=== PATIENT | female | born 1955 | race Caucasian/White ===

== ENCOUNTER 2016-11-04 15:54 | Outpatient (CLI) | payer BC | END 2016-11-04 15:55 | disposition home or self-care (01) | DX: M47.816 Spondylosis without myelopathy or radiculopathy, lumbar region (principal); M51.37 Other intervertebral disc degeneration, lumbosacral region ==

== ENCOUNTER 2016-12-28 11:04 | Outpatient (CLI) | payer BC | END 2016-12-28 11:05 | disposition home or self-care (01) | DX: K70.31 Alcoholic cirrhosis of liver with ascites (principal); Z87.898 Personal history of other specified conditions ==

== ENCOUNTER 2017-03-23 00:48 | Emergency (ER) | payer BC ==
--- NOTE | 2017-03-23 01:22 | ED Physician Documentation ---
PD HPI ABD PAIN - Stated complaint Stated Complaint: VOMITING - Chief complaint Chief Complaint: Abd Pain - History obtained from History obtained from: Patient - History of Present Illness Timing - onset: How many days ago (2-3) Timing - duration: Days Timing - details: Intermittant, Waxing and waning Pain level now: 8 (8: back (chronic); 3: abdomen, across upper abdomen) Quality: Pain Location: RUQ, Epigastric, LUQ, Periumbilical Radiation: Lower back Improved by: Other (no ameliorating factors) Worsened by: Eating, Position, Palpation Associated symptoms: Nausea, Vomiting - Additional information Additional information: patient complains of 2-3 days of nausea, vomiting. she has had difficulty keeping her chronic pain medications down, including oxycodone and oxycontin. she thus also c/o exacerbation of her chronic LBP. she says she contacted her prescribing physician regarding having vomited doses of her chronic pain medication and, per patient, was told to go to the emergency department Review of Systems Constitutional: reports: Reviewed and negative Cardiac: reports: Reviewed and negative Respiratory: reports: Reviewed and negative GI: reports: Abdominal Pain, Nausea, Vomiting : denies: Dysuria, Frequency Musculoskeletal: reports: Back pain Neurologic: reports: Headache. 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 HEENT: Other - Present Medications Home Medications: Ambulatory Orders Medication Instructions Recorded Confirmed Calcium Carbonate/Vitamin D3 400 mg PO DAILY 08/18/15 03/24/17 [Calcium 600 + Vit D 400 Softgl] Furosemide [Lasix] 20 mg PO DAILY 08/18/15 03/24/17 Lactobac Cmb #3/Fos/Pantethine 1 each PO BID PRN 08/18/15 03/24/17 [Probiotic & Acidophilus Cap] Levothyroxine [Synthroid] 100 mcg PO DAILY 08/18/15 03/24/17 Nadolol [Corgard] 20 mg PO DAILY 08/18/15 03/24/17 Omeprazole [PriLOSEC] 20 mg PO DAILY 08/18/15 03/24/17 Spironolactone 50 mg PO DAILY 08/18/15 03/24/17 oxyCODONE ER [OxyCONTIN] 10 mg PO Q12H 08/18/15 03/24/17 oxyCODONE [Roxicodone] 5 mg PO Q4-6H 08/18/15 03/24/17 Ondansetron Odt [Zofran] 4 mg TL Q6H PRN #14 tablet 03/23/17 03/24/17 oxyCODONE [Roxicodone] 5 mg PO Q4-6H PRN #8 tablet 03/23/17 03/24/17 - Allergies Allergies/Adverse Reactions: Allergies Allergy/AdvReac Type Severity Reaction Status Date / Time No Known Drug Allergies Allergy Verified 03/23/17 00:57 - Social History Does the pt smoke?: No Smoking Status: Never smoker Does the pt drink ETOH?: No Does the pt have substance abuse?: No - Immunizations Immunizations are current?: Yes PD ED PE NORMAL - Vitals Vital signs reviewed: Yes - General General: Alert and oriented X 3, No acute distress, Well developed/nourished - HEENT HEENT: Moist mucous membranes - Neck Neck: Supple, no meningeal sign - Cardiac Cardiac: RRR, No murmur - Respiratory Respiratory: No respiratory distress, Clear bilaterally - Abdomen Abdomen: Soft, Non distended, Other (mild tenderness across upper abdomen without rebound or guarding) - Back Back: No spinal TTP - Derm Derm: Normal color, Warm and dry - Extremities Extremities: Normal ROM s pain, No edema - Neuro Neuro: Alert and oriented X 3, No motor deficit, No sensory deficit, Normal speech Results - Vitals Vitals: Oxygen O2 Source [With Activity] Room air O2 Source [Without Activity] Room air O2 Source Room air - Labs Labs: Laboratory Tests 03/23/17 03/23/17 01:53 01:53 WBC 8.5 RBC 5.13 Hgb 14.9 Hct 43.8 MCV 85.3 MCH 29.0 MCHC 34.0 RDW 15.5 H Plt Count 247 MPV 7.9 Neut # 6.7 H Lymph # 1.1 L [place] # 0.4 Eos # 0.0 Baso # 0.3 H Absolute Nucleated RBC 0.01 Nucleated RBCs 0.1 Sodium 143 Potassium 3.3 L Chloride 107 Carbon Dioxide 24 Anion Gap 12.0 BUN 9 Creatinine 0.7 Estimated GFR (MDRD) 85 L Glucose 220 H Calcium 9.9 Total Bilirubin 1.3 H AST 30 ALT 21 Alkaline Phosphatase 92 Total Protein 9.1 H Albumin 4.6 Globulin 4.5 H Albumin/Globulin Ratio 1.0 Lipase 38 PD MEDICAL DECISION MAKING - ED course Complexity details: reviewed old records, reviewed results, re-evaluated patient , considered differential, d/w patient ED course: reported improvement after IV fluids, IV dilaudid, and zofran. she expressed concern that she would be running out of her prescription pain medication due to the doses she vomited. she says she has an appointment in 3 days, "so I wouldnt need much". I explained to her that i would not feel comfortable prescribing oxycontin, but that I would write for a small amount of oxycodone that should cover the missing doses. Departure - Departure Disposition: 01 Home, Self Care Clinical Impression: Vomiting Qualifiers: Vomiting type: unspecified Vomiting Intractability: non-intractable Nausea presence: with nausea Qualified Code(s): R11.2 - Nausea with vomiting, unspecified Abdominal pain Qualifiers: Abdominal location: generalized Qualified Code(s): R10.84 - Generalized abdominal pain Condition: Good Instructions: ED Nausea Vomiting Follow-Up: Eloisa Rashid MD [Primary Care Provider] - Prescriptions: oxyCODONE [Roxicodone] 5 mg PO Q4-6H PRN #8 tablet PRN Reason: Pain Ondansetron Odt [Zofran] 4 mg TL Q6H PRN #14 tablet PRN Reason: Nausea / Vomiting Discharge Date/Time: 03/23/17 06:33
[2017-03-23] MEDS ORDERED: ONDANSETRON 4 MG/2 ML VIAL IVP STA ×2 (01:41→05:18)
[2017-03-23] MEDS ORDERED: SODIUM CHLORIDE 0.9% 1,000 ML IV STA (01:41)
[2017-03-23] MEDS ORDERED: HYDROmorphone 1 MG/ML SYRINGE IVP STA ×3 (01:41→05:18)
[2017-03-23] MEDS ORDERED: HYDROmorphone 1 MG/ML SYRINGE ONE ×3 (01:46→05:44)
[2017-03-23] MEDS ORDERED: ONDANSETRON 4 MG/2 ML VIAL ONE ×2 (01:46→05:44)
[2017-03-23 02:01] LABS: BASOPHILS # (AUTO) 0.3 10^3/uL (0.0-0.1); BASOPHILS % (AUTO) 3.4 %; EOSINOPHILS % (AUTO) 0.2 %; HCT - HEMATOCRIT 43.8 % (37.0-47.0); HGB - HEMOGLOBIN 14.9 g/dL (12.0-16.0); LYMPHOCYTES # (AUTO) 1.1 10^3/uL (1.5-3.5); LYMPHOCYTES % (AUTO) 13.1 %; MEAN CORPUSCULAR VOLUME 85.3 fL (81.0-99.0); MEAN PLATELET VOLUME 7.9 fL (7.9-10.8); MONOCYTES # (AUTO) 0.4 10^3/uL (0.0-1.0); MONOCYTES % (AUTO) 4.3 %; NEUTROPHILS # (AUTO) 6.7 10^3/uL (1.5-6.6); NUCLEATED RED BLOOD CELLS AUTO 0.1 /100WBC; RED BLOOD COUNT 5.13 10^6/uL (4.20-5.40); RED CELL DISTRIBUTION WIDTH 15.5 % (12.0-15.0); UNCORRECTED WHITE BLOOD COUNT 8.5 x10^3/uL; WHITE BLOOD COUNT 8.5 x10^3/uL (4.8-10.8)
[2017-03-23 02:29] LABS: BILIRUBIN,TOTAL 1.3 mg/dL (0.2-1.0); CALCIUM 9.9 mg/dL (8.5-10.3); CREATININE 0.7 mg/dL (0.4-1.0); POTASSIUM 3.3 mmol/L (3.5-5.0); TOTAL PROTEIN 9.1 g/dL (6.7-8.2)
[2017-03-23 06:33] VITALS: BP 165/90
== END 2017-03-23 06:33 | disposition home or self-care (01) ==
LOC: ED 00:48
DX: R11.2 Nausea with vomiting, unspecified (principal); R10.84 Generalized abdominal pain; G89.29 Other chronic pain; Z96.649 Presence of unspecified artificial hip joint; Z96.659 Presence of unspecified artificial knee joint
CPT/HCPCS: 36415; 80053; 83690; 85025; 96374; 96375; 96376; 99282; 99284; J1170

== ENCOUNTER 2017-03-24 16:56 | Emergency (ER) | payer BC ==
[2017-03-24] MEDS ORDERED: SODIUM CHLORIDE 0.9% 1,000 ML IV ONE ×2 (18:17)
[2017-03-24] MEDS ORDERED: SODIUM CHLORIDE FLUSH 0.9% 10 ML SYRINGE IVP ONE (18:27)
[2017-03-24] MEDS ORDERED: ONDANSETRON 4 MG/2 ML VIAL IVP STA (18:28)
[2017-03-24] MEDS ORDERED: HYDROmorphone 1 MG/ML SYRINGE IVP STA ×2 (18:28→19:57)
[2017-03-24] MEDS ORDERED: ONDANSETRON 4 MG/2 ML VIAL ONE (18:50)
[2017-03-24] MEDS ORDERED: HYDROmorphone 1 MG/ML SYRINGE ONE ×2 (18:50→20:02)
[2017-03-24 19:07] LABS: BASOPHILS # (AUTO) 0.1 10^3/uL (0.0-0.1); BASOPHILS % (AUTO) 1.3 %; EOSINOPHILS # (AUTO) 0.1 10^3/uL (0.0-0.7); EOSINOPHILS % (AUTO) 0.8 %; HCT - HEMATOCRIT 42.9 % (37.0-47.0); HGB - HEMOGLOBIN 14.6 g/dL (12.0-16.0); LYMPHOCYTES # (AUTO) 2.4 10^3/uL (1.5-3.5); LYMPHOCYTES % (AUTO) 26.2 %; MEAN CORPUSCULAR HEMOGLOBIN 29.2 pg (27.0-31.0); MEAN CORPUSCULAR VOLUME 85.8 fL (81.0-99.0); MEAN PLATELET VOLUME 7.7 fL (7.9-10.8); MONOCYTES # (AUTO) 0.8 10^3/uL (0.0-1.0); MONOCYTES % (AUTO) 8.8 %; NEUTROPHILS # (AUTO) 5.8 10^3/uL (1.5-6.6); NEUTROPHILS % (AUTO) 62.9 %; NUCLEATED RED BLOOD CELLS AUTO 0.1 /100WBC; RED CELL DISTRIBUTION WIDTH 15.2 % (12.0-15.0); UNCORRECTED WHITE BLOOD COUNT 9.1 x10^3/uL; WHITE BLOOD COUNT 9.1 x10^3/uL (4.8-10.8)
[2017-03-24 19:21] LABS: ALBUMIN/GLOBULIN RATIO 1.2 (1.0-2.2); BILIRUBIN,TOTAL 1.6 mg/dL (0.2-1.0); CALCIUM 9.4 mg/dL (8.5-10.3); CREATININE 0.6 mg/dL (0.4-1.0); MAGNESIUM 1.3 mg/dL (1.7-2.8); PHOSPHORUS 3.5 mg/dL (2.5-4.6); POTASSIUM 2.8 mmol/L (3.5-5.0); TOTAL PROTEIN 7.4 g/dL (6.7-8.2)
[2017-03-24] MEDS ORDERED: IOPAMIDOL-300 100 ML VIAL IVP ONE (19:22)
--- NOTE | 2017-03-24 20:02 | CT Preliminary Report ---
Exam: CT Abdomen/Pelvis W/ IMPRESSION: 1. Liver cirrhosis. 2. No ascites. 3. Mild sigmoid diverticulosis without evidence for acute diverticulitis. 4. No evidence for bowel obstruction. 5. Status post cholecystectomy. Mild common duct dilatation measuring 8 mm. 6. Otherwise, as above. [facility] SITE ID: [id number]
--- NOTE | 2017-03-24 20:04 | CT Report ---
EXAM: CT ABDOMEN AND PELVIS EXAM DATE: 03/24/2017 07:27 PM. CLINICAL HISTORY: Abdominal pain and vomiting. COMPARISONS: Abdomen US 12/28/16. TECHNIQUE: Routine helical CT imaging was performed through the abdomen and pelvis. IV contrast: 100 mL Isovue-300. Enteric contrast: No. Reconstructions: Coronal and sagittal. In accordance with CT protocol optimization, one or more of the following dose reduction techniques w ere utilized for this exam: automated exposure control, adjustment of mA and/or KV based on patient s ize, or use of iterative reconstructive technique. FINDINGS: Lung Bases: No acute findings. Liver: Shrunken cirrhotic liver with irregular contour. Gallbladder/Bile Ducts: Status post cholecystectomy. Mild common duct dilatation measuring 8 mm. Spleen: Small nonspecific low density at the lower aspect of the spleen measuring 5 mm. More superior ly there is a low density mass, most suggestive for splenic cyst, measures 1 cm. Pancreas: Normal. Adrenal Glands: Normal. Kidneys: No masses or hydronephrosis. Peritoneal Cavity/Bowel: Mild sigmoid diverticulosis without evidence for acute diverticulitis. No ev idence for bowel obstruction. No free fluid or free air. The appendix is not seen. Pelvic Organs: Normal. The bladder and visualized pelvic organs are within normal limits. Vasculature: No abdominal aortic aneurysm. No acute findings. Bones: Right total hip arthroplasty. The metal artifact limits evaluation of the pelvis. No acute bon e findings seen. IMPRESSION: 1. Liver cirrhosis. 2. No ascites. 3. Mild sigmoid diverticulosis without evidence for acute diverticulitis. 4. No evidence for bowel obstruction. 5. Status post cholecystectomy. Mild common duct dilatation measuring 8 mm. 6. Otherwise, as above. [facility] Referring Provider Line: [phone] SITE ID: [id number]
[2017-03-24] MEDS ORDERED: diphenhydrAMINE 25 MG CAPSULE PO STA (20:22)
[2017-03-24] MEDS ORDERED: diphenhydrAMINE 25 MG CAPSULE PO ONE (20:27)
[2017-03-24] MEDS ORDERED: POTASSIUM BICARB 25 MEQ TABLET PO STA (20:28)
[2017-03-24] MEDS ORDERED: MAGNESIUM OXIDE 400 MG TABLET PO STA (20:31)
[2017-03-24] MEDS ORDERED: POTASSIUM BICARB 25 MEQ TABLET PO ONE (20:38)
[2017-03-24] MEDS ORDERED: MAGNESIUM OXIDE 400 MG TABLET PO ONE (20:38)
--- NOTE | 2017-03-24 21:43 | ED Physician Documentation ---
History of Present Illness - Stated complaint Stated Complaint: RAJPUT DEHYDRATION - Chief complaint Chief Complaint: Abd Pain - History obtained from History obtained from: Patient, Family - History of Present Illness Timing: How many days ago (several) Pain level max: 8 Pain level now: 8 Quality: aching, cramping Improved by: nothing Worsened by: nothing - Additonal information Additional information: 61-year-old female presents to the emergency department with nausea and vomiting. States she is out of her narcotic pain medications including oxycodone and OxyContin. States that she does not feel that her vomiting is due to running out of her pain medication. No fevers. No recent travel. Has had some loose stools. No recent antibiotics. Was seen here 2 days ago for same. Review of Systems Constitutional: denies: Fever, Chills Throat: denies: Sore throat Cardiac: denies: Chest pain / pressure Respiratory: denies: Cough GI: reports: Nausea, Vomiting Skin: denies: Rash Musculoskeletal: denies: Neck pain, Back pain Neurologic: denies: Headache PD PAST MEDICAL HISTORY - Past Medical History Past Medical History: Yes Cardiovascular: Hypertension Respiratory: None Endocrine/Autoimmune: HyPOthyroidism GI: GERD, Ulcers, Other : None HEENT: Other Psych: None Musculoskeletal: Fibromyalgia, Osteoporosis, Chronic back pain, Other Derm: None - Past Surgical History Past Surgical History: Yes General: Cholecystectomy 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 HEENT: Other - Present Medications Home Medications: Ambulatory Orders Medication Instructions Recorded Confirmed Calcium Carbonate/Vitamin D3 400 mg PO DAILY 08/18/15 03/24/17 [Calcium 600 + Vit D 400 Softgl] Furosemide [Lasix] 20 mg PO DAILY 08/18/15 03/24/17 Lactobac Cmb #3/Fos/Pantethine 1 each PO BID PRN 08/18/15 03/24/17 [Probiotic & Acidophilus Cap] Levothyroxine [Synthroid] 100 mcg PO DAILY 08/18/15 03/24/17 Nadolol [Corgard] 20 mg PO DAILY 08/18/15 03/24/17 Omeprazole [PriLOSEC] 20 mg PO DAILY 08/18/15 03/24/17 Spironolactone 50 mg PO DAILY 08/18/15 03/24/17 oxyCODONE ER [OxyCONTIN] 10 mg PO Q12H 08/18/15 03/24/17 oxyCODONE [Roxicodone] 5 mg PO Q4-6H 08/18/15 03/24/17 Ondansetron Odt [Zofran] 4 mg TL Q6H PRN #14 tablet 03/23/17 03/24/17 oxyCODONE [Roxicodone] 5 mg PO Q4-6H PRN #8 tablet 03/23/17 03/24/17 Ondansetron Odt [Zofran] 4 mg TL Q6H PRN #10 tablet 03/24/17 oxyCODONE [Roxicodone] 5 mg PO Q4-6H PRN #20 tablet 03/24/17 - Allergies Allergies/Adverse Reactions: Allergies Allergy/AdvReac Type Severity Reaction Status Date / Time No Known Drug Allergies Allergy Verified 03/23/17 00:57 - Social History Does the pt smoke?: No Smoking Status: Never smoker Does the pt drink ETOH?: No Does the pt have substance abuse?: No - Immunizations Immunizations are current?: Yes PD ED PE NORMAL - Vitals Vital signs reviewed: Yes - General General: Alert and oriented X 3, No acute distress - HEENT HEENT: PERRL - Neck Neck: Supple, no meningeal sign - Cardiac Cardiac: RRR, Strong equal pulses - Respiratory Respiratory: No respiratory distress, Clear bilaterally - Abdomen Abdomen: Soft, Non tender, Non distended - Derm Derm: Warm and dry, No rash - Extremities Extremities: No edema - Neuro Neuro: Alert and oriented X 3 - Psych Psych: Normal mood, Normal affect Results - Vitals Vitals: Vital Signs - 24 hr 03/24/17 03/24/17 03/24/17 17:07 19:47 20:11 Temperature 36.9 C Heart Rate 70 58 L 67 Respiratory 16 18 18 Rate Blood Pressure 155/107 H 182/77 H 130/93 H O2 Saturation 96 97 98 03/24/17 22:01 Temperature 36.6 C Heart Rate 68 Respiratory 18 Rate Blood Pressure 142/99 H O2 Saturation 96 Oxygen O2 Source [With Activity] Room air O2 Source [Without Activity] Room air O2 Source Room air - Labs Labs: Laboratory Tests 03/24/17 03/24/17 19:00 19:00 WBC 9.1 RBC 5.00 Hgb 14.6 Hct 42.9 MCV 85.8 MCH 29.2 MCHC 34.0 RDW 15.2 H Plt Count 209 MPV 7.7 L Neut # 5.8 Lymph # 2.4 [place] # 0.8 Eos # 0.1 Baso # 0.1 Absolute Nucleated RBC 0.01 Nucleated RBCs 0.1 Sodium 139 Potassium 2.8 L Chloride 104 Carbon Dioxide 25 Anion Gap 10.0 BUN 7 Creatinine 0.6 Estimated GFR (MDRD) 102 Glucose 155 H Calcium 9.4 Phosphorus 3.5 Magnesium 1.3 L Total Bilirubin 1.6 H AST 48 H ALT 31 Alkaline Phosphatase 85 Total Protein 7.4 Albumin 4.0 Globulin 3.4 Albumin/Globulin Ratio 1.2 Lipase 41 - Rads (name of study) CT abd/pelvis Radiology: Prelim report reviewed, EMP read contemporaneously, See rad report ( Liver cirrhosis. No ascites. Mild sigmoid diverticulosis without evidence for acute diverticulitis. No evidence for bowel obstruction. Status post cholecystectomy. Mild common duct dilatation measuring 8 mm. Otherwise, as above. ) PD MEDICAL DECISION MAKING - ED course Complexity details: reviewed old records, reviewed results, re-evaluated patient , considered differential, d/w patient, d/w family ED course: Patient is a 61-year-old female with recurrent vomiting. Likely secondary to narcotic withdrawal. Symptoms resolved in the emergency department with IV fluids, Zofran and Dilaudid. She is out of her pain medications until she can see her doctor on Tuesday. Will prescribe a small amount of oxycodone that she will need to make last during that time. Tolerating p.o. without difficulty here. Potassium was replaced. Patient counseled regarding signs and symptoms for which I believe and urgent re-evaluation would be necessary. Patient with good understanding of and agreement to plan and is comfortable going home at this time This document was made in part using voice recognition software. While efforts are made to proofread this document, sound alike and grammatical errors may occur. Departure - Departure Disposition: 01 Home, Self Care Clinical Impression: Abdominal pain Qualifiers: Abdominal location: unspecified location Qualified Code(s): R10.9 - Unspecified abdominal pain Vomiting Qualifiers: Vomiting type: unspecified Vomiting Intractability: non-intractable Nausea presence: with nausea Qualified Code(s): R11.2 - Nausea with vomiting, unspecified Condition: Good Instructions: ED Nausea Vomiting Follow-Up: RICHARD MCNAMARA [Primary Care Provider] - Within 3 Days Prescriptions: oxyCODONE [Roxicodone] 5 mg PO Q4-6H PRN #20 tablet PRN Reason: Abdominal Pain Ondansetron Odt [Zofran] 4 mg TL Q6H PRN #10 tablet PRN Reason: Nausea / Vomiting Comments: Return if you worsen. Drink plenty of fluids and rest. Follow-up with your doctor for further pain medication. Return if you worsen. Drink plenty of fluids and rest. Follow-up with your doctor for further pain medication. Do not drink alcohol or drive while on narcotic pain medicine. Note that many narcotic pain relievers also contain tylenol/acetaminophen. Please ensure that your total dose of acetaminophen from all sources does not exceed 3 grams (3000mg) per day. You may constipated on this medication, take a stool softener such as "Colace" twice a day while you are on it. Also recommend a pczj-hgh-qhuidro laxative such as senna or MiraLAX any day that you do not have a bowel movement. If you received narcotic pain medication in the emergency department, do not drive or operate machinery for the next 24 hours. Discharge Date/Time: 03/24/17 22:03
[2017-03-24 22:01] VITALS: BP 142/99
== END 2017-03-24 22:03 | disposition home or self-care (01) ==
LOC: ED 16:56
DX: R10.9 Unspecified abdominal pain (principal); R11.2 Nausea with vomiting, unspecified; I10 Essential (primary) hypertension; Z96.659 Presence of unspecified artificial knee joint; Z96.649 Presence of unspecified artificial hip joint
CPT/HCPCS: 36415; 74177; 80053; 83690; 83735; 84100; 85025; 96374; 96375; 96376; 99283; 99284; A9270; J1170; Q9967

== ENCOUNTER 2017-09-25 11:11 | Emergency (ER) | payer OTHER ==
[2017-09-25 11:29] VITALS: BP 125/73
[2017-09-25 12:37] LABS: BASOPHILS # (AUTO) 0.1 10^3/uL (0.0-0.1); BASOPHILS % (AUTO) 0.6 %; EOSINOPHILS # (AUTO) 0.1 10^3/uL (0.0-0.7); HGB - HEMOGLOBIN 13.9 g/dL (12.0-16.0); LYMPHOCYTES # (AUTO) 1.1 10^3/uL (1.5-3.5); LYMPHOCYTES % (AUTO) 9.9 %; MEAN CORPUSCULAR HGB CONC 34.4 g/dL (32.0-36.0); MEAN CORPUSCULAR VOLUME 87.2 fL (81.0-99.0); MEAN PLATELET VOLUME 8.6 fL (7.9-10.8); MONOCYTES % (AUTO) 9.4 %; NEUTROPHILS # (AUTO) 8.5 10^3/uL (1.5-6.6); NEUTROPHILS % (AUTO) 79.1 %; PLT - PLATELET COUNT 192 10^3/uL (130-450); RED BLOOD COUNT 4.64 10^6/uL (4.20-5.40); RED CELL DISTRIBUTION WIDTH 14.3 % (12.0-15.0); WHITE BLOOD COUNT 10.8 x10^3/uL (4.8-10.8)
--- NOTE | 2017-09-25 13:00 | ED Physician Documentation ---
PD HPI PED ILLNESS - Stated complaint Stated Complaint: FLU LIKE SYMPTOM - Chief complaint Chief Complaint: Resp - History obtained from History obtained from: Patient, Family - History of Present Illness Timing - onset: Other (She has been sick since August 10 cough and cold symptoms. He was getting better but then recurred about a week and a half ago with increased fevers and continued green sinus drainage and productive cough. She was diagnosed with influenza and placed on Tamiflu, she finished that about 5 days ago but is no better. Mostly complains of productive cough and chest tightness.) Review of Systems Constitutional: reports: Fever, Chills Ears: denies: Ear pain Nose: reports: Rhinorrhea / runny nose, Congestion, Sinus pressure / pain Throat: denies: Sore throat Respiratory: reports: Dyspnea, Cough GI: denies: Abdominal Pain, Nausea, Vomiting PD PAST MEDICAL HISTORY - Past Medical History Past Medical History: Yes Cardiovascular: Hypertension Respiratory: None Endocrine/Autoimmune: HyPOthyroidism GI: GERD, Ulcers, Other : None HEENT: Other Psych: None Musculoskeletal: Fibromyalgia, Osteoporosis, Chronic back pain, Other Derm: None - Past Surgical History Past Surgical History: Yes General: Cholecystectomy 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, 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 HEENT: Other - Present Medications Home Medications: Ambulatory Orders Medication Instructions Recorded Confirmed Calcium Carbonate/Vitamin D3 400 mg PO DAILY 08/18/15 09/25/17 [Calcium 600 + Vit D 400 Softgl] Furosemide [Lasix] 20 mg PO DAILY 08/18/15 09/25/17 Lactobac Cmb #3/Fos/Pantethine 1 each PO BID PRN 08/18/15 09/25/17 [Probiotic & Acidophilus Cap] Levothyroxine [Synthroid] 100 mcg PO DAILY 08/18/15 09/25/17 Nadolol [Corgard] 20 mg PO DAILY 08/18/15 09/25/17 Omeprazole [PriLOSEC] 20 mg PO DAILY 08/18/15 09/25/17 Spironolactone 50 mg PO DAILY 08/18/15 09/25/17 oxyCODONE ER [OxyCONTIN] 10 mg PO Q12H 08/18/15 09/25/17 oxyCODONE [Roxicodone] 5 mg PO Q4-6H 08/18/15 09/25/17 Ondansetron Odt [Zofran] 4 mg TL Q6H PRN #14 tablet 03/23/17 09/25/17 Azithromycin [Zithromax] 250 mg PO DAILY #4 tablet 09/25/17 SUMAtriptan [Imitrex] 25 mg PO BID PRN #10 tablet 09/25/17 - Allergies Allergies/Adverse Reactions: Allergies Allergy/AdvReac Type Severity Reaction Status Date / Time No Known Drug Allergies Allergy Verified 09/25/17 11:35 - Social History Does the pt smoke?: No Smoking Status: Never smoker Does the pt drink ETOH?: No Does the pt have substance abuse?: No - Immunizations Immunizations are current?: Yes - POLST Patient has POLST: No PD ED PE NORMAL - Vitals Vital signs reviewed: Yes - General General: Alert and oriented X 3, No acute distress - HEENT HEENT: PERRL, EOMI, Ears normal, Pharynx benign - Neck Neck: Supple, no meningeal sign, No bony TTP - Cardiac Cardiac: RRR, No murmur - Respiratory Respiratory: No respiratory distress, Other (Very diminished at the left base) - Abdomen Abdomen: Non tender - Derm Derm: Normal color, Warm and dry - Extremities Extremities: No edema, No calf tenderness / cord - Neuro Neuro: Alert and oriented X 3, Normal speech - Psych Psych: Normal mood, Normal affect Results - Vitals Vitals: Vital Signs - 24 hr 09/25/17 11:27 Temperature 36.3 C L Heart Rate 62 Respiratory 18 Rate Blood Pressure 125/73 O2 Saturation 96 Oxygen O2 Source [] Room air O2 Source [] Room air O2 Source Room air - EKG (time done) 1131 Rate: Rate (enter#) (57) Rhythm: NSR [place]: Normal Intervals: Normal [place] QRS: Normal Ischemia: Normal ST segments Computer interpretation: Agree with computer - Labs Labs: Laboratory Tests 09/25/17 09/25/17 12:32 12:32 WBC 10.8 RBC 4.64 Hgb 13.9 Hct 40.4 MCV 87.2 MCH 30.0 MCHC 34.4 RDW 14.3 Plt Count 192 MPV 8.6 Neut # 8.5 H Lymph # 1.1 L [place] # 1.0 Eos # 0.1 Baso # 0.1 Absolute Nucleated RBC 0.00 Nucleated RBC % 0.0 Sodium 128 L Potassium 3.8 Chloride 93 L Carbon Dioxide 21 Anion Gap 14.0 H BUN 10 Creatinine 0.7 Estimated GFR (MDRD) 85 L Glucose 366 H Calcium 9.0 Total Bilirubin 1.4 H AST 24 ALT 12 Alkaline Phosphatase 81 Total Protein 8.0 Albumin 3.5 Globulin 4.5 H Albumin/Globulin Ratio 0.8 L Lipase 21 L - Rads (name of study) 2v chest Radiology: EMP read contemporaneously (LLL JW) PD MEDICAL DECISION MAKING - ED course ED course: 62-year-old woman with clinical left lower lobe pneumonia corroborated on chest x-ray. She has a history of C. difficile, Zithromax less likely to give that than others and this is chosen. She also has elevated blood sugar. She is given a small dose of insulin but close follow-up was advised. No evidence of DKA. Departure - Departure Disposition: 01 Home, Self Care Clinical Impression: History of cirrhosis, Hyperglycemia Pneumonia Qualifiers: Pneumonia type: due to unspecified organism Laterality: left Lung location: lower lobe of lung Qualified Code(s): J18.1 - Lobar pneumonia, unspecified organism Condition: Good Record reviewed to determine appropriate education?: Yes Instructions: Pneumonia Dc Prescriptions: Azithromycin [Zithromax] 250 mg PO DAILY #4 tablet SUMAtriptan [Imitrex] 25 mg PO BID PRN #10 tablet PRN Reason: Headache Comments: Your blood sugar was fairly elevated today, follow-up with your doctor tomorrow or Tuesday regarding this and for follow-up of your left lower lobe pneumonia. Return anytime if worse. Discharge Date/Time: 09/25/17 14:54
[2017-09-25 13:06] LABS: ALBUMIN 3.5 g/dL (3.2-5.5); ALBUMIN/GLOBULIN RATIO 0.8 (1.0-2.2); BILIRUBIN,TOTAL 1.4 mg/dL (0.2-1.0); CREATININE 0.7 mg/dL (0.4-1.0)
--- NOTE | 2017-09-25 14:15 | XRAY Report ---
EXAM: CHEST RADIOGRAPHY EXAM DATE: 09/25/2017 02:03 PM. CLINICAL HISTORY: Cough. Chest pain. Shortness of air. COMPARISON: 07/12/2016. TECHNIQUE: 2 views. FINDINGS: Lungs/Pleura: Left medial posterior lower lobe airspace consolidation. No pleural effusions. No pneum othorax. Mediastinum: Heart size is normal. Aorta is mildly tortuous. Other: Degenerative changes of the thoracic spine. IMPRESSION: 1. Left lower lobe pneumonia. [facility] Referring Provider Line: [phone] SITE ID: [id number]
[2017-09-25] MEDS ORDERED: AZITHROMYCIN 250 MG TABLET PO STA (14:22)
[2017-09-25] MEDS ORDERED: METOCLOPRAMIDE 10 MG TABLET PO STA (14:22)
[2017-09-25] MEDS ORDERED: INSULIN NPH HUMAN 100 UNIT/1 ML 10 ML MDV SUBQ STA (14:22)
== END 2017-09-25 14:54 | disposition home or self-care (01) ==
LOC: ED 11:11
DX: R73.9 Hyperglycemia, unspecified (principal); K74.60 Unspecified cirrhosis of liver; J18.9 Pneumonia, unspecified organism; I10 Essential (primary) hypertension; E03.9 Hypothyroidism, unspecified; Z96.649 Presence of unspecified artificial hip joint; Z96.659 Presence of unspecified artificial knee joint
CPT/HCPCS: 36415; 71046; 80053; 83690; 85025; 93005; 99283; 99284; A9270; J1815

== ENCOUNTER 2017-10-04 20:51 | Emergency (ER) | payer OTHER ==
[2017-10-04] MEDS ORDERED: ONDANSETRON 4 MG/2 ML VIAL IVP STA (23:02)
[2017-10-04] MEDS ORDERED: MORPHINE 2 MG/ML CARPUJECT IVP STA (23:02)
[2017-10-04] MEDS ORDERED: SODIUM CHLORIDE 0.9% 1,000 ML IV ONE (23:02)
--- NOTE | 2017-10-04 23:05 | ED Physician Documentation ---
PD HPI NVD - Stated complaint Stated Complaint: CHEST PX/VOMITING - Chief complaint Chief Complaint: Abd Pain - History obtained from History obtained from: Patient, Family - History of Present Illness Timing - onset: How many days ago (3) Timing - duration: Days (3) Timing - details: Gradual onset, Still present Associated symptoms: Loss of appetite, Weight loss, Other (vomiting non-stop) Contributing factors: Recent antibiotics, Other (on pain managment unable to take pain medications) Improved by: Laying still Similar symptoms before: Treatment (IV fluids and pain medications) Recently seen: Emergency Dept - Additonal information Additional information: 62-year-old female is been ill since 10 August. She started out with bronchitis then developed pneumonia she has been treated for pneumonia through the emergency department here on September 25 with a azithromycin. She feels the pneumonia is much improved she is not coughing as much is not bringing up as much phlegm and she did not have as much shortness of breath. She has developed nausea and vomiting and she is on pain control and her vomiting is now out of control. She has lost about 15 pounds. Review of Systems Constitutional: denies: Fever Eyes: denies: Decreased vision Ears: denies: Ear pain Nose: denies: Congestion Throat: denies: Sore throat Cardiac: denies: Chest pain / pressure, Palpitations Respiratory: reports: Cough. denies: Dyspnea GI: reports: Nausea, Vomiting. denies: Abdominal Pain : denies: Dysuria, Frequency Skin: denies: Rash Musculoskeletal: reports: Back pain, Extremity pain, Joint pain. denies: Neck pain Neurologic: reports: Generalized weakness. 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 HEENT: Other - Present Medications Home Medications: Ambulatory Orders Medication Instructions Recorded Confirmed Calcium Carbonate/Vitamin D3 400 mg PO DAILY 08/18/15 09/25/17 [Calcium 600 + Vit D 400 Softgl] Furosemide [Lasix] 20 mg PO DAILY 08/18/15 09/25/17 Lactobac Cmb #3/Fos/Pantethine 1 each PO BID PRN 08/18/15 09/25/17 [Probiotic & Acidophilus Cap] Levothyroxine [Synthroid] 100 mcg PO DAILY 08/18/15 09/25/17 Nadolol [Corgard] 20 mg PO DAILY 08/18/15 09/25/17 Omeprazole [PriLOSEC] 20 mg PO DAILY 08/18/15 09/25/17 Spironolactone 50 mg PO DAILY 08/18/15 09/25/17 oxyCODONE ER [OxyCONTIN] 10 mg PO Q12H 08/18/15 09/25/17 oxyCODONE [Roxicodone] 5 mg PO Q4-6H 08/18/15 09/25/17 Ondansetron Odt [Zofran] 4 mg TL Q6H PRN #14 tablet 03/23/17 09/25/17 Azithromycin [Zithromax] 250 mg PO DAILY #4 tablet 09/25/17 SUMAtriptan [Imitrex] 25 mg PO BID PRN #10 tablet 09/25/17 Levofloxacin [Levaquin] 500 mg PO DAILY #10 tablet 10/05/17 Oxycodone HCl/Acetaminophen 1 each PO Q4HR PRN #8 tablet 10/05/17 [Oxycodone-Acetaminophen 10-325] - Allergies Allergies/Adverse Reactions: Allergies Allergy/AdvReac Type Severity Reaction Status Date / Time No Known Drug Allergies Allergy Verified 10/04/17 21:19 - Social History Does the pt smoke?: No Smoking Status: Never smoker Does the pt drink ETOH?: No Does the pt have substance abuse?: No - Immunizations Immunizations are current?: Yes - POLST Patient has POLST: No PD ED PE NORMAL - Vitals Vital signs reviewed: Yes (Hypertensive) - General General: Alert and oriented X 3, No acute distress, Well developed/nourished - HEENT HEENT: Atraumatic, PERRL, EOMI - Neck Neck: Supple, no meningeal sign, No bony TTP - Cardiac Cardiac: RRR, No murmur - Respiratory Respiratory: No respiratory distress, Other (Marked rhonchi in the left base) - Abdomen Abdomen: Soft, Non tender - Back Back: No CVA TTP, No spinal TTP - Derm Derm: Normal color, Warm and dry, No rash - Extremities Extremities: No deformity, No edema - Neuro Neuro: Alert and oriented X 3, 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, No motor deficit, No sensory deficit, Normal speech Eye Opening: Spontaneous Motor: Obeys Commands Verbal: Oriented GCS Score: 15 - Psych Psych: Normal mood, Normal affect Results - Vitals Vitals: Vital Signs - 24 hr 10/04/17 10/04/17 10/04/17 20:56 22:15 22:53 Temperature 36.7 C Heart Rate 61 94 60 Respiratory 18 13 16 Rate Blood Pressure 199/101 H 194/110 H 176/114 H O2 Saturation 96 97 97 10/04/17 10/04/17 10/04/17 23:23 23:46 23:55 Temperature Heart Rate 59 L 57 L 57 L Respiratory 15 16 12 Rate Blood Pressure 196/107 H 196/107 H 180/92 H O2 Saturation 96 97 96 10/05/17 10/05/17 10/05/17 00:26 01:20 02:28 Temperature Heart Rate 57 L 65 60 Respiratory 12 17 14 Rate Blood Pressure 177/85 H 174/95 H 176/106 H O2 Saturation 96 98 95 10/05/17 10/05/17 03:26 03:34 Temperature Heart Rate 80 75 Respiratory 17 17 Rate Blood Pressure 156/96 H 128/90 H O2 Saturation 95 94 Oxygen O2 Source [] Room air O2 Source [] Room air O2 Source Room air - EKG (time done) 2054 Rate: Rate (enter#) (57) Rhythm: NSR Other comments: Other comments (early transition ) Compare to prior EKG: Unchanged from prior EKG (09-25-17) Computer interpretation: Agree with computer - Labs Labs: Laboratory Tests 10/04/17 10/04/17 10/04/17 21:40 21:40 21:40 WBC 10.7 RBC 5.73 H Hgb 16.2 H Hct 49.2 H MCV 85.8 MCH 28.3 MCHC 33.0 RDW 14.5 Plt Count 590 H MPV 8.0 Neut # 8.1 H Lymph # 2.0 [place] # 0.5 Eos # 0.0 Baso # 0.0 Absolute Nucleated RBC 0.02 Nucleated RBC % 0.2 Sodium 137 Potassium 3.9 Chloride 93 L Carbon Dioxide 28 Anion Gap 16.0 H BUN 13 Creatinine 1.0 Estimated GFR (MDRD) 56 L Glucose 196 H Calcium 10.3 Total Bilirubin 1.2 H AST 32 ALT 24 Alkaline Phosphatase 100 Troponin I < 0.04 Total Protein 8.5 H Albumin 3.7 Globulin 4.8 H Albumin/Globulin Ratio 0.8 L Lipase 27 Urine Color Urine Clarity Urine pH Ur Specific [place] Urine Protein Urine Glucose (UA) Urine Ketones Urine Occult Blood Urine Nitrite Urine Bilirubin Urine Urobilinogen Ur Leukocyte Esterase Urine RBC Urine WBC Ur Squamous Epith Cells Urine Bacteria Urine Casts Urine Mucus Ur Microscopic Review Urine Culture Comments 10/05/17 00:20 WBC RBC Hgb Hct MCV MCH MCHC RDW Plt Count MPV Neut # Lymph # [place] # Eos # Baso # Absolute Nucleated RBC Nucleated RBC % Sodium Potassium Chloride Carbon Dioxide Anion Gap BUN Creatinine Estimated GFR (MDRD) Glucose Calcium Total Bilirubin AST ALT Alkaline Phosphatase Troponin I Total Protein Albumin Globulin Albumin/Globulin Ratio Lipase Urine Color DARK YELLOW Urine Clarity CLEAR Urine pH 6.0 Ur Specific [place] >=1.030 H Urine Protein NEGATIVE Urine Glucose (UA) NEGATIVE Urine Ketones TRACE Urine Occult Blood NEGATIVE Urine Nitrite NEGATIVE Urine Bilirubin NEGATIVE Urine Urobilinogen 0.2 (NORMAL) Ur Leukocyte Esterase TRACE H Urine RBC 0-5 Urine WBC 4-5 Ur Squamous Epith Cells MOD Squamous H Urine Bacteria None Seen Urine Casts 3-5 Hyaline Casts Urine Mucus Moderate Strands Ur Microscopic Review INDICATED Urine Culture Comments NOT INDICATED - Rads (name of study) 2 view chest Radiology: Prelim report reviewed (Persistent left lower lobe infiltrate. Recommend radiologic follow-up to show complete resolution.), EMP read indepedently, See rad report Procedures - IVC sono (time) 2129 Bedside IVC sono: IVC measures (cm) (0.84), IVC collapsed c insp (cm) (complete) , Dehydration (est 2 liter deficit) PD MEDICAL DECISION MAKING - ED course Complexity details: reviewed old records, reviewed results, re-evaluated patient , considered differential, d/w patient, d/w family ED course: 62-year-old female on pain management has developed pneumonia in the left base. She was treated with azithromycin and feels that her symptoms improved dramatically. She has been vomiting however and continues to vomit and feels extremely dehydrated. She is on pain management and has not been able to hold down her pain medications. On examination she has marked rhonchi in the left base and on chest x-ray the infiltrate in the left base appears worse than it did 10 days ago. The patient has not had fever she has normal white blood cell count and her symptoms are improved. The radiographic appearance of the pneumonia is worse and further treatment is indicated. 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 She is interested in more aggressive treatment as she has been sick for 2 months. She is administered IV Rocephin and we will start her on Levaquin as an outpatient. She is significantly dehydrated on interrogation of the inferior vena cava and she is administered 2 L of normal saline. In addition she is administered morphine 10 mg with some improvement in her nausea and she has further improvement with a second 10 mg dose. She is taking OxyContin 20 mg 3 times daily and oxycodone 10 mg 6 per day. She indicates that she will not get a fill on her narcotics until the . This leaves her 1 day short and I believe that she will not do well with nausea and vomiting in withdrawal and have offered to provide 1 day of oxycodone 10. Departure - Departure Disposition: 01 Home, Self Care Clinical Impression: Dehydration, Narcotic withdrawal Pneumonia Qualifiers: Pneumonia type: due to unspecified organism Laterality: left Lung location: lower lobe of lung Qualified Code(s): J18.1 - Lobar pneumonia, unspecified organism Condition: Stable Instructions: ED Dehydration, ED Pneumonia Adult, ED Withdrawal Narcotic Follow-Up: Darren Kaye DO [Primary Care Provider] - Prescriptions: Oxycodone HCl/Acetaminophen [Oxycodone-Acetaminophen 10-325] 1 each PO Q4HR PRN #8 tablet PRN Reason: Pain Levofloxacin [Levaquin] 500 mg PO DAILY #10 tablet
[2017-10-04 23:12] LABS: BASOPHILS % (AUTO) 0.4 %; EOSINOPHILS % (AUTO) 0.1 %; HGB - HEMOGLOBIN 16.2 g/dL (12.0-16.0); LYMPHOCYTES % (AUTO) 18.9 %; MEAN CORPUSCULAR HEMOGLOBIN 28.3 pg (27.0-31.0); MEAN CORPUSCULAR VOLUME 85.8 fL (81.0-99.0); MONOCYTES # (AUTO) 0.5 10^3/uL (0.0-1.0); NEUTROPHILS # (AUTO) 8.1 10^3/uL (1.5-6.6); NEUTROPHILS % (AUTO) 75.6 %; PLT - PLATELET COUNT 590 10^3/uL (130-450); RED BLOOD COUNT 5.73 10^6/uL (4.20-5.40); RED CELL DISTRIBUTION WIDTH 14.5 % (12.0-15.0); WHITE BLOOD COUNT 10.7 x10^3/uL (4.8-10.8)
[2017-10-04 23:34] LABS: ALBUMIN 3.7 g/dL (3.2-5.5); ALBUMIN/GLOBULIN RATIO 0.8 (1.0-2.2); BILIRUBIN,TOTAL 1.2 mg/dL (0.2-1.0); CALCIUM 10.3 mg/dL (8.5-10.3); TOTAL PROTEIN 8.5 g/dL (6.7-8.2)
--- NOTE | 2017-10-05 00:08 | XRAY Report ---
EXAM: CHEST RADIOGRAPHY EXAM DATE: 10/04/2017 11:57 PM. CLINICAL HISTORY: L lower lobe rhonchi. COMPARISON: 09/25/2017. TECHNIQUE: 2 views. FINDINGS: Lungs/Pleura: Persistent left lower lobe infiltrate. No definite pleural effusion seen. No pneumothor ax. Mediastinum: Heart and mediastinal contours are unremarkable. Other: None. IMPRESSION: 1. Persistent left lower lobe infiltrate. Recommend radiographic follow-up to show complete resolutio n. [facility] Referring Provider Line: [phone] SITE ID: [id number]
--- NOTE | 2017-10-05 00:08 | XRAY Preliminary Report ---
Exam: XR CHEST 2 VIEW X-RAY IMPRESSION: 1. Persistent left lower lobe infiltrate. Recommend radiographic follow-up to show complete resolutio nTamra GREY SITE ID: [id number]
[2017-10-05] MEDS ORDERED: SODIUM CHLORIDE 0.9% 1,000 ML IV ONE (00:32)
[2017-10-05 00:43] LABS: GLUCOSE, URINE (UA) NEGATIVE (NEGATIVE); KETONES,URINE (UA) TRACE mg/dL (NEGATIVE); LEUKOCYTE ESTERASE, URINE TRACE (NEGATIVE); NITRITE,URINE NEGATIVE (NEGATIVE); OCCULT BLOOD,URINE NEGATIVE (NEGATIVE); PROTEIN,URINE NEGATIVE (NEGATIVE); UROBILINOGEN,URINE 0.2 (NORMAL) E.U./dL (NORMAL)
[2017-10-05 00:52] LABS: BILIRUBIN,URINE NEGATIVE (NEGATIVE); CLARITY,URINE CLEAR (CLEAR); ICTOTEST,URINE NEGATIVE
[2017-10-05 00:53] LABS: BACTERIA,URINE None Seen /HPF (None Seen); CASTS, URINE 3-5 Hyaline Casts /LPF; MUCUS,URINE Moderate Strands; RBC,URINE 0-5 /HPF (0-5); SQUAMOUS EPITHELIAL CELL,UR MOD Squamous (<= Few)
[2017-10-05] MEDS ORDERED: ONDANSETRON 4 MG/2 ML VIAL IVP STA ×2 (01:34→02:40)
[2017-10-05] MEDS ORDERED: ONDANSETRON 4 MG/2 ML VIAL ONE (01:41)
[2017-10-05] MEDS ORDERED: cefTRIAXone 1 GM in SODIUM CHLORIDE 0.9% MINIBAG 100 ML IV STA (02:35)
[2017-10-05] MEDS ORDERED: MORPHINE 2 MG/ML CARPUJECT IVP STA (02:40)
[2017-10-05] MEDS ORDERED: MORPHINE 10 MG/ML VIAL IVP STA (02:56)
[2017-10-05 03:53] VITALS: BP 128/88
== END 2017-10-05 03:58 | disposition home or self-care (01) ==
LOC: ED 20:51
DX: E86.0 Dehydration (principal); J18.9 Pneumonia, unspecified organism; F11.23 Opioid dependence with withdrawal; G89.29 Other chronic pain; I10 Essential (primary) hypertension; E03.9 Hypothyroidism, unspecified; K21.9 Gastro-esophageal reflux disease without esophagitis; Z87.11 Personal history of peptic ulcer disease; M79.7 Fibromyalgia; M81.0 Age-related osteoporosis without current pathological fracture
CPT/HCPCS: 36415; 71046; 80053; 81001; 81003; 83690; 84484; 85025; 87086; 93005; 96365; 96375; 96376; 99284; 99285

== ENCOUNTER 2017-10-10 12:28 | Outpatient (CLI) | payer OTHER ==
--- NOTE | 2017-10-11 19:11 | Mammography Report ---
DIGITAL SCREENING MAMMOGRAM: 10/10/2017 CLINICAL INDICATION: A 62-year-old with family history of breast cancer, history of benign right breast biopsy for screening. COMPARISON: 09/2013 TECHNIQUE: Routine CC and MLO projections were obtained of the breasts. FINDINGS: The breasts again demonstrate heterogeneously dense fibroglandular parenchyma bilaterally. Punctate, typically benign calcifications are present. No suspicious masses, clustered microcalcifications, or regions of architectural distortion are identified. IMPRESSION: BENIGN FINDINGS. RECOMMENDATION: Routine annual screening unless otherwise clinically indicated. BIRADS CATEGORY: 2, BENIGN FINDINGS. STANDARD QUALIFYING STATEMENTS 1. This examination was reviewed with the aid of Computed-Aided Detection (CAD). 2. A negative or benign imaging report should not delay biopsy if clinically suspicious findings are present. Consider surgical consultation if warranted. More than 5% of cancers are not identified by imaging. 3. Dense breasts may obscure an underlying neoplasm. TD: 10/11/2017 19:10
== END 2017-10-10 12:29 | disposition home or self-care (01) ==
LOC: DI 12:28
PROVIDERS: ATTEND Family Medicine
DX: Z12.31 Encounter for screening mammogram for malignant neoplasm of breast (principal); Z80.3 Family history of malignant neoplasm of breast
CPT/HCPCS: 77067

== ENCOUNTER 2017-10-10 12:47 | Outpatient (CLI) | payer OTHER ==
--- NOTE | 2017-10-11 08:56 | DEXA Report ---
DEXA SCAN: 10/10/2017 CLINICAL INDICATION: Postmenopausal, fracture history. TECHNIQUE: Dual energy x-ray absorptiometry (DXA) was performed on a [employer] system. Regions measured are the AP spine, femoral neck, and, if needed, forearm. COMPARISON: None. In accordance with the International Society for Clinical Densitometry (ISCD) guidelines, data from previous exams may be reanalyzed using current recommendations and techniques. This is done to allow a more accurate basis for comparison with the current study. FINDINGS: The data for the lumbar spine is as follows: REGION BMD (g/cm/cm) T-SCORE Z-SCORE L1 0.937 -1.6 0.2 L2 0.916 -2.4 -0.5 L3 1.107 -0.8 1.1 L4 1.069 -1.1 0.8 TOTAL 1.012 -1.4 0.5 NOTE: All evaluable vertebrae are used for classification. The data for the hip is as follows: REGION BMD (g/cm/cm) T-SCORE Z-SCORE Neck 0.678 -2.6 -0.9 TOTAL 0.709 -2.4 -1.0 IMPRESSION: THE WHO CLASSIFICATION BASED ON THE INTERNATIONAL REFERENCE STANDARD IS OSTEOPOROSIS (REFERENCE LEFT FEMORAL NECK). THE FRACTURE RISK IS HIGH. RECOMMENDATION: Patients with diagnosis of osteoporosis or osteopenia should have regular bone mineral density assessment. For those eligible for Medicare, routine testing is allowed once every 2 years. Testing frequency can be increased for patients who have rapidly progressing disease or for those who are receiving medical therapy to restore bone mass. COMMENT: World Health Organization (WHO) definitions for osteoporosis and osteopenia: NORMAL BMD: T-score at 1.0 or higher, fracture risk is low. OSTEOPENIA BMD: T-score between 1.0 and -2.5, fracture risk is increased. OSTEOPOROSIS BMD: T-score at 2.5 or lower, fracture risk high. National Osteoporosis Foundation recommends: 1. Obtain adequate dietary calcium (at least 1200 mg per day) and vitamin D (400 -800 international units per day). 2. Participate, as appropriate, in regular weightbearing and muscle- strengthening exercise. 3. Avoid tobacco use and reduce alcohol and caffeine intake. 4. For more detailed information see the website at www.NOF.org. MTDD
== END 2017-10-10 12:48 | disposition home or self-care (01) ==
LOC: DI 12:47
PROVIDERS: ATTEND Family Medicine
DX: M81.0 Age-related osteoporosis without current pathological fracture (principal); K70.31 Alcoholic cirrhosis of liver with ascites
CPT/HCPCS: 36415; 77080; 82105

== ENCOUNTER 2017-10-10 13:28 | Outpatient (CLI) | payer OTHER | END 2017-10-10 13:29 | disposition home or self-care (01) | LOC: LAB 13:28 | DX: K70.31 Alcoholic cirrhosis of liver with ascites (principal) | CPT/HCPCS: 36415; 82105 ==

== ENCOUNTER 2017-10-18 11:29 | Outpatient (CLI) | payer OTHER ==
--- NOTE | 2017-10-18 15:41 | Ultrasound Report ---
LIMITED ABDOMINAL ULTRASOUND: 10/18/2017 CLINICAL INDICATION: Follow up cirrhosis. COMPARISON: 12/28/2016. TECHNIQUE: Real-time scanning was performed with labor relations representative static images obtained. FINDINGS: The liver measures 15.3 cm. Hepatic echotexture is again heterogeneous, with a nodular contour, compatible with cirrhosis. No focal lesion is seen. The common bile duct measures 5 mm. The patient is status post cholecystectomy. The right kidney measures 8.4 cm, and demonstrates no hydronephrosis. IMPRESSION: CIRRHOTIC APPEARANCE OF THE LIVER, WITHOUT EVIDENCE OF A FOCAL LESION. NO SIGNIFICANT INTERVAL CHANGE. TD: 10/18/2017 15:40
== END 2017-10-18 11:30 | disposition home or self-care (01) ==
LOC: DI 11:29
PROVIDERS: ATTEND Internal Medicine Gastroenterology
DX: K70.31 Alcoholic cirrhosis of liver with ascites (principal)
CPT/HCPCS: 76705

== ENCOUNTER 2017-11-26 08:07 | Observation (INO) | payer OTHER ==
[2017-11-26] MEDS ORDERED: SODIUM CHLORIDE 0.9% 1,000 ML IV ONE ×2 (08:38→11:14)
[2017-11-26 08:53] LABS: BASOPHILS # (AUTO) 0.1 10^3/uL (0.0-0.1); EOSINOPHILS # (AUTO) 0.1 10^3/uL (0.0-0.7); EOSINOPHILS % (AUTO) 1.2 %; LYMPHOCYTES # (AUTO) 2.3 10^3/uL (1.5-3.5); LYMPHOCYTES % (AUTO) 23.3 %; MEAN CORPUSCULAR HEMOGLOBIN 29.7 pg (27.0-31.0); MEAN CORPUSCULAR HGB CONC 34.5 g/dL (32.0-36.0); MEAN CORPUSCULAR VOLUME 86.3 fL (81.0-99.0); MEAN PLATELET VOLUME 8.6 fL (7.9-10.8); MONOCYTES # (AUTO) 0.7 10^3/uL (0.0-1.0); NEUTROPHILS # (AUTO) 6.6 10^3/uL (1.5-6.6); NEUTROPHILS % (AUTO) 67.5 %; PLT - PLATELET COUNT 254 10^3/uL (130-450); RED BLOOD COUNT 6.06 10^6/uL (4.20-5.40); RED CELL DISTRIBUTION WIDTH 15.1 % (12.0-15.0); WHITE BLOOD COUNT 9.8 x10^3/uL (4.8-10.8)
[2017-11-26 09:02] LABS: ALBUMIN 4.7 g/dL (3.2-5.5); ALBUMIN/GLOBULIN RATIO 1.2 (1.0-2.2); BILIRUBIN,TOTAL 1.6 mg/dL (0.2-1.0); CALCIUM 10.5 mg/dL (8.5-10.3); CREATININE 0.9 mg/dL (0.4-1.0); TOTAL PROTEIN 8.6 g/dL (6.7-8.2)
[2017-11-26] MEDS ORDERED: ONDANSETRON 4 MG/2 ML VIAL IVP STA ×3 (09:02→11:08)
[2017-11-26] MEDS ORDERED: oxyCODONE ER 10 MG TABLET PO STA (09:04)
[2017-11-26] MEDS ORDERED: NADOLOL 20 MG TABLET PO STA (09:04)
--- NOTE | 2017-11-26 09:05 | ED Physician Documentation ---
History of Present Illness - Stated complaint Stated Complaint: V/D/WEAKNESS - Chief complaint Chief Complaint: Abd Pain - Additonal information Additional information: hx from pt 62 f hx c diff recently on ab X 2 for pna diarrhea up to 20 X a day for a week NV too though less severe - but has not kept her pain meds or BP meds down for three days now no blood in stool crampy abd pain no travel no sick contacts no bad food Review of Systems Constitutional: reports: Fatigue. denies: Fever, Chills Cardiac: denies: Chest pain / pressure Respiratory: denies: Dyspnea GI: reports: Abdominal Pain (crampy), Nausea, Vomiting, Diarrhea. 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 HEENT: Other - Present Medications Home Medications: Ambulatory Orders Medication Instructions Recorded Confirmed Calcium Carbonate/Vitamin D3 400 mg PO DAILY 08/18/15 11/26/17 [Calcium 600 + Vit D 400 Softgl] Furosemide [Lasix] 20 mg PO DAILY 08/18/15 11/26/17 Lactobac Cmb #3/Fos/Pantethine 1 each PO BID PRN 08/18/15 11/26/17 [Probiotic & Acidophilus Cap] Levothyroxine [Synthroid] 100 mcg PO QDAC 08/18/15 11/26/17 Nadolol [Corgard] 20 mg PO DAILY 08/18/15 11/26/17 Omeprazole [PriLOSEC] 20 mg PO DAILY 08/18/15 09/25/17 Spironolactone 50 mg PO DAILY 08/18/15 11/26/17 SUMAtriptan [Imitrex] 25 mg PO BID PRN #10 tablet 09/25/17 Albuterol Sulf [Ventolin Hfa 2 inh INH QID PRN 11/26/17 11/26/17 Inhaler] Doxepin HCl 20 mg PO QPM PRN 11/26/17 11/26/17 Morphine Sulfate [Morphine Sulfate 30 mg PO BID 11/26/17 11/26/17 ER] Ondansetron Odt [Zofran] 4 mg TL Q8H PRN 11/26/17 11/26/17 Oxycodone HCl 10 mg PO Q4H PRN MDD 50 mg 11/26/17 11/26/17 Promethazine Supp [Phenergan Supp] 25 mg NC Q6H PRN #20 supp 11/26/17 raNITIdine [Zantac] 150 mg PO QPM 11/26/17 11/26/17 tiZANidine [Zanaflex] 2 mg PO TID PRN 11/26/17 11/26/17 - Allergies Allergies/Adverse Reactions: Allergies Allergy/AdvReac Type Severity Reaction Status Date / Time No Known Drug Allergies Allergy Verified 11/26/17 08:21 - Social History Does the pt smoke?: No Smoking Status: Never smoker Does the pt drink ETOH?: No Does the pt have substance abuse?: No - Immunizations Immunizations are current?: Yes - POLST Patient has POLST: No PD ED PE NORMAL - Vitals Vital signs reviewed: Yes - General General: Alert and oriented X 3 - Cardiac Cardiac: RRR - Respiratory Respiratory: No respiratory distress - Abdomen Abdomen: Normal bowel sounds, Soft, Non tender - Derm Derm: Normal color - Extremities Extremities: No deformity - Neuro Neuro: Alert and oriented X 3 Results - Vitals Vitals: Vital Signs - 24 hr 11/26/17 11/26/17 11/26/17 08:17 10:18 13:14 Temperature 36.2 C L Heart Rate 68 58 L 64 Respiratory 20 18 18 Rate Blood Pressure 172/113 H 184/104 H 159/114 H O2 Saturation 97 98 98 11/26/17 14:46 Temperature 36.8 C Heart Rate 77 Respiratory 16 Rate Blood Pressure 148/102 H O2 Saturation 99 Oxygen O2 Source [With Activity] Room air O2 Source [Without Activity] Room air O2 Source Room air - Labs Labs: Microbiology 11/26/17 09:50 Clostridium difficile (PCR) - Final Stool 11/26/17 09:50 Campylobacter Antigen Assay - Final Stool Laboratory Tests 11/26/17 11/26/17 11/26/17 08:40 08:40 12:44 WBC 9.8 RBC 6.06 H Hgb 18.0 H Hct 52.3 H MCV 86.3 MCH 29.7 MCHC 34.5 RDW 15.1 H Plt Count 254 MPV 8.6 Neut # 6.6 Lymph # 2.3 [place] # 0.7 Eos # 0.1 Baso # 0.1 Absolute Nucleated RBC 0.01 Nucleated RBC % 0.1 Sodium 140 Potassium 3.5 Chloride 99 L Carbon Dioxide 27 Anion Gap 14.0 H BUN 16 Creatinine 0.9 Estimated GFR (MDRD) 63 L Glucose 246 H Calcium 10.5 H Total Bilirubin 1.6 H AST 38 ALT 35 Alkaline Phosphatase 106 Total Protein 8.6 H Albumin 4.7 Globulin 3.9 Albumin/Globulin Ratio 1.2 Lipase 46 Urine Color YELLOW Urine Clarity CLEAR Urine pH 8.0 H Ur Specific [place] 1.015 Urine Protein NEGATIVE Urine Glucose (UA) NEGATIVE Urine Ketones 15 H Urine Occult Blood NEGATIVE Urine Nitrite NEGATIVE Urine Bilirubin NEGATIVE Urine Urobilinogen 0.2 (NORMAL) Ur Leukocyte Esterase SMALL H Urine RBC 0-5 Urine WBC 6-10 H Ur Squamous Epith Cells MANY Squamous H Urine Bacteria Rare Ur Microscopic Review INDICATED Urine Culture Comments NOT INDICATED PD MEDICAL DECISION MAKING - ED course ED course: labs reviewed - glucose and bili not new calcium mildly elevated and merits fup approx 4 hr later stool collected and resulted - formed stool and c diff neg and urine collected 5 hr later and not a clean catch and unlikely to represent an infection still with vomiting after zofran X 2 and phenergan non surgical abd on serial abd exams pt continues to complain fo diffuse body pain - long standing and sees a pain specialist no travel bad food etc may be viral gastro but states sx started she her pain meds were changed several weeks ago - pt had not mentioned that to me and told her nurse her meds were the same gave IV meds if sx controlled may consider dc home despite 6 hr of IVF two doses of zofran, phenergan, IV pain meds, pt continues to have intractable NV so will place in obs paged hospitalist at 2 PM Departure - Departure Disposition: ED Place in Observation Clinical Impression: Dehydration Vomiting Qualifiers: Vomiting type: unspecified Vomiting Intractability: intractable Nausea presence : with nausea Qualified Code(s): R11.2 - Nausea with vomiting, unspecified Diarrhea Qualifiers: Diarrhea type: unspecified type Qualified Code(s): R19.7 - Diarrhea, unspecified Condition: Fair Discharge Date/Time: 11/26/17 15:45
[2017-11-26] MEDS ORDERED: MORPHINE 2 MG/ML SYRINGE IVP STA (09:43)
[2017-11-26] MEDS ORDERED: MORPHINE 2 MG/ML SYRINGE ONE (11:14)
[2017-11-26] MEDS ORDERED: PROMETHAZINE INJ 25 MG in SODIUM CHLORIDE 0.9% 50 ML IV STA (11:15)
[2017-11-26 12:57] LABS: BILIRUBIN,URINE NEGATIVE (NEGATIVE); GLUCOSE, URINE (UA) NEGATIVE (NEGATIVE); KETONES,URINE (UA) 15 mg/dL (NEGATIVE); LEUKOCYTE ESTERASE, URINE SMALL (NEGATIVE); NITRITE,URINE NEGATIVE (NEGATIVE); OCCULT BLOOD,URINE NEGATIVE (NEGATIVE); PROTEIN,URINE NEGATIVE (NEGATIVE); UROBILINOGEN,URINE 0.2 (NORMAL) E.U./dL (NORMAL)
[2017-11-26 12:58] LABS: CLARITY,URINE CLEAR (CLEAR)
[2017-11-26 13:11] LABS: RBC,URINE 0-5 /HPF (0-5)
[2017-11-26 13:12] LABS: BACTERIA,URINE Rare /HPF (None Seen); SQUAMOUS EPITHELIAL CELL,UR MANY Squamous (<= Few)
[2017-11-26] MEDS ORDERED: HYDROmorphone PCA 20MG/100ML IV PRN (15:37)
[2017-11-26] MEDS ORDERED: SODIUM CHLORIDE FLUSH 0.9% 10 ML SYRINGE IVP PRN (15:39)
[2017-11-26] MEDS ORDERED: PROCHLORPERAZINE 10 MG/2 ML VIAL IVP PRN (15:39)
[2017-11-26] MEDS ORDERED: ZOLPIDEM 5 MG TABLET PO PRN (15:39)
[2017-11-26] MEDS ORDERED: oxyCODONE 5 MG TABLET PO PRN (15:46)
[2017-11-26] MEDS ORDERED: tiZANidine 4 MG TABLET PO PRN (15:48)
[2017-11-26] MEDS ORDERED: DOXEPIN 10 MG CAPSULE PO PRN (15:48)
[2017-11-26] MEDS ORDERED: ALBUTEROL NEB 2.5 MG/3 ML INH PRN (16:25)
--- NOTE | 2017-11-26 16:40 | XRAY Report ---
EXAM: CHEST RADIOGRAPHY EXAM DATE: 11/26/2017 04:00 PM. CLINICAL HISTORY: Recent pna, still unwell. COMPARISON: 10/04/2017 chest x-ray. TECHNIQUE: 2 views. FINDINGS: Lungs/Pleura: No focal opacities evident. No pleural effusion. No pneumothorax. Normal volumes. Mediastinum: Heart and mediastinal contours are unremarkable. Other: None. IMPRESSION: Normal 2-view chest radiography. [facility] Referring Provider Line: [phone] SITE ID: [id number]
--- NOTE | 2017-11-26 16:40 | XRAY Preliminary Report ---
Exam: XR CHEST 2 VIEW X-RAY IMPRESSION: Normal 2-view chest radiography. [facility] SITE ID: [id number]
[2017-11-26] MEDS: D5.45NS W/20 MEQ KCL 1,000 ML IV SCH (16:43)
[2017-11-26] MEDS: SODIUM CHLORIDE FLUSH 0.9% 10 ML SYRINGE IVP SCH (16:44)
[2017-11-26] MEDS ORDERED: cloNIDine 0.2 MG PATCH TOP SCH (17:00)
[2017-11-26] MEDS ORDERED: LABETALOL 20 MG/4 ML SYRINGE IVP ONE (17:01)
[2017-11-26] MEDS ORDERED: ENALAPRILAT 1.25 MG/ML VIAL IVP SCH (17:02)
[2017-11-26 18:10] LABS: BILIRUBIN,URINE NEGATIVE (NEGATIVE); CLARITY,URINE CLEAR (CLEAR); GLUCOSE, URINE (UA) 250 mg/dL (NEGATIVE); KETONES,URINE (UA) 40 mg/dL (NEGATIVE); LEUKOCYTE ESTERASE, URINE NEGATIVE (NEGATIVE); NITRITE,URINE NEGATIVE (NEGATIVE); OCCULT BLOOD,URINE NEGATIVE (NEGATIVE); PH,URINE 6.5 PH (5.0-7.5); PROTEIN,URINE NEGATIVE (NEGATIVE); UROBILINOGEN,URINE 0.2 (NORMAL) E.U./dL (NORMAL)
[2017-11-26] MEDS: INSULIN REGULAR HUMAN 100 UNIT/1 ML 10 ML MDV SUBQ SCH (19:57)
[2017-11-26] MEDS: oxyCODONE ER 10 MG TABLET PO SCH ×2 (21:26→21:31)
[2017-11-26] MEDS: FAMOTIDINE 20 MG/50 ML 50 ML IV SCH (21:26)
[2017-11-26] MEDS ORDERED: MORPHINE PCA 50 MG IV PRN (21:36)
[2017-11-26] MEDS ORDERED: oxyCODONE ER 10 MG TABLET PO SCH (22:00)
[2017-11-27] MEDS: ONDANSETRON 4 MG/2 ML VIAL IVP PRN ×2 (00:17→06:20)
[2017-11-27] MEDS: INSULIN REGULAR HUMAN 100 UNIT/1 ML 10 ML MDV SUBQ SCH ×3 (00:17→12:35)
[2017-11-27] MEDS: SODIUM CHLORIDE FLUSH 0.9% 10 ML SYRINGE IVP SCH ×2 (00:18→12:35)
[2017-11-27] MEDS: D5.45NS W/20 MEQ KCL 1,000 ML IV SCH (04:23)
[2017-11-27] MEDS ORDERED: LEVOTHYROXINE 100 MCG TABLET PO SCH (07:00)
[2017-11-27 08:45] LABS: BASOPHILS # (AUTO) 0.1 10^3/uL (0.0-0.1); BASOPHILS % (AUTO) 0.7 %; EOSINOPHILS # (AUTO) 0.1 10^3/uL (0.0-0.7); EOSINOPHILS % (AUTO) 0.7 %; LYMPHOCYTES # (AUTO) 3.8 10^3/uL (1.5-3.5); LYMPHOCYTES % (AUTO) 32.4 %; MEAN CORPUSCULAR HGB CONC 33.8 g/dL (32.0-36.0); MEAN CORPUSCULAR VOLUME 88.7 fL (81.0-99.0); MEAN PLATELET VOLUME 8.3 fL (7.9-10.8); MONOCYTES # (AUTO) 0.9 10^3/uL (0.0-1.0); MONOCYTES % (AUTO) 7.7 %; NEUTROPHILS # (AUTO) 6.9 10^3/uL (1.5-6.6); NEUTROPHILS % (AUTO) 58.5 %; PLT - PLATELET COUNT 199 10^3/uL (130-450); RED BLOOD COUNT 4.99 10^6/uL (4.20-5.40); RED CELL DISTRIBUTION WIDTH 15.5 % (12.0-15.0); WHITE BLOOD COUNT 11.7 x10^3/uL (4.8-10.8)
[2017-11-27 08:50] LABS: CALCIUM 8.3 mg/dL (8.5-10.3); CREATININE 0.8 mg/dL (0.4-1.0)
[2017-11-27] MEDS ORDERED: ENOXAPARIN 40 MG/0.4 ML SYRINGE SUBQ SCH (09:00)
[2017-11-27] MEDS ORDERED: POLYETHYLENE GLYCOL 3350 17 GM PACKET PO SCH (09:00)
[2017-11-27] MEDS ORDERED: CHOLECALCIFEROL 400 UNIT TABLET PO SCH (09:00)
[2017-11-27] MEDS ORDERED: NADOLOL 20 MG TABLET PO SCH (09:00)
[2017-11-27] MEDS ORDERED: CALCIUM CARB (OYSTER SHELL) 500 MG TABLET PO SCH (09:00)
[2017-11-27] MEDS: FAMOTIDINE 20 MG/50 ML 50 ML IV SCH (09:24)
[2017-11-27 11:46] VITALS: BP 104/88
[2017-11-27] MEDS ORDERED: POTASSIUM CHLORIDE 20 MEQ TABLET PO ONE (12:42)
--- NOTE | 2017-11-27 12:50 | Discharge Plan ---
Discharge Plan Disposition: 01 Home, Self Care Condition: Stable Prescriptions: amLODIPine [Norvasc] 5 mg PO DAILY #30 tablet Diet: Regular Activity Restrictions: Activity as Tolerated Additional Instructions or Follow Up instructions: 1. Follow up with PCP Re: elevated blood glucose. It could be the result of a stress reaction; further testing (fasting glucose and HgA1C measurement is needed to establish or rule out the diagnosis of diabetes). 2. Follow up at Pain clinic. 3. Take medications as directed. 4. Advance diet as tolerated. Eat potatoes, tomatoes for high potassium content -diarrhea depleted your potassium. Potassium was replaced before discharge, but is expected to be low normal. Keep well hydrated. No Smoking: If you smoke, Please STOP! Call for help. Follow-up with: Emery Baugh MD [Physician No Access] -
[2017-11-27] MEDS ORDERED: oxyCODONE ER 10 MG TABLET PO SCH (14:00)
--- NOTE | 2017-11-28 10:50 | HISTORY & PHYSICAL EXAMINATION ---
DATE OF SERVICE: 11/26/2017 Physician: Nata Guzman MD CHIEF COMPLAINT: Intractable nausea and vomiting. HISTORY OF PRESENT ILLNESS: Patient is a 62-year-old opiate-dependent white female. She is usually seen at [facility]. Her primary care provider is Dr. Darren Kaye. She also has a air gun operator, Dr. Nicci Dos Santos, who follows her for liver cirrhosis. Patient reports that she had been on oxycodone or on other opiate for at least 40 years. She has chronic pain secondary to fibromyalgia, degenerative disk disease of the spine, osteoporosis, pelvic fractures, and multiple other aches and pains. The patient had been on OxyContin 20 mg 3 times daily, recently has been titrated to 20 mg twice daily and 10 mg given midday as long-acting opiate and she was on 10 mg oxycodone, which she could take 5 times a day p.r.n. for breakthrough pain. This was a long-term opiate regimen for her; however, she reports that her insurance company did not approve oxycodone and OxyContin, and about a month ago, they switched her to extended-release morphine. After she started to take the extended-release morphine, she became nauseous and developed progressively worsening generalized body aches and pains with nausea, which progressed to intractable emesis, and started to have abdominal cramps with diarrhea. These symptoms had been increasing during the past couple of weeks. She made contact with the insurance company and was told to just increase her morphine dose twice; however, she could not do that due to having a pain contract and not being given directions from a physician. Subsequently tried to make an appointment at [facility], and she has an appointment for next week but could not yet be seen. She also reports that she was seen in the ER about a month ago in September, at which time she was treated for pneumonia. She finished 2 antibiotic courses. Reviewing the ER record, on 09/25/2017, she was given Zithromax and subsequently on 10/04/2017, she was seen in the ER. She was found with left lung infiltrate, diagnosed with pneumonia, and was given a course of Levaquin. Upon presentation to the ER today, stool culture was sent for C difficile, which was negative. She was found significantly dehydrated/hemoconcentrated with hemoglobin of 18; in addition was hyperglycemic with blood glucose of 246. Her vital signs were abnormal. She was hypertensive with a maximum blood pressure of 200/108. Her heart rate was between 50 and 80. Notably, she was on beta jayna as outpatient. Respiratory rate was 16, oxygen saturation 100% on room air. She came to the ER on the morning of 11/26/2017, and Dr. Ellis, the ER physician, tried to control her symptoms. However, even around 4 p.m., her symptoms were uncontrolled. She got multiple doses of opiates and antiemetics. Regardless of being given IV morphine, she continued vomiting intractably and was not able to take any oral intake. PAST MEDICAL HISTORY 1. Fibromyalgia/chronic pain/osteoporosis/osteoarthritis/degenerative disk disease of the spine, for which problems the patient is opioid dependent. 2. Hypertension. 3. Gastroesophageal reflux. 4. Hypothyroidism. 5. History of C difficile multiple times in the past. 6. History of liver cirrhosis; per the patient, not being an issue recently. She had been stable with this problem. 7. History of pelvic fractures. OUTPATIENT MEDICATIONS 1. Lactobacillus. 2. Vitamin D 3. Calcium. 4. Levothyroxine. 5. Doxepin. 6. Zantac. 7. Zofran. 8. Nadolol. 9. Extended-release morphine. 10. Oxycodone. 11. Tizanidine. 12. Furosemide. 13. Spironolactone. 14. Imitrex. 15. Prilosec. 16. Phenergan suppository. SOCIAL HISTORY: Patient does not smoke, does not drink. She lives with her . FAMILY HISTORY: Father at age 49 due to a massive heart attack. Mother had breast cancer and uterine cancer. PRIMARY CARE PHYSICIAN: Dr. Darren Kaye. REVIEW OF SYSTEMS: Please see pertinent positives listed above in history of present illness; I completed a 12-point review, and the patient did not report additional complaints. PHYSICAL EXAMINATION VITAL SIGNS: Please see listed above at history of present illness. GENERAL: The patient is a well-developed female who is not in acute distress, although she was dry heaving during my exam. ABDOMEN: Soft, benign. No shifting dullness. Bowel tones present. LYMPHATIC: No lymphedema. MUSCULOSKELETAL: Thin extremities, decreased muscle mass. NEUROLOGIC: Alert, oriented, nonfocal. PSYCHIATRIC: Cooperative. CARDIOVASCULAR: S1, S2. Regular. No pathologic murmur. RESPIRATORY: Clear to auscultation without wheezes or crackles. SKIN: Without jaundice. ASSESSMENT AND PLAN: The patient is a 62-year-old opiate-dependent female with multiple other medical problems, who presents with signs which could be consistent with opiate withdrawal. She did have a urinalysis which appeared contaminated; does not offer symptoms of dysuria. Her chest x-ray did not show pneumonia. She was afebrile and had normal white blood cell count. Therefore, she does not appear to be septic, does not show septic physiology, and it does not seem that she would have any infectious problem at this time. The time course she reports, and the symptoms of abdominal cramps, body aches, nausea, vomiting, and diarrhea, which had been ongoing for the past 3 weeks, are most consistent with opiate withdrawal. Notably, she has history of Clostridium difficile, but she ruled out for Clostridium difficile with negative stool culture. Reviewing her blood work, hematology panel suggests dehydration. Given the fact that she was not able to take any oral intake and continues to vomit intractably, she will need to be admitted, receive IV hydration, and be managed for the opiate withdrawal until she is through it and gets to the point to be able to take oral intake. At that point, she can be discharged with oral medications. PLAN AND ORDERS 1. Patient is getting admitted under observation. 2. I started her on Dilaudid HORTICULTURAL MANAGER pump and subsequently will restart her previous oxycodone and OxyContin, which was her regimen about a month ago, and she seemed to be stable on that. My plan will be to titrate the HORTICULTURAL MANAGER pump off when she is able to take oral intake and able to take her medications. I spoke with Social Work/Case Management, and I requested that we contact [facility] and also the patient's insurance company and initiate a conversation between them to come up with a plan for this patient from an insurance standpoint and outpatient followup. Obviously, it will only make sense to discharge her on her previous opiate regimen if someone will continue to prescribe it to her. 3. Regarding patient's uncontrolled blood pressure, it seems that this is situational and also could be related to her missing outpatient antihypertensives. For now, I will order a few doses of IV antihypertensives including labetalol and enalapril. Subsequently, we will add clonidine, which will also be beneficial for withdrawal symptoms. When the patient is able to take oral intake, we can restart her outpatient medications. 4. Symptom control, supportive care. 5. Deep venous thrombosis prophylaxis. 6. Regarding additional issues, chest x-ray was negative, ruling out pneumonia , and urinalysis did not really suggest urinary tract infection. 7. We will continue IV hydration, symptom control, and expect that the patient' s symptoms will improve within 24-48 hours. ATTESTATION: I certify that the reasonable expectation is that this patient will remain in the hospital for no longer than 48 hours. If her clinical situation changes, we will reevaluate and consider upgrading to inpatient. In the meantime, she remains under observation status. Time I spent was 60 minutes. cc: Darren Kaye DO TD: 11/27/2017 00:33 MTDD
--- NOTE | 2017-11-28 13:31 | DISCHARGE SUMMARY ---
Physician: Nata Guzman MD DATE OF ADMISSION: 11/26/2017 DATE OF DISCHARGE: 11/27/2017 DISCHARGE DIAGNOSES 1. Acute/subacute severe opiate withdrawal. 2. Dehydration/hemoconcentration. 3. Electrolyte abnormalities including hypokalemia. 4. Hyperglycemia, most likely related to increased adrenergic tone and cortisol release in the setting of opiate withdrawal; however, will need to be further investigated and diabetes will need to be ruled out. 5. Uncontrolled hypertension in the setting of opiate withdrawal. SECONDARY DIAGNOSES, PAST MEDICAL HISTORY 1. Hypertension. 2. Hypothyroidism. 3. Chronic pain/opiate dependence. 4. Fibromyalgia. 5. Gastroesophageal reflux. 6. History of Clostridium difficile colitis. 7. History of liver cirrhosis. 8. Degenerative disk disease of the spine. 9. Osteoporosis. 10. Osteoarthritis. DISCHARGE MEDICATIONS The following medications were discontinued due to dehydration: 1. Lasix. 2. Spironolactone. New medications started: 1. Amlodipine 5 mg p.o. daily. 2. OxyContin/oxycodone ER 10 mg tablets. Recommended to take 20 mg in the morning, 10 mg at noon and 20 mg at night. Prescription was given for 100 tablets. 3. Oxycodone/Roxicodone 10 mg p.o. every 4 hours p.r.n. for pain. A prescription was given for 30 tablets. The following medications continued unchanged: 1. Probiotic. 2. Calcium and vitamin D. 3. Levothyroxine. 4. Doxepin. 5. Ranitidine. 6. Zofran. 7. Nadolol. 8. Albuterol inhaler. 9. Tizanidine. Please note that the patient was admitted with opiate withdrawal; therefore, the oxycodone and OxyContin, which were her previous long-acting opiates, were restarted during this hospital admission. DISCHARGE RECOMMENDATIONS 1. Follow up with primary care physician for blood glucose check. We recommend fasting blood glucose and hemoglobin A1c to be ordered to establish or rule out the diagnosis of diabetes. 2. Follow up at the pain clinic with Emery Baugh. 3. Note medication changes, take medications as directed. 4. Advance diet as tolerated, keep well hydrated. DISCHARGE CONDITION: Temperature 36.8 Celsius, heart rate 70, blood pressure 113 /70, oxygen saturation 96% on room air, respiratory rate 18. The patient was alert, oriented, verbalized understanding of discharge plan and followup. She was neurologically nonfocal, had no peripheral edema. She was hemodynamically stable and offered no complaint. Tolerated oral intake/diet prior to being discharged. BRIEF PRESENTATION AND HOSPITAL COURSE: Patient is a 62-year-old female who was admitted on 11/26/2017 with symptoms of intractable nausea, vomiting, diarrhea, body aches and pains, and abdominal cramps. She reported that her symptoms started about 3 weeks ago when her long-acting opiate medications were changed. In particular, she had been on oxycodone for many years. Her pain specialist, Emery Baugh, tried to titrate the dose downward slowly. However, the patient's insurance company decided not to approve this medication ,and they switched her to long-acting morphine instead of oxycodone. When she ran out of the oxycodone, she started to feel unwell and developed nausea, vomiting, diarrhea, pains, aches, and cramps gradually. Also notable that she had multiple visits at the ER and at primary care physician's office due to other complaints, which included chest pain and during recent ER visit about a month ago, she was diagnosed with pneumonia. In any case, during the past several days prior to admission, she could not keep oral intake and came to the hospital quite dehydrated. She was hemoconcentrated and her hemoglobin was 18. She was hypokalemic and required potassium replacement. As she could not keep oral intake and could not take any of her outpatient medications, she was hospitalized, received IV hydration, and received opiates via STAFF MINE WARFARE OFFICER pump until her symptoms resolved. Receiving opiates IV, she became asymptomatic. Subsequently, prior opiate regimen including oxycodone and OxyContin were restarted according to the last record, which was verified by our pharmacist. Regarding additional issues. Patient ruled out for pneumonia, urine infection, infectious diarrhea, and for other issues such as acute coronary syndrome or other etiologies that could cause her presentation. In particular, she had negative chest x-ray, negative urinalysis, and stool culture was negative for Clostridium difficile. The diagnosis of opiate withdrawal was confirmed based on clinical course, which was that the patient improved and all her symptoms resolved after IV opiate was given. In addition, obviously this is a diagnosis of exclusion and the patient's workup as mentioned , was otherwise negative. Additional issues dealt with during this hospital stay was uncontrolled hypertension, which was in the setting of opiate withdrawal. Patient did not receive much antihypertensive during this hospital stay, and, after the opiate withdrawal, resolved her blood pressure remained normal. Regarding her home medications, she was on spironolactone and on Lasix, which I suppose were given for her liver disease. At this point, she does not require these medications, and I recommend to hold Lasix and aldactone, and reevaluate next week whether the patient would need to restart. For additional blood pressure control, I ordered amlodipine 5 mg p.o. daily and continue with propranolol. Regarding hyperglycemia in the setting of withdrawal, patient was found with elevated blood glucose. Most likely hyperglycemia was a result of stress reaction in the setting of opiate withdrawal. We recommend this to be further investigated on the outpatient basis. Prior to discharge, director of casework services coordinated this patient's care, contacted [email or web address], the patient's insurance company, and informed the insurance company on this patient' s admission and diagnoses. We requested that the insurance company coordinates with the patient 's pain clinic, and they come up with a long-term solution for this patient's chronic opiates. In the meantime, I discharged this patient with the above prescriptions, and I recommend close outpatient followup. Time spent with the discharge was more than 30 minutes. cc: DO Emery De León MD TD: 11/27/2017 21:07 MTDD
== END 2017-11-27 13:33 | disposition home or self-care (01) ==
LOC: ED 08:07 → OBS 15:39
PROVIDERS: ADMIT Internal Medicine; ATTEND Internal Medicine
DX: F11.23 Opioid dependence with withdrawal (principal); R11.2 Nausea with vomiting, unspecified; R19.7 Diarrhea, unspecified; E87.6 Hypokalemia; E86.0 Dehydration; R73.9 Hyperglycemia, unspecified; I10 Essential (primary) hypertension; E03.9 Hypothyroidism, unspecified; G89.29 Other chronic pain; M79.7 Fibromyalgia; M81.0 Age-related osteoporosis without current pathological fracture; M19.90 Unspecified osteoarthritis, unspecified site; K74.60 Unspecified cirrhosis of liver; K21.9 Gastro-esophageal reflux disease without esophagitis; Z79.51 Long term (current) use of inhaled steroids; Z79.899 Other long term (current) drug therapy; Z86.19 Personal history of other infectious and parasitic diseases
CPT/HCPCS: 36415; 71046; 80048; 80053; 81001; 81003; 83690; 85025; 87045; 87046; 87493; 96361; 96365; 96366; 96367; 96372; 96375; 96376; 99218; 99284; A9270; J1650; J1815; J2270; J7040; 87086; 99283

== ENCOUNTER 2017-12-29 11:29 | Outpatient (CLI) | payer OTHER ==
[2017-12-29 19:08] LABS: BASOPHILS # (AUTO) 0.1 10^3/uL (0.0-0.1); BASOPHILS % (AUTO) 0.9 %; EOSINOPHILS # (AUTO) 0.1 10^3/uL (0.0-0.7); EOSINOPHILS % (AUTO) 1.3 %; HGB - HEMOGLOBIN 15.3 g/dL (12.0-16.0); LYMPHOCYTES # (AUTO) 1.6 10^3/uL (1.5-3.5); LYMPHOCYTES % (AUTO) 23.7 %; MEAN CORPUSCULAR HEMOGLOBIN 29.7 pg (27.0-31.0); MEAN CORPUSCULAR VOLUME 90.1 fL (81.0-99.0); MEAN PLATELET VOLUME 9.1 fL (7.9-10.8); MONOCYTES # (AUTO) 0.4 10^3/uL (0.0-1.0); MONOCYTES % (AUTO) 6.5 %; NEUTROPHILS # (AUTO) 4.5 10^3/uL (1.5-6.6); NEUTROPHILS % (AUTO) 67.6 %; PLT - PLATELET COUNT 200 10^3/uL (130-450); RED BLOOD COUNT 5.14 10^6/uL (4.20-5.40); RED CELL DISTRIBUTION WIDTH 15.1 % (12.0-15.0); WHITE BLOOD COUNT 6.6 x10^3/uL (4.8-10.8)
[2017-12-29 19:31] LABS: ALBUMIN 4.2 g/dL (3.2-5.5); ALBUMIN/GLOBULIN RATIO 1.2 (1.0-2.2); ALKALINE PHOSPHATASE 83 IU/L (42-121); ALT ALANINE AMINOTRANSFERASE 27 IU/L (10-60); AST ASPARTATE AMINOTRANSFERASE 37 IU/L (10-42); BILIRUBIN,TOTAL 1.2 mg/dL (0.2-1.0); BUN - BLOOD UREA NITROGEN 11 mg/dL (6-20); CALCIUM 9.6 mg/dL (8.5-10.3); CARBON DIOXIDE - CO2 22 mmol/L (21-32); CHLORIDE 103 mmol/L (101-111); CHOL/HDL RATIO 4.8 (<4.4); CHOLESTEROL 178 mg/dL; CREATININE 0.7 mg/dL (0.4-1.0); GFR - MDRD 85 (>89); GLUCOSE 169 mg/dL (70-100); HDL CHOLESTEROL 37 mg/dL; LDL CHOLESTEROL,CALCULATED 89 mg/dL; LDL/HDL RATIO 2.4 (<4.4); SODIUM 136 mmol/L (135-145); TOTAL PROTEIN 7.7 g/dL (6.7-8.2); VLDL CHOLESTEROL 52 mg/dL
[2017-12-29 20:24] LABS: HB2 TOTAL 17.4 g/dL; HEMOGLOBIN A1C 1.14 g/dL; HEMOGLOBIN A1C % 8.1 % (4.6-6.2)
== END 2017-12-29 11:30 | disposition home or self-care (01) ==
LOC: LAB.WCP 11:29
PROVIDERS: ATTEND Physician Assistant
DX: Z00.00 Encounter for general adult medical examination without abnormal findings (principal); I10 Essential (primary) hypertension; R73.01 Impaired fasting glucose; E03.9 Hypothyroidism, unspecified
CPT/HCPCS: 36415; 80053; 80061; 83036; 83721; 84443; 85025

== ENCOUNTER 2018-01-19 15:06 | Inpatient (IN) | payer OTHER ==
[2018-01-19] MEDS ORDERED: diphenhydrAMINE INJ 50 MG/ML VIAL IVP STA (15:37)
[2018-01-19] MEDS ORDERED: SODIUM CHLORIDE 0.9% 1,000 ML IV ONE ×3 (15:37→16:26)
[2018-01-19] MEDS ORDERED: METOCLOPRAMIDE 10 MG/2 ML VIAL IVP STA (15:37)
--- NOTE | 2018-01-19 15:43 | ED Physician Documentation ---
History of Present Illness - Stated complaint Stated Complaint: HEADACHE/VISION PROBLEMS - Chief complaint Chief Complaint: General - History obtained from History obtained from: Patient, Family - History of Present Illness Timing: Other (62-year-old with chronic osteoarthritis and osteoarthritic pain on oxycodone/OxyContin for same was recently diagnosed with diabetes by a fasting blood sugar and A1c of 8.1 and was started on metformin and lisinopril approximately 2 weeks ago. She started having diarrhea and was recommended that she drop the dose of the Metformin down to a half a tablet a day. In about that time she started having a frontal headache that is constant and gradual in onset associated with flashes and floaters and spots in both of his her eyes.No associated fever. She has been nauseous and is occasionally. She skipped her dose of oxycodone this afternoon thinking it might be relevant, however she has been taking that for a long time so I doubt that.) Review of Systems Constitutional: reports: Fatigue. denies: Fever, Chills, Sweats Eyes: reports: Photophobia. denies: Loss of vision, Decreased vision, Discharge , Irritation Nose: denies: Rhinorrhea / runny nose, Congestion Cardiac: denies: Chest pain / pressure, Palpitations Respiratory: denies: Dyspnea, Cough GI: reports: Nausea. 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: None : None HEENT: Other Psych: None Musculoskeletal: Fibromyalgia, Osteoporosis, Chronic back pain, Other Derm: None - Past Surgical History Past Surgical History: Yes General: Cholecystectomy 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, Knee replacement /BRIM POUNCER MACHINE OPERATOR: 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 HEENT: Other - Present Medications Home Medications: Ambulatory Orders Medication Instructions Recorded Confirmed Calcium Carbonate/Vitamin D3 400 mg PO DAILY 08/18/15 11/26/17 [Calcium 600 + Vit D 400 Softgl] Lactobac Cmb #3/Fos/Pantethine 1 each PO BID PRN 08/18/15 11/26/17 [Probiotic & Acidophilus Cap] Levothyroxine [Synthroid] 100 mcg PO QDAC 08/18/15 11/26/17 Nadolol [Corgard] 20 mg PO DAILY 08/18/15 11/26/17 Albuterol Sulf [Ventolin Hfa 2 inh INH QID PRN 11/26/17 11/26/17 Inhaler] Doxepin HCl 20 mg PO QPM PRN 11/26/17 11/26/17 Ondansetron Odt [Zofran Odt] 4 mg TL Q8H PRN 11/26/17 11/26/17 raNITIdine [Zantac] 150 mg PO QPM 11/26/17 11/26/17 tiZANidine [Zanaflex] 2 mg PO TID PRN 11/26/17 11/26/17 amLODIPine [Norvasc] 5 mg PO DAILY #30 tablet 11/27/17 oxyCODONE ER [OxyCONTIN] 10 mg PO 1400 #0 tablet 11/27/17 oxyCODONE [Roxicodone] 10 mg PO Q4HR PRN tablet 11/27/17 - Allergies Allergies/Adverse Reactions: Allergies Allergy/AdvReac Type Severity Reaction Status Date / Time No Known Drug Allergies Allergy Verified 01/19/18 15:26 - Social History Does the pt smoke?: No Smoking Status: Never smoker Does the pt drink ETOH?: No Does the pt have substance abuse?: No - Immunizations Immunizations are current?: Yes - POLST Patient has POLST: No PD ED PE NORMAL - Vitals Vital signs reviewed: Yes - General General: Alert and oriented X 3, No acute distress - HEENT HEENT: Other (She is photophobic, she has slight anisocoria with the right pupil being smaller than the left. There is less than a millimeters difference though. Both are reactive. She has a cataract in the left eye. Extraocular movements are normal and there is no nystagmus. Temporal arteries are nontender.) - Neck Neck: Supple, no meningeal sign, No bony TTP - Cardiac Cardiac: RRR, No murmur - Respiratory Respiratory: No respiratory distress, Clear bilaterally - Abdomen Abdomen: Soft, Non tender - Back Back: No CVA TTP, No spinal TTP - Derm Derm: Normal color, Warm and dry - Extremities Extremities: No edema, No calf tenderness / cord - Neuro Neuro: Alert and oriented X 3, financial aid 2-12 intact Eye Opening: Spontaneous Motor: Obeys Commands Verbal: Oriented GCS Score: 15 - Psych Psych: Normal mood, Normal affect Results - Vitals Vitals: Vital Signs - 24 hr 01/19/18 15:23 Temperature 36.4 C L Heart Rate 68 Respiratory 15 Rate Blood Pressure 104/74 O2 Saturation 98 Oxygen O2 Source [] Room air O2 Source [] Room air O2 Source Room air - Labs Labs: Laboratory Tests 01/19/18 01/19/18 01/19/18 15:21 15:45 15:45 WBC 7.7 RBC 5.03 Hgb 15.5 Hct 45.2 MCV 89.8 MCH 30.8 MCHC 34.3 RDW 14.1 Plt Count 175 MPV 9.2 Neut # 5.0 Lymph # 1.4 L Stanley # 0.8 Eos # 0.4 Baso # 0.1 Absolute Nucleated RBC 0.00 Nucleated RBC % 0.0 ESR Sodium 131 L Potassium 5.2 H Chloride 89 L Carbon Dioxide 30 Anion Gap 12.0 BUN 66 H Creatinine 4.7 H Estimated GFR (MDRD) 9 L Glucose 165 H POC Whole Bld Glucose 176 H Calcium 11.7 H Total Bilirubin 1.1 H AST 24 ALT 17 Alkaline Phosphatase 79 Total Protein 7.9 Albumin 4.2 Globulin 3.7 Albumin/Globulin Ratio 1.1 Lipase 36 Ethyl Alcohol < 5.0 01/19/18 15:45 WBC RBC Hgb Hct MCV MCH MCHC RDW Plt Count MPV Neut # Lymph # Stanley # Eos # Baso # Absolute Nucleated RBC Nucleated RBC % ESR 23 Sodium Potassium Chloride Carbon Dioxide Anion Gap BUN Creatinine Estimated GFR (MDRD) Glucose POC Whole Bld Glucose Calcium Total Bilirubin AST ALT Alkaline Phosphatase Total Protein Albumin Globulin Albumin/Globulin Ratio Lipase Ethyl Alcohol - Rads (name of study) CT Head Radiology: EMP read contemporaneously (NAD) PD MEDICAL DECISION MAKING - ED course ED course: 62-year-old woman who presents with headache after having vomiting and diarrhea likely secondary to starting metformin. Headaches seem migrainous, head CT was negative and she was given IV fluids and Reglan. Her labs were quite surprising with acute renal failure with significant prerenal azotemia pattern and relatively unremarkable electrolytes. Given the height of her renal failure I spoke with Dr. Longoria for admission at 4:43 PM, she did request that I add on a lactic acid which was done. Departure - Departure Disposition: 66 [facility] DC/Xfer Clinical Impression: ARF (acute renal failure) Qualifiers: Acute renal failure type: unspecified Qualified Code(s): N17.9 - Acute kidney failure, unspecified Headache Qualifiers: Headache type: tension-type Headache chronicity pattern: acute headache Intractability: not intractable Qualified Code(s): G44.209 - Tension-type headache, unspecified, not intractable Diarrhea Qualifiers: Diarrhea type: unspecified type Qualified Code(s): R19.7 - Diarrhea, unspecified Vomiting Qualifiers: Vomiting type: unspecified Vomiting Intractability: non-intractable Nausea presence: with nausea Qualified Code(s): R11.2 - Nausea with vomiting, unspecified Condition: Stable
[2018-01-19 15:55] LABS: BASOPHILS # (AUTO) 0.1 10^3/uL (0.0-0.1); BASOPHILS % (AUTO) 0.9 %; EOSINOPHILS # (AUTO) 0.4 10^3/uL (0.0-0.7); EOSINOPHILS % (AUTO) 4.7 %; HGB - HEMOGLOBIN 15.5 g/dL (12.0-16.0); LYMPHOCYTES # (AUTO) 1.4 10^3/uL (1.5-3.5); LYMPHOCYTES % (AUTO) 18.8 %; MEAN CORPUSCULAR HEMOGLOBIN 30.8 pg (27.0-31.0); MEAN CORPUSCULAR HGB CONC 34.3 g/dL (32.0-36.0); MEAN CORPUSCULAR VOLUME 89.8 fL (81.0-99.0); MEAN PLATELET VOLUME 9.2 fL (7.9-10.8); MONOCYTES # (AUTO) 0.8 10^3/uL (0.0-1.0); NEUTROPHILS % (AUTO) 64.6 %; PLT - PLATELET COUNT 175 10^3/uL (130-450); RED BLOOD COUNT 5.03 10^6/uL (4.20-5.40); RED CELL DISTRIBUTION WIDTH 14.1 % (12.0-15.0); WHITE BLOOD COUNT 7.7 x10^3/uL (4.8-10.8)
[2018-01-19 16:05] LABS: ALBUMIN 4.2 g/dL (3.2-5.5); ALBUMIN/GLOBULIN RATIO 1.1 (1.0-2.2); ALKALINE PHOSPHATASE 79 IU/L (42-121); ALT ALANINE AMINOTRANSFERASE 17 IU/L (10-60); AST ASPARTATE AMINOTRANSFERASE 24 IU/L (10-42); BILIRUBIN,TOTAL 1.1 mg/dL (0.2-1.0); BUN - BLOOD UREA NITROGEN 66 mg/dL (6-20); CALCIUM 11.7 mg/dL (8.5-10.3); CARBON DIOXIDE - CO2 30 mmol/L (21-32); CHLORIDE 89 mmol/L (101-111); CREATININE 4.7 mg/dL (0.4-1.0); GFR - MDRD 9 (>89); GLUCOSE 165 mg/dL (70-100); LIPASE 36 U/L (22-51); SODIUM 131 mmol/L (135-145); TOTAL PROTEIN 7.9 g/dL (6.7-8.2)
--- NOTE | 2018-01-19 16:33 | CT Report ---
EXAM: CT HEAD EXAM DATE: 01/19/2018 04:08 PM. CLINICAL HISTORY: Headache. COMPARISON: None. TECHNIQUE: Multiaxial CT images were obtained from the foramen magnum to the vertex. Reformats: Coron al. IV contrast: None. In accordance with CT protocol optimization, one or more of the following dose reduction techniques w ere utilized for this exam: automated exposure control, adjustment of mA and/or KV based on patient s ize, or use of iterative reconstructive technique. FINDINGS: Parenchyma: No intraparenchymal hemorrhage. No evidence of mass, midline shift, or CT findings of inf arction. Solano-white differentiation is distinct. Extraaxial Spaces: Mild to moderate volume loss. No subdural or epidural collections identified. Ventricles: Normal in size and position. Sinuses and Orbits: Imaged paranasal sinuses, orbits, and mastoids show no significant abnormality. Bones: No evidence of fracture or calvarial defect. Other: None. IMPRESSION: No acute intracranial abnormality. [facility] Referring Provider Line: [phone] SITE ID: [id number]
[2018-01-19] MEDS ORDERED: SODIUM CHLORIDE FLUSH 0.9% 10 ML SYRINGE IVP PRN (16:53)
[2018-01-19] MEDS: SODIUM CHLORIDE FLUSH 0.9% 10 ML SYRINGE IVP SCH (17:37)
--- NOTE | 2018-01-19 17:37 | HISTORY & PHYSICAL EXAMINATION ---
Chief Complaint - Chief Complaint Chief Complaint: diarrhea, fatigue History of Present Illness - Admitted From Admitted From:: ER/Home - History Obtained From Records Reviewed: [facility] History obtained from: Dr. Celaya and patient Exam Limitations: none - History of Present Illness HPI Comment/Other: Per Dr. Celaya: 62-year-old with chronic osteoarthritis and osteoarthritic pain on oxycodone/ OxyContin for same was recently diagnosed with diabetes by a fasting blood sugar and A1c of 8.1 and was started on metformin and lisinopril approximately 2 weeks ago. She started having diarrhea and was recommended that she drop the dose of the Metformin down to a half a tablet a day. In about that time she started having a frontal headache that is constant and gradual in onset associated with flashes and floaters and spots in both of his her eyes.No associated fever. She has been nauseous and is occasionally. She skipped her dose of oxycodone this afternoon thinking it might be relevant, however she has been taking that for a long time so I doubt that.) In reviewing her [facility] medical record she was seen January 02. At that time her A1c was 8% and she had a new diagnosis of diabetes mellitus. She was educated about what it meant. What an A1c meant. Prescribed metformin and given the side effects of metformin. They also talked about being on an DEBBIE inhibitor for renal protection and daily aspirin. They consider starting her on atorvastatin but asked the patient to please ask her water filter cleaner if it would be okay with her history of alcoholic cirrhosis. She is seen every 6 months by the water filter cleaner. He also recommended she started getting her eye exams every year. Between then and now, the patient did start the metformin and she has had more and more diarrhea. In the above symptoms noted by Dr. Serrano. She called the office today telling them that she had a horrible night. Her vision was worse, had a horrible headache. She just did not feel right. They felt it was an ocular migraine and they gave her a ketorolac injection. The patient did not get better so she came to the emergency room. After Dr. Serrano's evaluation, the patient is found to have a lactic acid of 1.4. White cell count of 7.7. A new sodium of 131, a new potassium of 5.2, and a new BUN of 66 with a creatinine of 4.7. A comprehensive metabolic panel done December 29, 2017 showed a sodium of 136, potassium 3.6, and a BUN of creatinine of 11 and 0.7. She is now admitted with acute kidney failure felt to be secondary from diarrhea and severe dehydration. She does not have lactic acidosis from her metformin. History - Past Medical History Cardiovascular: reports: Hypertension, Other (Atypical chest pain in the past) Respiratory: reports: None Neuro: reports: Other (Ocular migraines) Endocrine/Autoimmune: reports: Type 2 diabetes, HyPOthyroidism GI: reports: GERD, Ulcers, C.difficile (November 2017), Cirrhosis (With portal vein thrombosis and alcoholic liver disease that has been stabilized and doing well. She sees a water filter cleaner every 6 months), Other (Irritable bowel syndrome) SALES SECRETARY: reports: None : reports: None HEENT: reports: Other Psych: reports: None Musculoskeletal: reports: Osteoarthritis, Fibromyalgia, Osteoporosis, Chronic back pain (With continuous opioid dependence.She is seen by the [facility] pain clinic for lumbosacral radiculitis. Pain began in August 2014. Last seen by the [facility] pain clinic December 01, 2017. At time she has increased her dose without authorization and she has been counseled.), Other Derm: reports: None MRSA Hx?: No - Past Surgical History General: reports: Cholecystectomy Ortho: reports: Hip replacement, Knee replacement (Left, July 2015) /SALES SECRETARY: reports: 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 HEENT: reports: Other - Family & Social History Family History Comment/Other: Dad of a massive heart attack at the age of 49. Mom at age 84 with hypertension, fibromyalgia, and an abdominal cancer. She was also a breast cancer survivor. 2 brothers are alive and healthy with no major medical illnesses. 3 children are also all healthy. Living arrangement: At home Living Situation: With spouse/s.o. (Partner Oumar for the last 12 years) Social History Notes: She is for 14 years and she met her partner, Oumar, 12 years ago. She has 3 children.She never smoked. She did have a history of alcohol abuse in the past. She does not use cannabis. 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 She cannot stand for very long or walk for very long can do some vacuuming, light dish washing etc. 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 She has a lot of employees to do the brunt of the work. She was born and raised in [place]. She came to [facility] about 20 years ago to be close to her mom, and both of her [place] Both brothers own car dealerships. One brother owns the [employer] dealership and the other brother owns the [employer] dealership - Substance History Use: Uses substance without health or social issues: NONE Abuse: Recurrent use of substance despite neg consequences: NONE Dependence: Experiences withdrawal or developed tolerances: Opioid Dependence Issues: Sleep Disorder, Other (Occasional overuse without permission) - POLST Patient has POLST: No POLST Status: Full Code Meds/Allgy - Home Medications Home Medications: Ambulatory Orders Medication Instructions Recorded Confirmed Calcium Carbonate/Vitamin D3 400 mg PO BID 08/18/15 01/19/18 [Calcium 600 + Vit D 400 Softgl] Lactobac Cmb #3/Fos/Pantethine 1 each PO BID PRN 08/18/15 01/19/18 [Probiotic & Acidophilus Cap] Levothyroxine [Synthroid] 100 mcg PO QDAC 08/18/15 01/19/18 Nadolol [Corgard] 20 mg PO BID 08/18/15 01/19/18 Doxepin HCl 1 - 2 tab PO QPM PRN 11/26/17 01/19/18 tiZANidine [Zanaflex] 2 mg PO TID PRN 11/26/17 01/19/18 Furosemide 20 mg PO DAILY 01/19/18 01/19/18 Lactulose 15 - 30 ml PO BID PRN 01/19/18 01/19/18 Lisinopril 10 mg PO DAILY 01/19/18 01/19/18 Omeprazole 20 mg PO DAILY 01/19/18 01/19/18 Oxycodone HCl 10 mg PO Q4H PRN MDD 5 TABLETS 01/19/18 01/19/18 Oxycodone HCl [Oxycontin] 20 mg PO TID PRN 01/19/18 01/19/18 Spironolactone 50 mg PO DAILY 01/19/18 01/19/18 - Allergies Allergies/Adverse Reactions: Allergies Allergy/AdvReac Type Severity Reaction Status Date / Time metformin Allergy Severe "HORRIFIC" Verified 01/20/18 15:44 hydromorphone [From Dilaudid] Allergy Rash Verified 01/19/18 19:19 Review of Systems - Constitutional Constitutional: reports: Fatigue, Malaise. denies: Fever, Chills - Eyes Eyes: reports: Blurred vision, Vision loss (in left eye from glaucoma and C dif in the eye. I asked if she was sure and she said that years ago she had C dif colitis and the bacteria "spread" to her eye.) - Ears, Nose & Throat Ears, Nose & Throat: denies: Ear pain, Hearing loss, Hearing aids, Vertigo, Nasal obstruction, Nasal congestion, Postnasal drainage - Cardiovascular Cariovascular: denies: Irregular heart rate, Palpitations, Chest pain, Edema - Respiratory Respiratory: denies: Cough, Sputum production, Wheezing, Snoring - Gastrointestinal Gastrointestinal: reports: Diarrhea, Nausea, Vomiting, Reflux/heartburn, Poor appetite. denies: Black stools, Bloody stools, Bile emesis, Brett blood emesis , Bloating - Genitourinary Genitourinary: denies: Dysuria, Frequency, Urgency, Hematuria - Musculoskeletal Musculoskeletal: reports: Muscle pain, Muscle aches, Stiffness, Joint pain - Integumentary Integumentary: denies: Rash, Pruritis, Lesions, Dryness - Neurological Neurological: reports: General weakness, Headache. denies: Focal weakness, Dizziness, Numbness, Memory problems, Pre-existing deficit - Psychiatric Psychiatric: reports: Depression. denies: Anxiety, Suicidal - Endocrine Endocrine: denies: Polyuria, Polydypsia, Polyphagia Exam - Vital Signs Reviewed Vital Signs: Yes Vital Signs: Selected Entries 01/19/18 18:25 Temperature 36.4 C L Heart Rate [ 64 Apical] Respiratory 20 Rate Blood Pressure 124/76 [Left Brachial artery] O2 Saturation 100 - Physical Exam General Appearance: positive: Lethargic (eyes half closed but able to speak and give history, her headache is between her eyes and over ethmoid area.), Other ( slender middle aged female looks older than stated age.) Eyes Bilateral: positive: PERRL, EOMI, Other (sclera muddy.) ENT: positive: Dry mucous membranes Neck: positive: No JVD. negative: Carotid bruit, Swelling/bruising Respiratory: positive: Chest non-tender. negative: Wheezes, Rales, Rhonchi Cardiovascular: positive: Regular rate & rhythm. negative: Gallop/S4, Friction rub Peripheral Pulses: positive: 2+ Abdomen: positive: Non-tender, No organomegaly, Nml bowel sounds, No distention Skin: positive: Warm, Dry Extremities: positive: Full ROM, No pedal edema Neurologic/Psychiatric: positive: Oriented x3, CN's nml (2-12), Motor nml, Depressed mood/affect. negative: Facial droop, Slurred/abnml speech Conclusion/Plan - Problem List (1) ARF (acute renal failure) Conclusion/Plan: with nausea, headache. From #2. No lactic acidosis. Plan: admit to inpatient status hydrate with 200 cc/hr NS. monitor daily BMP Qualifiers: Acute renal failure type: unspecified Qualified Code(s): N17.9 - Acute kidney failure, unspecified (2) Diarrhea Conclusion/Plan: from metformin. she has a hx of c dif will check for that Plan: Stop the metformin. Qualifiers: Diarrhea type: unspecified type Qualified Code(s): R19.7 - Diarrhea, unspecified (3) Headache Conclusion/Plan: it's over her forehead. doesn't remember if massage helps but ferocious. Plan: she is on her opiates, muscle relaxants, and tylenol. Qualifiers: Headache type: tension-type Headache chronicity pattern: acute headache Intractability: not intractable Qualified Code(s): G44.209 - Tension-type headache, unspecified, not intractable (4) Benign essential HTN Conclusion/Plan: will hold off on her meds until adequate hydration. (5) Controlled type 2 diabetes mellitus without complication, without long-term current use of insulin Conclusion/Plan: hold on metformin start AC checks low dose SS insulin. check a1c in am. - Lab Results Lab results reviewed: Yes Dustin Bones: 01/19/18 15:45 01/20/18 04:45 Core Measures - Anticipated LOS I expect patient to be DC'd or transferred within 96 hours.: Yes - DVT/VTE - Prophylaxis VTE/DVT Device ordered at admit?: Yes
[2018-01-19] MEDS: oxyCODONE 5 MG TABLET PO PRN (18:01)
[2018-01-19] MEDS ORDERED: ACETAMINOPHEN 500 MG TABLET PO STA (19:36)
[2018-01-19] MEDS: SACCHAROMYCES BOULARDII 250 MG CAPSULE PO SCH (20:36)
[2018-01-19] MEDS: NADOLOL 20 MG TABLET PO SCH (20:36)
[2018-01-19] MEDS: SODIUM CHLORIDE 0.9% 1,000 ML IV SCH (20:39)
[2018-01-19] MEDS: INSULIN ASPART 300 UNIT/3 ML PEN SUBQ SCH (20:42)
[2018-01-19] MEDS: FAMOTIDINE 20 MG TABLET PO SCH (20:42)
[2018-01-19] MEDS: oxyCODONE ER 10 MG TABLET PO SCH (22:16)
[2018-01-19] MEDS: ZOLPIDEM 5 MG TABLET PO PRN (22:20)
[2018-01-19 23:19] LABS: BUN - BLOOD UREA NITROGEN 61 mg/dL (6-20); CALCIUM 10.1 mg/dL (8.5-10.3); CARBON DIOXIDE - CO2 28 mmol/L (21-32); CHLORIDE 96 mmol/L (101-111); CREATININE 4.3 mg/dL (0.4-1.0); GFR - MDRD 10 (>89); GLUCOSE 140 mg/dL (70-100); SODIUM 133 mmol/L (135-145)
[2018-01-20] MEDS ORDERED: SODIUM CHLORIDE 0.9% 500 ML IV ONE (00:06)
[2018-01-20] MEDS: SODIUM CHLORIDE FLUSH 0.9% 10 ML SYRINGE IVP SCH ×3 (02:19→16:26)
[2018-01-20] MEDS: SODIUM CHLORIDE 0.9% 1,000 ML IV SCH ×3 (02:52→21:37)
[2018-01-20 05:25] LABS: CALCIUM 9.1 mg/dL (8.5-10.3); CREATININE 3.5 mg/dL (0.4-1.0)
[2018-01-20 05:35] LABS: HEMOGLOBIN A1C 0.95 g/dL; HEMOGLOBIN A1C % 8.4 % (4.6-6.2)
[2018-01-20] MEDS: oxyCODONE ER 10 MG TABLET PO SCH ×3 (06:42→21:38)
[2018-01-20] MEDS: LEVOTHYROXINE 100 MCG TABLET PO SCH (06:45)
[2018-01-20] MEDS: INSULIN ASPART 300 UNIT/3 ML PEN SUBQ SCH ×4 (07:50→21:13)
[2018-01-20] MEDS: oxyCODONE 5 MG TABLET PO PRN ×3 (08:06→17:24)
[2018-01-20] MEDS: POLYETHYLENE GLYCOL 3350 17 GM PACKET PO SCH (08:07)
[2018-01-20] MEDS: FAMOTIDINE 20 MG TABLET PO SCH (08:09)
[2018-01-20] MEDS: SACCHAROMYCES BOULARDII 250 MG CAPSULE PO SCH ×2 (08:09→16:13)
[2018-01-20] MEDS: NADOLOL 20 MG TABLET PO SCH ×2 (08:10→21:38)
[2018-01-20] MEDS ORDERED: amLODIPine 5 MG TABLET PO SCH (09:00)
[2018-01-20] MEDS ORDERED: NADOLOL 20 MG TABLET PO SCH (09:00)
[2018-01-20] MEDS ORDERED: oxyCODONE ER 10 MG TABLET PO SCH (14:00)
--- NOTE | 2018-01-20 16:14 | PROVIDER PROGRESS NOTE ---
Subjective - Prog Note Date Prog Note Date: 01/20/18 Prog Note Time: 16:15 - Subjective Pt reports feeling: Improved Subjective: but she still has her frontal headache over her ethmoid sinuses. Current Medications - Current Medications Current Medications: Active Medications Famotidine (Pepcid) 20 mg PO DAILY [facility] Last Admin: 01/20/18 08:09 Dose: 20 mg Insulin Aspart (Novolog) 1 - 5 unit SUBQ 0800,1200,1700,2100 [facility] PRN Reason: Protocol Last Admin: 01/20/18 12:22 Dose: Not Given Levothyroxine Sodium (Synthroid) 100 mcg PO QDAC [facility] Last Admin: 01/20/18 06:45 Dose: 100 mcg Nadolol (Corgard) 20 mg PO BID [facility] Last Admin: 01/20/18 08:10 Dose: Not Given Oxycodone HCl (Roxicodone) 10 mg PO Q4HR PRN PRN Reason: PAIN Last Admin: 01/20/18 12:18 Dose: 10 mg Oxycodone HCl (Oxycontin) 20 mg PO TID [facility] Last Admin: 01/20/18 13:58 Dose: 20 mg Polyethylene Glycol (Miralax) 17 gm PO DAILY [facility] Last Admin: 01/20/18 08:07 Dose: Not Given Saccharomyces Boulardii (Florastor) 250 mg PO BIDWM [facility] Last Admin: 01/20/18 16:13 Dose: 250 mg Sodium Chloride (Normal Saline Flush 0.9%) 10 ml IVP PRN PRN PRN Reason: NEEDED PER PROVIDER ORDERS Sodium Chloride (Normal Saline Flush 0.9%) 10 ml IVP 0100,0900,1700 [facility] Last Admin: 01/20/18 08:11 Dose: 10 ml Tizanidine HCl (Zanaflex) 2 mg PO TID PRN PRN Reason: Muscle Spasms Zolpidem Tartrate (Ambien) 5 mg PO QPM PRN PRN Reason: Insomnia Last Admin: 01/19/18 22:20 Dose: 5 mg Calcium Carbonate/Vitamin D3 [Calcium 600 + Vit D 400 Softgl] 400 mg PO BID Lactobac Cmb #3/Fos/Pantethine [Probiotic & Acidophilus Cap] 1 each PO BID PRN 08/18/15 Levothyroxine [Synthroid] 100 mcg PO QDAC 12/28/15 Nadolol [Corgard] 20 mg PO BID 08/18/15 Doxepin HCl 1 - 2 tab PO QPM PRN 11/26/17 tiZANidine [Zanaflex] 2 mg PO TID PRN 11/26/17 Furosemide 20 mg PO DAILY 01/19/18 Lactulose 15 - 30 ml PO BID PRN 01/19/18 Lisinopril 10 mg PO DAILY 01/19/18 Omeprazole 20 mg PO DAILY 01/19/18 Oxycodone HCl 10 mg PO Q4H PRN MDD 5 TABLETS 01/19/18 Oxycodone HCl [Oxycontin] 20 mg PO TID PRN 01/19/18 Spironolactone 50 mg PO DAILY 01/19/18 Objective - Vital Signs/Intake & Output Reviewed Vital Signs: Yes Vital Signs: Vital Signs x48h Temp Pulse Resp BP BP Pulse Ox 01/20/18 15:35 72/44 L 01/20/18 15:33 36.8 C 59 L 20 67/42 L 98 01/20/18 14:45 105/71 01/20/18 13:18 36.4 C L 65 20 95/58 L 98 Intake & Output: Intake & Output 01/17/18 01/18/18 01/19/18 01/20/18 23:59 23:59 23:59 23:59 Intake Total 1000 3260.000 Output Total 200 Balance 1000 3060.000 - Objective General Appearance: positive: No acute distress, Alert Eyes Bilateral: positive: PERRL, EOMI ENT: positive: Pharynx nml Neck: positive: No JVD. negative: Stiff neck, Carotid bruit Respiratory: positive: Chest non-tender. negative: Wheezes, Rales, Rhonchi Cardiovascular: positive: Regular rate & rhythm. negative: Gallop/S4, Friction rub Abdomen: positive: Non-tender, No organomegaly, Nml bowel sounds, No distention Skin: positive: Warm, Dry Extremities: positive: Full ROM, No pedal edema Neurologic/Psychiatric: positive: Oriented x3, CN's nml (2-12), Motor nml - Lab Results Fish Bones: 01/19/18 15:45 01/20/18 04:45 Other Labs: Lab Results x24hrs 01/20/18 01/20/18 01/20/18 Range/Units 11:40 07:43 04:45 Sodium (135-145) mmol/L Potassium (3.5-5.0) mmol/L Chloride (101-111) mmol/L Carbon Dioxide (21-32) mmol/L Anion Gap (6-13) BUN (6-20) mg/dL Creatinine (0.4-1.0) mg/dL Estimated GFR (MDRD) (>89) Glucose (70-100) mg/dL POC Whole Bld Glucose 122 H 97 (70 - 100) mg/dL Glycated Hemoglobin 8.4 H (4.6-6.2) % Estim Average Glucose 194 H (70-100) Lactic Acid (0.5-2.2) mmol/L Calcium (8.5-10.3) mg/dL Ionized Calcium 01/20/18 01/20/18 01/19/18 Range/Units 04:45 04:45 22:54 Sodium 137 133 L (135-145) mmol/L Potassium 4.7 4.3 (3.5-5.0) mmol/L Chloride 103 96 L (101-111) mmol/L Carbon Dioxide 25 28 (21-32) mmol/L Anion Gap 9.0 9.0 (6-13) BUN 55 H 61 H (6-20) mg/dL Creatinine 3.5 H 4.3 H (0.4-1.0) mg/dL Estimated GFR (MDRD) 13 L 10 L (>89) Glucose 94 140 H (70-100) mg/dL POC Whole Bld Glucose (70 - 100) mg/dL Glycated Hemoglobin (4.6-6.2) % Estim Average Glucose (70-100) Lactic Acid 0.8 (0.5-2.2) mmol/L Calcium 9.1 10.1 (8.5-10.3) mg/dL Ionized Calcium NO 01/19/18 Range/Units 20:30 Sodium (135-145) mmol/L Potassium (3.5-5.0) mmol/L Chloride (101-111) mmol/L Carbon Dioxide (21-32) mmol/L Anion Gap (6-13) BUN (6-20) mg/dL Creatinine (0.4-1.0) mg/dL Estimated GFR (MDRD) (>89) Glucose (70-100) mg/dL POC Whole Bld Glucose 154 H (70 - 100) mg/dL Glycated Hemoglobin (4.6-6.2) % Estim Average Glucose (70-100) Lactic Acid (0.5-2.2) mmol/L Calcium (8.5-10.3) mg/dL Ionized Calcium ABX Reporting Has patient been on IV antibiotics over the past 48 hours?: No Assessment/Plan - Problem List (1) ARF (acute renal failure) Impression: with nausea, headache. From #2. No lactic acidosis. Plan: inpatient status continues hydrated with 200 cc/hr NS and we stopped at 2 liters but she is still w sig creatinine rise. Continue at 200 cc/hr monitor daily BMP Qualifiers: Acute renal failure type: unspecified Qualified Code(s): N17.9 - Acute kidney failure, unspecified (2) Diarrhea Conclusion/Plan: from metformin. she has a hx of c dif will check for that still having some diarrhea and had an accident this afternoon Plan: Stopped the metformin. Qualifiers: Diarrhea type: unspecified type Qualified Code(s): R19.7 - Diarrhea, unspecified (3) Headache Conclusion/Plan: it's over her forehead. doesn't remember if massage helps but ferocious. Plan: she is on her opiates, muscle relaxants, and tylenol. Qualifiers: Headache type: tension-type Headache chronicity pattern: acute headache Intractability: not intractable Qualified Code(s): G44.209 - Tension-type headache, unspecified, not intractable (4) Benign essential HTN Conclusion/Plan: will hold off on her meds until adequate hydration. She is actually LOW today. still behind on fluid per BP and creatinine. continue IVF (5) Controlled type 2 diabetes mellitus without complication, without long-term current use of insulin Conclusion/Plan: hold on metformin started AC checks low dose SS insulin. A1c 8.4% so not controlled at home 94 this am. Qualifiers: Qualified Code(s): N17.9 - Acute kidney failure, unspecified (3) Headache Qualifiers: Qualified Code(s): G44.209 - Tension-type headache, unspecified, not intractable
[2018-01-20] MEDS: ZOLPIDEM 5 MG TABLET PO PRN (21:56)
[2018-01-21] MEDS: oxyCODONE 5 MG TABLET PO PRN ×4 (01:24→20:35)
[2018-01-21] MEDS: SODIUM CHLORIDE FLUSH 0.9% 10 ML SYRINGE IVP SCH ×5 (01:24→23:46)
[2018-01-21] MEDS: ONDANSETRON 4 MG/2 ML VIAL IVP PRN ×3 (01:25→20:35)
[2018-01-21] MEDS: SODIUM CHLORIDE 0.9% 1,000 ML IV SCH ×2 (02:47→07:48)
[2018-01-21] MEDS: LEVOTHYROXINE 100 MCG TABLET PO SCH (07:01)
[2018-01-21] MEDS: oxyCODONE ER 10 MG TABLET PO SCH ×3 (07:01→22:11)
--- NOTE | 2018-01-21 08:15 | PROVIDER PROGRESS NOTE ---
Subjective - Prog Note Date Prog Note Date: 01/21/18 Prog Note Time: 14:07 - Subjective Pt reports feeling: Improved Subjective: No new problems overnight. She continues to have a headache with occasional spots in her eyes. But no vision loss. No blurred vision. She says is her normal headache pattern. Does not have much appetite but otherwise has no abdominal complaints. Her glucose while here started out at 176 on admission, and has been 154, 97, 122, 96, 84, 84, and 125. No diarrhea today and had her last loose bowel movement yesterday morning Current Medications - Current Medications Current Medications: Active Medications Famotidine (Pepcid) 20 mg PO DAILY [facility] Last Admin: 01/21/18 09:00 Dose: 20 mg Insulin Aspart (Novolog) 1 - 5 unit SUBQ 0800,1200,1700,2100 [facility] PRN Reason: Protocol Last Admin: 01/21/18 11:52 Dose: Not Given Levothyroxine Sodium (Synthroid) 100 mcg PO QDAC [facility] Last Admin: 01/21/18 07:01 Dose: Not Given Nadolol (Corgard) 20 mg PO BID [facility] Last Admin: 01/21/18 09:00 Dose: 20 mg Ondansetron HCl (Zofran Inj) 4 mg IVP Q6HR PRN PRN Reason: Nausea / Vomiting Last Admin: 01/21/18 12:54 Dose: 4 mg Oxycodone HCl (Roxicodone) 10 mg PO Q4HR PRN PRN Reason: PAIN Last Admin: 01/21/18 12:54 Dose: 10 mg Oxycodone HCl (Oxycontin) 20 mg PO TID [facility] Last Admin: 01/21/18 14:00 Dose: 20 mg Polyethylene Glycol (Miralax) 17 gm PO DAILY [facility] Last Admin: 01/21/18 09:01 Dose: Not Given Saccharomyces Boulardii (Florastor) 250 mg PO BIDWM [facility] Last Admin: 01/21/18 09:00 Dose: 250 mg Sodium Chloride (Normal Saline Flush 0.9%) 10 ml IVP PRN PRN PRN Reason: NEEDED PER PROVIDER ORDERS Last Admin: 01/21/18 12:55 Dose: 10 ml Sodium Chloride (Normal Saline Flush 0.9%) 10 ml IVP 0100,0900,1700 [facility] Last Admin: 01/21/18 09:01 Dose: Not Given Tizanidine HCl (Zanaflex) 2 mg PO TID PRN PRN Reason: Muscle Spasms Last Admin: 01/21/18 10:35 Dose: 2 mg Zolpidem Tartrate (Ambien) 5 mg PO QPM PRN PRN Reason: Insomnia Last Admin: 01/20/18 21:56 Dose: 5 mg Calcium Carbonate/Vitamin D3 [Calcium 600 + Vit D 400 Softgl] 400 mg PO BID Lactobac Cmb #3/Fos/Pantethine [Probiotic & Acidophilus Cap] 1 each PO BID PRN 08/18/15 Levothyroxine [Synthroid] 100 mcg PO QDAC 08/18/15 Nadolol [Corgard] 20 mg PO BID 08/18/15 Doxepin HCl 1 - 2 tab PO QPM PRN 11/26/17 tiZANidine [Zanaflex] 2 mg PO TID PRN 11/26/17 Furosemide 20 mg PO DAILY 01/19/18 Lactulose 15 - 30 ml PO BID PRN 01/19/18 Lisinopril 10 mg PO DAILY 01/19/18 Omeprazole 20 mg PO DAILY 01/19/18 Oxycodone HCl 10 mg PO Q4H PRN MDD 5 TABLETS 01/19/18 Oxycodone HCl [Oxycontin] 20 mg PO TID PRN 01/19/18 Spironolactone 50 mg PO DAILY 01/19/18 Objective - Vital Signs/Intake & Output Reviewed Vital Signs: Yes Vital Signs: Vital Signs x48h Temp Pulse Resp BP Pulse Ox 01/21/18 07:49 36.5 C 66 20 130/77 93 01/21/18 06:17 36.3 C L 68 20 131/89 H 96 01/21/18 03:15 74 20 132/81 H Intake & Output: Intake & Output 01/18/18 01/19/18 01/20/18 01/21/18 23:59 23:59 23:59 23:59 Intake Total 1000 4380.000 2000 Output Total 1200 300 Balance 1000 3180.000 1700 - Objective General Appearance: positive: No acute distress, Alert, Other (Thin, quiet, middle-aged female looks older than stated age, sitting upright comfortably in bed) Eyes Bilateral: positive: PERRL, EOMI ENT: positive: No signs of dehydration Neck: positive: No JVD. negative: Stiff neck, Carotid bruit Respiratory: positive: Chest non-tender. negative: Wheezes, Rales, Rhonchi Cardiovascular: positive: Regular rate & rhythm. negative: Gallop/S4, Friction rub Abdomen: positive: Non-tender, No organomegaly, Nml bowel sounds, No distention Skin: positive: Warm, Dry Extremities: positive: Non-tender, No pedal edema Neurologic/Psychiatric: positive: Oriented x3, CN's nml (2-12), Motor nml - Lab Results Fish Bones: 01/19/18 15:45 01/21/18 08:35 Other Labs: Lab Results x24hrs 01/21/18 01/20/18 01/20/18 Range/Units 07:41 20:59 16:23 POC Whole Bld Glucose 84 84 96 (70 - 100) mg/dL 01/20/18 Range/Units 11:40 POC Whole Bld Glucose 122 H (70 - 100) mg/dL ABX Reporting Has patient been on IV antibiotics over the past 48 hours?: No Assessment/Plan - Problem List (1) ARF (acute renal failure) Impression: with nausea, headache. From #2. No lactic acidosis. Plan: inpatient status continues hydrated with 200 cc/hr NS and we stopped at 2 liters but she is still w sig creatinine rise. Continued at 200 cc/hr and creatinine was 2.0 this am. If drops below 2 tomorrow am, plan for dc. monitor daily BMP Qualifiers: Acute renal failure type: unspecified Qualified Code(s): N17.9 - Acute kidney failure, unspecified (2) Diarrhea Conclusion/Plan: from metformin. she has a hx of c dif will check for that still having some diarrhea and had an accident afternoon of 01/20 but none since so no C diff check Plan: Stopped the metformin. Qualifiers: Diarrhea type: unspecified type Qualified Code(s): R19.7 - Diarrhea, unspecified (3) Headache Conclusion/Plan: it's over her forehead. doesn't remember if massage helps but ferocious. Plan: she is on her opiates, muscle relaxants, and tylenol. Qualifiers: Headache type: tension-type Headache chronicity pattern: acute headache Intractability: not intractable Qualified Code(s): G44.209 - Tension-type headache, unspecified, not intractable (4) Benign essential HTN Conclusion/Plan: will hold off on her meds until adequate hydration. She is actually LOW today. still behind on fluid per BP and creatinine. continue IVF (5) Controlled type 2 diabetes mellitus without complication, without long-term current use of insulin Conclusion/Plan: hold on metformin started AC checks low dose SS insulin. A1c 8.4% so not controlled at home 94 this am. Plan for amaryl 1 mg daily at discharge. also aim for diabetic classes thru [facility]
[2018-01-21] MEDS: SACCHAROMYCES BOULARDII 250 MG CAPSULE PO SCH ×2 (09:00→16:58)
[2018-01-21] MEDS: NADOLOL 20 MG TABLET PO SCH ×2 (09:00→20:35)
[2018-01-21] MEDS: FAMOTIDINE 20 MG TABLET PO SCH (09:00)
[2018-01-21] MEDS: INSULIN ASPART 300 UNIT/3 ML PEN SUBQ SCH ×4 (09:01→21:24)
[2018-01-21] MEDS: POLYETHYLENE GLYCOL 3350 17 GM PACKET PO SCH (09:01)
[2018-01-21] MEDS: tiZANidine 4 MG TABLET PO PRN ×2 (10:35→20:35)
[2018-01-21] MEDS: ZOLPIDEM 5 MG TABLET PO PRN (22:11)
[2018-01-22 05:12] LABS: CALCIUM 8.6 mg/dL (8.5-10.3); CREATININE 1.7 mg/dL (0.4-1.0)
[2018-01-22] MEDS: LEVOTHYROXINE 100 MCG TABLET PO SCH (06:03)
[2018-01-22] MEDS: oxyCODONE ER 10 MG TABLET PO SCH (06:03)
[2018-01-22] MEDS: oxyCODONE 5 MG TABLET PO PRN ×2 (06:03→09:59)
[2018-01-22 07:52] VITALS: BP 121/61
[2018-01-22] MEDS: INSULIN ASPART 300 UNIT/3 ML PEN SUBQ SCH (08:05)
--- NOTE | 2018-01-22 08:20 | Discharge Plan ---
Discharge Plan Disposition: Home, Self Care Condition: Good Diet: Diabetic Activity Restrictions: Activity as Tolerated Shower Restrictions: No Driving Restrictions: No Instruction Topics: Diabetic Retinopathy Risk Factors, Diabetic Retinopathy Evaluate Eyes, Log Blood Sugar, Diabetes 2 Year Olds Preschool Teacher Complications, Hyperglycemia , Hypoglycemia, Diabetes Resources, Diabetes Type 2 Coping, Diabetes Type 2 Oral Meds, Insulin Types, Diabetes Healthy Meals, Diabetes Carbs, Diabetes Eating Out, Diabetes Keep Feet Healthy, Diabetes Kidney Disease Additional Instructions or Follow Up instructions: You were admitted to the hospital because a new diabetic medication, metformin, causing severe diarrhea. That diarrhea in turn caused you to have severe dehydration and a sharp deterioration in your kidney function. One of the ways we measure kidney function is a filtration measurement called creatinine. Normal is usually less than 1 and you were 0.8 with blood work in October of this year. Because of the dehydration your creatinine had gone over 4.0. We gave you aggressive IV hydration with normal saline to treat your kidney failure and your creatinine is now 1.7 this morning. This is after 9 liters of fluid given to you in your veins. You are safe to go home. For the next 3 or 4 days do not take Lasix or Spironolactone. Then resume your Lasix. Recheck your lab work with your doctor in the next week and may be continue your Spironolactone as well but only after your blood work is checked in a week. You did not receive any medication for your diabetes while here. We monitored your glucose carefully and only at one point did you need short-acting insulin on the evening of January 21 for a glucose of 214. The rest of the time your glucose was in the 90s-120s. It will be up to you and your doctors to decide if you are going to go on a different medication for your diabetes. Your A1c is high at 8.7% and above the goal of 7%. You may want to be considered for a drug called a sulfonylurea. Amaryl 1 mg would be a nice low-dose pill for you. It's main side effect is a low blood sugar if you skip meals but no diarrhea. Please see your primary care provider in the next 1-2 weeks. You will need your blood pressure monitored, your BUN and creatinine monitored, and a discussion of what to do about your diabetes. Follow-Up Care: [facility] [place] No Smoking: If you smoke, Please STOP! Call for help. Follow-up with: Alicia Ellison PA [Primary Care Provider] -
[2018-01-22] MEDS: FAMOTIDINE 20 MG TABLET PO SCH (08:26)
[2018-01-22] MEDS: NADOLOL 20 MG TABLET PO SCH (08:26)
[2018-01-22] MEDS: SACCHAROMYCES BOULARDII 250 MG CAPSULE PO SCH (08:26)
[2018-01-22] MEDS: POLYETHYLENE GLYCOL 3350 17 GM PACKET PO SCH (08:26)
[2018-01-22] MEDS: SODIUM CHLORIDE FLUSH 0.9% 10 ML SYRINGE IVP SCH (08:26)
[2018-01-22] MEDS: tiZANidine 4 MG TABLET PO PRN (08:30)
[2018-01-22] MEDS ORDERED: SUMAtriptan 6 MG/0.5 ML VIAL SUBQ ONE (10:30)
--- NOTE | 2018-01-23 11:00 | DISCHARGE SUMMARY ---
Physician: Lorraine Longoria MD DATE OF ADMISSION: 01/19/2018 DATE OF DISCHARGE: 01/22/2018 PRIMARY CARE PROVIDER: Darren Kaye DO DISCHARGE DIAGNOSES 1. Acute renal failure. 2. Diarrhea. 3. Adverse effect of drug medicinal agent given in therapeutic purpose. 4. Headache. 5. Benign essential hypertension. 6. Controlled type 2 diabetes mellitus, without complication, without long- term use of insulin. DISCHARGE MEDICATIONS 1. Calcium with vitamin D 400 mg p.o. b.i.d. 2. Doxepin 10 mg capsule 1-2 tablets every evening. 3. Lasix 20 mg daily and spironolactone 50 mg daily are being held. I have asked the patient to resume her Lasix in 3-4 days. Make sure she gets a BMP before she starts her spironolactone. 4. Lactulose 15-30 mL p.o. b.i.d. 5. Synthroid 100 mcg daily. 6. Lisinopril 10 mg daily. 7. Corgard 20 mg p.o. b.i.d. 8. Omeprazole 20 mg daily. 9. OxyContin 20 mg p.o. t.i.d. 10. Oxycodone 10 mg p.o. q. 4 hours p.r.n. 11. Zanaflex 2 mg p.o. t.i.d. p.r.n. PRINCIPAL PROCEDURES: Head CT with no acute intracranial abnormality. HOSPITAL COURSE: The patient is a 62-year-old female who has chronic pain syndrome and uses oxycodone and OxyContin. She was recently diagnosed with diabetes by fasting blood sugar and A1c of 8.1 percent. She was started on metformin and lisinopril 2 weeks ago. She started having diarrhea and it was recommended she drop the dose of metformin down to half a tablet a day. At the same time, she started having a frontal headache that is constant and gradual in onset and associated with flashing and floating white spots in both of her eyes. She does not have fever. No chills or rigors. She is very tired. She has nausea. Even with reducing her metformin dose, the diarrhea continued and she became more tired. She came to the emergency room where a lactic acid was normal. White blood count was normal. Sodium was 131. Potassium was 5.2. She had a new BUN of 66 with a creatinine of 4.7. A comprehensive metabolic panel done 12/29/2017 showed a sodium of 136, potassium 3.6, BUN 11 and creatinine 0.7. The patient was admitted as acute renal failure secondary to diarrhea and the diarrhea secondary to the metformin. Treatment consisted of aggressive IV hydration at 200 mL an hour of normal saline. She tolerated it well and creatinine went to 4.3. The next day creatinine was 3.5, on 01/21/2018 it was 2.0, and today is 1.7. She is felt stable enough to return to home to resume usual oral intake. I have asked her to please refrain from taking her diuretics. Lasix can be started in the next 4-5 days. Please make sure she gets a BMP and then maybe she can start her spironolactone in view of her chronic liver disease. She had a chronic headache the entire time she was here. Described the floaters. Pain between the eyes and over the ethmoid sinuses and frontal lobes. Nonstop, unremitting. Unresponsive to Tylenol, and her usual doses of opiates. She did get Imitrex on the day of discharge. Blood pressure was stable during her stay. Initially, she was hypotensive at 85 /53 and her medications were held. Medications were gradually resumed. She was not resumed on her diuretics, however. Lisinopril and nadolol were resumed. Her A1c was 8.4%. During her stay, her glucose was controlled with the highest being 165 on the day of admission. The rest of her stay she was 94-118. She did not require any Lantus or sliding scale insulin. She was on a carbohydrate diet while here. I have explained to the patient that she may still end up needing some form of diabetic treatment. Maybe Amaryl at half of a 1 mg pill, but the Amaryl is different than metformin, and if she skips eating, she cannot take her Amaryl tablet that day. The most common side effect would be severe hypoglycemia if she took Amaryl without eating. Greater than 30 minutes was spent in coordinating discharge. PHYSICAL EXAMINATION ON DISCHARGE VITAL SIGNS: At the time of discharge were 36.7, pulse 70, blood pressure 121/ 61, respirations 18, 96%on room air. GENERAL: She is a slender, jayshree-appearing 62-year-old female who looks much older than stated age. Bad dentition. NECK: Supple. LUNGS: Clear. HEART: Regular rate and rhythm. Soft ejection flow murmur. ABDOMEN: Soft, nontender. EXTREMITIES: Without edema. She did not ambulate much in her room and preferred to spend her time in bed, but she is able to get up, walk around the room, and go to the bathroom on her own. She is eating anywhere from 25% to 75% of her food. She says she is a poor eater. Again, I have reminded her not to skip meals if she is going to take Amaryl if that is the drug that her primary care provider gives her. Overall, it is a sulfonylurea drug class and I explained that to her. cc: DO Shania De León [facility] TD: 01/22/2018 17:50 MTDD
== END 2018-01-22 10:55 | disposition home or self-care (01) | DRG 683 ==
LOC: ED 15:06 → MS3 16:53
PROVIDERS: ADMIT Specialist; ATTEND Specialist
DX: N17.9 Acute kidney failure, unspecified (principal); K52.1 Toxic gastroenteritis and colitis; F11.20 Opioid dependence, uncomplicated; T38.3X5A Adverse effect of insulin and oral hypoglycemic [antidiabetic] drugs, initial encounter; G44.209 Tension-type headache, unspecified, not intractable; I10 Essential (primary) hypertension; E11.9 Type 2 diabetes mellitus without complications; K70.30 Alcoholic cirrhosis of liver without ascites; F10.11 Alcohol abuse, in remission; E86.0 Dehydration; E03.9 Hypothyroidism, unspecified; G89.4 Chronic pain syndrome; M79.7 Fibromyalgia; M54.17 Radiculopathy, lumbosacral region; M81.0 Age-related osteoporosis without current pathological fracture; M19.90 Unspecified osteoarthritis, unspecified site; K21.9 Gastro-esophageal reflux disease without esophagitis; K58.9 Irritable bowel syndrome, unspecified; Z96.649 Presence of unspecified artificial hip joint; Z96.659 Presence of unspecified artificial knee joint; Z79.84 Long term (current) use of oral hypoglycemic drugs; Z79.899 Other long term (current) drug therapy; Z86.19 Personal history of other infectious and parasitic diseases; Z87.11 Personal history of peptic ulcer disease
CPT/HCPCS: 36415; 70450; 80048; 80053; 80320; 83036; 83605; 83690; 85025; 85651; 87493; 96374; 96375; 99282; 99283; 99284

== ENCOUNTER 2018-01-25 11:31 | Outpatient (CLI) | payer OTHER ==
[2018-01-25 19:18] LABS: BASOPHILS # (AUTO) 0.1 10^3/uL (0.0-0.1); BASOPHILS % (AUTO) 1.6 %; EOSINOPHILS # (AUTO) 0.4 10^3/uL (0.0-0.7); EOSINOPHILS % (AUTO) 8.9 %; HGB - HEMOGLOBIN 14.3 g/dL (12.0-16.0); LYMPHOCYTES # (AUTO) 1.5 10^3/uL (1.5-3.5); LYMPHOCYTES % (AUTO) 31.3 %; MEAN CORPUSCULAR HEMOGLOBIN 30.4 pg (27.0-31.0); MEAN CORPUSCULAR HGB CONC 33.7 g/dL (32.0-36.0); MEAN PLATELET VOLUME 8.5 fL (7.9-10.8); MONOCYTES # (AUTO) 0.4 10^3/uL (0.0-1.0); MONOCYTES % (AUTO) 8.5 %; NEUTROPHILS # (AUTO) 2.4 10^3/uL (1.5-6.6); NEUTROPHILS % (AUTO) 49.7 %; PLT - PLATELET COUNT 198 10^3/uL (130-450); RED BLOOD COUNT 4.72 10^6/uL (4.20-5.40); RED CELL DISTRIBUTION WIDTH 14.4 % (12.0-15.0); WHITE BLOOD COUNT 4.9 x10^3/uL (4.8-10.8)
[2018-01-25 19:40] LABS: ALBUMIN 3.8 g/dL (3.2-5.5); ALBUMIN/GLOBULIN RATIO 1.2 (1.0-2.2); BILIRUBIN,TOTAL 0.8 mg/dL (0.2-1.0); CALCIUM 9.9 mg/dL (8.5-10.3); CREATININE 1.1 mg/dL (0.4-1.0)
[2018-01-25 19:43] LABS: THYROID STIMULATING HORMONE 0.48 uIU/mL (0.34-5.60)
[2018-01-25 19:44] LABS: FREE T4 (FREE THYROXINE) 1.14 ng/dL (0.58-1.64)
[2018-01-25 19:49] LABS: FERRITIN 64.8 ng/mL (11.0-306.8)
[2018-01-25 19:52] LABS: FOLATE 14.65 ng/mL (5.90 - >24.8)
[2018-01-27 14:11] LABS: ANA SCREEN NEGATIVE (NEGATIVE)
== END 2018-01-25 11:32 | disposition home or self-care (01) ==
LOC: LAB.WCP 11:31
PROVIDERS: ATTEND Physician Assistant
DX: M81.0 Age-related osteoporosis without current pathological fracture (principal); R53.83 Other fatigue; N17.9 Acute kidney failure, unspecified; E03.9 Hypothyroidism, unspecified
CPT/HCPCS: 36415; 80053; 82306; 82607; 82728; 82746; 84439; 84443; 84481; 85025; 85651; 86038

== ENCOUNTER 2018-03-20 13:30 | Emergency (ER) | payer OTHER ==
[2018-03-20 13:36] VITALS: BP 132/66
--- NOTE | 2018-03-20 13:45 | ED Physician Documentation ---
PD HPI LOWER EXT INJURY - Stated complaint Stated Complaint: GLF - Chief complaint Chief Complaint: Ext Problem - History obtained from History obtained from: Patient - History of Present Illness PD HPI LOW EXT INJURY LOCATION: Left, Knee Type of injury: Fall Where injury occurred: Home Timing - onset: Last night Timing - duration: Days (1) Timing - details: Abrupt onset Pain level max: 7 Pain level now: 6 Improved by: Rest, Ice, Immobilization Worsened by: Moving, Palpating, Other (walking) Associated symptoms: Swelling. No: Weakness, Numbness, Tingling Contributing factors: No: Anticoagulated, Prosthetic joint Recently seen: Not recently seen Review of Systems Constitutional: denies: Fever, Chills GI: denies: Vomiting Skin: denies: Rash Musculoskeletal: denies: Neck pain, Back pain Neurologic: denies: Focal weakness, Numbness, Headache PD PAST MEDICAL HISTORY - Past Medical History Cardiovascular: Hypertension, Other (Atypical chest pain in the past) Respiratory: None Neuro: Other (Ocular migraines) Endocrine/Autoimmune: Type 2 diabetes, HyPOthyroidism GI: GERD, Ulcers, C.difficile (November 2017), Cirrhosis (With portal vein thrombosis and alcoholic liver disease that has been stabilized and doing well. She sees a system designer every 6 months), Other (Irritable bowel syndrome) COMMUNICATION COORDINATOR: None : None HEENT: Other Psych: None Musculoskeletal: Osteoarthritis, Fibromyalgia, Osteoporosis, Chronic back pain ( With continuous opioid dependence.She is seen by the [facility] pain clinic for lumbosacral radiculitis. Pain began in August 2014. Last seen by the [facility] pain clinic December 01, 2017. At time she has increased her dose without authorization and she has been counseled.), Other Derm: None - Past Surgical History Past Surgical History: Yes General: Cholecystectomy 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, Knee replacement (Left, July 2015) /COMMUNICATION COORDINATOR: 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 HEENT: Other - Present Medications Home Medications: Ambulatory Orders Medication Instructions Recorded Confirmed Calcium Carbonate/Vitamin D3 400 mg PO BID 08/18/15 01/19/18 [Calcium 600 + Vit D 400 Softgl] Lactobac Cmb #3/Fos/Pantethine 1 each PO BID PRN 08/18/15 01/19/18 [Probiotic & Acidophilus Cap] Levothyroxine [Synthroid] 100 mcg PO QDAC 08/18/15 01/19/18 Nadolol [Corgard] 20 mg PO BID 08/18/15 01/19/18 tiZANidine [Zanaflex] 2 mg PO TID PRN 11/26/17 01/19/18 Furosemide 20 mg PO DAILY 01/19/18 01/19/18 Lactulose 15 - 30 ml PO BID PRN 01/19/18 01/19/18 Lisinopril 10 mg PO DAILY 01/19/18 01/19/18 Omeprazole 20 mg PO DAILY 01/19/18 01/19/18 Oxycodone HCl 10 mg PO Q4H PRN MDD 5 TABLETS 01/19/18 01/19/18 Oxycodone HCl [Oxycontin] 20 mg PO TID PRN 01/19/18 01/19/18 Spironolactone 50 mg PO DAILY 01/19/18 01/19/18 Oxycodone HCl/Acetaminophen 1 - 2 each PO Q6H PRN #10 tablet 03/20/18 [Percocet 5-325 mg Tablet] - Allergies Allergies/Adverse Reactions: Allergies Allergy/AdvReac Type Severity Reaction Status Date / Time metformin Allergy Severe "HORRIFIC" Verified 03/20/18 13:34 hydromorphone [From Dilaudid] Allergy Rash Verified 03/20/18 13:34 - Social History Does the pt smoke?: No Smoking Status: Never smoker Does the pt drink ETOH?: No Does the pt have substance abuse?: No - Immunizations Immunizations are current?: Yes - POLST Patient has POLST: No POLST Status: Full Code PD ED PE NORMAL - Vitals Vital signs reviewed: Yes - General General: Alert and oriented X 3, No acute distress - Derm Derm: Warm and dry - Extremities Extremities: Other (r knee - moderate swelling and diffuse TTP. NVI. unable to tolerated full ligament exam well, but no gross ACL, LCL, PCL, MCL injury. Unable to tolerate meniscus testing. NVI.) - Neuro Neuro: Alert and oriented X 3 Results - Vitals Vitals: Vital Signs - 24 hr 03/20/18 13:33 Temperature 36.8 C Heart Rate 86 Respiratory 15 Rate Blood Pressure 132/66 H O2 Saturation 97 Oxygen O2 Source [With Activity] Room air O2 Source [Without Activity] Room air O2 Source Room air - Rads (name of study) R knee xray Radiology: Prelim report reviewed, EMP read contemporaneously, See rad report ( No acute fracture or bony malalignment. 2. Mild to moderate degenerative changes , greatest at the medial joint compartment. 3. Soft tissue swelling. 4. Possible small joint effusion. ) PD MEDICAL DECISION MAKING - ED course Complexity details: reviewed results, re-evaluated patient, considered differential, d/w patient, d/w family ED course: Patient is a 62-year-old female with a right knee injury. No acute findings on x-ray other than soft tissue swelling and possible small joint effusion. Placed in an Luis bandage for comfort. Pain medication will be prescribed. She is using her own crutches. Will have her follow-up with her doctor for further care. If she continues to have symptoms, will need a good test of her ligaments and meniscus as she was tolerate this well today. Patient and family counseled regarding signs and symptoms for which I believe and urgent re- evaluation would be necessary. Patient with good understanding of and agreement to plan and is comfortable going home at this time This document was made in part using voice recognition software. While efforts are made to proofread this document, sound alike and grammatical errors may occur. - Sepsis Event Vital Signs: Vital Signs - 24 hr 03/20/18 13:33 Temperature 36.8 C Heart Rate 86 Respiratory 15 Rate Blood Pressure 132/66 H O2 Saturation 97 Oxygen O2 Source [With Activity] Room air O2 Source [Without Activity] Room air O2 Source Room air Departure - Departure Disposition: 01 Home, Self Care Clinical Impression: Contusion of knee, right Qualifiers: Encounter type: initial encounter Qualified Code(s): S80.01XA - Contusion of right knee, initial encounter Condition: Good Instructions: ED Sprain Knee Follow-Up: Christofer Templeton MD [Primary Care Provider] - Within 1 week Prescriptions: Oxycodone HCl/Acetaminophen [Percocet 5-325 mg Tablet] 1 - 2 each PO Q6H PRN # 10 tablet PRN Reason: pain Comments: Return if you worsen. Use your crutches at home. Wear the Luis bandage for the next week. Do not drink alcohol or drive while on narcotic pain medicine. Note that many narcotic pain relievers also contain tylenol/acetaminophen. Please ensure that your total dose of acetaminophen from all sources does not exceed 3 grams (3000mg) per day. You may constipated on this medication, take a stool softener such as "Colace" twice a day while you are on it. Also recommend a [id number] laxative such as senna or MiraLAX any day that you do not have a bowel movement. If you received narcotic pain medication in the emergency department, do not drive or operate machinery for the next 24 hours. Discharge Date/Time: 03/20/18 15:25
[2018-03-20] MEDS ORDERED: oxyCOD/ACETAMIN 5 MG/325 MG TABLET PO STA (14:08)
--- NOTE | 2018-03-20 15:03 | XRAY Report ---
Procedure Date: 03/20/2018 Accession Number: [id number] / [id number] Procedure: XR - Knee 4 View RT CPT Code: FULL RESULT: EXAM: RIGHT KNEE RADIOGRAPHY EXAM DATE: 03/20/2018 02:29 PM. CLINICAL HISTORY: Right knee bruising and abrasion after fall last night onto right knee. COMPARISON: None. TECHNIQUE: 4 views. FINDINGS: Bones: Bones are demineralized. No acute fracture. Joints: No subluxation. Mild to moderate narrowing and marginal spurring of medial joint compartment. Minor degenerative changes patellofemoral joint. Possible small joint effusion. Soft Tissues: Swelling medially and laterally. IMPRESSION: 1. No acute fracture or bony malalignment. 2. Mild to moderate degenerative changes, greatest at the medial joint compartment. 3. Soft tissue swelling. 4. Possible small joint effusion. RADIA
== END 2018-03-20 15:25 | disposition home or self-care (01) ==
LOC: ED 13:30
DX: S80.01XA Contusion of right knee, initial encounter (principal); I10 Essential (primary) hypertension; E11.9 Type 2 diabetes mellitus without complications; W01.10XA Fall on same level from slipping, tripping and stumbling with subsequent striking against unspecified object, initial encounter; Y92.009 Unspecified place in unspecified non-institutional (private) residence as the place of occurrence of the external cause
CPT/HCPCS: 73564; 99283; A9270

== ENCOUNTER 2018-04-03 17:35 | Emergency (ER) | payer OTHER ==
--- NOTE | 2018-04-03 18:07 | ED Physician Documentation ---
History of Present Illness - Stated complaint Stated Complaint: HIP PX - Chief complaint Chief Complaint: General - History obtained from History obtained from: Patient, Family - History of Present Illness Timing: Today Pain level max: 10 Pain level now: 10 - Additonal information Additional information: Patient is a 62-year-old female who was discharged from [facility] this morning after sustaining a hip fracture And rib fractures after a fall. She is maintained on oxycodone and OxyContin at home. Did not have her medications with her for the car right now has increasing pain. They stopped here to help get her pain under control. Has an appointment with her painter set later this week. The pain is better with morphine. Worse with movement and palpation. Review of Systems Constitutional: denies: Fever, Chills Throat: denies: Sore throat Cardiac: denies: Chest pain / pressure, Palpitations Respiratory: denies: Cough GI: denies: Abdominal Pain, Vomiting Skin: denies: Rash Musculoskeletal: denies: Neck pain, Back pain Neurologic: denies: Focal weakness, Numbness, Headache PD PAST MEDICAL HISTORY - Past Medical History Cardiovascular: Hypertension, Other (Atypical chest pain in the past) Respiratory: None Neuro: Other (Ocular migraines) Endocrine/Autoimmune: Type 2 diabetes, HyPOthyroidism GI: GERD, Ulcers, C.difficile (November 2017), Cirrhosis (With portal vein thrombosis and alcoholic liver disease that has been stabilized and doing well. She sees a coding consultant every 6 months), Other (Irritable bowel syndrome) TOOL TECHNICIAN: None : None HEENT: Other Psych: None Musculoskeletal: Osteoarthritis, Fibromyalgia, Osteoporosis, Chronic back pain ( With continuous opioid dependence.She is seen by the [facility] pain clinic for lumbosacral radiculitis. Pain began in August 2014. Last seen by the [facility] pain clinic December 01, 2017. At time she has increased her dose without authorization and she has been counseled.), Other Derm: None - Past Surgical History Past Surgical History: Yes General: Cholecystectomy 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, Knee replacement (Left, July 2015) /TOOL TECHNICIAN: 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 HEENT: Other - Present Medications Home Medications: Ambulatory Orders Medication Instructions Recorded Confirmed Calcium Carbonate/Vitamin D3 600 mg PO BID 08/18/15 01/19/18 [Calcium 600 + Vit D 400 Softgl] Lactobac Cmb #3/Fos/Pantethine 1 each PO BID PRN 08/18/15 01/19/18 [Probiotic & Acidophilus Cap] Levothyroxine [Synthroid] 100 mcg PO QDAC 08/18/15 01/19/18 Nadolol [Corgard] 20 mg PO BID 08/18/15 01/19/18 tiZANidine [Zanaflex] 2 mg PO TID PRN 11/26/17 01/19/18 Furosemide 20 mg PO DAILY 01/19/18 01/19/18 Lactulose 15 - 30 ml PO BID PRN 01/19/18 01/19/18 Lisinopril 10 mg PO DAILY 01/19/18 01/19/18 Omeprazole 20 mg PO DAILY 01/19/18 01/19/18 Oxycodone HCl 10 mg PO Q4H PRN MDD 5 TABLETS 01/19/18 01/19/18 Oxycodone HCl [Oxycontin] 20 mg PO TID PRN 01/19/18 01/19/18 Spironolactone 50 mg PO DAILY 01/19/18 01/19/18 - Allergies Allergies/Adverse Reactions: Allergies Allergy/AdvReac Type Severity Reaction Status Date / Time metformin Allergy Severe "HORRIFIC" Verified 04/03/18 18:12 hydromorphone [From Dilaudid] Allergy Rash Verified 04/03/18 18:12 - Social History Does the pt smoke?: No Smoking Status: Never smoker Does the pt drink ETOH?: No Does the pt have substance abuse?: No - Immunizations Immunizations are current?: Yes - POLST Patient has POLST: No POLST Status: Full Code PD ED PE NORMAL - Vitals Vital signs reviewed: Yes - General General: Alert and oriented X 3, No acute distress, Well developed/nourished - HEENT HEENT: Moist mucous membranes - Neck Neck: Supple, no meningeal sign - Cardiac Cardiac: RRR - Respiratory Respiratory: No respiratory distress, Clear bilaterally - Abdomen Abdomen: Soft, Non tender, Non distended - Derm Derm: Warm and dry - Extremities Extremities: No deformity, Other (Incision is clean dry and intact over the left hip) - Neuro Neuro: Alert and oriented X 3 - Psych Psych: Normal mood, Normal affect Results - Vitals Vitals: Oxygen O2 Source [With Activity] Room air O2 Source [Without Activity] Room air O2 Source Room air PD MEDICAL DECISION MAKING - ED course Complexity details: considered differential, d/w patient, d/w family ED course: Patient is a 62-year-old female who presents to the emergency department requesting pain control. The discharge summary was brought with her. It is unclear how exactly she is taking her pain medications at home. In the discharge summary it states OxyContin 30 mg 3 times a day as well as oxycodone 30 mg every 6 hours as needed for breakthrough pain. However another portion is states oxycodone 10-20 mg as needed for breakthrough pain and OxyContin 20 mg 3 times a day. Patient is unsure how exactly she takes the medications. Therefore her pain was controlled with a dose of morphine in the emergency department and a single dose of OxyContin. Her WHITE SIDEWALL TIRE BUFFER was reviewed. Will have her follow-up with her painter set in the morning to determine an appropriate pain medication regimen for her. She does have her pain medications at home and does not need anymore tonight. Patient and family counseled regarding signs and symptoms for which I believe and urgent re- evaluation would be necessary. Patient with good understanding of and agreement to plan and is comfortable going home at this time This document was made in part using voice recognition software. While efforts are made to proofread this document, sound alike and grammatical errors may occur. - Sepsis Event Vital Signs: Oxygen O2 Source [With Activity] Room air O2 Source [Without Activity] Room air O2 Source Room air Departure - Departure Disposition: 01 Home, Self Care Clinical Impression: Hip fracture Qualifiers: Encounter type: sequela Fracture type: closed Laterality: left Qualified Code(s ): S72.002S - Fracture of unspecified part of neck of left femur, sequela Rib fracture Qualifiers: Encounter type: sequela Rib fracture type: multiple ribs Fracture type: closed Laterality: left Qualified Code(s): S22.42XS - Multiple fractures of ribs, left side, sequela Condition: Good Instructions: Fx Hip, ED Fx Rib Follow-Up: Christofer Templeton MD [Primary Care Provider] - Tomorrow Comments: Please use your pain medications at home as prescribed. Follow up with pain management tomorrow. Discharge Date/Time: 04/03/18 19:21
[2018-04-03] MEDS ORDERED: MORPHINE 10 MG/ML VIAL IVP STA (18:27)
[2018-04-03] MEDS ORDERED: oxyCODONE ER 10 MG TABLET PO STA (18:28)
[2018-04-03] MEDS ORDERED: MORPHINE 10 MG/ML VIAL IM STA (18:30)
[2018-04-03 19:09] VITALS: BP 144/91
== END 2018-04-03 19:21 | disposition home or self-care (01) ==
LOC: ED 17:35
DX: S72.002A Fracture of unspecified part of neck of left femur, initial encounter for closed fracture (principal); S22.42XA Multiple fractures of ribs, left side, initial encounter for closed fracture; Z98.890 Other specified postprocedural states; I10 Essential (primary) hypertension; E11.9 Type 2 diabetes mellitus without complications
CPT/HCPCS: 96372; 99283; 99284; A9270

== ENCOUNTER 2018-09-15 14:56 | Emergency (ER) | payer OTHER ==
[2018-09-15 15:08] VITALS: BP 109/71
--- NOTE | 2018-09-15 16:15 | ED Physician Documentation ---
PD HPI WOUND RECHECK - Stated complaint Stated Complaint: WOUND CHECK - Chief complaint Chief Complaint: General - Histroy obtained from History obtained from: Patient, Family - History of Present Illness Location: Left Uppper Extremity Timing - onset: How many weeks ago (2) Associated symptoms: Redness, Pain Similar symptoms before: Has not had sx before Recently seen: Clinic - Additional information Additional information: 63-year-old female with chronic pain and severe osteoporosis with multiple fractures is on pain management and she was placed on some duloxetine and felt that this made her itch a bit and she scratched at her left clavicle. She has a braded skin off of there and now this area is looking red and inflamed. Review of Systems Constitutional: reports: Fatigue. denies: Fever Nose: denies: Congestion Throat: denies: Sore throat Respiratory: reports: Cough Skin: reports: Lesions, Abrasion (s) Musculoskeletal: reports: Neck pain, Back pain, Extremity pain Neurologic: reports: Generalized weakness. denies: Focal weakness, Numbness PD PAST MEDICAL HISTORY - Past Medical History Cardiovascular: Hypertension, Other (Atypical chest pain in the past) Respiratory: None Neuro: Other (Ocular migraines) Endocrine/Autoimmune: Type 2 diabetes, HyPOthyroidism GI: GERD, Ulcers, C.difficile (November 2017), Cirrhosis (With portal vein thrombosis and alcoholic liver disease that has been stabilized and doing well. 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 Pain began in August 2014. Last seen by the [facility] pain clinic December 01, 2017. At time she has increased her dose without authorization and she has been counseled.), Other Derm: None - Past Surgical History Past Surgical History: Yes General: Cholecystectomy 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, Knee replacement (Left, July 2015) /MANAGER CCU: 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 HEENT: Other - Present Medications Home Medications: Ambulatory Orders Medication Instructions Recorded Confirmed RX: Calcium Carbonate/Vitamin D3 600 mg PO BID 08/18/15 09/15/18 [Calcium 600 + Vit D 400 Softgl] RX: Lactobac Cmb #3/Fos/Pantethine 1 each PO BID PRN 08/18/15 09/15/18 [Probiotic & Acidophilus Cap] RX: Levothyroxine [Synthroid] 100 mcg PO QDAC 08/18/15 09/15/18 RX: Nadolol [Corgard] 20 mg PO BID 08/18/15 09/15/18 RX: tiZANidine [Zanaflex] 2 mg PO TID PRN 11/26/17 09/15/18 RX: Furosemide 20 mg PO DAILY 01/19/18 09/15/18 RX: Lactulose 15 - 30 ml PO BID PRN 01/19/18 09/15/18 RX: Lisinopril 10 mg PO DAILY 01/19/18 09/15/18 RX: Omeprazole 20 mg PO DAILY 01/19/18 09/15/18 RX: Oxycodone HCl [Oxycontin] 20 mg PO TID PRN 01/19/18 09/15/18 RX: Spironolactone 50 mg PO DAILY 01/19/18 09/15/18 Mupirocin Calcium [Bactroban] 1 gm TP BID #15 cream..g. 09/15/18 RX: Glipizide 5 mg PO DAILY 09/15/18 09/15/18 RX: Sulfamethox/Trimeth 800/160 1 each PO BID #14 tablet 09/15/18 [Bactrim Ds] - Allergies Allergies/Adverse Reactions: Allergies Allergy/AdvReac Type Severity Reaction Status Date / Time metformin Allergy Severe "HORRIFIC" Verified 04/03/18 18:12 duloxetine Allergy Hives Verified 09/15/18 15:08 hydromorphone [From Dilaudid] Allergy Rash Verified 09/15/18 15:08 - Social History Does the pt smoke?: No Smoking Status: Never smoker Does the pt drink ETOH?: No Does the pt have substance abuse?: No - Immunizations Immunizations are current?: Yes - POLST Patient has POLST: No POLST Status: Full Code PD ED PE NORMAL - Vitals Vital signs reviewed: Yes (normal ) - General General: Alert and oriented X 3, No acute distress, Well developed/nourished - HEENT HEENT: Atraumatic, PERRL, EOMI - Neck Neck: Supple, no meningeal sign - Respiratory Respiratory: No respiratory distress - Derm Derm: Normal color, Warm and dry - Extremities Extremities: No deformity, No edema, Other (over the left clavicle is an area of abrasion that appears infected superficially with surrounding erythema and tenderness. there is no fluctuance. ) - Neuro Neuro: Alert and oriented X 3, tuberculosis specialist 2-12 intact, No motor deficit, No sensory deficit, Normal speech Eye Opening: Spontaneous Motor: Obeys Commands Verbal: Oriented GCS Score: 15 - Psych Psych: Normal mood Results - Vitals Vitals: Vital Signs - 24 hr 09/15/18 15:06 Temperature 36.5 C Heart Rate 70 Respiratory 18 Rate Blood Pressure 109/71 O2 Saturation 100 Oxygen O2 Source [With Activity] Room air O2 Source [Without Activity] Room air O2 Source Room air PD MEDICAL DECISION MAKING - ED course Complexity details: considered differential, d/w patient, d/w family ED course: 63-year-old female with an abrasion to her left clavicle that looks like it is superficially infected is placed on antibiotics including sulfamethoxazole trimethoprim and Bactroban. Departure - Departure Disposition: 01 Home, Self Care Clinical Impression: Wound infection, posttraumatic Condition: Stable Instructions: ED Wound Care Follow-Up: Christofer Templeton MD [Primary Care Provider] - Prescriptions: Mupirocin Calcium [Bactroban] 1 gm TP BID #15 cream..g. RX: Sulfamethox/Trimeth 800/160 [Bactrim Ds] 1 each PO BID #14 tablet Discharge Date/Time: 09/15/18 16:28
[2018-09-15] MEDS ORDERED: oxyCODONE 5 MG TABLET PO STA (16:19)
== END 2018-09-15 16:28 | disposition home or self-care (01) ==
LOC: ED 14:56
DX: S40.212D Abrasion of left shoulder, subsequent encounter (principal); L08.9 Local infection of the skin and subcutaneous tissue, unspecified; X58.XXXD Exposure to other specified factors, subsequent encounter; M81.0 Age-related osteoporosis without current pathological fracture; G89.29 Other chronic pain; I10 Essential (primary) hypertension; E11.9 Type 2 diabetes mellitus without complications; E03.9 Hypothyroidism, unspecified; Z86.718 Personal history of other venous thrombosis and embolism; Z96.649 Presence of unspecified artificial hip joint; Z96.659 Presence of unspecified artificial knee joint
CPT/HCPCS: 99283; A9270

== ENCOUNTER 2018-09-20 10:53 | Outpatient (CLI) | payer OTHER ==
[2018-09-20 19:06] LABS: CALCIUM 9.8 mg/dL (8.5-10.3); CREATININE 0.8 mg/dL (0.4-1.0)
[2018-09-20 19:07] LABS: BILIRUBIN,URINE NEGATIVE (NEGATIVE); GLUCOSE, URINE (UA) NEGATIVE (NEGATIVE); KETONES,URINE (UA) NEGATIVE (NEGATIVE); LEUKOCYTE ESTERASE, URINE SMALL (NEGATIVE); NITRITE,URINE NEGATIVE (NEGATIVE); OCCULT BLOOD,URINE NEGATIVE (NEGATIVE); PH,URINE 5.5 PH (5.0-7.5); PROTEIN,URINE NEGATIVE (NEGATIVE); UROBILINOGEN,URINE 0.2 (NORMAL) E.U./dL (NORMAL)
[2018-09-20 19:16] LABS: HB2 TOTAL 15.7 g/dL; HEMOGLOBIN A1C 0.75 g/dL; HEMOGLOBIN A1C % 6.5 % (4.6-6.2)
[2018-09-20 19:17] LABS: CREATININE,URINE 58.3 mg/dL; MICROALBUM/CREATININE RATIO,UR 6.9 ug/mg (<30.0); MICROALBUMIN,URINE 0.4 mg/dL (0-300.0)
[2018-09-20 19:32] LABS: BACTERIA,URINE None Seen /HPF (None Seen); CLARITY,URINE CLEAR (CLEAR); RBC,URINE 0-5 /HPF (0-5); SQUAMOUS EPITHELIAL CELL,UR MOD Squamous (<= Few)
== END 2018-09-20 23:59 | disposition home or self-care (01) ==
LOC: LAB.WCP 10:53
PROVIDERS: ATTEND Family Medicine
DX: N28.9 Disorder of kidney and ureter, unspecified (principal); E11.9 Type 2 diabetes mellitus without complications; R35.0 Frequency of micturition
CPT/HCPCS: 36415; 80048; 81001; 82043; 82570; 83036; 87086

== ENCOUNTER 2018-10-30 15:12 | Outpatient (CLI) | payer OTHER ==
--- NOTE | 2018-10-31 00:54 | Ultrasound Report ---
Reason: CIRRHOSIS,ALCOHOLIC Procedure Date: 10/30/2018 Accession Number: [id number] / [id number] Procedure: US - Abdomen Limited CPT Code: FULL RESULT: EXAM: ABDOMEN ULTRASOUND LIMITED, RUQ EXAM DATE: 10/30/2018 03:12 PM. CLINICAL HISTORY: CIRRHOSIS,ALCOHOLIC. COMPARISON: ABDOMEN LIMITED 10/18/2017 11:37 AM. TECHNIQUE: Real-time scanning was performed with static images obtained. FINDINGS: Liver: The liver demonstrates heterogeneous echotexture. No focal lesion. The liver measures 16.8 cm. Main portal vein flow: Hepatopetal. Gallbladder: Surgically absent. Biliary System: CBD measures 8 mm. No intrahepatic or extrahepatic ductal dilatation. Other: No right hydronephrosis. No free fluid. IMPRESSION: Heterogeneous liver. No biliary dilatation or ascites. RADIA
== END 2018-10-30 15:13 | disposition home or self-care (01) ==
LOC: DI 15:12
PROVIDERS: ATTEND Family Medicine
DX: K70.31 Alcoholic cirrhosis of liver with ascites (principal)
CPT/HCPCS: 76705

== ENCOUNTER 2018-11-16 08:00 | Outpatient (CLI) | payer OTHER ==
[2018-11-16 18:37] LABS: BASOPHILS % (AUTO) 0.8 %; EOSINOPHILS # (AUTO) 0.4 10^3/uL (0.0-0.7); EOSINOPHILS % (AUTO) 6.9 %; HGB - HEMOGLOBIN 13.9 g/dL (12.0-16.0); LYMPHOCYTES # (AUTO) 1.4 10^3/uL (1.5-3.5); LYMPHOCYTES % (AUTO) 27.3 %; MEAN CORPUSCULAR HEMOGLOBIN 30.3 pg (27.0-31.0); MEAN CORPUSCULAR HGB CONC 33.2 g/dL (32.0-36.0); MEAN CORPUSCULAR VOLUME 91.5 fL (81.0-99.0); MEAN PLATELET VOLUME 8.7 fL (7.9-10.8); MONOCYTES # (AUTO) 0.6 10^3/uL (0.0-1.0); MONOCYTES % (AUTO) 11.4 %; NEUTROPHILS # (AUTO) 2.8 10^3/uL (1.5-6.6); NEUTROPHILS % (AUTO) 53.6 %; PLT - PLATELET COUNT 185 10^3/uL (130-450); RED BLOOD COUNT 4.57 10^6/uL (4.20-5.40); RED CELL DISTRIBUTION WIDTH 14.5 % (12.0-15.0); WHITE BLOOD COUNT 5.3 x10^3/uL (4.8-10.8)
[2018-11-16 20:26] LABS: ALBUMIN 3.9 g/dL (3.2-5.5); ALBUMIN/GLOBULIN RATIO 1.1 (1.0-2.2); BILIRUBIN,TOTAL 0.8 mg/dL (0.2-1.0); CALCIUM 9.1 mg/dL (8.5-10.3); CREATININE 0.7 mg/dL (0.4-1.0); TOTAL PROTEIN 7.4 g/dL (6.7-8.2)
== END 2018-11-16 23:59 ==
LOC: LAB.WCP 08:00
PROVIDERS: ATTEND Nurse Practitioner
DX: R50.9 Fever, unspecified (principal); M79.7 Fibromyalgia; M25.559 Pain in unspecified hip
CPT/HCPCS: 36415; 80053; 85025

== ENCOUNTER 2018-11-16 14:30 | Outpatient (CLI) | payer OTHER | END 2018-11-16 23:59 | disposition home or self-care (01) | LOC: LAB.R 14:30 | PROVIDERS: ATTEND Nurse Practitioner | DX: R50.9 Fever, unspecified (principal); M25.552 Pain in left hip; M25.551 Pain in right hip | CPT/HCPCS: 87086 ==

== ENCOUNTER 2018-12-06 17:39 | Outpatient (CLI) | payer OTHER ==
--- NOTE | 2018-12-07 14:39 | MRI Report ---
Reason: LOW BACK PAIN Procedure Date: 12/06/2018 Accession Number: [id number] / [id number] Procedure: MRI - Lumbar Spine W/O CPT Code: FULL RESULT: EXAM: MRI LUMBAR SPINE WITHOUT CONTRAST EXAM DATE: 12/06/2018 06:35 PM. CLINICAL HISTORY: Low back pain. Patient fell 5 months ago. COMPARISON: LUMBAR SPINE W/O 11/04/2016 4:02 PM ABDOMEN/PELVIS W/ 03/24/2017 7:08 PM LUMBAR SPINE 2 VIEW 09/29/2015 9:26 AM LUMBAR SPINE 11/02/2007 2:28 PM. TECHNIQUE: Multiplanar, multisequence T1-weighted and fluid-sensitive sequences of the lumbar spine from T12 to S1 without contrast. Other: None. FINDINGS: Spinal Canal: The conus terminates at T12. The conus medullaris and cauda equina are unremarkable. Alignment: No scoliosis or spondylolisthesis. Straightening of the lumbar spine. Bone Marrow: Sacralization of L5. No gross fractures or bone lesions. No bone marrow replacement. Mild concave deformity superior right L5 vertebral body endplate. Modic type II degenerative vertebral body marrow signal L4-L5. Disk Levels/Facets: T12-L1: Moderate disk degeneration. Negative for spinal canal stenosis or foraminal stenosis. L1-L2: Preservation of disk height. Negative for spinal canal stenosis or foraminal stenosis. Mild facet joint arthrosis. L2-L3: Mild disk degeneration. Posterior 2 mm disk protrusion. Negative for spinal canal stenosis or foraminal stenosis. L3-L4: Posterior central 2-3 mm disk protrusion with mild ventral effacement of the thecal sac and mild central spinal canal stenosis. Negative for interval change as compared to the MRI lumbar spine 11/02/2007. The intervertebral foramina are negative for stenosis. L4-L5: Severe disk degeneration. Right posterolateral 2 mm disk protrusion osteophyte complex. Negative for spinal canal stenosis. Mild right lateral recess stenosis. The intervertebral foramina are negative for stenosis. Modic type II degenerative vertebral body marrow signal. L5-S1: Hypoplastic disk interspace. Sacralization of L5. Negative for spinal canal stenosis or foraminal stenosis. Musculature: Normal. No edema or fatty atrophy. Other: The partially visualized retroperitoneum is unremarkable. IMPRESSION: 1. Sacralization of L5. 2. Negative for disk herniation or foraminal stenosis. 3. Posterior 2-3 mm central disk protrusion L3-L4 with mild ventral effacement of the thecal sac and mild central spinal canal stenosis without interval change as compared to the MRI lumbar spine 11/02/2007. 4. Mild right L4-L5 lateral recess stenosis from posterior right paracentral 2 mm disk protrusion osteophyte complex without proximal S1 nerve root impingement (image 8 series 601). Comment: The following findings are so common in adults without low back pain that while we report their presence, they must be interpreted with caution and in the context of the clinical situation. (Reference Lek et al, Spine 2001) Prevalence of findings in patients without low back pain: Disk degeneration (any evidence): 92% Disk desiccation/T2 signal loss: 83% Disk height loss: 56% Disk bulge: 64% Disk protrusion: 32% Annular tear/high intensity zone: 38% RADIA
== END 2018-12-06 17:40 | disposition home or self-care (01) ==
LOC: DI 17:39
PROVIDERS: ATTEND Acupuncturist
DX: M51.36 Other intervertebral disc degeneration, lumbar region (principal); M48.061 Spinal stenosis, lumbar region without neurogenic claudication; M51.26 Other intervertebral disc displacement, lumbar region; M43.8X6 Other specified deforming dorsopathies, lumbar region; M51.35 Other intervertebral disc degeneration, thoracolumbar region
CPT/HCPCS: 72148

== ENCOUNTER 2019-02-10 11:17 | Inpatient (IN) | payer OTHER ==
--- NOTE | 2019-02-10 11:42 | ED Physician Documentation ---
History of Present Illness - Stated complaint Stated Complaint: WEAKNESS - Chief complaint Chief Complaint: Neuro - History obtained from History obtained from: Patient, Family - History of Present Illness Timing: How many days ago (3) Pain level max: 0 Pain level now: 0 Improved by: nothing Worsened by: nothing - Additonal information Additional information: 63 year female with altered mental status for the past 2 days. Started on bactrim and keflex for diabetic foot ulcer 4 days. fever since yesterday. intermittent abd pain. Review of Systems Unable to obtain: AMS Constitutional: denies: Fever, Chills Ears: denies: Ear pain Nose: denies: Rhinorrhea / runny nose, Congestion GI: reports: Abdominal Pain (diffuse). denies: Vomiting, Diarrhea Skin: denies: Rash Neurologic: denies: Focal weakness, Numbness, Headache, Head injury PD PAST MEDICAL HISTORY - Past Medical History Cardiovascular: Hypertension, Other (Atypical chest pain in the past) Respiratory: None Neuro: Other (Ocular migraines) Endocrine/Autoimmune: Type 2 diabetes, HyPOthyroidism GI: GERD, Ulcers, C.difficile (November 2017), Cirrhosis (With portal vein thrombosis and alcoholic liver disease that has been stabilized and doing well. 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 Pain began in August 2014. Last seen by the [facility] pain clinic December 01, 2017. 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: 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 HEENT: Other - Present Medications Home Medications: Ambulatory Orders Medication Instructions Recorded Confirmed Calcium Carbonate/Vitamin D3 2 tab PO DAILY 08/18/15 02/10/19 [Calcium 600 + Vit D 400 Softgl] Levothyroxine [Synthroid] 100 mcg PO QDAC 08/18/15 02/10/19 Nadolol [Corgard] 20 mg PO DAILY 08/18/15 02/10/19 Furosemide 20 mg PO DAILY 01/19/18 02/10/19 Oxycodone HCl [Oxycontin] 20 mg PO Q12H 01/19/18 02/10/19 Spironolactone 50 mg PO DAILY 01/19/18 02/10/19 Glipizide 5 mg PO 0730 09/15/18 02/10/19 Lactobacillus Rhamnosus GG 1 cap PO BID 02/10/19 02/10/19 [Culturelle] Oxycodone HCl 10 mg PO Q4H PRN 02/10/19 02/10/19 raNITIdine [Zantac] 150 mg PO QPM 02/10/19 02/10/19 - Allergies Allergies/Adverse Reactions: Allergies Allergy/AdvReac Type Severity Reaction Status Date / Time metformin Allergy Severe "HORRIFIC" Verified 02/10/19 11:31 duloxetine Allergy Hives Verified 02/10/19 11:31 hydromorphone [From Dilaudid] Allergy Rash Verified 02/10/19 11:31 - Social History Does the pt smoke?: No Smoking Status: Never smoker Does the pt drink ETOH?: No Does the pt have substance abuse?: No - Immunizations Immunizations are current?: Yes - POLST Patient has POLST: No POLST Status: Full Code PD ED PE NORMAL - Vitals Vital signs reviewed: Yes - General General: No acute distress, Other (drowsy, arousable) - HEENT HEENT: Moist mucous membranes, Pharynx benign - Neck Neck: Supple, no meningeal sign - Cardiac Cardiac: RRR - Respiratory Respiratory: No respiratory distress, Clear bilaterally - Abdomen Abdomen: Soft, Non tender, Non distended - Derm Derm: Warm and dry - Extremities Extremities: No edema, No calf tenderness / cord - Neuro Neuro: No motor deficit, No sensory deficit, Other (alert, oriented to person and place. not time) - Psych Psych: Normal mood, Normal affect Results - Vitals Vitals: Vital Signs - 24 hr 02/10/19 02/10/19 02/10/19 11:24 12:11 13:00 Temperature 38.3 C H Heart Rate 97 96 95 Respiratory 20 17 15 Rate Blood Pressure 134/84 H 119/78 103/74 O2 Saturation 96 95 96 02/10/19 02/10/19 02/10/19 13:30 13:52 14:00 Temperature 37.9 C H Heart Rate 93 89 Respiratory 17 18 Rate Blood Pressure 112/75 107/78 O2 Saturation 98 97 Oxygen O2 Source [With Activity] Room air O2 Source [Without Activity] Room air O2 Source Room air - EKG (time done) 1124 Rate: Rate (enter#) (97) Rhythm: NSR [place]: Normal Intervals: Normal MS QRS: Normal Ischemia: Normal ST segments - Labs Labs: Laboratory Tests 02/10/19 02/10/19 02/10/19 11:27 12:05 12:05 WBC 5.3 RBC 4.69 Hgb 13.8 Hct 43.0 MCV 91.7 MCH 29.4 MCHC 32.1 RDW 14.4 Plt Count 149 MPV 10.7 Neut # (Auto) 3.7 Lymph # (Auto) 0.7 L Wells # (Auto) 0.6 Eos # (Auto) 0.2 Baso # (Auto) 0.0 Absolute Nucleated RBC 0.00 Nucleated RBC % 0.0 Sodium 132 L Potassium 4.1 Chloride 98 L Carbon Dioxide 21 Anion Gap 13.0 BUN 15 Creatinine 0.9 Estimated GFR (MDRD) 63 L Glucose 190 H POC Whole Bld Glucose 191 H Lactic Acid Calcium 9.2 Total Bilirubin 1.2 H AST 57 H ALT 57 Alkaline Phosphatase 102 Total Protein 7.8 Albumin 3.7 Globulin 4.1 Albumin/Globulin Ratio 0.9 L Lipase 70 H Urine Color Urine Clarity Urine pH Ur Specific [place] Urine Protein Urine Glucose (UA) Urine Ketones Urine Occult Blood Urine Nitrite Urine Bilirubin Urine Urobilinogen Ur Leukocyte Esterase Ur Microscopic Review Urine Culture Comments Urine Opiates Screen Ur Oxycodone Screen Urine Methadone Screen Ur Propoxyphene Screen Ur Barbiturates Screen Ur Tricyclics Screen Ur Phencyclidine Scrn Ur Amphetamine Screen U Methamphetamines Scrn U Benzodiazepines Scrn Urine Cocaine Screen U Cannabinoids Screen 02/10/19 02/10/19 02/10/19 12:05 12:23 12:23 WBC RBC Hgb Hct MCV MCH MCHC RDW Plt Count MPV Neut # (Auto) Lymph # (Auto) Wells # (Auto) Eos # (Auto) Baso # (Auto) Absolute Nucleated RBC Nucleated RBC % Sodium Potassium Chloride Carbon Dioxide Anion Gap BUN Creatinine Estimated GFR (MDRD) Glucose POC Whole Bld Glucose Lactic Acid 1.3 Calcium Total Bilirubin AST ALT Alkaline Phosphatase Total Protein Albumin Globulin Albumin/Globulin Ratio Lipase Urine Color YELLOW Urine Clarity CLEAR Urine pH 7.5 Ur Specific [place] 1.020 Urine Protein NEGATIVE Urine Glucose (UA) NEGATIVE Urine Ketones 40 H Urine Occult Blood NEGATIVE Urine Nitrite NEGATIVE Urine Bilirubin SMALL H Urine Urobilinogen 0.2 (NORMAL) Ur Leukocyte Esterase NEGATIVE Ur Microscopic Review NOT INDICATED Urine Culture Comments NOT INDICATED Urine Opiates Screen NEGATIVE Ur Oxycodone Screen POSITIVE H Urine Methadone Screen NEGATIVE Ur Propoxyphene Screen NEGATIVE Ur Barbiturates Screen NEGATIVE Ur Tricyclics Screen POSITIVE H Ur Phencyclidine Scrn NEGATIVE Ur Amphetamine Screen NEGATIVE U Methamphetamines Scrn NEGATIVE U Benzodiazepines Scrn POSITIVE H Urine Cocaine Screen NEGATIVE U Cannabinoids Screen NEGATIVE - Rads (name of study) ct abd/pelvis Radiology: Prelim report reviewed, EMP read contemporaneously, See rad report (No focal or localizing acute inflammatory process. No abscess. 2. Chronic liver disease and fibrosis with steatosis of the liver. 3. Splenomegaly. 2 round hypodense lesions are present, larger than on 03/24/2017. Nonspecific but most likely benign. 4. Stool throughout colon and probable constipation without mechanical obstruction. ) cxr Radiology: Prelim report reviewed, EMP read contemporaneously, See rad report (Minimal atelectatic changes at the right base, otherwise unremarkable exam. ) PD MEDICAL DECISION MAKING - ED course Complexity details: reviewed results, re-evaluated patient, considered differential, d/w patient, d/w family, d/w service delivery management consultant ED course: 63-year-old female presents to the emergency department with fever and altered mental status of unclear etiology. No acute findings on CT scan, laboratory testing. No evidence of meningitis. No neck pain. No headache. Has not been complaining of any headaches. Lumbar puncture held at this time. No leukocytosis. No evidence of sepsis. Will hold antibiotics at this time as well. Discussed the case with Dr. Sepulveda, who accepts. This document was made in part using voice recognition software. While efforts are made to proofread this document, sound alike and grammatical errors may occur. Departure - Departure Disposition: ED Place in Observation Clinical Impression: Altered mental status Qualifiers: Altered mental status type: disorientation Qualified Code(s): R41.0 - Disorientation, unspecified Fever Qualifiers: Fever type: unspecified Qualified Code(s): R50.9 - Fever, unspecified Diabetic foot ulcer Qualifiers: Diabetic foot ulcer location: heel Diabetes mellitus type: type 2 Laterality: right Non-pressure ulcer stage: with fat layer exposed Qualified Code(s): E11.621 - Type 2 diabetes mellitus with foot ulcer Condition: Stable Discharge Date/Time: 02/10/19 17:16
[2019-02-10 12:27] LABS: BASOPHILS % (AUTO) 0.6 %; EOSINOPHILS # (AUTO) 0.2 10^3/uL (0.0-0.7); HGB - HEMOGLOBIN 13.8 g/dL (12.0-16.0); LYMPHOCYTES # (AUTO) 0.7 10^3/uL (1.5-3.5); LYMPHOCYTES % (AUTO) 12.9 %; MEAN CORPUSCULAR HEMOGLOBIN 29.4 pg (27.0-31.0); MEAN CORPUSCULAR HGB CONC 32.1 g/dL (32.0-36.0); MEAN CORPUSCULAR VOLUME 91.7 fL (81.0-99.0); MEAN PLATELET VOLUME 10.7 fL (7.9-10.8); MONOCYTES # (AUTO) 0.6 10^3/uL (0.0-1.0); MONOCYTES % (AUTO) 11.2 %; NEUTROPHILS # (AUTO) 3.7 10^3/uL (1.5-6.6); NEUTROPHILS % (AUTO) 70.7 %; PLT - PLATELET COUNT 149 10^3/uL (130-450); RED BLOOD COUNT 4.69 10^6/uL (4.20-5.40); RED CELL DISTRIBUTION WIDTH 14.4 % (12.0-15.0); WHITE BLOOD COUNT 5.3 x10^3/uL (4.8-10.8)
[2019-02-10 12:28] LABS: ALBUMIN 3.7 g/dL (3.2-5.5); ALBUMIN/GLOBULIN RATIO 0.9 (1.0-2.2); BILIRUBIN,TOTAL 1.2 mg/dL (0.2-1.0); CALCIUM 9.2 mg/dL (8.5-10.3); CREATININE 0.9 mg/dL (0.4-1.0); TOTAL PROTEIN 7.8 g/dL (6.7-8.2)
[2019-02-10 12:29] LABS: GLUCOSE, URINE (UA) NEGATIVE (NEGATIVE); KETONES,URINE (UA) 40 mg/dL (NEGATIVE); LEUKOCYTE ESTERASE, URINE NEGATIVE (NEGATIVE); NITRITE,URINE NEGATIVE (NEGATIVE); OCCULT BLOOD,URINE NEGATIVE (NEGATIVE); PH,URINE 7.5 PH (5.0-7.5); PROTEIN,URINE NEGATIVE (NEGATIVE); UROBILINOGEN,URINE 0.2 (NORMAL) E.U./dL (NORMAL)
--- NOTE | 2019-02-10 12:30 | XRAY Report ---
Reason: fever Procedure Date: 02/10/2019 Accession Number: [id number] / [id number] Procedure: XR - Chest 1 View X-Ray CPT Code: 97333 FULL RESULT: EXAM: CHEST RADIOGRAPHY EXAM DATE: 02/10/2019 11:55 AM. CLINICAL HISTORY: Fever. COMPARISON: CHEST 2 VIEW 11/26/2017 4:00 PM. TECHNIQUE: 1 view. FINDINGS: Lungs/Pleura: Minimal atelectatic changes at the right base. Mediastinum: Within exam limitations, the cardiomediastinal contour is normal. Other: None. IMPRESSION: Minimal atelectatic changes at the right base, otherwise unremarkable exam. RADIA
[2019-02-10 12:35] LABS: CLARITY,URINE CLEAR (CLEAR)
[2019-02-10 12:38] LABS: BILIRUBIN,URINE SMALL (NEGATIVE); ICTOTEST,URINE POSITIVE
[2019-02-10] MEDS ORDERED: IOVERSOL 320 100 ML VIAL IVP ONE ×2 (12:41→13:26)
--- NOTE | 2019-02-10 13:20 | CT Report ---
Reason: abd pain, fever Procedure Date: 02/10/2019 Accession Number: [id number] / [id number] Procedure: CT - Abdomen/Pelvis W CPT Code: FULL RESULT: EXAM: CT ABDOMEN AND PELVIS EXAM DATE: 02/10/2019 12:57 PM. CLINICAL HISTORY: Abd pain, fever. COMPARISONS: ABDOMEN/PELVIS W/ 03/24/2017 7:08 PM. TECHNIQUE: Routine helical CT imaging was performed through the abdomen and pelvis. IV contrast: 90 cc Optiray 320 IV. Enteric contrast: No. Reconstructions: Coronal and sagittal. In accordance with CT protocol optimization, one or more of the following dose reduction techniques were utilized for this exam: automated exposure control, adjustment of mA and/or KV based on patient size, or use of iterative reconstructive technique. FINDINGS: Lung Bases: Unremarkable. Liver: The liver capsule has a moderately lobulated contour. The liver parenchyma is low in density. Liver vessels are patent. Gallbladder/Bile Ducts: Gallbladder not visualized. Spleen: The spleen is enlarged measuring 146 mm AP. There are multiple low density lesions within the spleen which are nonspecific. The larger lesion is in the inferior spleen measuring 13 mm and previously measured 7 mm in diameter. Pancreas: Normal. Adrenal Glands: Normal. Kidneys: Kidneys enhance normally. No renal mass or hydronephrosis. Peritoneal Cavity/Bowel: There is stool within the colon without a focal transition zone. Small bowel is normal in caliber. Appendix within normal limits. No lymphadenopathy. Pelvic Organs: Urinary bladder is unremarkable. Vasculature: The abdominal aorta is normal in caliber. Bones: There are findings of previous bilateral hip surgery. No acute fracture. Other: None. IMPRESSION: 1. No focal or localizing acute inflammatory process. No abscess. 2. Chronic liver disease and fibrosis with steatosis of the liver. 3. Splenomegaly. 2 round hypodense lesions are present, larger than on 03/24/2017. Nonspecific but most likely benign. 4. Stool throughout colon and probable constipation without mechanical obstruction. RADIA
[2019-02-10 14:12] LABS: MUDS CUTOFF CONCENTRATIONS CUTOFF CONC BELOW:
[2019-02-10 14:39] LABS: AMPHETAMINE SCREEN,URINE NEGATIVE (NEGATIVE); BENZODIAZEPINES SCREEN, URINE POSITIVE (NEGATIVE); COCAINE SCREEN URINE NEGATIVE (NEGATIVE); METHADONE SCREEN, URINE NEGATIVE (NEGATIVE); METHAMPHETAMINES SCREEN, URINE NEGATIVE (NEGATIVE); OPIATE SCREEN, URINE NEGATIVE (NEGATIVE); OXYCODONE SCREEN, URINE POSITIVE (NEGATIVE); PROPOXYPHENE SCREEN, URINE NEGATIVE (NEGATIVE); TRICYCLIC ANTIDEPRESSANT,URINE POSITIVE (NEGATIVE)
[2019-02-10] MEDS ORDERED: SODIUM CHLORIDE FLUSH 0.9% 10 ML SYRINGE IVP PRN (15:13)
--- NOTE | 2019-02-10 15:16 | CT Report ---
Reason: ALOC Procedure Date: 02/10/2019 Accession Number: [id number] / [id number] Procedure: CT - HEAD WO CPT Code: FULL RESULT: EXAM: CT HEAD EXAM DATE: 02/10/2019 02:56 PM. CLINICAL HISTORY: Altered mental status. COMPARISON: HEAD W/O 01/19/2018 4:03 PM. TECHNIQUE: Multiaxial CT images were obtained from the foramen magnum to the vertex. Reformats: Sagittal and coronal. IV contrast: None. In accordance with CT protocol optimization, one or more of the following dose reduction techniques were utilized for this exam: automated exposure control, adjustment of mA and/or KV based on patient size, or use of iterative reconstructive technique. FINDINGS: Parenchyma: No intraparenchymal hemorrhage. No evidence of mass, midline shift, or CT findings of infarction. [place]-white differentiation is distinct. Moderate periventricular hypoattenuation seen. Extraaxial Spaces: Moderate atrophy present. No subdural or epidural collections identified. Ventricles: Normal in size and position. Sinuses and Orbits: Imaged paranasal sinuses, orbits, and mastoids show no significant abnormality. Bones: No evidence of fracture or calvarial defect. Other: None. IMPRESSION: Moderate senescent changes without CT evidence of acute intracranial disease. RADIA
[2019-02-10] MEDS ORDERED: SODIUM CHLORIDE 0.9% 1,000 ML IV ONE (15:27)
--- NOTE | 2019-02-10 18:30 | HISTORY & PHYSICAL EXAMINATION ---
Chief Complaint - Chief Complaint Chief Complaint: altered mental status, recent infection History of Present Illness - Admitted From Admitted From:: ED - History Obtained From Records Reviewed: yes History obtained from: chart review, patient, Exam Limitations: AMS - History of Present Illness HPI Comment/Other: Laurence Vogt is a 63-year old female with a past medical history of hypertension, hyperlipidemia, atypical chest pain, ocular migraines, diabetes mellitus type2, hypothyroidism, GERD, recurrent c.diff, cirrhosis, portal vein thrombosis, esophageal varices, IBS, fibromyalgia, chronic pain, osteoarthritis, osteoporosis, and peripheral neuropathy. The patient was seen by Dr. Templeton on 02/07/2019 in his clinic, was started on Bactrim, and Keflex. After being on the antibiotic treatment for 48 hours, she started to have increased lethargy, confusion, and profound weakness confirmed by her who is at the bedside. After arriving in the ED, the patient is profoundly confused, has a temp of 38.3 C, heart rate 97, respiratory rate of 24, and a blood pressure of 103/74. She requires no oxygen and has an oxygen saturation of 95% on room air. Labs show a low normal WBC count of 5.3, sodium 132, chloride 98, BUN 15, creatinine of 0.9, GFR 63, glucose 190, bili 1.2, AST 57, ALT 57, alk phos 102, lactic acid 1.3, and lipase of 70. Urine results show no infection, she has no new producti ve cough, blood cultures are pending, her would looks to be a stage II, without drainage or redness to surrounding skin. A chest x-ray shows no pneumonia, and an abdominal CT showed a high stool burden, but no evidence of infection. She will be admitted to OBs for fever of unknown origin and early sepsis. History - Past Medical History Cardiovascular: reports: Hypertension, High cholesterol, Coronary artery disease, Peripheral Vascular Disease, Other (history of portal vein thrombosis) Respiratory: reports: COPD Neuro: reports: Dementia, Headaches, Peripheral neuropathy, Other (chronic pain syndrome) Endocrine/Autoimmune: reports: Type 2 diabetes, HyPOthyroidism GI: reports: GERD, Esophageal varices, Ulcers, C.difficile (up to 9 episodes), Chronic constipation, Cirrhosis YARD ASSOCIATE: reports: None : reports: Nocturia, Frequency HEENT: reports: Chronic vision loss, Chronic sinusitis, Chronic hearing loss Psych: reports: Depression, Anxiety, Panic attacks Musculoskeletal: reports: Osteoarthritis, Fibromyalgia, Osteoporosis, Chronic back pain, Other (lumbar radiculopathy, recurrent C. 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 Mom at age 84 with hypertension, fibromyalgia, and an abdominal cancer. She was also a breast cancer survivor. 2 brothers are alive and healthy with no major medical illnesses. 3 children are also all healthy. Living arrangement: At home Living Situation: With spouse/s.o. Social History Notes: She is for 14 years and she met her partner, Oumar, 12 years ago. She has 3 children.She never smoked. She did have a history of alcohol abuse in the past. She does not use cannabis. 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 She cannot stand for very long or walk for very long can do some vacuuming, light dish washing etc. 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 She has a lot of employees to do the brunt of the work. She was born and raised in [place]. She came to [facility] about 20 years ago to be close to her mom, and both of her brothers [place]. Both brothers own car dealerships. One brother owns the [employer] dealership and the other brother owns the [employer] dealership. She has a history of tobacco abuse from age [age], admits to alcoholism, and denies illicit drug use. She wishes to be a FULL code. - Substance History Use: Uses substance without health or social issues: NONE Abuse: Recurrent use of substance despite neg consequences: NONE Dependence: Experiences withdrawal or developed tolerances: NONE - POLST Patient has POLST: No POLST Status: Full Code Meds/Allgy - Home Medications Home Medications: Ambulatory Orders Medication Instructions Recorded Confirmed Calcium Carbonate/Vitamin D3 2 tab PO DAILY 08/18/15 02/10/19 [Calcium 600 + Vit D 400 Softgl] Levothyroxine [Synthroid] 100 mcg PO QDAC 08/18/15 02/10/19 Nadolol [Corgard] 20 mg PO DAILY 08/18/15 02/10/19 Furosemide 20 mg PO DAILY 01/19/18 02/10/19 Oxycodone HCl [Oxycontin] 20 mg PO Q12H 01/19/18 02/10/19 Spironolactone 50 mg PO DAILY 01/19/18 02/10/19 Glipizide 5 mg PO 0730 09/15/18 02/10/19 Lactobacillus Rhamnosus GG 1 cap PO BID 02/10/19 02/10/19 [Culturelle] Oxycodone HCl 10 mg PO Q4H PRN 02/10/19 02/10/19 raNITIdine [Zantac] 150 mg PO QPM 02/10/19 02/10/19 - Allergies Allergies/Adverse Reactions: Allergies Allergy/AdvReac Type Severity Reaction Status Date / Time metformin Allergy Severe "HORRIFIC" Verified 02/10/19 11:31 duloxetine Allergy Hives Verified 02/10/19 11:31 hydromorphone [From Dilaudid] Allergy Rash Verified 02/10/19 11:31 Review of Systems - Constitutional Constitutional: reports: Fatigue, Fever, Chills, Malaise, Weakness, Poor appetite, Night sweats - Eyes Eyes: reports: Vision loss - Ears, Nose & Throat Ears, Nose & Throat: reports: Nasal congestion, Postnasal drainage, Dentures - Cardiovascular Cariovascular: reports: Edema, Lightheadedness, Decr. exercise tolerance - Respiratory Respiratory: reports: Cough (chronic) - Gastrointestinal Gastrointestinal: reports: Abdominal distention, Constipation, Nausea, Reflux/heartburn, Bloating, Poor appetite - Genitourinary Genitourinary: reports: Frequency, Nocturia - Musculoskeletal Musculoskeletal: reports: Back pain, Muscle aches, Muscle weakness, Joint pain - Integumentary Integumentary: reports: Dryness, Pigment changes, Hair changes, Other (bronze skin) - Neurological Neurological: reports: Focal weakness, Headache, Memory problems, Pre-existing deficit, Incoordination, Slurred speech - Psychiatric Psychiatric: reports: Depression, Anxiety - Hematologic/Lymphatic Hematologic/Lymphatic: reports: Anemia, Recurrent infections - All Other Systems All Other Systems: reports: Reviewed and negative Prior Level of Functionality: Independent at home, occasional falls Exam - Vital Signs Reviewed Vital Signs: Yes Vital Signs: Vital Signs x48h Temp Pulse Resp BP Pulse Ox 02/10/19 15:13 3.5 C L 93 18 123/82 H 95 02/10/19 14:00 89 18 107/78 97 02/10/19 13:52 37.9 C H 02/10/19 13:30 93 17 112/75 98 02/10/19 13:00 95 15 103/74 96 02/10/19 12:11 96 17 119/78 95 02/10/19 11:24 38.3 C H 97 20 134/84 H 96 - Physical Exam General Appearance: positive: Alert, Moderate distress, Lethargic Eyes Bilateral: positive: PERRL, No lid inflammation ENT: positive: Dry mucous membranes Neck: positive: No JVD, Trachea midline Respiratory: positive: Chest non-tender, No respiratory distress, Other (di minished) Cardiovascular: positive: Regular rate & rhythm, No gallop, Systolic murmur Peripheral Pulses: positive: 1+ Abdomen: positive: Guarding, Hepatomegaly, Abnml bowel sounds, Other (rounded, soft) Back: positive: Nml inspection Skin: positive: No rash, Warm, Dry, Other (flushed cheeks) Extremities: positive: Non-tender, No pedal edema (mild BLE), Joint swelling, Other (right heel ulcer with healthy surrounding skin) Neurologic/Psychiatric: positive: CN's nml (2-12), Motor nml, Sensation nml, Disoriented to time, Weakness, Sensory loss, Slurred/abnml speech (due to lethargy), Depressed mood/affect Reflexes: Bicep (R): 2+, Bicep (L): 2+ Sepsis Event Note (H) - Evaluation Current Stage of Sepsis: Sepsis Possible source of Sepsis: positive: Skin/soft tissue - Sepsis Criteria Sepsis Criteria: Recorded Temperature greater than 38.3C or Less than 36C, Recorded Heart Rate greater than 90 bpm, Recorded Respiratory Rate greater than 20, [employer]: altered consciousness (unrelated to primary neuro pathology), SBP drop more than 40mHg, Renal: urine output less than 0.5ml/kg/hr for 2 hours or creatinine gr Conclusion/Plan - Problem List (1) Acute metabolic encephalopathy Conclusion/Plan: - complains that for the past 2 days, the patient has been acting very lethargic, confused and weak - She was started on Bactrim and Keflex for her diabetic foot ulcer about 4 days ago - Also with a poor appetite, and slight abdominal pain Plan: Continue fever of unknown origin work up, monitor for improvement (2) Fever Conclusion/Plan: - Temp max 39.0 C - Chills, flushing, fevers at home - No chest pain - No recent cough, no dysuria, no apparent cellultis to chronic foot ulcer - Started on IV Cefepime, holding diuretics, giving IV fluids Plan: Continue to await blood cultures, sputum culture, and treat symptoms Qualifiers: Fever type: unspecified Qualified Code(s): R50.9 - Fever, unspecified (3) Diabetic foot ulcer Conclusion/Plan: - Long standing right heel ulcer, with recent spontaneous drainage at home - Surrounding skin does not appear cellulitic - Request photos for chart Plan: Continue work up for fever of unknown origin, continue cefepime, request ortho if needed Qualifiers: Diabetic foot ulcer location: heel Diabetes mellitus type: type 2 Laterality: right Non-pressure ulcer stage: with fat layer exposed Qualified Code(s): E11.621 - Type 2 diabetes mellitus with foot ulcer; L97.412 - Non- pressure chronic ulcer of right heel and midfoot with fat layer exposed (4) Benign essential HTN Conclusion/Plan: - Takes Nadolol, lasix, and spironolactone at home - Holding diuretics, continues on Nadolol - Blood pressures light on admission; 119/78 Plan: Continue to monitor, resume diuretics after IV fluids (5) Controlled type 2 diabetes mellitus without complication, without long-term current use of insulin Conclusion/Plan: - Takes Glipizide at home, Metformin is contraindicated since cirrhosis Plan: Obtain HgA1C in the AM, carb controlled diet, SSI, no Lantus (6) Hypothyroidism Conclusion/Plan: - Known history of this, unknown last TSH - Synthroid 100 mcg at home, continued here Plan: Obtain TSH in the AM, adjust accordingly (7) Recurrent Clostridioides difficile diarrhea Conclusion/Plan: - reports up to 9 episodes, without a fecal transplant - Start prophylactic treatment of daily oral vanco Plan: Monitor for c. diff diarrhea, continue daily vanco - Lab Results Lab results reviewed: Yes Fish Bones: 02/11/19 05:55 02/11/19 05:55 - Diagnostic Imaging Results Diagnostic Imaging Results: positive: Final report reviewed Diagnostic Imaging Results Comments: EXAM: CHEST RADIOGRAPHY EXAM DATE: 02/10/2019 11:55 AM IMPRESSION: Minimal atelectatic changes at the right base, otherwise unremarkable exam. EXAM: CT ABDOMEN AND PELVIS EXAM DATE: 02/10/2019 12:57 PM IMPRESSION: 1. No focal or localizing acute inflammatory process. No abscess. 2. Chronic liver disease and fibrosis with steatosis of the liver. 3. Splenomegaly. 2 round hypodense lesions are present, larger than on 03/24/2017. Nonspecific but most likely benign. 4. Stool throughout colon and probable constipation without mechanical obstruction. EXAM: CT HEAD EXAM DATE: 02/10/2019 02:56 PM IMPRESSION: Moderate senescent changes without CT evidence of acute intracranial disease. Core Measures - Anticipated LOS I expect patient to be DC'd or transferred within 96 hours.: Yes - DVT/VTE - Prophylaxis VTE/DVT Device ordered at admit?: Yes VTE/DVT Prophylaxis med ordered at admit?: No Not Ordered - Medical Reason: Contraindicated - Stroke - Rehab Assessment Rehab services assessment to be ordered?: No Not Ordered - Medical Reason: Contraindicated - AMI - Statin at Admit Aspirin Prescribed on Admit: No Not Ordered - Medical Reason: Contraindicated
[2019-02-10] MEDS: SODIUM CHLORIDE FLUSH 0.9% 10 ML SYRINGE IVP SCH (18:38)
[2019-02-10] MEDS: SODIUM CHLORIDE 0.9% 1,000 ML IV SCH (18:38)
[2019-02-10] MEDS: oxyCODONE ER 10 MG TABLET PO SCH (19:23)
[2019-02-10] MEDS: oxyCODONE 5 MG TABLET PO PRN (20:42)
[2019-02-10] MEDS: FAMOTIDINE 20 MG TABLET PO SCH (20:43)
[2019-02-10] MEDS: VANCOMYCIN 125 MG CAPSULE PO SCH (20:43)
[2019-02-10] MEDS: CEFEPIME 2 GM in SODIUM CHLORIDE 0.9% MINIBAG 100 ML IV SCH (20:44)
[2019-02-10] MEDS: INSULIN ASPART 300 UNIT/3 ML PEN SUBQ SCH (20:44)
[2019-02-11] MEDS ORDERED: IBUPROFEN 400 MG TABLET PO PRN (01:02)
[2019-02-11] MEDS: SODIUM CHLORIDE FLUSH 0.9% 10 ML SYRINGE IVP SCH ×3 (01:38→16:33)
[2019-02-11] MEDS: SODIUM CHLORIDE 0.9% 1,000 ML IV SCH ×3 (05:56→20:01)
[2019-02-11 06:05] LABS: BASOPHILS % (AUTO) 0.9 %; EOSINOPHILS # (AUTO) 0.2 10^3/uL (0.0-0.7); EOSINOPHILS % (AUTO) 5.4 %; HGB - HEMOGLOBIN 12.2 g/dL (12.0-16.0); LYMPHOCYTES # (AUTO) 0.6 10^3/uL (1.5-3.5); LYMPHOCYTES % (AUTO) 18.4 %; MEAN CORPUSCULAR HEMOGLOBIN 29.3 pg (27.0-31.0); MEAN CORPUSCULAR HGB CONC 31.9 g/dL (32.0-36.0); MEAN CORPUSCULAR VOLUME 91.8 fL (81.0-99.0); MONOCYTES # (AUTO) 0.5 10^3/uL (0.0-1.0); MONOCYTES % (AUTO) 14.2 %; NEUTROPHILS % (AUTO) 60.8 %; PLT - PLATELET COUNT 126 10^3/uL (130-450); RED BLOOD COUNT 4.16 10^6/uL (4.20-5.40); RED CELL DISTRIBUTION WIDTH 14.5 % (12.0-15.0); WHITE BLOOD COUNT 3.3 x10^3/uL (4.8-10.8)
[2019-02-11 06:19] LABS: INR 1.3 (0.8-1.2); PT - PROTHROMBIN TIME 14.1 secs (9.9-12.6)
[2019-02-11 06:22] LABS: ALBUMIN 3.3 g/dL (3.2-5.5); ALBUMIN/GLOBULIN RATIO 0.9 (1.0-2.2); CALCIUM 8.5 mg/dL (8.5-10.3); CREATININE 0.9 mg/dL (0.4-1.0); MAGNESIUM 1.9 mg/dL (1.7-2.8); PHOSPHORUS 3.7 mg/dL (2.5-4.6)
[2019-02-11 06:58] LABS: HB2 TOTAL 12.8 g/dL; HEMOGLOBIN A1C 0.78 g/dL; HEMOGLOBIN A1C % 7.7 % (4.6-6.2)
[2019-02-11] MEDS ORDERED: LEVOTHYROXINE 100 MCG TABLET PO SCH (07:00)
[2019-02-11] MEDS: oxyCODONE ER 10 MG TABLET PO SCH ×2 (07:05→18:48)
[2019-02-11] MEDS ORDERED: IBUPROFEN 800 MG TABLET PO PRN (07:07)
[2019-02-11] MEDS: INSULIN ASPART 300 UNIT/3 ML PEN SUBQ SCH ×4 (08:46→21:24)
[2019-02-11] MEDS: CEFEPIME 2 GM in SODIUM CHLORIDE 0.9% MINIBAG 100 ML IV SCH ×2 (09:04→21:23)
[2019-02-11] MEDS: FAMOTIDINE 20 MG TABLET PO SCH ×2 (09:07→21:24)
[2019-02-11] MEDS: ENOXAPARIN 40 MG/0.4 ML SYRINGE SUBQ SCH (09:07)
[2019-02-11] MEDS: NADOLOL 20 MG TABLET PO SCH (09:07)
[2019-02-11] MEDS: POLYETHYLENE GLYCOL 3350 17 GM PACKET PO SCH (09:08)
[2019-02-11] MEDS: VANCOMYCIN 125 MG CAPSULE PO SCH (09:08)
[2019-02-11] MEDS: oxyCODONE 5 MG TABLET PO PRN ×3 (10:31→18:47)
[2019-02-11] MEDS ORDERED: VANCOMYCIN PER PHARMACY 100 GM in SODIUM CHLORIDE 0.9% 250 ML IV SCH (13:00)
[2019-02-11] MEDS ORDERED: VANCOMYCIN INJ 1 GM, VANCOMYCIN INJ 500 MG in SODIUM CHLORIDE 0.9% 500 ML IV ONE (13:00)
--- NOTE | 2019-02-11 13:01 | PROVIDER PROGRESS NOTE ---
Subjective - Prog Note Date Prog Note Date: 02/11/19 Prog Note Time: 12:59 - Subjective Pt reports feeling: Improved Subjective: Laurence complains of uncontrolled pain, and states that her can just bring in extra. She denies new pain in her right heel, increased joint pain or recent fevers. Although fevers are continuing per chart review. Current Medications - Current Medications Current Medications: Active Medications: Enoxaparin Sodium (Lovenox) 40 mg SUBQ DAILY [facility] Famotidine (Pepcid) 20 mg PO BID [facility] Sodium Chloride (Normal Saline 0.9%) 1,000 mls @ 100 mls/hr IV .Q10H [facility] Cefepime HCl 2 gm/ Sodium (Chloride) 100 mls @ 200 mls/hr IV BID [facility] Vancomycin HCl 100 gm/ Sodium (Chloride) 250 mls @ 167 mls/hr IV Q400H [facility] Ibuprofen (Motrin) 400 mg PO Q6HR PRN Insulin Aspart (Novolog) 1 - 5 unit SUBQ 0800,1200,1700,2100 [facility]; Protocol Levothyroxine Sodium (Synthroid) 88 mcg PO QDAC [facility] Nadolol (Corgard) 20 mg PO DAILY [facility] Oxycodone HCl (Roxicodone) 10 mg PO Q4H PRN Oxycodone HCl (Oxycontin) 20 mg PO Q12H [facility] Polyethylene Glycol (Miralax) 17 gm PO DAILY [facility] Vancomycin HCl (Vancocin) 125 mg PO DAILY [facility] HOME meds: Calcium Carbonate/Vitamin D3 [Calcium 600 + Vit D 400 Softgl] 2 tab PO DAILY 08/18/15 Levothyroxine [Synthroid] 100 mcg PO QDAC 08/18/15 Nadolol [Corgard] 20 mg PO DAILY 08/18/15 Furosemide 20 mg PO DAILY 01/19/18 Oxycodone HCl [Oxycontin] 20 mg PO Q12H 01/19/18 Spironolactone 50 mg PO DAILY 01/19/18 Glipizide 5 mg PO 0730 09/15/18 Lactobacillus Rhamnosus GG [Culturelle] 1 cap PO BID 02/10/19 Oxycodone HCl 10 mg PO Q4H PRN 02/10/19 raNITIdine [Zantac] 150 mg PO QPM 02/10/19 Objective - Vital Signs/Intake & Output Reviewed Vital Signs: Yes Vital Signs: Vital Signs x48h Temp Pulse Resp BP Pulse Ox 02/11/19 08:56 36.5 C 82 16 113/75 97 02/11/19 07:03 36.3 C L 75 15 102/69 97 Intake & Output: Intake & Output 02/08/19 02/09/19 02/10/19 02/11/19 23:59 23:59 23:59 23:59 Intake Total 0993.637 9745.333 Balance 7586.517 1266.333 - Objective General Appearance: positive: Alert, Moderate distress, Anxious, Lethargic Eyes Bilateral: positive: PERRL Eyes: OU Conjunctivae pale ENT: positive: Pharynx nml, Dry mucous membranes Neck: positive: Thyroid nml, No JVD, Trachea midline Respiratory: positive: Chest non-tender, No respiratory distress Cardiovascular: positive: Regular rate & rhythm, No gallop, Systolic murmur Peripheral Pulses: 1+ Radial (R), 1+ Radial (L) Abdomen: positive: Tenderness, Hepatomegaly, Abnml bowel sounds Back: positive: Nml inspection Skin: positive: No rash, Warm, Dry Extremities: positive: Non-tender, Full ROM, Pedal edema, Other (right heel wound, no drainage) Neurologic/Psychiatric: positive: Disoriented to time, Weakness, Sensory loss, Slurred/abnml speech, Depressed mood/affect, Other (baseline dementia (alcoholic)) Reflexes: Bicep (R): 2+, Bicep (L): 2+ - Lab Results Fish Bones: 02/12/19 05:11 02/12/19 05:11 Other Labs: Lab Results x24hrs 02/11/19 02/11/19 02/11/19 Range/Units 11:44 05:55 05:55 WBC (4.8-10.8) x10^3/uL RBC (4.20-5.40) 10^6/uL Hgb (12.0-16.0) g/dL Hct (37.0-47.0) % MCV (81.0-99.0) fL MCH (27.0-31.0) pg MCHC (32.0-36.0) g/dL RDW (12.0-15.0) % Plt Count (130-450) 10^3/uL MPV (7.9-10.8) fL Neut # (Auto) (1.5-6.6) 10^3/uL Lymph # (Auto) (1.5-3.5) 10^3/uL [place] # (Auto) (0.0-1.0) 10^3/uL Eos # (Auto) (0.0-0.7) 10^3/uL Baso # (Auto) (0.0-0.1) 10^3/uL Absolute Nucleated RBC x10^3/uL Nucleated RBC % /100WBC PT (9.9-12.6) secs INR (0.8-1.2) Sodium (135-145) mmol/L Potassium (3.5-5.0) mmol/L Chloride (101-111) mmol/L Carbon Dioxide (21-32) mmol/L Anion Gap (6-13) BUN (6-20) mg/dL Creatinine (0.4-1.0) mg/dL Estimated GFR (MDRD) (>89) Glucose (70-100) mg/dL POC Whole Bld Glucose 164 H (70 - 100) mg/dL Glycated Hemoglobin (4.6-6.2) % Estim Average Glucose (70-100) Lactic Acid (0.5-2.2) mmol/L Calcium (8.5-10.3) mg/dL Phosphorus (2.5-4.6) mg/dL Magnesium (1.7-2.8) mg/dL Total Bilirubin (0.2-1.0) mg/dL AST (10-42) IU/L ALT (10-60) IU/L Alkaline Phosphatase (42-121) IU/L Ammonia 33.9 (7-35) umol/L C-Reactive Protein (0-1.0) mg/dL Total Protein (6.7-8.2) g/dL Albumin (3.2-5.5) g/dL Globulin (2.1-4.2) g/dL Albumin/Globulin Ratio (1.0-2.2) Lipase (22-51) U/L TSH < 0.08 L (0.34-5.60) uIU/mL Urine Opiates Screen (NEGATIVE) Ur Oxycodone Screen (NEGATIVE) Urine Methadone Screen (NEGATIVE) Ur Propoxyphene Screen (NEGATIVE) Ur Barbiturates Screen (NEGATIVE) Ur Tricyclics Screen (NEGATIVE) Ur Phencyclidine Scrn (NEGATIVE) Ur Amphetamine Screen (NEGATIVE) U Methamphetamines Scrn (NEGATIVE) U Benzodiazepines Scrn (NEGATIVE) Urine Cocaine Screen (NEGATIVE) U Cannabinoids Screen (NEGATIVE) 02/11/19 02/11/19 02/11/19 Range/Units 05:55 05:55 05:55 WBC (4.8-10.8) x10^3/uL RBC (4.20-5.40) 10^6/uL Hgb (12.0-16.0) g/dL Hct (37.0-47.0) % MCV (81.0-99.0) fL MCH (27.0-31.0) pg MCHC (32.0-36.0) g/dL RDW (12.0-15.0) % Plt Count (130-450) 10^3/uL MPV (7.9-10.8) fL Neut # (Auto) (1.5-6.6) 10^3/uL Lymph # (Auto) (1.5-3.5) 10^3/uL [place] # (Auto) (0.0-1.0) 10^3/uL Eos # (Auto) (0.0-0.7) 10^3/uL Baso # (Auto) (0.0-0.1) 10^3/uL Absolute Nucleated RBC x10^3/uL Nucleated RBC % /100WBC PT 14.1 H (9.9-12.6) secs INR 1.3 H (0.8-1.2) Sodium 133 L (135-145) mmol/L Potassium 3.7 (3.5-5.0) mmol/L Chloride 104 (101-111) mmol/L Carbon Dioxide 20 L (21-32) mmol/L Anion Gap 9.0 (6-13) BUN 16 (6-20) mg/dL Creatinine 0.9 (0.4-1.0) mg/dL Estimated GFR (MDRD) 63 L (>89) Glucose 94 (70-100) mg/dL POC Whole Bld Glucose (70 - 100) mg/dL Glycated Hemoglobin (4.6-6.2) % Estim Average Glucose (70-100) Lactic Acid 0.8 (0.5-2.2) mmol/L Calcium 8.5 (8.5-10.3) mg/dL Phosphorus 3.7 (2.5-4.6) mg/dL Magnesium 1.9 (1.7-2.8) mg/dL Total Bilirubin 1.0 (0.2-1.0) mg/dL AST 55 H (10-42) IU/L ALT 50 (10-60) IU/L Alkaline Phosphatase 87 (42-121) IU/L Ammonia (7-35) umol/L C-Reactive Protein 4.0 H (0-1.0) mg/dL Total Protein 7.0 (6.7-8.2) g/dL Albumin 3.3 (3.2-5.5) g/dL Globulin 3.7 (2.1-4.2) g/dL Albumin/Globulin Ratio 0.9 L (1.0-2.2) Lipase 61 H (22-51) U/L TSH (0.34-5.60) uIU/mL Urine Opiates Screen (NEGATIVE) Ur Oxycodone Screen (NEGATIVE) Urine Methadone Screen (NEGATIVE) Ur Propoxyphene Screen (NEGATIVE) Ur Barbiturates Screen (NEGATIVE) Ur Tricyclics Screen (NEGATIVE) Ur Phencyclidine Scrn (NEGATIVE) Ur Amphetamine Screen (NEGATIVE) U Methamphetamines Scrn (NEGATIVE) U Benzodiazepines Scrn (NEGATIVE) Urine Cocaine Screen (NEGATIVE) U Cannabinoids Screen (NEGATIVE) 02/11/19 02/11/19 02/10/19 Range/Units 05:55 05:55 20:36 WBC 3.3 L (4.8-10.8) x10^3/uL RBC 4.16 L (4.20-5.40) 10^6/uL Hgb 12.2 (12.0-16.0) g/dL Hct 38.2 (37.0-47.0) % MCV 91.8 (81.0-99.0) fL MCH 29.3 (27.0-31.0) pg MCHC 31.9 L (32.0-36.0) g/dL RDW 14.5 (12.0-15.0) % Plt Count 126 L (130-450) 10^3/uL MPV 10.0 (7.9-10.8) fL Neut # (Auto) 2.0 (1.5-6.6) 10^3/uL Lymph # (Auto) 0.6 L (1.5-3.5) 10^3/uL [place] # (Auto) 0.5 (0.0-1.0) 10^3/uL Eos # (Auto) 0.2 (0.0-0.7) 10^3/uL Baso # (Auto) 0.0 (0.0-0.1) 10^3/uL Absolute Nucleated RBC 0.00 x10^3/uL Nucleated RBC % 0.0 /100WBC PT (9.9-12.6) secs INR (0.8-1.2) Sodium (135-145) mmol/L Potassium (3.5-5.0) mmol/L Chloride (101-111) mmol/L Carbon Dioxide (21-32) mmol/L Anion Gap (6-13) BUN (6-20) mg/dL Creatinine (0.4-1.0) mg/dL Estimated GFR (MDRD) (>89) Glucose (70-100) mg/dL POC Whole Bld Glucose 145 H (70 - 100) mg/dL Glycated Hemoglobin 7.7 H (4.6-6.2) % Estim Average Glucose 174 H (70-100) Lactic Acid (0.5-2.2) mmol/L Calcium (8.5-10.3) mg/dL Phosphorus (2.5-4.6) mg/dL Magnesium (1.7-2.8) mg/dL Total Bilirubin (0.2-1.0) mg/dL AST (10-42) IU/L ALT (10-60) IU/L Alkaline Phosphatase (42-121) IU/L Ammonia (7-35) umol/L C-Reactive Protein (0-1.0) mg/dL Total Protein (6.7-8.2) g/dL Albumin (3.2-5.5) g/dL Globulin (2.1-4.2) g/dL Albumin/Globulin Ratio (1.0-2.2) Lipase (22-51) U/L TSH (0.34-5.60) uIU/mL Urine Opiates Screen (NEGATIVE) Ur Oxycodone Screen (NEGATIVE) Urine Methadone Screen (NEGATIVE) Ur Propoxyphene Screen (NEGATIVE) Ur Barbiturates Screen (NEGATIVE) Ur Tricyclics Screen (NEGATIVE) Ur Phencyclidine Scrn (NEGATIVE) Ur Amphetamine Screen (NEGATIVE) U Methamphetamines Scrn (NEGATIVE) U Benzodiazepines Scrn (NEGATIVE) Urine Cocaine Screen (NEGATIVE) U Cannabinoids Screen (NEGATIVE) 02/10/19 Range/Units 12:23 WBC (4.8-10.8) x10^3/uL RBC (4.20-5.40) 10^6/uL Hgb (12.0-16.0) g/dL Hct (37.0-47.0) % MCV (81.0-99.0) fL MCH (27.0-31.0) pg MCHC (32.0-36.0) g/dL RDW (12.0-15.0) % Plt Count (130-450) 10^3/uL MPV (7.9-10.8) fL Neut # (Auto) (1.5-6.6) 10^3/uL Lymph # (Auto) (1.5-3.5) 10^3/uL [place] # (Auto) (0.0-1.0) 10^3/uL Eos # (Auto) (0.0-0.7) 10^3/uL Baso # (Auto) (0.0-0.1) 10^3/uL Absolute Nucleated RBC x10^3/uL Nucleated RBC % /100WBC PT (9.9-12.6) secs INR (0.8-1.2) Sodium (135-145) mmol/L Potassium (3.5-5.0) mmol/L Chloride (101-111) mmol/L Carbon Dioxide (21-32) mmol/L Anion Gap (6-13) BUN (6-20) mg/dL Creatinine (0.4-1.0) mg/dL Estimated GFR (MDRD) (>89) Glucose (70-100) mg/dL POC Whole Bld Glucose (70 - 100) mg/dL Glycated Hemoglobin (4.6-6.2) % Estim Average Glucose (70-100) Lactic Acid (0.5-2.2) mmol/L Calcium (8.5-10.3) mg/dL Phosphorus (2.5-4.6) mg/dL Magnesium (1.7-2.8) mg/dL Total Bilirubin (0.2-1.0) mg/dL AST (10-42) IU/L ALT (10-60) IU/L Alkaline Phosphatase (42-121) IU/L Ammonia (7-35) umol/L C-Reactive Protein (0-1.0) mg/dL Total Protein (6.7-8.2) g/dL Albumin (3.2-5.5) g/dL Globulin (2.1-4.2) g/dL Albumin/Globulin Ratio (1.0-2.2) Lipase (22-51) U/L TSH (0.34-5.60) uIU/mL Urine Opiates Screen NEGATIVE (NEGATIVE) Ur Oxycodone Screen POSITIVE H (NEGATIVE) Urine Methadone Screen NEGATIVE (NEGATIVE) Ur Propoxyphene Screen NEGATIVE (NEGATIVE) Ur Barbiturates Screen NEGATIVE (NEGATIVE) Ur Tricyclics Screen POSITIVE H (NEGATIVE) Ur Phencyclidine Scrn NEGATIVE (NEGATIVE) Ur Amphetamine Screen NEGATIVE (NEGATIVE) U Methamphetamines Scrn NEGATIVE (NEGATIVE) U Benzodiazepines Scrn POSITIVE H (NEGATIVE) Urine Cocaine Screen NEGATIVE (NEGATIVE) U Cannabinoids Screen NEGATIVE (NEGATIVE) ABX Reporting Has patient been on IV antibiotics over the past 48 hours?: Yes Sepsis Event Note (H) - Evaluation Current Stage of Sepsis: Sepsis Possible source of Sepsis: positive: Skin/soft tissue - Sepsis Criteria Sepsis Criteria: Recorded Temperature greater than 38.3C or Less than 36C, Recorded Heart Rate greater than 90 bpm, Recorded Respiratory Rate greater than 20, BLANK DRILLER: altered consciousness (unrelated to primary neuro pathology) Assessment/Plan - Problem List (1) Acute metabolic encephalopathy Impression: - complains that for the past 2 days, the patient has been acting very lethargic, confused and weak - She was started on Bactrim and Keflex for her diabetic foot ulcer about 4 days ago - Also with a poor appetite, and slight abdominal pain Plan: Continue fever of unknown origin work up, monitor for improvement (2) Fever Impression: - Temp max 39.0 C - Chills, flushing, fevers at home - No chest pain - No recent cough, no dysuria, no apparent cellultis to chronic foot ulcer - Started on IV Cefepime, holding diuretics, giving IV fluids Plan: Continue to await blood cultures, sputum culture, and treat symptoms Qualifiers: Fever type: unspecified Qualified Code(s): R50.9 - Fever, unspecified (3) Diabetic foot ulcer Impression: - Long standing right heel ulcer, with recent spontaneous drainage at home - Surrounding skin does not appear cellulitic - Request photos for chart Plan: Continue work up for fever of unknown origin, continue cefepime, request ortho if needed Qualifiers: Diabetic foot ulcer location: heel Diabetes mellitus type: type 2 Laterality: right Non-pressure ulcer stage: with fat layer exposed Qualified Code(s): E11.621 - Type 2 diabetes mellitus with foot ulcer; L97.412 - Non- pressure chronic ulcer of right heel and midfoot with fat layer exposed (4) Benign essential HTN Impression: - Takes Nadolol, lasix, and spironolactone at home - Holding diuretics, continues on Nadolol - Blood pressures light on admission; 119/78 Plan: Continue to monitor, resume diuretics after IV fluids (5) Controlled type 2 diabetes mellitus without complication, without long-term current use of insulin Impression: - Takes Glipizide at home, Metformin is contraindicated since cirrhosis Plan: Obtain HgA1C in the AM, carb controlled diet, SSI, no Lantus (7) Recurrent Clostridioides difficile diarrhea Impression: - reports up to 9 episodes, without a fecal transplant - Start prophylactic treatment of daily oral vanco Plan: Monitor for c. diff diarrhea, continue daily v
[2019-02-12] MEDS: VANCOMYCIN INJ 0.75 GM in SODIUM CHLORIDE 0.9% 250 ML IV SCH ×2 (01:22→13:09)
[2019-02-12] MEDS: SODIUM CHLORIDE FLUSH 0.9% 10 ML SYRINGE IVP SCH ×3 (01:31→16:03)
[2019-02-12 05:22] LABS: BASOPHILS % (AUTO) 0.3 %; EOSINOPHILS # (AUTO) 0.2 10^3/uL (0.0-0.7); EOSINOPHILS % (AUTO) 7.2 %; HGB - HEMOGLOBIN 11.3 g/dL (12.0-16.0); LYMPHOCYTES % (AUTO) 28.8 %; MEAN CORPUSCULAR HEMOGLOBIN 28.4 pg (27.0-31.0); MEAN CORPUSCULAR HGB CONC 31.3 g/dL (32.0-36.0); MEAN CORPUSCULAR VOLUME 90.7 fL (81.0-99.0); MEAN PLATELET VOLUME 9.6 fL (7.9-10.8); MONOCYTES # (AUTO) 0.3 10^3/uL (0.0-1.0); MONOCYTES % (AUTO) 9.3 %; NEUTROPHILS # (AUTO) 1.8 10^3/uL (1.5-6.6); NEUTROPHILS % (AUTO) 54.1 %; PLT - PLATELET COUNT 124 10^3/uL (130-450); RED BLOOD COUNT 3.98 10^6/uL (4.20-5.40); WHITE BLOOD COUNT 3.3 x10^3/uL (4.8-10.8)
[2019-02-12 05:37] LABS: ALBUMIN/GLOBULIN RATIO 0.8 (1.0-2.2); BILIRUBIN,TOTAL 1.2 mg/dL (0.2-1.0); CALCIUM 8.2 mg/dL (8.5-10.3); CREATININE 0.6 mg/dL (0.4-1.0); CRP - C-REACTIVE PROTEIN 2.3 mg/dL (0-1.0); INR 1.3 (0.8-1.2); MAGNESIUM 1.7 mg/dL (1.7-2.8); PHOSPHORUS 2.4 mg/dL (2.5-4.6); PT - PROTHROMBIN TIME 14.3 secs (9.9-12.6); TOTAL PROTEIN 6.6 g/dL (6.7-8.2)
[2019-02-12] MEDS: oxyCODONE ER 10 MG TABLET PO SCH ×2 (06:43→18:54)
[2019-02-12] MEDS: LEVOTHYROXINE 88 MCG TABLET PO SCH (06:50)
[2019-02-12] MEDS: SODIUM CHLORIDE 0.9% 1,000 ML IV SCH ×2 (08:25→23:23)
[2019-02-12] MEDS: CEFEPIME 2 GM in SODIUM CHLORIDE 0.9% MINIBAG 100 ML IV SCH ×2 (08:45→20:58)
[2019-02-12] MEDS: ENOXAPARIN 40 MG/0.4 ML SYRINGE SUBQ SCH (08:45)
[2019-02-12] MEDS: FAMOTIDINE 20 MG TABLET PO SCH ×2 (08:45→20:59)
[2019-02-12] MEDS: NADOLOL 20 MG TABLET PO SCH (08:46)
[2019-02-12] MEDS: VANCOMYCIN 125 MG CAPSULE PO SCH (08:46)
[2019-02-12] MEDS: INSULIN ASPART 300 UNIT/3 ML PEN SUBQ SCH ×4 (08:46→20:59)
[2019-02-12] MEDS: POLYETHYLENE GLYCOL 3350 17 GM PACKET PO SCH (08:47)
[2019-02-12] MEDS: oxyCODONE 5 MG TABLET PO PRN ×3 (11:04→20:59)
[2019-02-12] MEDS ORDERED: GADOBUTROL 7.5 MMOL/7.5 ML VIAL ONE (14:30)
[2019-02-12] MEDS ORDERED: GADOBUTROL 7.5 MMOL/7.5 ML VIAL IVP ONE (15:26)
--- NOTE | 2019-02-12 16:24 | MRI Report ---
Reason: fever of unknown origin, right heel ulcer Procedure Date: 02/12/2019 Accession Number: [id number] / [id number] Procedure: MRI - Foot RT W/WO CPT Code: FULL RESULT: EXAM: RIGHT ANKLE/HINDFOOT MRI WITHOUT AND WITH CONTRAST EXAM DATE: 02/12/2019 04:08 PM. CLINICAL HISTORY: Fever of unknown origin, right heel ulcer. COMPARISON: Foot radiographs 06/15/2019. TECHNIQUE: Multiplanar, multisequence T1-weighted and fluid-sensitive sequences of the ankle before and after administration of intravenous contrast. IV contrast: 6 mL Gadavist. Other: None. FINDINGS: Bones: No marrow signal abnormality to suggest osteomyelitis. No fracture or bone lesion. Mild bone marrow edema and cystic changes at the posterolateral tibial plafond and at the angle of [place], likely degenerative. Mild degenerative changes at the tarsometatarsal joints, most prominent at the first. Articular Cartilage: Small regions of deep partial-thickness to full-thickness loss at the tibial plafond. No focal defect of the talar dome. Ligaments: Anterior and posterior tibiofibular ligaments normal in morphology. Mild thickening anterior and posterior talofibular and calcaneofibular ligaments. Subtle distortion in the deep and posterior aspect deltoid ligament. Spring ligament is mildly thickened. Anterior Tendons: The tibialis anterior, extensor hallucis longus, and extensor digitorum longus tendons are unremarkable. Medial Tendons: The tibialis posterior, flexor digitorum longus, and flexor hallucis longus tendons are unremarkable. Lateral Tendons: Mildly flattened appearance of the peroneus brevis tendon with focal intrasubstance tear at the fibular tip. Proteus brevis tendon normal in morphology. Achilles Tendon: Minimal thickening. Musculature: No edema or fatty atrophy. Other: Minimal tibiotalar and subtalar joint fluid. Lobulated 1.6 cm ganglion at the plantar medial aspect anterior process of the calcaneus. Minimal edema in the sinus tarsi. Tarsal tunnel unremarkable. No plantar fasciitis. 1.5 cm ill-defined region of subcutaneous edema and enhancement at the plantar medial aspect of the calcaneus. No drainable fluid collection/abscess. Mild skin thickening overlies this site. IMPRESSION: 1. Mild cellulitis and skin thickening plantar medial aspect of the calcaneus. 2. No discrete fluid collection/abscess. No evidence of osteomyelitis. 3. Mild degenerative changes hindfoot and midfoot. 4. Old mild sprains medial and lateral ligamentous structures. 5. Focal partial-thickness intrasubstance tear peroneus brevis tendon. 6. Minimal Achilles tendinopathy. [facility]
--- NOTE | 2019-02-12 17:52 | PROVIDER PROGRESS NOTE ---
Subjective - Prog Note Date Prog Note Date: 02/12/19 Prog Note Time: 12:00 - Subjective Pt reports feeling: No change Subjective: Ana complaints of mild diarrhea, but refuses any medications to help with this. She continues on prophylactic dose of vanco orally. She understands the need to continue this hospital stay based on recent and ongoing fevers. Staff reports an episode in which her left abruptly today when the patient wanted "extra pain pills from home", which he states is against her pain contract. Current Medications - Current Medications Current Medications: Active Medications: Enoxaparin Sodium (Lovenox) 40 mg SUBQ DAILY [facility] Famotidine (Pepcid) 20 mg PO BID [facility] Sodium Chloride (Normal Saline 0.9%) 1,000 mls @ 100 mls/hr IV .Q10H [facility] Cefepime HCl 2 gm/ Sodium (Chloride) 100 mls @ 200 mls/hr IV BID [facility] Vancomycin HCl 0.75 gm/ Sodium (Chloride) 250 mls @ 167 mls/hr IV Q12H [facility] Ibuprofen (Motrin) 400 mg PO Q6HR PRN Insulin Aspart (Novolog) 1 - 5 unit SUBQ 0800,1200,1700,2100 [facility]; Protocol Levothyroxine Sodium (Synthroid) 88 mcg PO QDAC [facility] Nadolol (Corgard) 20 mg PO DAILY [facility] Oxycodone HCl (Roxicodone) 10 mg PO Q4H PRN Oxycodone HCl (Oxycontin) 20 mg PO Q12H [facility] Polyethylene Glycol (Miralax) 17 gm PO DAILY [facility] Vancomycin HCl (Vancocin) 125 mg PO DAILY [facility] HOME meds: Calcium Carbonate/Vitamin D3 [Calcium 600 + Vit D 400 Softgl] 2 tab PO DAILY 08/18/15 RX: Levothyroxine [Synthroid] 100 mcg PO QDAC 08/18/15 RX: Nadolol [Corgard] 20 mg PO DAILY 08/18/15 RX: Furosemide 20 mg PO DAILY 01/19/18 RX: Oxycodone HCl [Oxycontin] 20 mg PO Q12H 01/19/18 RX: Spironolactone 50 mg PO DAILY 01/19/18 RX: Glipizide 5 mg PO 0730 09/15/18 Lactobacillus Rhamnosus GG [Culturelle] 1 cap PO BID 02/10/19 RX: Oxycodone HCl 10 mg PO Q4H PRN 02/10/19 raNITIdine [Zantac] 150 mg PO QPM 02/10/19 Objective - Vital Signs/Intake & Output Reviewed Vital Signs: Yes Vital Signs: Vital Signs x48h Temp Pulse Resp BP Pulse Ox 02/12/19 16:00 36.8 C 81 16 120/84 H 100 02/12/19 11:20 36.7 C 84 20 112/68 99 Intake & Output: Intake & Output 02/09/19 02/10/19 02/11/19 02/12/19 23:59 23:59 23:59 23:59 Intake Total 5292.315 7210.000 3093.334 Output Total 200 Balance 5330.536 6772.000 2893.334 - Objective General Appearance: positive: No acute distress, Alert, Anxious Eyes Bilateral: positive: PERRL, No lid inflammation Eyes: OU Scleral icterus ENT: positive: Pharyngeal erythema, Dry mucous membranes Neck: positive: Thyroid nml, No JVD Respiratory: positive: Chest non-tender, No respiratory distress, Other (diminished) Cardiovascular: positive: Regular rate & rhythm, No gallop, Systolic murmur, Decreased pulse(s) Peripheral Pulses: 1+ Radial (R), 1+ Radial (L) Abdomen: positive: Non-tender, Hepatomegaly, Abnml bowel sounds (hyperactive), Other (rounded, soft) Back: positive: Nml inspection Skin: positive: No rash, Warm, Dry, Other (bronze toned skin) Extremities: positive: Non-tender, Other (right heel wound) Neurologic/Psychiatric: positive: Disoriented to time, Weakness, Sensory loss, Slurred/abnml speech, Depressed mood/affect, Other (baseline alcoholic dementia) Reflexes: Bicep (R): 2+, Bicep (L): 2+ - Lab Results Fish Bones: 02/12/19 05:11 02/12/19 05:11 Other Labs: Lab Results x24hrs 02/12/19 02/12/19 02/12/19 Range/Units 16:39 11:06 05:11 WBC (4.8-10.8) x10^3/uL RBC (4.20-5.40) 10^6/uL Hgb (12.0-16.0) g/dL Hct (37.0-47.0) % MCV (81.0-99.0) fL MCH (27.0-31.0) pg MCHC (32.0-36.0) g/dL RDW (12.0-15.0) % Plt Count (130-450) 10^3/uL MPV (7.9-10.8) fL Neut # (Auto) (1.5-6.6) 10^3/uL Lymph # (Auto) (1.5-3.5) 10^3/uL Hodgeman # (Auto) (0.0-1.0) 10^3/uL Eos # (Auto) (0.0-0.7) 10^3/uL Baso # (Auto) (0.0-0.1) 10^3/uL Absolute Nucleated RBC x10^3/uL Nucleated RBC % /100WBC PT (9.9-12.6) secs INR (0.8-1.2) Sodium (135-145) mmol/L Potassium (3.5-5.0) mmol/L Chloride (101-111) mmol/L Carbon Dioxide (21-32) mmol/L Anion Gap (6-13) BUN (6-20) mg/dL Creatinine (0.4-1.0) mg/dL Estimated GFR (MDRD) (>89) Glucose (70-100) mg/dL POC Whole Bld Glucose 111 H 180 H (70 - 100) mg/dL Lactic Acid (0.5-2.2) mmol/L Calcium (8.5-10.3) mg/dL Phosphorus (2.5-4.6) mg/dL Magnesium (1.7-2.8) mg/dL Total Bilirubin (0.2-1.0) mg/dL AST (10-42) IU/L ALT (10-60) IU/L Alkaline Phosphatase (42-121) IU/L Ammonia (7-35) umol/L C-Reactive Protein (0-1.0) mg/dL B-Natriuretic Peptide 105 H (5-100) pg/mL Total Protein (6.7-8.2) g/dL Albumin (3.2-5.5) g/dL Globulin (2.1-4.2) g/dL Albumin/Globulin Ratio (1.0-2.2) 02/12/19 02/12/19 02/12/19 Range/Units 05:11 05:11 05:11 WBC (4.8-10.8) x10^3/uL RBC (4.20-5.40) 10^6/uL Hgb (12.0-16.0) g/dL Hct (37.0-47.0) % MCV (81.0-99.0) fL MCH (27.0-31.0) pg MCHC (32.0-36.0) g/dL RDW (12.0-15.0) % Plt Count (130-450) 10^3/uL MPV (7.9-10.8) fL Neut # (Auto) (1.5-6.6) 10^3/uL Lymph # (Auto) (1.5-3.5) 10^3/uL Hodgeman # (Auto) (0.0-1.0) 10^3/uL Eos # (Auto) (0.0-0.7) 10^3/uL Baso # (Auto) (0.0-0.1) 10^3/uL Absolute Nucleated RBC x10^3/uL Nucleated RBC % /100WBC PT (9.9-12.6) secs INR (0.8-1.2) Sodium 132 L (135-145) mmol/L Potassium 3.5 (3.5-5.0) mmol/L Chloride 104 (101-111) mmol/L Carbon Dioxide 16 L (21-32) mmol/L Anion Gap 12.0 (6-13) BUN 10 (6-20) mg/dL Creatinine 0.6 (0.4-1.0) mg/dL Estimated GFR (MDRD) 101 (>89) Glucose 85 (70-100) mg/dL POC Whole Bld Glucose (70 - 100) mg/dL Lactic Acid 0.7 (0.5-2.2) mmol/L Calcium 8.2 L (8.5-10.3) mg/dL Phosphorus 2.4 L (2.5-4.6) mg/dL Magnesium 1.7 (1.7-2.8) mg/dL Total Bilirubin 1.2 H (0.2-1.0) mg/dL AST 40 (10-42) IU/L ALT 43 (10-60) IU/L Alkaline Phosphatase 80 (42-121) IU/L Ammonia 23.6 (7-35) umol/L C-Reactive Protein 2.3 H (0-1.0) mg/dL B-Natriuretic Peptide (5-100) pg/mL Total Protein 6.6 L (6.7-8.2) g/dL Albumin 3.0 L (3.2-5.5) g/dL Globulin 3.6 (2.1-4.2) g/dL Albumin/Globulin Ratio 0.8 L (1.0-2.2) 02/12/19 02/12/19 02/11/19 Range/Units 05:11 05:11 20:50 WBC 3.3 L (4.8-10.8) x10^3/uL RBC 3.98 L (4.20-5.40) 10^6/uL Hgb 11.3 L (12.0-16.0) g/dL Hct 36.1 L (37.0-47.0) % MCV 90.7 (81.0-99.0) fL MCH 28.4 (27.0-31.0) pg MCHC 31.3 L (32.0-36.0) g/dL RDW 14.0 (12.0-15.0) % Plt Count 124 L (130-450) 10^3/uL MPV 9.6 (7.9-10.8) fL Neut # (Auto) 1.8 (1.5-6.6) 10^3/uL Lymph # (Auto) 1.0 L (1.5-3.5) 10^3/uL Hodgeman # (Auto) 0.3 (0.0-1.0) 10^3/uL Eos # (Auto) 0.2 (0.0-0.7) 10^3/uL Baso # (Auto) 0.0 (0.0-0.1) 10^3/uL Absolute Nucleated RBC 0.00 x10^3/uL Nucleated RBC % 0.0 /100WBC PT 14.3 H (9.9-12.6) secs INR 1.3 H (0.8-1.2) Sodium (135-145) mmol/L Potassium (3.5-5.0) mmol/L Chloride (101-111) mmol/L Carbon Dioxide (21-32) mmol/L Anion Gap (6-13) BUN (6-20) mg/dL Creatinine (0.4-1.0) mg/dL Estimated GFR (MDRD) (>89) Glucose (70-100) mg/dL POC Whole Bld Glucose 89 (70 - 100) mg/dL Lactic Acid (0.5-2.2) mmol/L Calcium (8.5-10.3) mg/dL Phosphorus (2.5-4.6) mg/dL Magnesium (1.7-2.8) mg/dL Total Bilirubin (0.2-1.0) mg/dL AST (10-42) IU/L ALT (10-60) IU/L Alkaline Phosphatase (42-121) IU/L Ammonia (7-35) umol/L C-Reactive Protein (0-1.0) mg/dL B-Natriuretic Peptide (5-100) pg/mL Total Protein (6.7-8.2) g/dL Albumin (3.2-5.5) g/dL Globulin (2.1-4.2) g/dL Albumin/Globulin Ratio (1.0-2.2) ABX Reporting Has patient been on IV antibiotics over the past 48 hours?: Yes Sepsis Event Note (H) - Evaluation Current Stage of Sepsis: Sepsis Possible source of Sepsis: positive: Skin/soft tissue - Sepsis Criteria Sepsis Criteria: Recorded Temperature greater than 38.3C or Less than 36C, Recorded Heart Rate greater than 90 bpm, Recorded Respiratory Rate greater than 20, [employer]AIL [employer]S PROFESSIONAL: altered consciousness (unrelated to primary neuro pathology) Assessment/Plan - Problem List (1) Acute metabolic encephalopathy Impression: - complains that for the past 2 days, the patient has been acting very lethargic, confused and weak - She was started on Bactrim and Keflex for her diabetic foot ulcer about 4 days ago - Also with a poor appetite, and slight abdominal pain - Now with diarrhea, but refuses anti-diarrheal Plan: Continue fever of unknown origin work up, monitor for improvement (2) Fever Impression: - Temp max 38.6 C charted last night, 02/11 @ 2100 - Chills, flushing, fevers at home, continues here - No chest pain - No recent cough, no dysuria, no apparent cellultis to chronic foot ulcer - Continues on IV Cefepime/Vanco, holding diuretics, giving IV fluids - Right foot MRI shows no osteo - Dr. Randall has signed off Plan: Continue to await blood cultures, sputum culture, and treat symptoms Qualifiers: Fever type: unspecified Qualified Code(s): R50.9 - Fever, unspecified (3) Diabetic foot ulcer Impression: - Long standing right heel ulcer (for at least the past 5 weeks), with recent spontaneous drainage at home - Surrounding skin does not appear cellulitic - See photos in the chart - Dr. Randall was called today, for continued fevers - Patient has bilateral hip hardware - MRI of right foot shows no osteo, so Dr. Randall will not be officially consulted Plan: Continue work up for fever of unknown origin, continue cefepime/vanco Qualifiers: Diabetic foot ulcer location: heel Diabetes mellitus type: type 2 Laterality: right Non-pressure ulcer stage: with fat layer exposed Qualified Code(s): E11.621 - Type 2 diabetes mellitus with foot ulcer; L97.412 - Non- pressure chronic ulcer of right heel and midfoot with fat layer exposed (4) Benign essential HTN Impression: - Takes Nadolol, lasix, and spironolactone at home - Holding diuretics, continues on Nadolol - Blood pressures ok today; 112/68 Plan: Continue to monitor, resume diuretics after IV fluids (5) Controlled type 2 diabetes mellitus without complication, without long-term current use of insulin Impression: - Takes Glipizide at home, Metformin is contraindicated since cirrhosis - Blood sugars between 85-180 today - HgA1C is 7.7% Plan: Continue carb controlled diet, SSI, no Lantus (6) Hypothyroidism Impression: - TSH 0.08 - Synthroid dose adjusted Plan: Continue daily synthroid, recheck in 4-5 weeks (7) Recurrent Clostridioides difficile diarrhea Impression: - reports up to 9 episodes, without a fecal transplant - Continue prophylactic treatment of daily oral vanco Plan: Monitor for c. diff diarrhea, continue daily vanco
--- NOTE | 2019-02-12 19:43 | CONSULTATION NOTE ---
Referring Provider Name of Referring Provider:: Sidra VEGA Consult Date: 02/12/19 Chief Complaint - Chief Complaint Chief Complaint: asked to evaluate for right heel wound/ulcer as potential source of infecti History of Present Illness - History Obtained From History obtained from: Gina VEGA, patient, record, - History of Present Illness HPI Comment/Other: patient with FUO. asked to evaluate right heel "ulcer". patient with hx of diabetes. narcotic use. and other mult med hx (see chart) but no hx RLE trauma. says a number of days ago developed a blister on inside of right heel. this eventually broke and dried out. doesnt cause pain. no other musculoskeletal complaints at this time. has hx bltha and left tka. 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 Mom at age 84 with hypertension, fibromyalgia, and an abdominal cancer. She was also a breast cancer survivor. 2 brothers are alive and healthy with no major medical illnesses. 3 children are also all healthy. Living arrangement: At home Living Situation: With spouse/s.o. Social History Notes: She is for 14 years and she met her partner, Oumar, 12 years ago. She has 3 children.She never smoked. She did have a history of alcohol abuse in the past. She does not use cannabis. 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 She cannot stand for very long or walk for very long can do some vacuuming, light dish washing etc. 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 She has a lot of employees to do the brunt of the work. She was born and raised in [place]. She came to [facility] about 20 years ago to be close to her mom, and both of her brothers who are all living on the oto. Both brothers own car dealerships. One brother owns the [employer] dealership and the other brother owns the [employer] dealership. She has a history of tobacco abuse from age [age], admits to alcoholism, and denies illicit drug use. She wishes to be a FULL code. - Substance History Use: Uses substance without health or social issues: NONE Abuse: Recurrent use of substance despite neg consequences: NONE Dependence: Experiences withdrawal or developed tolerances: NONE - POLST Patient has POLST: No POLST Status: Full Code Meds/Allgy - Home Medications Home Medications: Ambulatory Orders Medication Instructions Recorded Confirmed Calcium Carbonate/Vitamin D3 2 tab PO DAILY 08/18/15 02/10/19 [Calcium 600 + Vit D 400 Softgl] Levothyroxine [Synthroid] 100 mcg PO QDAC 08/18/15 02/10/19 Nadolol [Corgard] 20 mg PO DAILY 08/18/15 02/10/19 Furosemide 20 mg PO DAILY 01/19/18 02/10/19 Oxycodone HCl [Oxycontin] 20 mg PO Q12H 01/19/18 02/10/19 Spironolactone 50 mg PO DAILY 01/19/18 02/10/19 Glipizide 5 mg PO 0730 09/15/18 02/10/19 Lactobacillus Rhamnosus GG 1 cap PO BID 02/10/19 02/10/19 [Culturelle] Oxycodone HCl 10 mg PO Q4H PRN 02/10/19 02/10/19 raNITIdine [Zantac] 150 mg PO QPM 02/10/19 02/10/19 - Allergies Allergies/Adverse Reactions: Allergies Allergy/AdvReac Type Severity Reaction Status Date / Time metformin Allergy Severe "HORRIFIC" Verified 02/10/19 11:31 duloxetine Allergy Hives Verified 02/10/19 11:31 hydromorphone [From Dilaudid] Allergy Rash Verified 02/10/19 11:31 Exam - Vital Signs Vital Signs: Vital Signs x48h Temp Pulse Resp BP Pulse Ox 02/12/19 16:00 36.8 C 81 16 120/84 H 100 - Physical Exam Comments/Other: patient seen and examined in hospital room. present. NAD. cooperative with exam. RLE with palp dp. light touch sensation present foot/toes/ankle. 5/5 flex ex toes ankle. medial border of right calcaneus shows eschar, punctate, trace erythema right around eschar but no more than 2-3 mm. no streaking or other erythema. less than 1x1cm total area of exchar. zero TTP calcaneus with no pain calcaneal squeeze test. Conclusion/Plan - Diagnosis Diagnosis: right healed/healing calcaneal blister/eschar - Plan Plan: no clinical appearance of significan calcaneal infection skin, other soft tissue, or bone. wound appears nearly healed and benign. MRI negative for osteo. no indication for acute orthopedic surgical intervention at this time noted. recommend continued workup and medical tx as needed. patient may f/u ortho as needed. discussed with pt, , and Hospitalist. questions answered. patient in agreement with above. - Lab Results Lab results reviewed: Yes Fish Bones: 02/12/19 05:11 02/12/19 05:11 - Diagnostic Imaging Results Diagnostic Imaging Results Comments: right foot mri from today in PACS reviewed in chart- no osteo noted. see emr for full report
[2019-02-13] MEDS ORDERED: WATER FOR INJECTION,STERILE 20 ML ONE (01:26)
[2019-02-13] MEDS: VANCOMYCIN INJ 0.75 GM in SODIUM CHLORIDE 0.9% 250 ML IV SCH (01:26)
[2019-02-13] MEDS: SODIUM CHLORIDE FLUSH 0.9% 10 ML SYRINGE IVP SCH ×2 (01:30→08:27)
[2019-02-13] MEDS: oxyCODONE 5 MG TABLET PO PRN ×2 (05:31→09:38)
[2019-02-13] MEDS: LEVOTHYROXINE 88 MCG TABLET PO SCH (07:09)
[2019-02-13] MEDS: oxyCODONE ER 10 MG TABLET PO SCH (07:10)
[2019-02-13] MEDS: INSULIN ASPART 300 UNIT/3 ML PEN SUBQ SCH ×2 (07:47→11:43)
[2019-02-13 08:05] VITALS: BP 147/80
[2019-02-13] MEDS: VANCOMYCIN 125 MG CAPSULE PO SCH (08:26)
[2019-02-13] MEDS: NADOLOL 20 MG TABLET PO SCH (08:26)
[2019-02-13] MEDS: FAMOTIDINE 20 MG TABLET PO SCH (08:26)
[2019-02-13] MEDS: ENOXAPARIN 40 MG/0.4 ML SYRINGE SUBQ SCH (08:26)
[2019-02-13] MEDS: POLYETHYLENE GLYCOL 3350 17 GM PACKET PO SCH (08:27)
[2019-02-13 08:28] LABS: BASOPHILS % (AUTO) 0.6 %; EOSINOPHILS # (AUTO) 0.2 10^3/uL (0.0-0.7); HGB - HEMOGLOBIN 12.8 g/dL (12.0-16.0); LYMPHOCYTES # (AUTO) 1.2 10^3/uL (1.5-3.5); LYMPHOCYTES % (AUTO) 35.5 %; MEAN CORPUSCULAR HEMOGLOBIN 29.5 pg (27.0-31.0); MEAN CORPUSCULAR VOLUME 92.2 fL (81.0-99.0); MEAN PLATELET VOLUME 10.2 fL (7.9-10.8); MONOCYTES # (AUTO) 0.2 10^3/uL (0.0-1.0); NEUTROPHILS # (AUTO) 1.7 10^3/uL (1.5-6.6); NEUTROPHILS % (AUTO) 51.9 %; PLT - PLATELET COUNT 131 10^3/uL (130-450); RED BLOOD COUNT 4.34 10^6/uL (4.20-5.40); RED CELL DISTRIBUTION WIDTH 13.9 % (12.0-15.0); WHITE BLOOD COUNT 3.4 x10^3/uL (4.8-10.8)
[2019-02-13 08:37] LABS: ALBUMIN 3.4 g/dL (3.2-5.5); ALBUMIN/GLOBULIN RATIO 0.9 (1.0-2.2); BILIRUBIN,TOTAL 0.8 mg/dL (0.2-1.0); CALCIUM 8.5 mg/dL (8.5-10.3); CREATININE 0.5 mg/dL (0.4-1.0); TOTAL PROTEIN 7.1 g/dL (6.7-8.2)
[2019-02-13] MEDS: CEFEPIME 2 GM in SODIUM CHLORIDE 0.9% MINIBAG 100 ML IV SCH (08:41)
[2019-02-13] MEDS ORDERED: POTASSIUM CHLORIDE 20 MEQ TABLET PO ONE (09:20)
--- NOTE | 2019-02-13 10:54 | Discharge Plan ---
Discharge Plan Problem Reviewed?: Yes Disposition: Home, Self Care Condition: Poor Prescriptions: Vancomycin [Vancocin] 125 mg PO DAILY #10 capsule Diet: Diabetic Activity Restrictions: Activity as Tolerated Shower Restrictions: No (fall precaution) Instruction Topics: Vancomycin oral solution, Clostridium Difficile Infec Health Concerns: Your right heal wound is nearly healed and benign, and there is no further intervention indicated now. You report you had nine times of C.Diff infection in the past, and report you still has small diarrhea. Advise you followup inspector firearms in or other institution for fecal microbiota transplantation as out-pt Plan of Treatment: you may followup your PCP in one week, followup inspector firearms in or other institution for fecal microbiota transplantation as out-pt, have oral vancomycin for C.Diff prevention. Care Goals: stabilization of your medical condition Assessment: your foot MRI, CT of head, abdomen/pelvis CT, and CXR studies are unremarkable Additional Instructions or Follow Up instructions: you may followup your PCP in one week, followup inspector firearms in or other institution for fecal microbiota transplantation as out-pt. Should your symptoms return or worsen, you may present ER or call 911 for help No Smoking: If you smoke, Please STOP! Call for help. Follow-up with: Christofer Templeton MD [Primary Care Provider] -
--- NOTE | 2019-02-13 11:35 | DISCHARGE SUMMARY ---
Discharge Summary Discharge Date: 02/13/19 Discharging Provider: VILLALPANDO Primary Care Provider: Christofer Plata Condition at Discharge: Poor Discharge Disposition: 01 Home, Self Care Discharge Facility Name: home - DIAGNOSES Admission Diagnoses: (1) Acute metabolic encephalopathy (2) Fever (3) Diabetic foot ulcer (4) Benign essential HTN (5) Controlled type 2 diabetes mellitus without complication, without long-term current use of insulin (6) Hypothyroidism (7) Recurrent Clostridioides difficile diarrhea Discharge Diagnoses with Status of Each Condition: (1) Acute metabolic encephalopathy resolved. CT of head was unremarkable. Ammonia and TSH were normal. it is more likely from Delirium, combination fever, foot ulcer infection. (2) Fever resolved. foot ulcer is healed. blood culture is negative for bacteremia (3) Diabetic foot ulcer resolved. pt had orthopedics consult. MRI of foot reveals no osteomyelitis (4) Benign essential HTN stable, continue home regimen, and followup PCP (5) Controlled type 2 diabetes mellitus without complication, without long-term current use of insulin stable, continue home regimen, followup PCP (6) Hypothyroidism stable, TSH is normal (7) Recurrent Clostridioides difficile diarrhea pt report she had 9 times of C.Diff and report small diarrhea. pt is prescribed PO vancomycin and recommend followup GI doctor for FMT - HPI History of Present Illness: refer from Ms. Blake's HPI on 02/10/19 Laurence Vogt is a 63-year old female with a past medical history of hypertension, hyperlipidemia, atypical chest pain, ocular migraines, diabetes mellitus type2, hypothyroidism, GERD, recurrent c.diff, cirrhosis, portal vein thrombosis, esophageal varices, IBS, fibromyalgia, chronic pain, osteoarthritis, osteoporosis, and peripheral neuropathy. The patient was seen by Dr. Templeton on 02/07/2019 in his clinic, was started on Bactrim, and Keflex. After being on the antibiotic treatment for 48 hours, she started to have increased lethargy, confusion, and profound weakness confirmed by her who is at the bedside. After arriving in the ED, the patient is profoundly confused, has a temp of 38.3 C, heart rate 97, respiratory rate of 24, and a blood pressure of 103/74. She requires no oxygen and has an oxygen saturation of 95% on room air. Labs show a low normal WBC count of 5.3, sodium 132, chloride 98, BUN 15, creatinine of 0.9, GFR 63, glucose 190, bili 1.2, AST 57, ALT 57, alk phos 102, lactic acid 1.3, and lipase of 70. Urine results show no infection, she has no new productive cough, blood cultures are pending, her would looks to be a stage II, without drainage or redness to surrounding skin. A chest x-ray shows no pneumonia, and an abdominal CT showed a high stool burden, but no evidence of infection. She will be admitted to OBs for fever of unknown origin and early sepsis. - CONSULTS | PROCEDURES Consultations: orthopedics, Dr. Randall Procedures: no - HOSPITAL COURSE Hospital Course: pt was found to have AMS, fever and right foot infection at right heel. pt was treated with antibiotics, and pt had CT of head was unremarkable. pt's infection at right heel is healed. pt report she had small diarrhea, and report she had 9 times of C.Diff infection. pt is prescribed PO antibiotics of vancomycin, and advise to followup GI doctor for FMT (fecal microbiota tansplantation) as out-pt - ALLERGIES Allergies/Adverse Reactions: Allergies Allergy/AdvReac Type Severity Reaction Status Date / Time metformin Allergy Severe "HORRIFIC" Verified 02/10/19 11:31 duloxetine Allergy Hives Verified 02/10/19 11:31 hydromorphone [From Dilaudid] Allergy Rash Verified 02/10/19 11:31 - MEDICATIONS Home Medications: Ambulatory Orders Medication Instructions Recorded Confirmed Calcium Carbonate/Vitamin D3 2 tab PO DAILY 08/18/15 02/10/19 [Calcium 600 + Vit D 400 Softgl] Levothyroxine [Synthroid] 100 mcg PO QDAC 08/18/15 02/10/19 Nadolol [Corgard] 20 mg PO DAILY 08/18/15 02/10/19 Furosemide 20 mg PO DAILY 01/19/18 02/10/19 Oxycodone HCl [Oxycontin] 20 mg PO Q12H 01/19/18 02/10/19 Spironolactone 50 mg PO DAILY 01/19/18 02/10/19 Glipizide 5 mg PO 0730 09/15/18 02/10/19 Lactobacillus Rhamnosus GG 1 cap PO BID 02/10/19 02/10/19 [Culturelle] Oxycodone HCl 10 mg PO Q4H PRN 02/10/19 02/10/19 raNITIdine [Zantac] 150 mg PO QPM 02/10/19 02/10/19 Vancomycin [Vancocin] 125 mg PO DAILY #10 capsule 02/13/19 - PHYSICAL EXAM AT DISCHARGE General Appearance: positive: No acute distress, Alert. negative: Lethargic Eyes Bilateral: positive: Normal inspection, PERRL, EOMI. negative: No lid inflammation, Conjunctivae nml, No scleral icterus ENT: positive: ENT inspection nml, Pharynx nml, No signs of dehydration. negative: Purulent nasal drainage, Pharyngeal erythema, Oral lesions Neck: positive: Nml inspection, Thyroid nml, No JVD, Trachea midline. negative: Thyromegaly, Lymphadenopathy (R), Lymphadenopathy (L), Stiff neck, Swelling/bruising, Tracheal deviation Respiratory: positive: Chest non-tender, No respiratory distress, Breath sounds nml. negative: Wheezes, Rales, Rhonchi Cardiovascular: positive: Regular rate & rhythm, No murmur, No gallop. negative: Irregularly irregular, Extrasystoles, Tachycardia, Bradycardia, JVD present, Systolic murmur, Diastolic murmur Peripheral Pulses: positive: 2+ Abdomen: positive: Non-tender, No organomegaly, Nml bowel sounds, No distention. negative: Tenderness, Guarding, Rebound Back: positive: Nml inspection. negative: CVA tenderness (R), CVA tenderness (L) Skin: positive: Color nml, No rash, Warm, Dry. negative: Cyanosis, Diaphoresis, Pallor Extremities: positive: Non-tender, Full ROM, Nml appearance. negative: Calf tenderness, Joint swelling, Kathy's sign/cords Neurologic/Psychiatric: positive: Oriented x3, Motor nml, Sensation nml, Mood/affect nml. negative: Weakness, Sensory loss, Facial droop, Slurred/abnml speech, Depressed mood/affect - LABS Result Diagrams: 02/13/19 08:20 02/13/19 08:20 - SEPSIS Current Stage of Sepsis: Sepsis Possible source of Sepsis: Skin/soft tissue Sepsis Criteria: Recorded Temperature greater than 38.3C or Less than 36C, Recorded Heart Rate greater than 90 bpm, Recorded Respiratory Rate greater than 20, PHOTOGRAPHIC ARTIST: altered consciousness (unrelated to primary neuro pathology) - QUALITY (Female Hip Fx Only) Was patient sent home on osteoporosis medication?: No - FOLLOW UP Follow Up: Your right heal wound is nearly healed and benign, and there is no further intervention indicated now. You report you had nine times of C.Diff infection in the past, and report you still has small diarrhea. Advise you followup car coupler in or other institution for fecal microbiota transplantation as out-pt - TIME SPENT Time Spent in Discharge (Minutes): 55
[2019-02-13] MEDS: SODIUM CHLORIDE 0.9% 1,000 ML IV SCH (11:41)
[2019-02-13] MEDS ORDERED: VANCOMYCIN INJ 0.75 GM in SODIUM CHLORIDE 0.9% 250 ML IV SCH (13:00)
== END 2019-02-13 12:59 | disposition home or self-care (01) | DRG 602 ==
LOC: ED 11:17 → OBS 15:13 → OBSVTOIN 02-12 12:12 → MS2 02-12 13:20
PROVIDERS: ADMIT Nurse Practitioner; ATTEND Nurse Practitioner Gerontology
DX: L03.115 Cellulitis of right lower limb (principal); G93.41 Metabolic encephalopathy; I85.00 Esophageal varices without bleeding; L97.412 Non-pressure chronic ulcer of right heel and midfoot with fat layer exposed; F10.27 Alcohol dependence with alcohol-induced persisting dementia; A04.71 Enterocolitis due to Clostridium difficile, recurrent; I10 Essential (primary) hypertension; E78.5 Hyperlipidemia, unspecified; I25.10 Atherosclerotic heart disease of native coronary artery without angina pectoris; E11.51 Type 2 diabetes mellitus with diabetic peripheral angiopathy without gangrene; E11.621 Type 2 diabetes mellitus with foot ulcer; E11.42 Type 2 diabetes mellitus with diabetic polyneuropathy; E03.9 Hypothyroidism, unspecified; K21.9 Gastro-esophageal reflux disease without esophagitis; G89.4 Chronic pain syndrome; M54.16 Radiculopathy, lumbar region; M79.7 Fibromyalgia; M81.0 Age-related osteoporosis without current pathological fracture; K58.1 Irritable bowel syndrome with constipation; F32.9 Major depressive disorder, single episode, unspecified; F41.0 Panic disorder [episodic paroxysmal anxiety]; K70.30 Alcoholic cirrhosis of liver without ascites; F10.21 Alcohol dependence, in remission; S90.821S Blister (nonthermal), right foot, sequela; Z96.643 Presence of artificial hip joint, bilateral; Z96.652 Presence of left artificial knee joint; Z87.891 Personal history of nicotine dependence; Z86.14 Personal history of Methicillin resistant Staphylococcus aureus infection; Z79.84 Long term (current) use of oral hypoglycemic drugs; Z79.899 Other long term (current) drug therapy; Z86.718 Personal history of other venous thrombosis and embolism; Z79.891 Long term (current) use of opiate analgesic; Z91.81 History of falling; Z86.19 Personal history of other infectious and parasitic diseases
CPT/HCPCS: 36415; 70450; 71045; 73720; 74177; 80053; 80306; 81003; 82140; 83036; 83605; 83690; 83735; 83880; 84100; 84443; 85025; 85610; 86140; 87040; 93005; 93306; 96361; 96365; 96366; 96367; 96372; 99284; 99285; A9270; A9585; G0378; J1650; J3370; J8499; Q9967; 80202; 81001; 87086; 96360

== ENCOUNTER 2019-04-13 16:14 | Outpatient (CLI) | payer OTHER ==
--- NOTE | 2019-04-15 22:57 | XRAY Report ---
Reason: RIB PAIN Procedure Date: 04/13/2019 Accession Number: [id number] / [id number] Procedure: XRN - Ribs w/PA Chest RT CPT Code: FULL RESULT: EXAM: RIGHT RIB RADIOGRAPHY EXAM DATE: 04/13/2019 04:33 PM. CLINICAL HISTORY: RIB PAIN. COMPARISON: CHEST 1 VIEW 02/10/2019 11:42 AM. TECHNIQUE: 1 view of the chest and 2 views of the ribs. FINDINGS: Bones: No displaced fractures. No bony destructive lesions. Lungs: No focal opacities. No pneumothorax. No pleural effusions. Mediastinum: Heart and mediastinal contours are unremarkable. Other: None. IMPRESSION: 1. No acute cardiopulmonary process identified radiographically. 2. No displaced fractures. RADIA
== END 2019-04-13 16:15 | disposition home or self-care (01) ==
LOC: DI.N 16:14
PROVIDERS: ATTEND Family Medicine
DX: R07.81 Pleurodynia (principal)

== ENCOUNTER 2019-05-01 09:38 | Outpatient (CLI) | payer OTHER ==
--- NOTE | 2019-05-01 14:08 | XRAY Report ---
Reason: COUGH Procedure Date: 05/01/2019 Accession Number: [id number] / [id number] Procedure: XRN - Chest 2 View X-Ray CPT Code: 99785 FULL RESULT: EXAM: CHEST RADIOGRAPHY EXAM DATE: 05/01/2019 09:53 AM. CLINICAL HISTORY: COUGH. COMPARISON: RIBS W/PA CHEST RT 04/13/2019 4:36 PM. TECHNIQUE: 2 views. FINDINGS: Lungs/Pleura: No focal opacities evident. No pleural effusion. No pneumothorax. Normal volumes. Mediastinum: Heart and mediastinal contours are unremarkable. Other: Minor degenerative change in the spine. IMPRESSION: Clear lungs. No acute findings. RADIA
== END 2019-05-01 09:39 | disposition home or self-care (01) ==
LOC: DI.N 09:38
PROVIDERS: ATTEND Family Medicine
DX: R05 Cough (principal)
CPT/HCPCS: 71046

== ENCOUNTER 2019-06-13 10:50 | Outpatient (CLI) | payer OTHER ==
--- NOTE | 2019-06-14 09:35 | XRAY Report ---
Reason: HIP PAIN Procedure Date: 06/13/2019 Accession Number: [id number] / [id number] Procedure: XRN - Hip w/Pelvis 2-3V LT CPT Code: FULL RESULT: EXAM: LEFT HIP RADIOGRAPHY EXAM DATE: 06/13/2019 11:08 AM. CLINICAL HISTORY: Hip pain. COMPARISON: None. TECHNIQUE: 2 views each hip. FINDINGS: Bones: Status post placement of three cannulated nails to stabilize the left femoral neck. These appear intact. Normal alignment. No acute fracture or dislocation detected. No femoral head collapse. Mild osteophytic spurring of the medial left femoral head and mild to moderate narrowing of the left hip joint space. Previous right hip bipolar hip arthroplasty, that appears unremarkable. Imaged portion of sacroiliac joints appear within normal limits. IMPRESSION: Postoperative changes at both hips. Mild to moderate narrowing of the left hip joint space.. RADIA
== END 2019-06-13 10:51 | disposition home or self-care (01) ==
LOC: DI.N 10:50
PROVIDERS: ATTEND Family Medicine
DX: M16.12 Unilateral primary osteoarthritis, left hip (principal); Z96.641 Presence of right artificial hip joint

== ENCOUNTER 2019-07-11 11:00 | Outpatient (CLI) | payer OTHER ==
[2019-07-11 13:43] LABS: MUDS CUTOFF CONCENTRATIONS CUTOFF CONC BELOW:
[2019-07-11 19:08] LABS: COCAINE SCREEN URINE NEGATIVE (NEGATIVE); METHAMPHETAMINES SCREEN, URINE NEGATIVE (NEGATIVE); OPIATE SCREEN, URINE NEGATIVE (NEGATIVE)
[2019-07-11 19:09] LABS: AMPHETAMINE SCREEN,URINE NEGATIVE (NEGATIVE); BENZODIAZEPINES SCREEN, URINE NEGATIVE (NEGATIVE); METHADONE SCREEN, URINE NEGATIVE (NEGATIVE); OXYCODONE SCREEN, URINE POSITIVE (NEGATIVE); PROPOXYPHENE SCREEN, URINE NEGATIVE (NEGATIVE); TRICYCLIC ANTIDEPRESSANT,URINE POSITIVE (NEGATIVE)
== END 2019-07-11 23:59 | disposition home or self-care (01) ==
LOC: LAB.N 11:00
PROVIDERS: ATTEND Family Medicine
DX: G89.29 Other chronic pain (principal)
CPT/HCPCS: 80306

== ENCOUNTER 2019-07-17 09:22 | Emergency (ER) | payer OTHER ==
[2019-07-17] MEDS ORDERED: SODIUM CHLORIDE 0.9% 1,000 ML IV ONE (10:33)
--- NOTE | 2019-07-17 10:40 | ED Physician Documentation ---
History of Present Illness - Stated complaint Stated Complaint: GLF/HEAD INJ/BLURRY VISION - Chief complaint Chief Complaint: Neuro - History obtained from History obtained from: Patient, Family - History of Present Illness Timing: How many days ago (3-4) Pain level max: 5 Pain level now: 2 - Additonal information Additional information: 64-year-old lady with cirrhosis, presents to the emergency department feeling weak for the past several days. She states she has had 6 or 7 falls over the past 3 to 4 days. She states that she hit her head twice. Has intermittent headaches. Nothing makes this better or worse. No focal neurological deficits. States no changes in her medications. No recent illnesses. No fevers. No nausea. No vomiting. Review of Systems Ten Systems: 10 systems reviewed and negative Constitutional: denies: Fever, Chills Ears: denies: Ear pain Nose: denies: Rhinorrhea / runny nose, Congestion Cardiac: denies: Chest pain / pressure Respiratory: denies: Cough, Hemoptysis, Wheezing GI: denies: Vomiting, Diarrhea Skin: denies: Rash PD PAST MEDICAL HISTORY - Past Medical History Cardiovascular: Hypertension, High cholesterol, Coronary artery disease, Peripheral Vascular Disease, Other (history of portal vein thrombosis) Respiratory: COPD Neuro: Dementia, Headaches, Peripheral neuropathy, Other (chronic pain syndrome) Endocrine/Autoimmune: Type 2 diabetes, HyPOthyroidism GI: GERD, Esophageal varices, Ulcers, C.difficile (up to 9 episodes), Chronic constipation, Cirrhosis PREVENTIVE MAINTENANCE COORDINATOR: None : Nocturia, Frequency HEENT: Chronic vision loss, Chronic sinusitis, Chronic hearing loss Psych: Depression, Anxiety, Panic attacks Musculoskeletal: Osteoarthritis, Fibromyalgia, Osteoporosis, Chronic back pain, Other (lumbar radiculopathy, recurrent C. 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 (2014) /PREVENTIVE MAINTENANCE COORDINATOR: 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 HEENT: Other - Present Medications Home Medications: Ambulatory Orders Medication Instructions Recorded Confirmed Calcium Carbonate/Vitamin D3 2 tab PO DAILY 08/18/15 03/28/19 [Calcium 600 + Vit D 400 Softgl] Levothyroxine [Synthroid] 100 mcg PO QDAC 08/18/15 03/28/19 Nadolol [Corgard] 20 mg PO BID 08/18/15 03/28/19 Furosemide 20 mg PO DAILY 01/19/18 02/10/19 Oxycodone HCl [Oxycontin] 20 mg PO TID 01/19/18 03/28/19 Spironolactone 50 mg PO DAILY 01/19/18 03/28/19 Glipizide 5 mg PO 0730 09/15/18 02/10/19 Lactobacillus Rhamnosus GG 1 cap PO BID 02/10/19 03/28/19 [Culturelle] Oxycodone HCl 10 mg PO Q4H PRN 02/10/19 03/28/19 raNITIdine [Zantac] 150 mg PO QPM 02/10/19 02/10/19 Vancomycin [Vancocin] 125 mg PO DAILY #10 capsule 02/13/19 Omeprazole 20 mg PO DAILY 03/28/19 03/28/19 Tizanidine HCl 2 mg PO TID PRN 03/28/19 03/28/19 Cephalexin [Keflex] 500 mg PO Q6H #28 capsule 07/17/19 - Allergies Allergies/Adverse Reactions: Allergies Allergy/AdvReac Type Severity Reaction Status Date / Time metformin Allergy Severe "HORRIFIC" Verified 02/10/19 11:31 duloxetine Allergy Hives Verified 02/10/19 11:31 hydromorphone [From Dilaudid] Allergy Rash Verified 02/10/19 11:31 - Social History Does the pt smoke?: No Smoking Status: Never smoker Does the pt drink ETOH?: No Does the pt have substance abuse?: No - Immunizations Immunizations are current?: Yes - POLST Patient has POLST: No POLST Status: Full Code Results - Vitals Vitals: Vital Signs - 24 hr 07/17/19 07/17/19 07/17/19 09:33 10:14 11:10 Temperature 37 C Heart Rate 70 68 73 Respiratory 18 18 18 Rate Blood Pressure 102/48 L 94/70 102/71 O2 Saturation 100 94 97 07/17/19 07/17/19 12:53 13:23 Temperature Heart Rate 64 83 Respiratory 18 18 Rate Blood Pressure 106/94 H 95/68 O2 Saturation 95 95 Oxygen O2 Source [With Activity] Room air O2 Source [Without Activity] Room air O2 Source Room air - Labs Labs: Laboratory Tests 07/17/19 07/17/19 07/17/19 10:33 10:45 10:45 WBC 3.9 L RBC 3.52 L Hgb 10.9 L Hct 32.9 L MCV 93.5 MCH 31.0 MCHC 33.1 RDW 13.9 Plt Count 111 L MPV 9.7 Neut # (Auto) 2.5 Lymph # (Auto) 0.7 L [place] # (Auto) 0.4 Eos # (Auto) 0.2 Baso # (Auto) 0.0 Absolute Nucleated RBC 0.00 Nucleated RBC % 0.0 PT 15.6 H INR 1.4 H APTT 28.2 Sodium Potassium Chloride Carbon Dioxide Anion Gap BUN Creatinine Estimated GFR (MDRD) Glucose Calcium Total Bilirubin AST ALT Alkaline Phosphatase Ammonia 27.3 Total Protein Albumin Globulin Albumin/Globulin Ratio Lipase Urine Color Urine Clarity Urine pH Ur Specific [place] Urine Protein Urine Glucose (UA) Urine Ketones Urine Occult Blood Urine Nitrite Urine Bilirubin Urine Urobilinogen Ur Leukocyte Esterase Urine RBC Urine WBC Ur Squamous Epith Cells Urine Bacteria Ur Microscopic Review Urine Culture Comments 07/17/19 07/17/19 10:45 12:30 WBC RBC Hgb Hct MCV MCH MCHC RDW Plt Count MPV Neut # (Auto) Lymph # (Auto) [place] # (Auto) Eos # (Auto) Baso # (Auto) Absolute Nucleated RBC Nucleated RBC % PT INR APTT Sodium 131 L Potassium 4.2 Chloride 97 L Carbon Dioxide 27 Anion Gap 7.0 BUN 16 Creatinine 0.9 Estimated GFR (MDRD) 63 L Glucose 123 H Calcium 8.7 Total Bilirubin 1.0 AST 71 H ALT 65 H Alkaline Phosphatase 89 Ammonia Total Protein 6.9 Albumin 3.5 Globulin 3.4 Albumin/Globulin Ratio 1.0 Lipase 66 H Urine Color DARK YELLOW Urine Clarity CLEAR Urine pH 6.5 Ur Specific [place] 1.020 Urine Protein NEGATIVE Urine Glucose (UA) NEGATIVE Urine Ketones TRACE Urine Occult Blood NEGATIVE Urine Nitrite NEGATIVE Urine Bilirubin NEGATIVE Urine Urobilinogen 0.2 (NORMAL) Ur Leukocyte Esterase SMALL H Urine RBC None Seen Urine WBC 0-3 Ur Squamous Epith Cells MOD Squamous H Urine Bacteria None Seen Ur Microscopic Review INDICATED Urine Culture Comments NOT INDICATED - Rads (name of study) head CT Radiology: Prelim report reviewed, EMP read contemporaneously, See rad report (No acute intracranial abnormality. ) PD MEDICAL DECISION MAKING - ED course Complexity details: reviewed results, re-evaluated patient, considered differential, d/w patient, d/w family ED course: Patient feels better after IV fluids. We will also treat for UTI. She states she is supposed to be on antibiotics for a dental infection as well, therefore we will treat with Keflex to cover both sites. Ambulating without difficulty in the emergency department. No focal neurological deficits. Patient counseled regarding signs and symptoms for which I believe and urgent re-evaluation would be necessary. Patient with good understanding of and agreement to plan and is comfortable going home at this time This document was made in part using voice recognition software. While efforts are made to proofread this document, sound alike and grammatical errors may occur. Departure - Departure Disposition: Home, Self Care Clinical Impression: Dehydration Fall Qualifiers: Encounter type: initial encounter Qualified Code(s): W19.XXXA - Unspecified fall, initial encounter UTI (urinary tract infection) Qualifiers: Urinary tract infection type: acute cystitis Hematuria presence: without hematuria Qualified Code(s): N30.00 - Acute cystitis without hematuria Condition: Good Instructions: ED Dehydration, ED UTI Cystitis Female Follow-Up: LEMUEL ARAUJO MD [Primary Care Provider] - Within 1 week Prescriptions: Cephalexin [Keflex] 500 mg PO Q6H #28 capsule Comments: Take all antibiotics until gone. Return if you worsen. Follow-up with your doctor for further care. Discharge Date/Time: 07/17/19 13:36
[2019-07-17 10:58] LABS: BASOPHILS % (AUTO) 0.3 %; EOSINOPHILS # (AUTO) 0.2 10^3/uL (0.0-0.7); EOSINOPHILS % (AUTO) 5.7 %; HGB - HEMOGLOBIN 10.9 g/dL (12.0-16.0); LYMPHOCYTES # (AUTO) 0.7 10^3/uL (1.5-3.5); LYMPHOCYTES % (AUTO) 18.4 %; MEAN CORPUSCULAR HGB CONC 33.1 g/dL (32.0-36.0); MEAN CORPUSCULAR VOLUME 93.5 fL (81.0-99.0); MEAN PLATELET VOLUME 9.7 fL (7.9-10.8); MONOCYTES # (AUTO) 0.4 10^3/uL (0.0-1.0); MONOCYTES % (AUTO) 11.1 %; NEUTROPHILS # (AUTO) 2.5 10^3/uL (1.5-6.6); NEUTROPHILS % (AUTO) 64.2 %; PLT - PLATELET COUNT 111 10^3/uL (130-450); RED BLOOD COUNT 3.52 10^6/uL (4.20-5.40); RED CELL DISTRIBUTION WIDTH 13.9 % (12.0-15.0); WHITE BLOOD COUNT 3.9 x10^3/uL (4.8-10.8)
[2019-07-17 11:14] LABS: ALBUMIN 3.5 g/dL (3.2-5.5); CALCIUM 8.7 mg/dL (8.5-10.3); CREATININE 0.9 mg/dL (0.4-1.0); TOTAL PROTEIN 6.9 g/dL (6.7-8.2)
[2019-07-17 11:17] LABS: INR 1.4 (0.8-1.2); PT - PROTHROMBIN TIME 15.6 secs (9.9-12.6)
[2019-07-17 11:25] LABS: PARTIAL THROMBOPLASTIN TIME 28.2 secs (24.9-33.3)
--- NOTE | 2019-07-17 11:36 | CT Report ---
Reason: fall, head injury Procedure Date: 07/17/2019 Accession Number: [id number] / [id number] Procedure: CT - HEAD WO CPT Code: Final Report FULL RESULT: EXAM: HEAD WITHOUT CONTRAST EXAM DATE: 07/17/2019 11:01 AM CLINICAL HISTORY: Fall, head injury. COMPARISON: HEAD WITHOUT CONTRAST 02/10/2019 2:46 PM. TECHNIQUE: Multiaxial CT images were obtained from the foramen magnum to the vertex. Reformats: Sagittal and coronal. IV contrast: None. In accordance with CT protocol optimization, one or more of the following dose reduction techniques were utilized for this exam: automated exposure control, adjustment of mA and/or KV based on patient size, or use of iterative reconstructive technique. FINDINGS: Parenchyma: No acute intraparenchymal hemorrhage. No evidence of mass, midline shift. Solano-white differentiation is distinct. Extraaxial Spaces: Basal cisterns are preserved. No subdural or epidural collections identified. Ventricles: Normal in size and position. Sinuses and Orbits: Imaged paranasal sinuses, orbits, and mastoids show no significant abnormality. Bones: No evidence of fracture or calvarial defect. Other: None. IMPRESSION: No acute intracranial abnormality. RADIA
[2019-07-17 12:44] LABS: GLUCOSE, URINE (UA) NEGATIVE (NEGATIVE); KETONES,URINE (UA) TRACE mg/dL (NEGATIVE); LEUKOCYTE ESTERASE, URINE SMALL (NEGATIVE); NITRITE,URINE NEGATIVE (NEGATIVE); OCCULT BLOOD,URINE NEGATIVE (NEGATIVE); PH,URINE 6.5 PH (5.0-7.5); PROTEIN,URINE NEGATIVE (NEGATIVE); UROBILINOGEN,URINE 0.2 (NORMAL) E.U./dL (NORMAL)
[2019-07-17 12:46] LABS: BILIRUBIN,URINE NEGATIVE (NEGATIVE); CLARITY,URINE CLEAR (CLEAR); ICTOTEST,URINE NEGATIVE
[2019-07-17] MEDS ORDERED: cefTRIAXone 1 GM VIAL IVP STA (12:59)
[2019-07-17 13:01] LABS: BACTERIA,URINE None Seen /HPF (None Seen); RBC,URINE None Seen /HPF (0-5); SQUAMOUS EPITHELIAL CELL,UR MOD Squamous (<= Few)
[2019-07-17 13:24] VITALS: BP 95/68
--- NOTE | 2019-07-25 22:36 | ED Physician Documentation ---
PD ED PE NORMAL - Vitals Vital signs reviewed: Yes - General General: Alert and oriented X 3, No acute distress, Well developed/nourished - HEENT HEENT: Atraumatic, PERRL, Ears normal, Moist mucous membranes - Neck Neck: Supple, no meningeal sign, No bony TTP - Cardiac Cardiac: RRR, Strong equal pulses - Respiratory Respiratory: No respiratory distress, Clear bilaterally - Abdomen Abdomen: Soft, Non tender, Non distended - Back Back: No spinal TTP - Derm Derm: Warm and dry - Extremities Extremities: No tenderness to palpate, Normal ROM s pain - Neuro Neuro: Alert and oriented X 3, supervisor forming and tempering 2-12 intact, No motor deficit, No sensory deficit, Normal speech Eye Opening: Spontaneous Motor: Obeys Commands Verbal: Oriented GCS Score: 15 - Psych Psych: Normal mood, Normal affect
== END 2019-07-17 13:36 | disposition home or self-care (01) ==
LOC: ED 09:22
DX: E86.0 Dehydration (principal); N30.00 Acute cystitis without hematuria; I10 Essential (primary) hypertension; K74.60 Unspecified cirrhosis of liver; F03.90 Unspecified dementia, unspecified severity, without behavioral disturbance, psychotic disturbance, mood disturbance, and anxiety; E11.42 Type 2 diabetes mellitus with diabetic polyneuropathy; Z79.84 Long term (current) use of oral hypoglycemic drugs
CPT/HCPCS: 36415; 70450; 80053; 81001; 81003; 82140; 83690; 85025; 85610; 85730; 87086; 96361; 96374; 99284

== ENCOUNTER 2019-07-24 13:59 | Outpatient (CLI) | payer OTHER ==
[2019-07-24 18:38] LABS: EOSINOPHILS # (AUTO) 0.2 10^3/uL (0.0-0.7); EOSINOPHILS % (AUTO) 3.9 %; HGB - HEMOGLOBIN 14.7 g/dL (12.0-16.0); LYMPHOCYTES # (AUTO) 1.5 10^3/uL (1.5-3.5); LYMPHOCYTES % (AUTO) 38.5 %; MEAN CORPUSCULAR HEMOGLOBIN 29.2 pg (27.0-31.0); MEAN CORPUSCULAR HGB CONC 31.1 g/dL (32.0-36.0); MEAN CORPUSCULAR VOLUME 93.8 fL (81.0-99.0); MEAN PLATELET VOLUME 10.4 fL (7.9-10.8); MONOCYTES # (AUTO) 0.4 10^3/uL (0.0-1.0); MONOCYTES % (AUTO) 10.2 %; NEUTROPHILS # (AUTO) 1.8 10^3/uL (1.5-6.6); NEUTROPHILS % (AUTO) 45.9 %; PLT - PLATELET COUNT 250 10^3/uL (130-450); RED BLOOD COUNT 5.03 10^6/uL (4.20-5.40); RED CELL DISTRIBUTION WIDTH 14.2 % (12.0-15.0); WHITE BLOOD COUNT 3.8 x10^3/uL (4.8-10.8)
[2019-07-24 18:50] LABS: ALBUMIN/GLOBULIN RATIO 0.9 (1.0-2.2); BILIRUBIN,TOTAL 0.9 mg/dL (0.2-1.0); CALCIUM 9.8 mg/dL (8.5-10.3); CREATININE 0.7 mg/dL (0.4-1.0); TOTAL PROTEIN 8.4 g/dL (6.7-8.2)
== END 2019-07-24 23:59 | disposition home or self-care (01) ==
LOC: LAB.N 13:59
PROVIDERS: ATTEND Family Medicine
DX: K70.30 Alcoholic cirrhosis of liver without ascites (principal); F10.988 Alcohol use, unspecified with other alcohol-induced disorder
CPT/HCPCS: 36415; 80053; 85025

== ENCOUNTER 2019-07-29 11:22 | Outpatient (CLI) | payer OTHER ==
--- NOTE | 2019-07-30 16:00 | Ultrasound Report ---
Reason: CIRRHOSIS ALCOHOLIC Procedure Date: 07/29/2019 Accession Number: [id number] / [id number] Procedure: US - Abdomen Limited CPT Code: Final Report FULL RESULT: EXAM: ABDOMEN ULTRASOUND LIMITED, RUQ EXAM DATE: 07/29/2019 01:08 PM. CLINICAL HISTORY: Cirrhosis alcoholic. COMPARISON: ABDOMEN LIMITED 10/30/2018 3:12 PM. ABDOMEN/PELVIS W/ 02/10/2019 12:47 PM. TECHNIQUE: Real-time scanning was performed with static images obtained. FINDINGS: Liver: Liver appears nodular with coarse echotexture. Liver measures at least 17.4 cm. Main portal vein flow: Hepatopetal. Gallbladder: Not seen, status post cholecystectomy in 2016. Biliary System: CBD measures 11 mm. This can be normal status post cholecystectomy. Other: The visualized right kidney measures up to 8.6 cm in maximal sagittal dimension. IMPRESSION: Nodular liver contour consistent with cirrhosis. No suspicious mass is identified. RADIA
== END 2019-07-29 11:23 | disposition home or self-care (01) ==
LOC: DI 11:22
PROVIDERS: ATTEND Family Medicine
DX: K70.30 Alcoholic cirrhosis of liver without ascites (principal)
CPT/HCPCS: 76705

== ENCOUNTER 2019-08-04 15:13 | Emergency (ER) | payer OTHER ==
[2019-08-04] MEDS ORDERED: ONDANSETRON 4 MG/2 ML VIAL IVP STA (15:38)
[2019-08-04] MEDS ORDERED: SODIUM CHLORIDE 0.9% 1,000 ML IV ONE (15:38)
[2019-08-04] MEDS ORDERED: MORPHINE 2 MG/ML CARPUJECT IVP STA ×2 (15:38→17:27)
--- NOTE | 2019-08-04 15:44 | ED Physician Documentation ---
PD HPI ABD PAIN - Stated complaint Stated Complaint: GLF X3, DIZZY, DIARRHEA - Chief complaint Chief Complaint: Abd Pain - History obtained from History obtained from: Patient - History of Present Illness Timing - onset: Other (64-year-old woman with chronic narcotic dependence from multiple orthopedic surgeries. Recent UTI. Tells like she had an episode of confusion after the UTI and somehow misplaced her oxycodone. She has not had that in about 4 days and subsequently has had nausea, diarrhea, and body wide burning pain. Especially the right hip. She is had some presyncope from it and falls without injury. She has had C. difficile recurrently, but she says she does not think she has C. difficile now despite the diarrhea, the smell is not as bad. No fevers.) Review of Systems Constitutional: denies: Fever, Chills Cardiac: denies: Chest pain / pressure, Palpitations Respiratory: denies: Dyspnea, Cough GI: reports: Abdominal Pain, Nausea, Diarrhea. 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 HEENT: Other - Present Medications Home Medications: Ambulatory Orders Medication Instructions Recorded Confirmed Calcium Carbonate/Vitamin D3 2 tab PO DAILY 08/18/15 03/28/19 [Calcium 600 + Vit D 400 Softgl] Levothyroxine [Synthroid] 100 mcg PO QDAC 08/18/15 03/28/19 Nadolol [Corgard] 20 mg PO BID 08/18/15 03/28/19 Furosemide 20 mg PO DAILY 01/19/18 02/10/19 Oxycodone HCl [Oxycontin] 20 mg PO TID 01/19/18 03/28/19 Spironolactone 50 mg PO DAILY 01/19/18 03/28/19 Glipizide 5 mg PO 0730 09/15/18 02/10/19 Lactobacillus Rhamnosus GG 1 cap PO BID 02/10/19 03/28/19 [Culturelle] Oxycodone HCl 10 mg PO Q4H PRN 02/10/19 03/28/19 raNITIdine [Zantac] 150 mg PO QPM 02/10/19 02/10/19 Vancomycin [Vancocin] 125 mg PO DAILY #10 capsule 02/13/19 Omeprazole 20 mg PO DAILY 03/28/19 03/28/19 Tizanidine HCl 2 mg PO TID PRN 03/28/19 03/28/19 Cephalexin [Keflex] 500 mg PO Q6H #28 capsule 07/17/19 Ciprofloxacin [Cipro] 250 mg PO Q12H #10 tablet 08/04/19 Oxycodone HCl [Roxicodone] 15 mg PO Q4H PRN #16 tablet 08/04/19 - Allergies Allergies/Adverse Reactions: Allergies Allergy/AdvReac Type Severity Reaction Status Date / Time metformin Allergy Severe "HORRIFIC" Verified 08/04/19 15:28 duloxetine Allergy Hives Verified 08/04/19 15:28 hydromorphone [From Dilaudid] Allergy Rash Verified 08/04/19 15:28 - Social History Does the pt smoke?: No Smoking Status: Never smoker Does the pt drink ETOH?: No Does the pt have substance abuse?: No - Immunizations Immunizations are current?: Yes - POLST Patient has POLST: No POLST Status: Full Code PD ED PE NORMAL - Vitals Vital signs reviewed: Yes - General General: Alert and oriented X 3, No acute distress - HEENT HEENT: PERRL, EOMI - Neck Neck: Supple, no meningeal sign, No bony TTP - Cardiac Cardiac: RRR, No murmur - Respiratory Respiratory: No respiratory distress, Clear bilaterally - Abdomen Abdomen: Normal bowel sounds, Soft, Non tender - Back Back: No CVA TTP, No spinal TTP - Derm Derm: Normal color, No rash - Neuro Neuro: Alert and oriented X 3 - Psych Psych: Normal mood, Normal affect Results - Vitals Vitals: Vital Signs - 24 hr 08/04/19 08/04/19 08/04/19 15:22 16:04 16:44 Temperature 36.4 C L Heart Rate 76 71 70 Respiratory 16 18 18 Rate Blood Pressure 139/88 H 145/102 H 152/95 H O2 Saturation 100 100 97 08/04/19 08/04/19 08/04/19 17:48 18:23 19:27 Temperature 37.3 C Heart Rate 76 79 88 Respiratory 18 18 18 Rate Blood Pressure 126/104 H 150/110 H 156/95 H O2 Saturation 99 96 96 Oxygen O2 Source [With Activity] Room air O2 Source [Without Activity] Room air O2 Source Room air - Labs Labs: Laboratory Tests 08/04/19 08/04/19 08/04/19 15:54 15:54 15:54 WBC 8.2 RBC 5.41 H Hgb 16.6 H Hct 48.3 H MCV 89.3 MCH 30.7 MCHC 34.4 RDW 13.4 Plt Count 272 MPV 10.2 Neut # (Auto) 4.6 Lymph # (Auto) 2.6 [place] # (Auto) 0.8 Eos # (Auto) 0.1 Baso # (Auto) 0.1 Absolute Nucleated RBC 0.00 Nucleated RBC % 0.0 Sodium 138 Potassium 3.7 Chloride 100 L Carbon Dioxide 25 Anion Gap 13.0 BUN 19 Creatinine 0.9 Estimated GFR (MDRD) 63 L Glucose 86 Calcium 10.6 H Total Bilirubin 1.2 H AST 45 H ALT 53 Alkaline Phosphatase 92 Ammonia < 10.0 Total Protein 9.3 H Albumin 4.6 Globulin 4.7 H Albumin/Globulin Ratio 1.0 Lipase 124 H Urine Color Urine Clarity Urine pH Ur Specific [place] Urine Protein Urine Glucose (UA) Urine Ketones Urine Occult Blood Urine Nitrite Urine Bilirubin Urine Urobilinogen Ur Leukocyte Esterase Urine RBC Urine WBC Ur Squamous Epith Cells Urine Bacteria Ur Microscopic Review Urine Culture Comments Urine Opiates Screen Ur Oxycodone Screen Urine Methadone Screen Ur Propoxyphene Screen Ur Barbiturates Screen Ur Tricyclics Screen Ur Phencyclidine Scrn Ur Amphetamine Screen U Methamphetamines Scrn U Benzodiazepines Scrn Urine Cocaine Screen U Cannabinoids Screen Ethyl Alcohol < 5.0 08/04/19 17:15 WBC RBC Hgb Hct MCV MCH MCHC RDW Plt Count MPV Neut # (Auto) Lymph # (Auto) [place] # (Auto) Eos # (Auto) Baso # (Auto) Absolute Nucleated RBC Nucleated RBC % Sodium Potassium Chloride Carbon Dioxide Anion Gap BUN Creatinine Estimated GFR (MDRD) Glucose Calcium Total Bilirubin AST ALT Alkaline Phosphatase Ammonia Total Protein Albumin Globulin Albumin/Globulin Ratio Lipase Urine Color YELLOW Urine Clarity CLEAR Urine pH 6.5 Ur Specific [place] <=1.005 Urine Protein NEGATIVE Urine Glucose (UA) NEGATIVE Urine Ketones NEGATIVE Urine Occult Blood NEGATIVE Urine Nitrite NEGATIVE Urine Bilirubin NEGATIVE Urine Urobilinogen 0.2 (NORMAL) Ur Leukocyte Esterase LARGE H Urine RBC 0-5 Urine WBC >25 H Ur Squamous Epith Cells MANY Squamous H Urine Bacteria Many H Ur Microscopic Review INDICATED Urine Culture Comments NOT INDICATED Urine Opiates Screen POSITIVE H Ur Oxycodone Screen NEGATIVE Urine Methadone Screen NEGATIVE Ur Propoxyphene Screen NEGATIVE Ur Barbiturates Screen NEGATIVE Ur Tricyclics Screen POSITIVE H Ur Phencyclidine Scrn NEGATIVE Ur Amphetamine Screen NEGATIVE U Methamphetamines Scrn NEGATIVE U Benzodiazepines Scrn NEGATIVE Urine Cocaine Screen NEGATIVE U Cannabinoids Screen NEGATIVE Ethyl Alcohol PD MEDICAL DECISION MAKING - ED course ED course: 64-year-old woman with chronic pain mostly orthopedic on pain medications. She had a recent UTI. It was not cultured because there were skin cells in it. She was on Keflex. Something happened and she ran out of her pain medications and she became sicker with diarrhea. She was unable to produce a stool while here. Belly is benign. Labs are pretty reassuring. Urine is actually more impressive than it was the other night, but still with skin cells. Hard to say if this represents a true UTI or contamination. She was unable to give another urine sample so we will put her on Cipro and culture this 1. She was feeling better after divided doses of pain medications and fluids. She was given a refill of her pain medications just to get her through a couple of days until she can get a refill or talk to her doctor. Departure - Departure Disposition: 01 Home, Self Care Clinical Impression: Narcotic withdrawal UTI (urinary tract infection) Qualifiers: Urinary tract infection type: acute cystitis Hematuria presence: without hematuria Qualified Code(s): N30.00 - Acute cystitis without hematuria Condition: Good Record reviewed to determine appropriate education?: Yes Instructions: ED UTI Cystitis Female Prescriptions: Ciprofloxacin [Cipro] 250 mg PO Q12H #10 tablet Oxycodone HCl [Roxicodone] 15 mg PO Q4H PRN #16 tablet PRN Reason: Pain Comments: We will call if urine resistant to cipro. Followup with LAVELLE Brantley Return if worse. Discharge Date/Time: 08/04/19 19:29
[2019-08-04 16:11] LABS: BASOPHILS # (AUTO) 0.1 10^3/uL (0.0-0.1); EOSINOPHILS # (AUTO) 0.1 10^3/uL (0.0-0.7); EOSINOPHILS % (AUTO) 0.7 %; HGB - HEMOGLOBIN 16.6 g/dL (12.0-16.0); LYMPHOCYTES # (AUTO) 2.6 10^3/uL (1.5-3.5); LYMPHOCYTES % (AUTO) 31.8 %; MEAN CORPUSCULAR HEMOGLOBIN 30.7 pg (27.0-31.0); MEAN CORPUSCULAR HGB CONC 34.4 g/dL (32.0-36.0); MEAN CORPUSCULAR VOLUME 89.3 fL (81.0-99.0); MEAN PLATELET VOLUME 10.2 fL (7.9-10.8); MONOCYTES # (AUTO) 0.8 10^3/uL (0.0-1.0); MONOCYTES % (AUTO) 10.2 %; NEUTROPHILS # (AUTO) 4.6 10^3/uL (1.5-6.6); NEUTROPHILS % (AUTO) 55.8 %; PLT - PLATELET COUNT 272 10^3/uL (130-450); RED BLOOD COUNT 5.41 10^6/uL (4.20-5.40); RED CELL DISTRIBUTION WIDTH 13.4 % (12.0-15.0); WHITE BLOOD COUNT 8.2 x10^3/uL (4.8-10.8)
[2019-08-04 16:26] LABS: ALBUMIN 4.6 g/dL (3.2-5.5); ALKALINE PHOSPHATASE 92 IU/L (42-121); ALT ALANINE AMINOTRANSFERASE 53 IU/L (10-60); AST ASPARTATE AMINOTRANSFERASE 45 IU/L (10-42); BILIRUBIN,TOTAL 1.2 mg/dL (0.2-1.0); BUN - BLOOD UREA NITROGEN 19 mg/dL (6-20); CALCIUM 10.6 mg/dL (8.5-10.3); CARBON DIOXIDE - CO2 25 mmol/L (21-32); CHLORIDE 100 mmol/L (101-111); CREATININE 0.9 mg/dL (0.4-1.0); GFR - MDRD 63 (>89); GLUCOSE 86 mg/dL (70-100); LIPASE 124 U/L (22-51); SODIUM 138 mmol/L (135-145); TOTAL PROTEIN 9.3 g/dL (6.7-8.2)
[2019-08-04 17:25] LABS: MUDS CUTOFF CONCENTRATIONS CUTOFF CONC BELOW:
[2019-08-04] MEDS ORDERED: HYDROmorphone 1 MG/ML CARPUJECT IVP STA (17:27)
[2019-08-04 17:28] LABS: BILIRUBIN,URINE NEGATIVE (NEGATIVE); GLUCOSE, URINE (UA) NEGATIVE (NEGATIVE); KETONES,URINE (UA) NEGATIVE (NEGATIVE); LEUKOCYTE ESTERASE, URINE LARGE (NEGATIVE); NITRITE,URINE NEGATIVE (NEGATIVE); OCCULT BLOOD,URINE NEGATIVE (NEGATIVE); PH,URINE 6.5 PH (5.0-7.5); PROTEIN,URINE NEGATIVE (NEGATIVE); UROBILINOGEN,URINE 0.2 (NORMAL) E.U./dL (NORMAL)
[2019-08-04 17:30] LABS: CLARITY,URINE CLEAR (CLEAR)
[2019-08-04 17:39] LABS: AMPHETAMINE SCREEN,URINE NEGATIVE (NEGATIVE); BENZODIAZEPINES SCREEN, URINE NEGATIVE (NEGATIVE); COCAINE SCREEN URINE NEGATIVE (NEGATIVE); METHADONE SCREEN, URINE NEGATIVE (NEGATIVE); METHAMPHETAMINES SCREEN, URINE NEGATIVE (NEGATIVE); OPIATE SCREEN, URINE POSITIVE (NEGATIVE); OXYCODONE SCREEN, URINE NEGATIVE (NEGATIVE); PROPOXYPHENE SCREEN, URINE NEGATIVE (NEGATIVE); TRICYCLIC ANTIDEPRESSANT,URINE POSITIVE (NEGATIVE)
[2019-08-04 17:46] LABS: BACTERIA,URINE Many /HPF (None Seen); RBC,URINE 0-5 /HPF (0-5); SQUAMOUS EPITHELIAL CELL,UR MANY Squamous (<= Few)
[2019-08-04] MEDS ORDERED: CIPROFLOXACIN 250 MG TABLET PO STA (18:26)
[2019-08-04] MEDS ORDERED: oxyCODONE 5 MG TABLET PO STA (18:37)
[2019-08-04 19:29] VITALS: BP 156/95
== END 2019-08-04 19:29 | disposition home or self-care (01) ==
LOC: ED 15:13
DX: F11.23 Opioid dependence with withdrawal (principal); N30.00 Acute cystitis without hematuria; M25.551 Pain in right hip; Z96.649 Presence of unspecified artificial hip joint; Z96.659 Presence of unspecified artificial knee joint; I10 Essential (primary) hypertension; E11.42 Type 2 diabetes mellitus with diabetic polyneuropathy; E11.51 Type 2 diabetes mellitus with diabetic peripheral angiopathy without gangrene; Z79.84 Long term (current) use of oral hypoglycemic drugs; Z87.19 Personal history of other diseases of the digestive system
CPT/HCPCS: 36415; 80053; 80320; 81001; 82140; 83690; 85025; 87086; 96361; 96374; 96375; 99283; 99284; A9270; J1170; 80306; 81003

== ENCOUNTER 2019-09-04 16:18 | Emergency (ER) | payer OTHER ==
--- NOTE | 2019-09-04 18:34 | ED Physician Documentation ---
History of Present Illness - Stated complaint Stated Complaint: FACE/JOINT/KNEE PX - Chief complaint Chief Complaint: General - Additonal information Additional information: This is a 64-year-old female with a history of narcotic dependence after multiple orthopedic surgeries, hypertension, coronary artery disease, COPD, headaches, type 2 diabetes, and past C. difficile, who presents with several complaints. She has poor dentition and she is due to get her teeth extracted, she has had some increasing dental pain in the last several days. She also states that she wakes up in the morning sometimes and she feels she cannot move, the sleep paralysis is new in the last month or so, does completely resolve and she denies any weakness or numbness at this time. She states that she tried to get an appointment to see her oral surgeon today due to her dental pain in hopes of getting pain medications and antibiotics, and they were closed so she came here she also discusses that times when she closes her eyes she sees him squiggly lights. She denies any vision changes at this time. Review of Systems Constitutional: denies: Fever Nose: denies: Rhinorrhea / runny nose Throat: reports: Dental pain / toothache Musculoskeletal: denies: Neck pain Neurologic: denies: Generalized weakness PD PAST MEDICAL HISTORY - Past Medical History Past Medical History: Yes Cardiovascular: Hypertension, High cholesterol, Coronary artery disease, Peripheral Vascular Disease, Other Respiratory: COPD Neuro: Dementia, Headaches, Peripheral neuropathy, Other Endocrine/Autoimmune: Type 2 diabetes, HyPOthyroidism GI: GERD, Esophageal varices, Ulcers, C.difficile, Chronic constipation, Cirrhosis [employer] VESSEL: None : Nocturia, Frequency HEENT: Chronic vision loss, Chronic sinusitis, Chronic hearing loss Psych: Depression, Anxiety, Panic attacks Musculoskeletal: Osteoarthritis, Fibromyalgia, Osteoporosis, Chronic back pain, Other Derm: None - Past Surgical History Past Surgical History: Yes General: Cholecystectomy, Other 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, 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 HEENT: Other - Present Medications Home Medications: Ambulatory Orders Medication Instructions Recorded Confirmed Calcium Carbonate/Vitamin D3 2 tab PO DAILY 08/18/15 03/28/19 [Calcium 600 + Vit D 400 Softgl] Levothyroxine [Synthroid] 100 mcg PO QDAC 08/18/15 03/28/19 nadoloL [Corgard] 20 mg PO BID 08/18/15 03/28/19 Furosemide 20 mg PO DAILY 01/19/18 02/10/19 Oxycodone HCl [Oxycontin] 20 mg PO TID 01/19/18 03/28/19 Spironolactone 50 mg PO DAILY 01/19/18 03/28/19 Glipizide 5 mg PO 0730 09/15/18 02/10/19 Lactobacillus Rhamnosus GG 1 cap PO BID 02/10/19 03/28/19 [Culturelle] Oxycodone HCl 10 mg PO Q4H PRN 02/10/19 03/28/19 raNITIdine [Zantac] 150 mg PO QPM 02/10/19 02/10/19 Vancomycin [Vancocin] 125 mg PO DAILY #10 capsule 02/13/19 Omeprazole 20 mg PO DAILY 03/28/19 03/28/19 Tizanidine HCl 2 mg PO TID PRN 03/28/19 03/28/19 Cephalexin [Keflex] 500 mg PO Q6H #28 capsule 07/17/19 Ciprofloxacin [Cipro] 250 mg PO Q12H #10 tablet 08/04/19 Oxycodone HCl [Roxicodone] 15 mg PO Q4H PRN #16 tablet 08/04/19 Amitriptyline HCl 100 mg PO QPM 09/04/19 09/04/19 Amox/Clav 875/125 [Augmentin] 1 each PO Q12H #20 tablet 09/04/19 Oxycodone HCl [Roxicodone] 15 mg PO Q6H PRN #3 tablet 09/04/19 - Allergies Allergies/Adverse Reactions: Allergies Allergy/AdvReac Type Severity Reaction Status Date / Time metformin Allergy Severe "HORRIFIC" Verified 09/04/19 16:42 duloxetine Allergy Hives Verified 09/04/19 16:42 hydromorphone [From Dilaudid] Allergy Rash Verified 09/04/19 16:42 - Social History Does the pt smoke?: No Smoking Status: Never smoker Does the pt drink ETOH?: No Does the pt have substance abuse?: No - Immunizations Immunizations are current?: Yes - POLST Patient has POLST: No POLST Status: Full Code PD ED PE NORMAL - Vitals Vital signs reviewed: Yes - General General: Alert and oriented X 3 - HEENT HEENT: Atraumatic, PERRL, EOMI, Other (Poor dentition diffusely, with advanced dental decayNo drainable abscess, no facial swelling or redness) - Neck Neck: Supple, no meningeal sign - Cardiac Cardiac: RRR - Respiratory Respiratory: No respiratory distress - Abdomen Abdomen: Soft, Non tender, Non distended - Extremities Extremities: No deformity - Neuro Neuro: Alert and oriented X 3, 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, No motor deficit, No sensory deficit, Normal speech Results - Vitals Vitals: Vital Signs - 24 hr 09/04/19 09/04/19 16:36 19:31 Temperature 37.4 C 37.2 C Heart Rate 80 86 Respiratory 18 18 Rate Blood Pressure 155/122 H 147/107 H O2 Saturation 98 96 Oxygen O2 Source [With Activity] Room air O2 Source [Without Activity] Room air O2 Source Room air - Labs Labs: Laboratory Tests 09/04/19 09/04/19 18:50 18:50 WBC 10.9 H RBC 5.29 Hgb 16.2 H Hct 47.0 MCV 88.8 MCH 30.6 MCHC 34.5 RDW 13.3 Plt Count 278 MPV 10.1 Neut # (Auto) 7.1 H Lymph # (Auto) 2.7 [place] # (Auto) 0.8 Eos # (Auto) 0.2 Baso # (Auto) 0.1 Absolute Nucleated RBC 0.00 Nucleated RBC % 0.0 Sodium 139 Potassium 4.0 Chloride 104 Carbon Dioxide 22 Anion Gap 13.0 BUN 16 Creatinine 0.7 Estimated GFR (MDRD) 84 L Glucose 134 H Calcium 10.3 Total Bilirubin 0.7 AST 48 H ALT 47 Alkaline Phosphatase 93 Total Protein 8.7 H Albumin 4.4 Globulin 4.3 H Albumin/Globulin Ratio 1.0 Lipase 85 H PD MEDICAL DECISION MAKING - ED course Complexity details: considered differential (Electrolyte abnormality, pulpit is/dental pain, abscess, medication side effect) ED course: Pt is well appearing. She presents with several subacute and chronic complaints, her main concern today is antibiotics and pain medications for dental pain. Regarding her sleep paralysis, her neuro exam is normal, electrolytes unremarkable, and I have a suspicion this may be related to her polypharmacy. I discussed tapering her narcotics and sedating medications and PCP follow up. She has several mild and chronic lab abnormalities that I discussed and recommended PCP follow up on. 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 She has very poor dentition, but no drainable abscess. She is scheduled for many extractions. She was prescribed augmentin and I will given her 1 day of half dose of her oxycodone, with the explanation that she will not be able to have any further narcotic refills from the ED going forward. This needs to be done through her PCP. Pt agreed and was discharged in good condition. Departure - Departure Disposition: 01 Home, Self Care Clinical Impression: Pain, dental Condition: Good Prescriptions: Amox/Clav 875/125 [Augmentin] 1 each PO Q12H #20 tablet Oxycodone HCl [Roxicodone] 15 mg PO Q6H PRN #3 tablet PRN Reason: Pain Comments: It appears that you may have a dental infection, I am starting you on antibiotics to help with this. Please take the antibiotic and follow-up with your dentist. I am not sure what was causing your feeling of paralysis after waking up from sleep, this may be related to your medications, sometimes medication such as tizanidine and oxycodone can cause similar symptoms to this, I would consider speaking with your primary care provider about tapering off of these medications. Your electrolytes look normal today, your liver enzyme AST is a little bit elevated, which appears to be from your cirrhosis. If you are having worsening symptoms such as facial swelling, fever return to the emergency department, otherwise follow the primary care provider. I am providing you with several oxycodone tablets to last until you get a refill from your primary care provider. We have a policy that we do not provide more than 2 scripts of narcotic medications per year, further refills will have to come from your primary care provider. Do not drink alcohol or drive while taking narcotic pain medication. Note that many narcotic pain relievers also contain Tylenol/acetaminophen. Please ensure that your total dose of acetaminophen from all sources does not exceed 3 g (3000 mg) per day. You may get constipated while on this medication. Take a stool softener such as Colace twice a day while you are on it. Also add an [id number] laxative such as senna or MiraLAX on any day that you do not have a bowel movement. If you received a narcotic pain medication or sedative while in the emergency department, do not drive for the next 24 hours. Discharge Date/Time: 09/04/19 20:21
[2019-09-04 19:00] LABS: BASOPHILS # (AUTO) 0.1 10^3/uL (0.0-0.1); BASOPHILS % (AUTO) 0.8 %; EOSINOPHILS # (AUTO) 0.2 10^3/uL (0.0-0.7); EOSINOPHILS % (AUTO) 1.7 %; HGB - HEMOGLOBIN 16.2 g/dL (12.0-16.0); LYMPHOCYTES # (AUTO) 2.7 10^3/uL (1.5-3.5); MEAN CORPUSCULAR HEMOGLOBIN 30.6 pg (27.0-31.0); MEAN CORPUSCULAR HGB CONC 34.5 g/dL (32.0-36.0); MEAN CORPUSCULAR VOLUME 88.8 fL (81.0-99.0); MEAN PLATELET VOLUME 10.1 fL (7.9-10.8); MONOCYTES # (AUTO) 0.8 10^3/uL (0.0-1.0); MONOCYTES % (AUTO) 6.9 %; NEUTROPHILS # (AUTO) 7.1 10^3/uL (1.5-6.6); NEUTROPHILS % (AUTO) 65.2 %; PLT - PLATELET COUNT 278 10^3/uL (130-450); RED BLOOD COUNT 5.29 10^6/uL (4.20-5.40); RED CELL DISTRIBUTION WIDTH 13.3 % (12.0-15.0); WHITE BLOOD COUNT 10.9 x10^3/uL (4.8-10.8)
[2019-09-04 19:13] LABS: ALBUMIN 4.4 g/dL (3.2-5.5); BILIRUBIN,TOTAL 0.7 mg/dL (0.2-1.0); CALCIUM 10.3 mg/dL (8.5-10.3); CREATININE 0.7 mg/dL (0.4-1.0); TOTAL PROTEIN 8.7 g/dL (6.7-8.2)
[2019-09-04 19:32] VITALS: BP 147/107
[2019-09-04] MEDS ORDERED: oxyCODONE 5 MG TABLET PO STA (20:11)
[2019-09-04] MEDS ORDERED: AMOX/CLAV 875 MG/125 MG TABLET PO STA (20:11)
== END 2019-09-04 20:21 | disposition home or self-care (01) ==
LOC: ED 16:18
DX: K08.89 Other specified disorders of teeth and supporting structures (principal); K02.9 Dental caries, unspecified; G47.53 Recurrent isolated sleep paralysis; H53.8 Other visual disturbances; I10 Essential (primary) hypertension; I25.10 Atherosclerotic heart disease of native coronary artery without angina pectoris; J44.9 Chronic obstructive pulmonary disease, unspecified; E11.42 Type 2 diabetes mellitus with diabetic polyneuropathy; E11.51 Type 2 diabetes mellitus with diabetic peripheral angiopathy without gangrene; Z79.84 Long term (current) use of oral hypoglycemic drugs; Z87.19 Personal history of other diseases of the digestive system
CPT/HCPCS: 36415; 80053; 83690; 85025; 99283; 99284; A9270

== ENCOUNTER 2019-09-09 14:37 | Emergency (ER) | payer OTHER ==
--- NOTE | 2019-09-09 16:44 | ED Physician Documentation ---
PD HPI NVD - Stated complaint Stated Complaint: DIARRHEA, JOINT PAIN - Chief complaint Chief Complaint: Abd Pain - History obtained from History obtained from: Patient - History of Present Illness Timing - onset: How many days ago (2) Timing - details: Abrupt onset Associated symptoms: No: Fever, Abdominal pain Contributing factors: Recent antibiotics. No: Sick contact Recently seen: Emergency Dept - Additonal information Additional information: This is a 64-year-old woman with multiple medical problems including hypertension, uod-mvcshxh-cwhotjqcl diabetes mellitus, acute renal failure in the past, portal vein thrombosis, C. difficile and chronic pain syndrome, Who presents with complaints of diarrhea and pain in her joints. Patient says she was seen here in the emergency department a few days ago because her teeth started falling out. She was placed on Augmentin then saw the dentist 4 days ago. He told her he would not do anything with her teeth until she had taken the antibiotics. She also saw her primary care provider at some point about the pain but she says he just does not listen. She is complaining of diarrhea that she is had for 2 days is very watery and sometimes like putting but it does not smell like C. difficile. She complains that she is woken up twice in a puddle of liquid that she believes to be diarrhea. She is complaining that for quite some time she is waking up around 3:58 AM in the morning completely unable to move her legs like she is paralyzed. She is tried to discuss this with her pain management doctor and her primary care provider because if that her house was on fire she would not be able to get out but she feels that neither 1 of them is particularly impressed. She says that her joints are hurting at an 8 out of 10 and she has prior hip fracture and rib fractures and she feels as if her face is "going to fall off". She then starts talking about hallucinating seeing spots vibrating on the wall out of her right eye. And then when asked by the nursing staff if she was using any recreational drugs she jocetiki that she was using "methamphetamine". She found this joke quite funny but stated that she was not using meth but has used marijuana in the past. Review of Systems Constitutional: denies: Fever Eyes: reports: Other (Visual disturbances) Throat: reports: Dental pain / toothache (Her teeth are falling out) GI: reports: Diarrhea. 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: None : Nocturia, Frequency HEENT: Chronic vision loss, Chronic sinusitis, Chronic hearing loss Psych: Depression, Anxiety, Panic attacks Musculoskeletal: Osteoarthritis, Fibromyalgia, Osteoporosis, Chronic back pain, Other Derm: None - Past Surgical History Past Surgical History: Yes General: Cholecystectomy, Other 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, Knee replacement /TRUST ADMINISTRATIVE ASSISTANT: 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 HEENT: Other - Present Medications Home Medications: Ambulatory Orders Medication Instructions Recorded Confirmed Calcium Carbonate/Vitamin D3 2 tab PO DAILY 08/18/15 03/28/19 [Calcium 600 + Vit D 400 Softgl] Levothyroxine [Synthroid] 100 mcg PO QDAC 08/18/15 03/28/19 nadoloL [Corgard] 20 mg PO BID 08/18/15 03/28/19 Furosemide 20 mg PO DAILY 01/19/18 02/10/19 Oxycodone HCl [Oxycontin] 20 mg PO TID 01/19/18 03/28/19 Spironolactone 50 mg PO DAILY 01/19/18 03/28/19 Glipizide 5 mg PO 0730 09/15/18 02/10/19 Lactobacillus Rhamnosus GG 1 cap PO BID 02/10/19 03/28/19 [Culturelle] Oxycodone HCl 10 mg PO Q4H PRN 02/10/19 03/28/19 raNITIdine [Zantac] 150 mg PO QPM 02/10/19 02/10/19 Vancomycin [Vancocin] 125 mg PO DAILY #10 capsule 02/13/19 Omeprazole 20 mg PO DAILY 03/28/19 03/28/19 Tizanidine HCl 2 mg PO TID PRN 03/28/19 03/28/19 Cephalexin [Keflex] 500 mg PO Q6H #28 capsule 07/17/19 Ciprofloxacin [Cipro] 250 mg PO Q12H #10 tablet 08/04/19 Oxycodone HCl [Roxicodone] 15 mg PO Q4H PRN #16 tablet 08/04/19 Amitriptyline HCl 100 mg PO QPM 09/04/19 09/04/19 Amox/Clav 875/125 [Augmentin] 1 each PO Q12H #20 tablet 09/04/19 Oxycodone HCl [Roxicodone] 15 mg PO Q6H PRN #3 tablet 09/04/19 Cephalexin [Keflex] 500 mg PO Q6H #28 capsule 09/09/19 - Allergies Allergies/Adverse Reactions: Allergies Allergy/AdvReac Type Severity Reaction Status Date / Time metformin Allergy Severe "HORRIFIC" Verified 09/09/19 14:42 duloxetine Allergy Hives Verified 09/09/19 14:42 hydromorphone [From Dilaudid] Allergy Rash Verified 09/09/19 14:42 - Social History Does the pt smoke?: No Smoking Status: Never smoker Does the pt drink ETOH?: No Does the pt have substance abuse?: No - Immunizations Immunizations are current?: Yes - POLST Patient has POLST: No POLST Status: Full Code PD ED PE NORMAL - Vitals Vital signs reviewed: Yes - General General: Alert and oriented X 3, No acute distress, Well developed/nourished, Other (Patient is very talkative does not appear to be in any distress. She keeps lifting her upper lip up to show me how her teeth are falling out and are rotten at the gums.) - HEENT HEENT: Other (Extremely poor dentition with multiple broken teeth gingival inflammation and swelling particularly around the right maxillary ridge. There are empty sockets with necrotic debris in them.) - Neck Neck: No adenopathy - Cardiac Cardiac: RRR, No murmur - Respiratory Respiratory: No respiratory distress - Abdomen Abdomen: Normal bowel sounds, Soft, Non tender - Derm Derm: Normal color, Warm and dry, No rash - Extremities Extremities: No edema - Neuro Neuro: Alert and oriented X 3, No motor deficit, No sensory deficit, Normal speech Results - Vitals Vitals: Vital Signs - 24 hr 09/09/19 14:42 Temperature 36.7 C Heart Rate 94 Respiratory 16 Rate Blood Pressure 146/98 H O2 Saturation 98 Oxygen O2 Source [With Activity] Room air O2 Source [Without Activity] Room air O2 Source Room air PD MEDICAL DECISION MAKING - ED course Complexity details: d/w patient ED course: This patient has a host of chronic medical conditions and has a history of C. difficile but is requiring antibiotics for dental infection. She is concerned because she is developed diarrhea while on the Augmentin and I have sent a C. difficile screen. After lengthy discussion which was dominated more by her Pain complaints then by the concern over the diarrhea we elected to change her antibiotic to Keflex although we discussed that all of these antibiotics to treat dental infections can cause diarrhea. She needs to make sure that she is taking probiotics which she adamantly endorsed. Was also reiterated to her that she had to follow-up with her primary care provider or body technician/painter for any further pain prescriptions. Departure - Departure Disposition: Home, Self Care Clinical Impression: Dental infection Diarrhea Qualifiers: Diarrhea type: unspecified type Qualified Code(s): R19.7 - Diarrhea, unspecified Chronic pain Qualifiers: Chronic pain type: other chronic pain Qualified Code(s): G89.29 - Other chronic pain Condition: Good Instructions: ED Diet Brat Expanded Ch Follow-Up: LEMUEL ARAUJO MD [Primary Care Provider] - Prescriptions: Cephalexin [Keflex] 500 mg PO Q6H #28 capsule Comments: Stop taking the Augmentin. Start the Keflex 4 times a day. It is absolutely imperative that you take probiotic capsules daily while taking the antibiotics. Also using yogurt. Keep the appointment scheduled with the dentist for your tooth extractions. Follow-up with your primary care provider and your pain specialist about the pain in your joints.
[2019-09-09 17:11] VITALS: BP 168/110
== END 2019-09-09 17:11 | disposition home or self-care (01) ==
LOC: ED 14:37
DX: K04.7 Periapical abscess without sinus (principal); R19.7 Diarrhea, unspecified; G89.29 Other chronic pain; M25.50 Pain in unspecified joint; E11.9 Type 2 diabetes mellitus without complications; I10 Essential (primary) hypertension; F03.90 Unspecified dementia, unspecified severity, without behavioral disturbance, psychotic disturbance, mood disturbance, and anxiety
CPT/HCPCS: 99283; 99284

== ENCOUNTER 2020-01-21 17:28 | Emergency (ER) | payer OTHER ==
--- NOTE | 2020-01-21 18:08 | ED Physician Documentation ---
History of Present Illness - Stated complaint Stated Complaint: CP, LT SIDE TINGLING - Chief complaint Chief Complaint: Cardiac - History obtained from History obtained from: Patient - History of Present Illness Pain level max: 2 Pain level now: 1 - Additonal information Additional information: Patient is a 64-year-old female who presents to the emergency department that stating over the past few weeks she is had an intermittent sore throat as well as pain that radiates down her chest to her stomach. Nothing makes it better or worse. She states she "just does not feel well". No fevers. No coughing. No nausea. No vomiting. No dyspnea. No recent travel. No leg pain. No leg swelling. Review of Systems Ten Systems: 10 systems reviewed and negative Constitutional: denies: Fever, Chills Nose: denies: Rhinorrhea / runny nose, Congestion Respiratory: denies: Cough, Hemoptysis, Wheezing GI: denies: Vomiting, Diarrhea Skin: denies: Rash Musculoskeletal: denies: Neck pain, Back pain Neurologic: denies: Headache PD PAST MEDICAL HISTORY - Past Medical History Cardiovascular: Hypertension, High cholesterol, Coronary artery disease, Peripheral Vascular Disease, Other Respiratory: COPD Neuro: Dementia, Headaches, Peripheral neuropathy, Other Endocrine/Autoimmune: Type 2 diabetes, HyPOthyroidism GI: GERD, Esophageal varices, Ulcers, C.difficile, Chronic constipation, Cirrhosis 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: None : Nocturia, Frequency HEENT: Chronic vision loss, Chronic sinusitis, Chronic hearing loss Psych: Depression, Anxiety, Panic attacks Musculoskeletal: Osteoarthritis, Fibromyalgia, Osteoporosis, Chronic back pain, Other Derm: None - Past Surgical History Past Surgical History: Yes General: Cholecystectomy, Other 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, Knee replacement /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 TECHNICIAN: 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 HEENT: Other - Present Medications Home Medications: Ambulatory Orders Medication Instructions Recorded Confirmed Calcium Carbonate/Vitamin D3 2 tab PO DAILY 08/18/15 03/28/19 [Calcium 600 + Vit D 400 Softgl] Levothyroxine [Synthroid] 100 mcg PO QDAC 08/18/15 03/28/19 nadoloL [Corgard] 20 mg PO BID 08/18/15 03/28/19 Furosemide 20 mg PO DAILY 01/19/18 02/10/19 Oxycodone HCl [Oxycontin] 20 mg PO TID 01/19/18 03/28/19 Spironolactone 50 mg PO DAILY 01/19/18 03/28/19 Glipizide 5 mg PO 0730 09/15/18 02/10/19 Lactobacillus Rhamnosus GG 1 cap PO BID 02/10/19 03/28/19 [Culturelle] Oxycodone HCl 10 mg PO Q4H PRN 02/10/19 03/28/19 raNITIdine [Zantac] 150 mg PO QPM 02/10/19 02/10/19 Vancomycin [Vancocin] 125 mg PO DAILY #10 capsule 02/13/19 Omeprazole 20 mg PO DAILY 03/28/19 03/28/19 Tizanidine HCl 2 mg PO TID PRN 03/28/19 03/28/19 Cephalexin [Keflex] 500 mg PO Q6H #28 capsule 07/17/19 Ciprofloxacin [Cipro] 250 mg PO Q12H #10 tablet 08/04/19 Oxycodone HCl [Roxicodone] 15 mg PO Q4H PRN #16 tablet 08/04/19 Amitriptyline HCl 100 mg PO QPM 09/04/19 09/04/19 Amox/Clav 875/125 [Augmentin] 1 each PO Q12H #20 tablet 09/04/19 Oxycodone HCl [Roxicodone] 15 mg PO Q6H PRN #3 tablet 09/04/19 Cephalexin [Keflex] 500 mg PO Q6H #28 capsule 09/09/19 - Allergies Allergies/Adverse Reactions: Allergies Allergy/AdvReac Type Severity Reaction Status Date / Time metformin Allergy Severe "HORRIFIC" Verified 01/21/20 17:43 duloxetine Allergy Hives Verified 01/21/20 17:43 hydromorphone [From Dilaudid] Allergy Rash Verified 01/21/20 17:43 - Social History Does the pt smoke?: No Smoking Status: Never smoker Does the pt drink ETOH?: No Does the pt have substance abuse?: No - Immunizations Immunizations are current?: Yes - POLST Patient has POLST: No POLST Status: Full Code PD ED PE NORMAL - Vitals Vital signs reviewed: Yes - General General: Alert and oriented X 3, No acute distress, Well developed/nourished - HEENT HEENT: PERRL, Moist mucous membranes - Neck Neck: Supple, no meningeal sign - Cardiac Cardiac: RRR, No murmur, Strong equal pulses - Respiratory Respiratory: No respiratory distress, Clear bilaterally - Abdomen Abdomen: Soft, Non tender, Non distended - Derm Derm: Warm and dry - Extremities Extremities: No edema, No calf tenderness / cord - Neuro Neuro: Alert and oriented X 3, set illustrator 2-12 intact, No motor deficit, No sensory deficit, Normal speech Eye Opening: Spontaneous Motor: Obeys Commands Verbal: Oriented GCS Score: 15 - Psych Psych: Normal mood, Normal affect Results - Vitals Vitals: Vital Signs - 24 hr 01/21/20 01/21/20 01/21/20 17:43 18:25 18:30 Temperature 36.7 C Heart Rate 92 91 90 Respiratory 16 18 18 Rate Blood Pressure 143/97 H 148/115 H O2 Saturation 98 95 01/21/20 01/21/20 01/21/20 19:00 19:30 20:00 Temperature Heart Rate 94 91 95 Respiratory 16 18 15 Rate Blood Pressure 148/115 H 135/108 H O2 Saturation 96 96 96 Oxygen O2 Source [With Activity] Room air O2 Source [Without Activity] Room air O2 Source Room air - EKG (time done) 1736 Rate: Rate (enter#) (87) Rhythm: NSR [place]: Normal Intervals: Normal MA QRS: Normal Ischemia: Non specific changes - Labs Labs: Laboratory Tests 01/21/20 01/21/20 01/21/20 18:05 18:05 18:05 WBC 10.5 RBC 5.80 H Hgb 17.4 H Hct 51.6 H MCV 89.0 MCH 30.0 MCHC 33.7 RDW 13.4 Plt Count 277 MPV 10.1 Neut # (Auto) 6.3 Lymph # (Auto) 3.1 [place] # (Auto) 0.8 Eos # (Auto) 0.1 Baso # (Auto) 0.1 Absolute Nucleated RBC 0.00 Nucleated RBC % 0.0 Sodium 141 Potassium 3.6 Chloride 100 L Carbon Dioxide 27 Anion Gap 14.0 H BUN 15 Creatinine 0.9 Estimated GFR (MDRD) 63 L Glucose 163 H Calcium 10.7 H Total Bilirubin 0.9 AST 45 H ALT 54 Alkaline Phosphatase 107 Troponin I High Sens 4.5 Total Protein 10.0 H Albumin 4.9 Globulin 5.1 H Albumin/Globulin Ratio 1.0 Lipase 45 - Rads (name of study) cxr Radiology: Prelim report reviewed, EMP read contemporaneously, See rad report (No acute disease) PD MEDICAL DECISION MAKING - ED course Complexity details: reviewed results, re-evaluated patient, considered differential, d/w patient ED course: 64-year-old female with what appears to be likely GERD related chest pain. Symptoms completely resolved with GI cocktail. Patient also stated that she had some tingling in her left distal fingers over the past few weeks. She states that it is not tingling currently. 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 No strength deficits. No neuro deficits. Unclear etiology. We will have her follow-up with her doctor for further care. Patient counseled regarding signs and symptoms for which I believe and urgent re- evaluation would be necessary. Patient with good understanding of and agreement to plan and is comfortable going home at this time This document was made in part using voice recognition software. While efforts are made to proofread this document, sound alike and grammatical errors may occur. Departure - Departure Disposition: 01 Home, Self Care Clinical Impression: Paresthesia of arm Chest pain Qualifiers: Chest pain type: unspecified Qualified Code(s): R07.9 - Chest pain, unspecified GERD (gastroesophageal reflux disease) Qualifiers: Esophagitis presence: esophagitis presence not specified Qualified Code(s): K21.9 - Gastro-esophageal reflux disease without esophagitis Condition: Good Instructions: ED Chest Pain Atypical Unkn Cause, ED GERD Follow-Up: LEMUEL ARAUJO MD [Primary Care Provider] - Within 1 week Comments: Follow-up with your doctor in 1 week. Return if you worsen. There are no signs of issues with your heart tonight or of stroke. Discharge Date/Time: 01/21/20 20:09 NIHSS - Time Time: 18:35 - Level of Consciousness Level of consciousness: (0) Alert, Keenly responsive LOC Questions: (0) Answers both Q's correct LOC Commands: (0) Performs both correctly - Gaze Best Gaze: (0) Normal - Visual Visual: (0) No loss - Facial Palsy Facial Palsy: (0) Normal, symmetrical movement - Motor Arms (both separate) Motor Arm (right): (0) No drift Motor Arm (left): (0) No drift - Motor Legs (both separate) Motor Leg (right): (0) No drift Motor Leg (left): (0) No drift - Limb Ataxia Limb Ataxia: (0) Absent - Sensory Sensory: (0) Normal - Best Language Best Language: (0) No aphasia - Dysarthria Dysarthria: (0) Normal - Extinction and Inattention (formally neg Extinction and inattention: (0) No abnormality - Total Score/Results Total Score/Result: 0
[2020-01-21 18:13] LABS: BASOPHILS # (AUTO) 0.1 10^3/uL (0.0-0.1); BASOPHILS % (AUTO) 0.8 %; EOSINOPHILS # (AUTO) 0.1 10^3/uL (0.0-0.7); EOSINOPHILS % (AUTO) 1.2 %; HGB - HEMOGLOBIN 17.4 g/dL (12.0-16.0); LYMPHOCYTES # (AUTO) 3.1 10^3/uL (1.5-3.5); LYMPHOCYTES % (AUTO) 29.9 %; MEAN CORPUSCULAR HGB CONC 33.7 g/dL (32.0-36.0); MEAN PLATELET VOLUME 10.1 fL (7.9-10.8); MONOCYTES # (AUTO) 0.8 10^3/uL (0.0-1.0); MONOCYTES % (AUTO) 7.5 %; NEUTROPHILS # (AUTO) 6.3 10^3/uL (1.5-6.6); NEUTROPHILS % (AUTO) 60.2 %; PLT - PLATELET COUNT 277 10^3/uL (130-450); RED CELL DISTRIBUTION WIDTH 13.4 % (12.0-15.0); WHITE BLOOD COUNT 10.5 x10^3/uL (4.8-10.8)
--- NOTE | 2020-01-21 18:20 | XRAY Report ---
Reason: Chest Pain Procedure Date: 01/21/2020 Accession Number: [id number] / [id number] Procedure: XR - Chest 1 View X-Ray CPT Code: 07984 Final Report FULL RESULT: PROCEDURE: Chest 1 View X-Ray INDICATIONS: Chest Pain TECHNIQUE: One view of the chest was acquired. COMPARISON: Chest x-ray 05/01/2019 FINDINGS: Surgical changes and devices: None. Lungs and pleura: No pleural effusions or pneumothorax. Lungs are clear. Mediastinum: Mediastinal contours appear normal. Heart size is normal. Bones and chest wall: No suspicious bony lesions. Overlying soft tissues appear unremarkable. IMPRESSION: No acute pulmonary process. Reviewed by: Raquel Sandoval MD on 01/21/2020 6:16 PM PDT Approved by: Raquel Sandoval MD on 01/21/2020 6:16 PM PDT Station ID: [id number]
[2020-01-21 18:28] LABS: ALBUMIN 4.9 g/dL (3.2-5.5); BILIRUBIN,TOTAL 0.9 mg/dL (0.2-1.0); CALCIUM 10.7 mg/dL (8.5-10.3); CREATININE 0.9 mg/dL (0.4-1.0)
[2020-01-21] MEDS ORDERED: MAG HYDROX/AL HYDROX/SIMETH 30 ML UDC PO STA (18:55)
[2020-01-21] MEDS ORDERED: SUCRALFATE 1 GM/10 ML UDC PO STA (18:55)
[2020-01-21] MEDS ORDERED: FAMOTIDINE 20 MG TABLET PO STA (18:55)
[2020-01-21] MEDS ORDERED: LIDOCAINE VISCOUS 2% 15 ML UDC MM STA (18:55)
[2020-01-21 19:56] VITALS: BP 135/108
== END 2020-01-21 20:09 | disposition home or self-care (01) ==
LOC: ED 17:28
DX: K21.9 Gastro-esophageal reflux disease without esophagitis (principal); R07.9 Chest pain, unspecified; R20.2 Paresthesia of skin; I25.10 Atherosclerotic heart disease of native coronary artery without angina pectoris; I10 Essential (primary) hypertension; E11.42 Type 2 diabetes mellitus with diabetic polyneuropathy; E11.51 Type 2 diabetes mellitus with diabetic peripheral angiopathy without gangrene; Z79.84 Long term (current) use of oral hypoglycemic drugs
CPT/HCPCS: 36415; 71045; 80053; 83690; 84484; 85025; 93005; 99284; A9270

== ENCOUNTER 2020-02-06 17:24 | Emergency (ER) | payer OTHER ==
[2020-02-06] MEDS ORDERED: TETANUS/DIPHTHERIA/PERTUSSIS 0.5 ML SYRINGE IM ONE (17:43)
[2020-02-06] MEDS ORDERED: oxyCODONE 5 MG TABLET PO STA (17:43)
--- NOTE | 2020-02-06 17:46 | ED Physician Documentation ---
PD HPI LOWER EXT INJURY - Stated complaint Stated Complaint: HEAD LAC - Chief complaint Chief Complaint: Laceration - History obtained from History obtained from: Patient (Tripped and fell just prior to arrival hitting her face on gravel. She has an abrasion under the right eye. Moderate headache. No loss of consciousness. She also complains of right knee pain and swelling. She is able to walk and bear weight. 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 : Nocturia, Frequency HEENT: Chronic vision loss, Chronic sinusitis, Chronic hearing loss Psych: Depression, Anxiety, Panic attacks Musculoskeletal: Osteoarthritis, Fibromyalgia, Osteoporosis, Chronic back pain, Other Derm: None - Past Surgical History Past Surgical History: Yes General: Cholecystectomy, Other 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, Knee replacement /PREPARATION SUPERVISOR FREEZING: 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 HEENT: Other - Present Medications Home Medications: Ambulatory Orders Medication Instructions Recorded Confirmed Calcium Carbonate/Vitamin D3 2 tab PO DAILY 08/18/15 03/28/19 [Calcium 600 + Vit D 400 Softgl] Levothyroxine [Synthroid] 100 mcg PO QDAC 08/18/15 03/28/19 nadoloL [Corgard] 20 mg PO BID 08/18/15 03/28/19 Furosemide 20 mg PO DAILY 01/19/18 02/10/19 Spironolactone 50 mg PO DAILY 01/19/18 03/28/19 Glipizide 5 mg PO 0730 09/15/18 02/10/19 Lactobacillus Rhamnosus GG 1 cap PO BID 02/10/19 03/28/19 [Culturelle] Tizanidine HCl 2 mg PO TID PRN 03/28/19 03/28/19 Amitriptyline HCl 100 mg PO QPM 09/04/19 09/04/19 Bacitracin Zinc Oint 1 applic TOP BID #1 tube 02/06/20 Oxycodone HCl [Roxicodone] 0 mg PO PRN 02/06/20 oxyCODONE ER [OxyCONTIN] 0 mg BID 02/06/20 02/06/20 - Allergies Allergies/Adverse Reactions: Allergies Allergy/AdvReac Type Severity Reaction Status Date / Time metformin Allergy Severe "HORRIFIC" Verified 02/06/20 17:32 duloxetine Allergy Hives Verified 02/06/20 17:32 hydromorphone [From Dilaudid] Allergy Rash Verified 02/06/20 17:32 - Social History Does the pt smoke?: No Smoking Status: Never smoker Does the pt drink ETOH?: No Does the pt have substance abuse?: No - Immunizations Immunizations are current?: Yes - POLST Patient has POLST: No POLST Status: Full Code PD ED PE NORMAL - Vitals Vital signs reviewed: Yes - General General: Alert and oriented X 3, No acute distress - HEENT HEENT: PERRL, EOMI, Other (There is an abrasion on the inferior right lower eyelid. No bony tenderness or deformity.) - Neck Neck: Supple, no meningeal sign, No bony TTP - Extremities Extremities: Other (She has an effusion of the right knee and tenderness on both sides. No deformity. Normal distal pulses and sensation. She is unable to flex it all the way but has reasonable ankle range of motion. I am able to watch her walk and bear weight briefly.) - Neuro Neuro: Alert and oriented X 3, Normal speech Results - Vitals Vitals: Vital Signs - 24 hr 02/06/20 17:28 Temperature 35.7 C L Heart Rate 94 Respiratory 16 Rate Blood Pressure 134/83 H O2 Saturation 96 Oxygen O2 Source [] Room air O2 Source [] Room air O2 Source Room air - Rads (name of study) X-rays of the right knee and CT of the head without contrast Radiology: EMP read contemporaneously (Negative for acute traumatic injuries) PD MEDICAL DECISION MAKING - ED course ED course: She received an oxycodone here for her pain. 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 Departure - Departure Disposition: 01 Home, Self Care Clinical Impression: Fall from slip, trip, or stumble Qualifiers: Encounter type: initial encounter Qualified Code(s): W01.0XXA - Fall on same level from slipping, tripping and stumbling without subsequent striking against object, initial encounter Concussion Qualifiers: Encounter type: initial encounter Loss of consciousness presence/duration: without LOC Qualified Code(s): S06.0X0A - Concussion without loss of consciousness, initial encounter Facial abrasion Qualifiers: Encounter type: initial encounter Qualified Code(s): S00.81XA - Abrasion of other part of head, initial encounter Contusion of right knee Qualifiers: Encounter type: initial encounter Qualified Code(s): S80.01XA - Contusion of right knee, initial encounter Condition: Good Record reviewed to determine appropriate education?: Yes Instructions: ED Sprain Knee, ED Avulsion Dermal Prescriptions: Bacitracin Zinc Oint 1 applic TOP BID #1 tube Comments: You can wash the wound on your face briefly with soap and water but for the most part keep it greased with the bacitracin ointment which I gave you a prescription for. Return for signs of infection including redness, swelling, increased pain, fever.
[2020-02-06] MEDS ORDERED: BACITRACIN ZINC OINT 1 PACKET TOP STA (18:17)
--- NOTE | 2020-02-06 18:25 | CT Report ---
PROCEDURE: HEAD WO INDICATIONS: head injury TECHNIQUE: Noncontrast 4.5 mm thick angled axial sections acquired from the foramen magnum to the vertex. For r adiation dose reduction, the following was used: automated exposure control, adjustment of mA and/or kV according to patient size. COMPARISON: 07/17/2019 FINDINGS: Image quality: Excellent. CSF spaces: Basal cisterns are patent. No extra-axial fluid collections. Ventricles are normal in size and shape. Brain: No midline shift. No intracranial masses or hemorrhage. [place]-white matter interface is norm al. Skull and face: Calvarium and visualized facial bones are intact, without suspicious lesions. Small right frontal scalp contusion. Sinuses: Visualized sinuses and mastoids are clear. IMPRESSION: No acute intracranial disease process. Reviewed by: Sheeba Waters MD, PhD on 02/06/2020 6:24 PM PDT Approved by: Sheeba Waters MD, PhD on 02/06/2020 6:24 PM PDT Station ID: [id number]
--- NOTE | 2020-02-06 18:26 | XRAY Report ---
PROCEDURE: Knee 4 View RT INDICATIONS: knee injury. TECHNIQUE: 3 views of the 4 knee(s) were acquired. COMPARISON: None. FINDINGS: Bones: No fractures or dislocations. No suspicious bony lesions. Mild lateral compartment osteoarth ritis. Moderate medial and patellofemoral compartment osteoarthritis. Soft tissues: No joint effusion. No suspicious soft tissue calcifications. IMPRESSION: No fracture. No acute osseous lesion. If there is continued clinical concern for pathology, then repe at plain film radiographs (7-10 days) or advanced imaging (CT, MR, bone scan) should be considered fo r further evaluation. Reviewed by: Sheeba Waters MD, PhD on 02/06/2020 6:25 PM PDT Approved by: Sheeba Waters MD, PhD on 02/06/2020 6:25 PM PDT Station ID: [id number]
[2020-02-06 18:44] VITALS: BP 129/78
== END 2020-02-06 18:43 | disposition home or self-care (01) ==
LOC: ED 17:24
DX: S06.0X0A Concussion without loss of consciousness, initial encounter (principal); S00.81XA Abrasion of other part of head, initial encounter; S00.211A Abrasion of right eyelid and periocular area, initial encounter; S80.01XA Contusion of right knee, initial encounter; W01.0XXA Fall on same level from slipping, tripping and stumbling without subsequent striking against object, initial encounter; Y93.H2 Activity, gardening and landscaping; Y92.007 Garden or yard of unspecified non-institutional (private) residence as the place of occurrence of the external cause; Z23 Encounter for immunization; M17.11 Unilateral primary osteoarthritis, right knee; I10 Essential (primary) hypertension; E11.42 Type 2 diabetes mellitus with diabetic polyneuropathy; E11.51 Type 2 diabetes mellitus with diabetic peripheral angiopathy without gangrene; Z79.84 Long term (current) use of oral hypoglycemic drugs
CPT/HCPCS: 70450; 73564; 90471; 90715; 99284; A9270

== ENCOUNTER 2020-02-27 09:26 | Outpatient (CLI) | payer OTHER ==
--- NOTE | 2020-02-27 10:56 | MRI Report ---
PROCEDURE: Brain W/O INDICATIONS: MEMORY IMPAIRMENT, HEADACHES TECHNIQUE: Noncontrast axial T1 spin echo, axial T2 fast spin echo, sagittal and axial FLAIR, coronal T2 fast sp in echo, axial gradient echo, axial diffusion and ADC through the brain. COMPARISON: Correlation is made with prior head CT examinations 02/06/2020 and 07/17/2019. FINDINGS: Image quality: Excellent. CSF Spaces: Basal cisterns are patent. No extra-axial fluid collections. Ventricles are normal in size and shape. Brain: No intracranial masses or hemorrhage. Solano/white matter interface is normal. Brain parenchy mal volume loss is seen. Chronic small vessel ischemic change is seen. Brainstem appears normal. Dif fusion-weighted images demonstrate no acute ischemic insult. No chronic ischemic insults. Normal in travascular flow voids are present. Skull and face: Calvarium has normal marrow signal. Orbits appear normal. Sinuses: Sinuses and mastoids are clear. IMPRESSION: Normal MRI for age, without an imaging explanation found for the patient's presenting symptoms. Reviewed by: Geoff Gamez MD on 02/27/2020 9:55 AM [facility] Approved by: Geoff Gamez MD on 02/27/2020 9:55 AM [facility] Station ID: [id number]
== END 2020-02-27 09:27 | disposition home or self-care (01) ==
LOC: DI 09:26
PROVIDERS: ATTEND Family Medicine
DX: R41.3 Other amnesia (principal); R51 Headache
CPT/HCPCS: 70551

== ENCOUNTER 2020-03-12 08:00 | Outpatient (CLI) | payer OTHER ==
[2020-03-12 19:06] LABS: CREATININE,URINE 80.3 mg/dL; MICROALBUMIN,URINE 0.4 mg/dL (0-300.0)
[2020-03-12 19:07] LABS: CHOL/HDL RATIO 4.1 (<4.4); CHOLESTEROL 152 mg/dL; HDL CHOLESTEROL 37 mg/dL; LDL CHOLESTEROL,CALCULATED 87 mg/dL; LDL/HDL RATIO 2.4 (<4.4); VLDL CHOLESTEROL 28 mg/dL
== END 2020-03-12 23:59 | disposition home or self-care (01) ==
LOC: LAB.WCP 08:00
PROVIDERS: ATTEND Family Medicine
DX: E11.9 Type 2 diabetes mellitus without complications (principal); I10 Essential (primary) hypertension; E03.9 Hypothyroidism, unspecified
CPT/HCPCS: 36415; 80061; 81599; 82043; 82570; 83036; 83721; 84443

== ENCOUNTER 2020-04-06 11:18 | Emergency (ER) | payer OTHER ==
[2020-04-06] MEDS ORDERED: oxyCODONE 5 MG TABLET PO STA (12:57)
--- NOTE | 2020-04-06 12:59 | ED Physician Documentation ---
History of Present Illness - Stated complaint Stated Complaint: BODY PX/WITHDRAWLS - Chief complaint Chief Complaint: General - History obtained from History obtained from: Patient - History of Present Illness Timing: How many days ago (2) Pain level max: 10 Pain level now: 10 - Additonal information Additional information: 64-year-old female presents to the emergency department stating that she is out of all of her pain medication and that she cannot get it refilled for 3 more days. She states that her doctor changed her medications without talking to her. I reviewed her prescription drug report over the last 12 months with her. She filled OxyContin ER 10 mg tablets, #60 on 03/05/2020. She also filled oxycodone 15 mg tablets #90 on 730. Unclear how she is out of both of these currently. The OxyContin she is likely out of, but should have plenty of oxycodone left. She states she does not know what happened and does not know why she is out. She states that she has been referred to pain management in [place], does not yet have an appointment. Review of Systems Constitutional: denies: Fever, Chills Throat: denies: Sore throat Cardiac: denies: Chest pain / pressure, Palpitations Respiratory: denies: Dyspnea, Cough GI: denies: Vomiting, Diarrhea Skin: denies: Rash Musculoskeletal: denies: Neck pain, Back pain Neurologic: denies: Headache PD PAST MEDICAL HISTORY - Past Medical History Past Medical History: Yes Cardiovascular: Hypertension, High cholesterol, Coronary artery disease, Peripheral Vascular Disease, Other Respiratory: COPD Neuro: Dementia, Headaches, Peripheral neuropathy, Other Endocrine/Autoimmune: Type 2 diabetes, HyPOthyroidism GI: GERD, Esophageal varices, Ulcers, C.difficile, Chronic constipation, Cirrhosis COLLAR TACKER: None : Nocturia, Frequency HEENT: Chronic vision loss, Chronic sinusitis, Chronic hearing loss Psych: Depression, Anxiety, Panic attacks Musculoskeletal: Osteoarthritis, Fibromyalgia, Osteoporosis, Chronic back pain, Other Derm: None - Past Surgical History Past Surgical History: Yes General: Cholecystectomy, Other 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, Knee replacement /COLLAR TACKER: 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 HEENT: Other - Present Medications Home Medications: Ambulatory Orders Medication Instructions Recorded Confirmed Calcium Carbonate/Vitamin D3 2 tab PO DAILY 08/18/15 03/28/19 [Calcium 600 + Vit D 400 Softgl] Levothyroxine [Synthroid] 100 mcg PO QDAC 08/18/15 03/28/19 nadoloL [Corgard] 20 mg PO BID 08/18/15 03/28/19 Furosemide 20 mg PO DAILY 01/19/18 02/10/19 Spironolactone 50 mg PO DAILY 01/19/18 03/28/19 Glipizide 5 mg PO 0730 09/15/18 02/10/19 Lactobacillus Rhamnosus GG 1 cap PO BID 02/10/19 03/28/19 [Culturelle] Tizanidine HCl 2 mg PO TID PRN 03/28/19 03/28/19 Amitriptyline HCl 100 mg PO QPM 09/04/19 09/04/19 Bacitracin Zinc Oint 1 applic TOP BID #1 tube 02/06/20 Oxycodone HCl [Roxicodone] 0 mg PO PRN 02/06/20 oxyCODONE ER [OxyCONTIN] 0 mg BID 02/06/20 02/06/20 - Allergies Allergies/Adverse Reactions: Allergies Allergy/AdvReac Type Severity Reaction Status Date / Time metformin Allergy Severe "HORRIFIC" Verified 04/06/20 11:28 duloxetine Allergy Hives Verified 04/06/20 11:28 hydromorphone [From Dilaudid] Allergy Rash Verified 04/06/20 11:28 - Social History Does the pt smoke?: No Smoking Status: Never smoker Does the pt drink ETOH?: No Does the pt have substance abuse?: No - Immunizations Immunizations are current?: Yes - POLST Patient has POLST: No POLST Status: Full Code PD ED PE NORMAL - Vitals Vital signs reviewed: Yes - General General: Alert and oriented X 3, No acute distress - HEENT HEENT: Moist mucous membranes - Neck Neck: Supple, no meningeal sign - Cardiac Cardiac: RRR - Respiratory Respiratory: No respiratory distress, Clear bilaterally - Derm Derm: Warm and dry - Neuro Neuro: Alert and oriented X 3 - Psych Psych: Normal mood, Normal affect Results - Vitals Vitals: Vital Signs - 24 hr 04/06/20 04/06/20 11:25 12:13 Temperature 36.0 C L Heart Rate 79 79 Respiratory 16 16 Rate Blood Pressure 129/95 H 130/93 H O2 Saturation 96 97 Oxygen O2 Source [With Activity] Room air O2 Source [Without Activity] Room air O2 Source Room air PD MEDICAL DECISION MAKING - ED course Complexity details: considered differential, d/w patient ED course: The patient apparently has gone through her pain medication faster than or iginally prescribed. Informed her that even taking 4 of the oxycodone 15 mg tablets as previously prescribed, she should still have another week left of these medications. She should not have gone through a month supply of medications in 2 weeks. I gave her a dose of oxycodone here. Do not feel comfortable prescribing more narcotics for home at this time. We will have her contact her doctor tomorrow to discuss her medications. This document was made in part using voice recognition software. While efforts are made to proofread this document, sound alike and grammatical errors may occur. Departure - Departure Disposition: 01 Home, Self Care Clinical Impression: Narcotic withdrawal Condition: Good Instructions: ED Withdrawal Narcotic Follow-Up: LEMUEL ARAUJO MD [Primary Care Provider] - Tomorrow Comments: You need to follow-up with your primary care doctor tomorrow to discuss what to do with your chronic pain management. The clinic needs to help you with your medications.
[2020-04-06 13:28] VITALS: BP 143/101
== END 2020-04-06 13:28 | disposition home or self-care (01) ==
LOC: ED 11:18
DX: F11.23 Opioid dependence with withdrawal (principal); Z86.79 Personal history of other diseases of the circulatory system; I10 Essential (primary) hypertension; Z79.84 Long term (current) use of oral hypoglycemic drugs; E11.42 Type 2 diabetes mellitus with diabetic polyneuropathy
CPT/HCPCS: 99282; 99283; A9270

== ENCOUNTER 2020-04-29 14:51 | Emergency (ER) | payer OTHER ==
--- NOTE | 2020-04-29 15:38 | ED Physician Documentation ---
History of Present Illness - Stated complaint Stated Complaint: GLF - Chief complaint Chief Complaint: Trauma Hd/Nk - History obtained from History obtained from: Patient, Family - History of Present Illness Timing: Prior to arrival - Additonal information Additional information: 64-year-old female presents to the emergency department After becoming dizzy and having a ground-level fall this afternoon. Per her over the last few months that she has been having progressive bouts of dizziness and she has nearly fallen multiple times. This afternoon she was not walking steadily fell forward onto the front of her face. She has an abrasion on her nose as well as her chin. He reports that for much of the last month she has begun to have memory changes, she is starting to say words and sentences that do not make sense for the conversation. He does report that she has a long history of multiple joint pains and has been on oxycodone and OxyContin for a long time. There are times where she will begin to run out of her medicine and not begin to take it as frequently as she typically does and he says that her mind will clear. He states that she frequently runs out of her narcotic rx early (often weeks before they are due to be filled) Patient was seen here about 1 month ago for early opioid withdrawal and she had begun to run out of her oxycodone and OxyContin at home She does have a history of hypertension, hypothyroid, early diabetes, and a chronic pain syndrome. Review of Systems Constitutional: denies: Fever, Chills Eyes: denies: Loss of vision, Decreased vision, Photophobia Ears: denies: Loss of hearing Nose: denies: Rhinorrhea / runny nose, Congestion, Epistaxis Throat: denies: Dental pain / toothache, Oral lesions / sores Cardiac: denies: Chest pain / pressure, Palpitations, Pedal edema, Calf pain Respiratory: denies: Dyspnea GI: denies: Abdominal Pain, Abdominal Swelling, Nausea, Vomiting, Constipation, Diarrhea : denies: Dysuria, Frequency, Hesitancy Skin: reports: Abrasion (s) (chin and bridge of nose) Musculoskeletal: reports: Joint pain (chronic (knee, back, hips)). denies: Neck pain, Back pain Neurologic: reports: Confused, Head injury. denies: Generalized weakness, Focal weakness, Numbness, Difficulty speaking, Syncope, Seizure, LOC Psychiatric: denies: Depressed, Suicidal, Hallucinations, Delusions Endocrine: denies: Polydypsia, Polyuria, Weight loss, Weight gain PD PAST MEDICAL HISTORY - Past Medical History Cardiovascular: Hypertension, High cholesterol, Coronary artery disease, Peripheral Vascular Disease, Other Respiratory: COPD Neuro: Dementia, Headaches, Peripheral neuropathy, Other Endocrine/Autoimmune: Type 2 diabetes, HyPOthyroidism GI: GERD, Esophageal varices, Ulcers, C.difficile, Chronic constipation, Cirrhosis [employer]PA[employer]ER: None : Nocturia, Frequency HEENT: Chronic vision loss, Chronic sinusitis, Chronic hearing loss Psych: Depression, Anxiety, Panic attacks Musculoskeletal: Osteoarthritis, Fibromyalgia, Osteoporosis, Chronic back pain, Other Derm: None - Past Surgical History Past Surgical History: Yes General: Cholecystectomy, Other 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, Knee replacement /[employer]ER [employer]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: 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 HEENT: Other - Present Medications Home Medications: Ambulatory Orders Medication Instructions Recorded Confirmed Calcium Carbonate/Vitamin D3 2 tab PO DAILY 08/18/15 03/28/19 [Calcium 600 + Vit D 400 Softgl] Levothyroxine [Synthroid] 100 mcg PO QDAC 08/18/15 03/28/19 nadoloL [Corgard] 20 mg PO BID 08/18/15 03/28/19 Furosemide 20 mg PO DAILY 01/19/18 02/10/19 Spironolactone 50 mg PO DAILY 01/19/18 03/28/19 Glipizide 5 mg PO 0730 09/15/18 02/10/19 Lactobacillus Rhamnosus GG 1 cap PO BID 02/10/19 03/28/19 [Culturelle] Tizanidine HCl 2 mg PO TID PRN 03/28/19 03/28/19 Amitriptyline HCl 100 mg PO QPM 09/04/19 09/04/19 Bacitracin Zinc Oint 1 applic TOP BID #1 tube 02/06/20 Oxycodone HCl [Roxicodone] 0 mg PO PRN 02/06/20 oxyCODONE ER [OxyCONTIN] 0 mg BID 02/06/20 02/06/20 - Allergies Allergies/Adverse Reactions: Allergies Allergy/AdvReac Type Severity Reaction Status Date / Time metformin Allergy Severe "HORRIFIC" Verified 04/29/20 14:56 duloxetine Allergy Hives Verified 04/29/20 14:56 hydromorphone [From Dilaudid] Allergy Rash Verified 04/29/20 14:56 - Social History Does the pt smoke?: No Smoking Status: Never smoker Does the pt drink ETOH?: No Does the pt have substance abuse?: No - Immunizations Immunizations are current?: Yes - POLST Patient has POLST: No POLST Status: Full Code PD ED PE EXPANDED - General General: Alert. No: No acute distress, Anxious, In Pain - HEENT HEENT: PERRL, Moist mucous membranes - Eyes Eyes: PERRL, Normal accommodation - Neck Neck: Supple w/out meningeal sx. No: Bony TTP - Cardiac Cardiac: Regular Rate, Radial strong equal, Pedal strong equal, Cap refill < 2 sec. No: Murmur Present - Respiratory Respiratory: Clear to ausultation richi. No: Distress, Labored - Abdomen Abdomen: Normal Bowel sounds. No: Tender to palpation - Derm Derm: Abrasion (s) (chin, bridge of nose) - Extremities Extremities: Normal - Neuro Neuro: Confused, CNII-XII intact. No: Normal Speech (Inappropriate answers to some questions.) - GCS Eye Opening: Spontaneous Motor: Obeys Commands Verbal: Confused Total: 14 Results - Vitals Vitals: Vital Signs - 24 hr 04/29/20 04/29/20 04/29/20 14:56 15:37 16:30 Temperature 36.7 C Heart Rate 91 78 80 Respiratory 18 18 17 Rate Blood Pressure 112/77 116/91 H 165/79 H O2 Saturation 95 99 96 04/29/20 04/29/20 17:00 17:30 Temperature Heart Rate 84 80 Respiratory 12 15 Rate Blood Pressure 111/83 H 102/84 H O2 Saturation 98 95 Oxygen O2 Source [With Activity] Room air O2 Source [Without Activity] Room air O2 Source Room air - Labs Labs: Laboratory Tests 04/29/20 04/29/20 04/29/20 15:45 15:45 15:45 WBC 5.7 RBC 4.51 Hgb 13.6 Hct 41.0 MCV 90.9 MCH 30.2 MCHC 33.2 RDW 13.2 Plt Count 192 MPV 9.6 Neut # (Auto) 3.6 Lymph # (Auto) 1.2 L Wagoner # (Auto) 0.5 Eos # (Auto) 0.3 Baso # (Auto) 0.1 Absolute Nucleated RBC 0.00 Nucleated RBC % 0.0 Sodium 139 Potassium 3.8 Chloride 101 Carbon Dioxide 28 Anion Gap 10.0 BUN 12 Creatinine 0.7 Estimated GFR (MDRD) 84 L Glucose 166 H Calcium 9.3 Total Bilirubin 0.6 AST 28 ALT 24 Alkaline Phosphatase 102 Total Protein 8.0 Albumin 4.0 Globulin 4.0 Albumin/Globulin Ratio 1.0 Lipase 26 TSH 0.17 L Urine Color Urine Clarity Urine pH Ur Specific [place] Urine Protein Urine Glucose (UA) Urine Ketones Urine Occult Blood Urine Nitrite Urine Bilirubin Urine Urobilinogen Ur Leukocyte Esterase Urine RBC Urine WBC Ur Squamous Epith Cells Urine Bacteria Ur Microscopic Review Urine Culture Comments 04/29/20 16:07 WBC RBC Hgb Hct MCV MCH MCHC RDW Plt Count MPV Neut # (Auto) Lymph # (Auto) Wagoner # (Auto) Eos # (Auto) Baso # (Auto) Absolute Nucleated RBC Nucleated RBC % Sodium Potassium Chloride Carbon Dioxide Anion Gap BUN Creatinine Estimated GFR (MDRD) Glucose Calcium Total Bilirubin AST ALT Alkaline Phosphatase Total Protein Albumin Globulin Albumin/Globulin Ratio Lipase TSH Urine Color YELLOW Urine Clarity CLEAR Urine pH 7.0 Ur Specific [place] 1.015 Urine Protein NEGATIVE Urine Glucose (UA) NEGATIVE Urine Ketones NEGATIVE Urine Occult Blood NEGATIVE Urine Nitrite NEGATIVE Urine Bilirubin NEGATIVE Urine Urobilinogen 1 (NORMAL) Ur Leukocyte Esterase SMALL H Urine RBC None Seen Urine WBC 0-3 Ur Squamous Epith Cells FEW Squamous Urine Bacteria None Seen Ur Microscopic Review INDICATED Urine Culture Comments INDICATED PD MEDICAL DECISION MAKING - ED course Complexity details: reviewed results, considered differential, d/w patient ED course: 64-year-old female presents to the emergency department for evaluation after ground-level fall this afternoon because she was dizzy. Per her this is beginning to occur more frequently and he associates it with her oxycodone and OxyContin use. Neurologically she is mildly confused but does not have any obvious focal deficits.The CT of her head did not show any bleeds. Her electrolytes were essentially unremarkable. At this time given her history of opioid use, running out early and her 's concern of misuse of her opioids I suspect that they are likely contributing to her recurrent falls and confusion. We did do orthostatic blood pressures on her and there was no change in position. Her EKG is nonischemic and her high-sensitivity troponin is negative. I have discussed the CT findings with her and he reports that he will speak with her primary doctor about her opioid use and discuss if there are any other alternatives to helping manage her chronic pain. Departure - Departure Disposition: 01 Home, Self Care Clinical Impression: Opioid abuse, Falls frequently Facial abrasion Qualifiers: Encounter type: initial encounter Qualified Code(s): S00.81XA - Abrasion of other part of head, initial encounter Record reviewed to determine appropriate education?: Yes Follow-Up: LEMUEL ARAUJO MD [Primary Care Provider] - Comments: The CT scan of your head did not show any signs of bruising or bleeding. Your labs today are essentially normal. You do have contusions on your face from the fall but there is no broken bones. Please wash them gently with warm soap and water and apply any antibiotic ointment. I suspect that you are starting to fall more frequently and becoming confused because you are overusing your oxycodone and OxyContin. Please discuss this ED visit with your primary care doctor to determine if there are alternatives for your pain. Always walk with your walker. If you develop slurred speech, have facial droop, arm or leg weakness please return immediately to the emergency department
[2020-04-29 15:49] LABS: BASOPHILS # (AUTO) 0.1 10^3/uL (0.0-0.1); BASOPHILS % (AUTO) 0.9 %; EOSINOPHILS # (AUTO) 0.3 10^3/uL (0.0-0.7); EOSINOPHILS % (AUTO) 5.4 %; HGB - HEMOGLOBIN 13.6 g/dL (12.0-16.0); LYMPHOCYTES # (AUTO) 1.2 10^3/uL (1.5-3.5); MEAN CORPUSCULAR HEMOGLOBIN 30.2 pg (27.0-31.0); MEAN CORPUSCULAR HGB CONC 33.2 g/dL (32.0-36.0); MEAN CORPUSCULAR VOLUME 90.9 fL (81.0-99.0); MEAN PLATELET VOLUME 9.6 fL (7.9-10.8); MONOCYTES # (AUTO) 0.5 10^3/uL (0.0-1.0); MONOCYTES % (AUTO) 9.1 %; NEUTROPHILS # (AUTO) 3.6 10^3/uL (1.5-6.6); NEUTROPHILS % (AUTO) 63.4 %; PLT - PLATELET COUNT 192 10^3/uL (130-450); RED BLOOD COUNT 4.51 10^6/uL (4.20-5.40); RED CELL DISTRIBUTION WIDTH 13.2 % (12.0-15.0); WHITE BLOOD COUNT 5.7 x10^3/uL (4.8-10.8)
[2020-04-29 16:00] LABS: BILIRUBIN,TOTAL 0.6 mg/dL (0.2-1.0); CALCIUM 9.3 mg/dL (8.5-10.3); CREATININE 0.7 mg/dL (0.4-1.0)
[2020-04-29 16:21] LABS: BILIRUBIN,URINE NEGATIVE (NEGATIVE); GLUCOSE, URINE (UA) NEGATIVE (NEGATIVE); KETONES,URINE (UA) NEGATIVE (NEGATIVE); LEUKOCYTE ESTERASE, URINE SMALL (NEGATIVE); NITRITE,URINE NEGATIVE (NEGATIVE); OCCULT BLOOD,URINE NEGATIVE (NEGATIVE); PROTEIN,URINE NEGATIVE (NEGATIVE); UROBILINOGEN,URINE 1 (NORMAL) E.U./dL (NORMAL)
[2020-04-29 16:22] LABS: CLARITY,URINE CLEAR (CLEAR)
--- NOTE | 2020-04-29 16:32 | CT Report ---
PROCEDURE: HEAD WO INDICATIONS: GLF; facial trauma; confusion TECHNIQUE: Noncontrast 4.5 mm thick angled axial sections acquired from the foramen magnum to the vertex. For r adiation dose reduction, the following was used: automated exposure control, adjustment of mA and/or kV according to patient size. COMPARISON: Prior head CT 02/06/2020. Correlation is also made with brain MRI 02/27/2020 FINDINGS: Image quality: Excellent. CSF spaces: Basal cisterns are patent. No extra-axial fluid collections. Ventricles are normal in size and shape. Brain: No midline shift. No intracranial masses or hemorrhage. Solano-white matter interface is norm al. Brain parenchymal volume loss is seen. Chronic small vessel ischemic change can be seen. Skull and face: Calvarium and visualized facial bones are intact, without suspicious lesions. Sinuses: Visualized sinuses and mastoids are clear. IMPRESSION: No intracranial hemorrhage is seen. No displaced fractures identified. Age-appropriate brain parenchymal volume loss and chronic small vessel ischemic change can be seen. Reviewed by: Geoff Gamez MD on 04/29/2020 3:30 PM [facility] Approved by: Geoff Gamez MD on 04/29/2020 3:30 PM [facility] Station ID: [id number]
[2020-04-29 16:52] LABS: BACTERIA,URINE None Seen /HPF (None Seen); RBC,URINE None Seen /HPF (0-5); SQUAMOUS EPITHELIAL CELL,UR FEW Squamous (<= Few)
[2020-04-29 18:27] VITALS: BP 102/86
== END 2020-04-29 18:25 | disposition home or self-care (01) ==
LOC: ED 14:51
DX: S00.31XA Abrasion of nose, initial encounter (principal); S00.81XA Abrasion of other part of head, initial encounter; W01.198A Fall on same level from slipping, tripping and stumbling with subsequent striking against other object, initial encounter; Y92.007 Garden or yard of unspecified non-institutional (private) residence as the place of occurrence of the external cause; Z91.81 History of falling; R41.3 Other amnesia; F11.10 Opioid abuse, uncomplicated; I10 Essential (primary) hypertension; G89.4 Chronic pain syndrome
CPT/HCPCS: 36415; 70450; 80053; 81001; 81003; 83690; 84443; 85025; 87086; 99283

== ENCOUNTER 2020-09-13 15:05 | Outpatient (CLI) | payer MEDICARE, OTHER ==
--- NOTE | 2020-09-13 17:01 | XRAY Report ---
PROCEDURE: Forearm RT INDICATIONS: CONTUSION O RIGHT FOREARM TECHNIQUE: 2 views of the forearm were acquired. COMPARISON: None FINDINGS: Bones: No acute fracture or malalignment. Minimal negative ulnar variance. Soft tissues: Mild soft tissue swelling/edema along the radial aspect of the midforearm. IMPRESSION: No acute osseous abnormality. Reviewed by: Miguelito Torres DO on 09/13/2020 4:00 PM [facility] Approved by: Miguelito Torres DO on 09/13/2020 4:00 PM [facility] Station ID: [id number]
== END 2020-09-13 15:06 | disposition home or self-care (01) ==
LOC: DI.N 15:05
PROVIDERS: ATTEND Family Medicine
DX: S50.11XA Contusion of right forearm, initial encounter (principal)

== ENCOUNTER 2020-10-20 09:07 | Outpatient (CLI) | payer MEDICARE ==
--- NOTE | 2020-10-20 10:51 | Ultrasound Report ---
PROCEDURE: Abdomen Complete INDICATIONS: ALCOHOLIC CIRRHOSIS OF LIVER WITH ASCITES TECHNIQUE: Real-time scanning was performed of the abdominal and retroperitoneal organs, with image documentatio n. COMPARISON: 02/10/2019 CT abdomen and pelvis; 07/29/2019 abdominal ultrasound FINDINGS: Liver: Cirrhotic liver morphology with borderline hepatomegaly. Hepatopetal flow in the portal veins. No evidence of liver mass sonographically. Gallbladder: Status post cholecystectomy. Biliary ducts: No intrahepatic or extra hepatic biliary ductal dilatation. Pancreas: Visualized portions of the pancreas are sonographically normal. Spleen: Enlarged spleen measuring approximately 15 cm. Multiple anechoic and hypoechoic lesions consi stent with cysts are redemonstrated, at least one is slightly increased from 02/10/2019 exam currently measuring 2.4 cm compared with 1.3 cm previously. Kidneys: Both kidneys within normal limits. Aorta: Visualized aorta is normal in caliber at less than 3 cm. Iliacs: Proximal common iliac arteries are normal in caliber at less than 2.5 cm. IVC: Intrahepatic inferior vena cava is patent. Miscellaneous: No free abdominal fluid. IMPRESSION: Cirrhosis with hepatosplenomegaly. Reviewed by: Karson Monge MD on 10/20/2020 10:50 AM [facility] Approved by: Karson Monge MD on 10/20/2020 10:50 AM PST Station ID: [id number]
== END 2020-10-20 09:08 | disposition home or self-care (01) ==
LOC: DI 09:07
PROVIDERS: ATTEND Internal Medicine Gastroenterology
DX: K70.31 Alcoholic cirrhosis of liver with ascites (principal); R16.2 Hepatomegaly with splenomegaly, not elsewhere classified

== ENCOUNTER 2021-03-10 17:30 | Outpatient (CLI) | payer MEDICARE ==
[2021-03-10] MEDS ORDERED: IOVERSOL 320 100 ML VIAL IVP ONE ×2 (18:02→23:27)
--- NOTE | 2021-03-10 19:15 | CT Report ---
PROCEDURE: IVP INDICATIONS: HEMATURIA CONTRAST: IV CONTRAST: Optiray 320 ml: 100 PO CONTRAST: *NO PO CONTRAST TECHNIQUE: After the administration of intravenous contrast, 5 mm thick sections acquired from the diaphragms to the symphysis. 5 mm thick coronal and sagittal reformats were acquired. For radiation dose reducti on, the following was used: automated exposure control, adjustment of mA and/or kV according to daniel ent size. COMPARISON: CT abdomen/pelvis 02/10/2019. Abdominal ultrasound 10/20/2020. FINDINGS: Image quality: Excellent. Lung bases: Lung bases are clear. Heart size is normal. Urinary system: Both kidneys are normal in size and enhancement. Contrast-filled renal calyces are normal in morphology. Contrast filled portions of both ureters are normal in caliber. The distal lef t ureter does not fill with contrast material. There is mild irregularity of the posterior bladder wa ll. Solid organs: Nodular liver contour is consistent with cirrhosis. No enhancing hepatic mass is seen. The spleen is moderately enlarged. Hypodense lesions in the spleen have mildly increased in size when compared to the CT from 02/10/2019, but appear to be cystic on ultrasound from 10/20/2020 and are consi dered benign. Gallbladder is surgically absent. Biliary system is non dilated. Pancreas enhances n ormally. No adrenal nodules. Peritoneum and bowel: There is colonic diverticulosis without signs of acute diverticulitis. No signs of small bowel obstruction. Normal appendix. No ascites or pneumoperitoneum. Nodes and vessels: No retroperitoneal or mesenteric adenopathy by size criteria. Aorta and inferior vena cava are normal in size. Abdominal wall: No ventral hernias. Pelvis: No pathologic free pelvic fluid. No inguinal hernias or adenopathy. Status post hysterecto my. Bones: No suspicious bony lesions. No vertebral body compression fractures. Postsurgical changes a re seen from right hip arthroplasty and left hip internal fixation with associated metallic streak ar tifact that obscures adjacent structures. Mild to moderate degenerative changes in the included spine . IMPRESSION: 1. Mild irregularity of the posterior bladder without a focal masslike lesion. Findings are nonspeci fic and could be related to flow artifact from the ureteral insertions, but a urothelial neoplasm is not excluded. Recommend correlation with clinical findings and possible cystoscopy. No ureteral lesio n is seen. 2. No nephrolithiasis or hydronephrosis. 3. Hepatic cirrhosis with moderate splenomegaly. No ascites. 4. Colonic diverticulosis without signs of acute diverticulitis. Reviewed by: Gaurav Delarosa MD on 03/10/2021 6:14 PM [facility] Approved by: Gaurav Delarosa MD on 03/10/2021 6:14 PM [facility] Station ID: [id number]
== END 2021-03-10 17:31 | disposition home or self-care (01) ==
LOC: DI 17:30
PROVIDERS: ATTEND Internal Medicine
DX: R31.0 Gross hematuria (principal); K74.60 Unspecified cirrhosis of liver; K57.30 Diverticulosis of large intestine without perforation or abscess without bleeding
CPT/HCPCS: 74178; Q9967

== ENCOUNTER 2022-07-03 08:30 | Outpatient (CLI) | payer MEDICARE | END 2022-07-03 23:59 | disposition short-term general hospital (02) | LOC: EMS 08:30 | DX: S79.922A Unspecified injury of left thigh, initial encounter (principal); S89.92XA Unspecified injury of left lower leg, initial encounter; W18.39XA Other fall on same level, initial encounter; Y92.003 Bedroom of unspecified non-institutional (private) residence as the place of occurrence of the external cause | CPT/HCPCS: A0425; A0427 ==

== ENCOUNTER 2023-01-06 09:02 | Outpatient (CLI) | payer MEDICARE | END 2023-01-06 09:03 | disposition home or self-care (01) | LOC: LAB 09:02 | PROVIDERS: ATTEND Internal Medicine Gastroenterology | DX: K70.30 Alcoholic cirrhosis of liver without ascites (principal) ==

== ENCOUNTER 2023-01-06 09:02 | Outpatient (CLI) | payer MEDICARE ==
[2023-01-06 09:47] LABS: BASOPHILS # (AUTO) 0.1 10^3/uL (0.0-0.1); BASOPHILS % (AUTO) 0.9 %; EOSINOPHILS # (AUTO) 0.1 10^3/uL (0.0-0.7); EOSINOPHILS % (AUTO) 2.1 %; HGB - HEMOGLOBIN 15.7 g/dL (12.0-16.0); LYMPHOCYTES # (AUTO) 1.6 10^3/uL (1.5-3.5); LYMPHOCYTES % (AUTO) 30.7 %; MEAN CORPUSCULAR HEMOGLOBIN 34.1 pg (27.0-31.0); MEAN CORPUSCULAR HGB CONC 34.1 g/dL (32.0-36.0); MEAN CORPUSCULAR VOLUME 99.8 fL (81.0-99.0); MONOCYTES # (AUTO) 0.4 10^3/uL (0.0-1.0); MONOCYTES % (AUTO) 7.3 %; NEUTROPHILS # (AUTO) 3.1 10^3/uL (1.5-6.6); NEUTROPHILS % (AUTO) 58.8 %; PLT - PLATELET COUNT 144 10^3/uL (130-450); RED BLOOD COUNT 4.61 10^6/uL (4.20-5.40); WHITE BLOOD COUNT 5.3 x10^3/uL (4.8-10.8)
[2023-01-06 09:52] LABS: INR 1.1 (0.8-1.2); PT - PROTHROMBIN TIME 12.2 secs (9.9-12.6)
--- NOTE | 2023-01-06 10:17 | Ultrasound Report ---
PROCEDURE: Abdomen Limited INDICATIONS: ALCOHOLIC CIRRHOSIS TECHNIQUE: Real-time focused scanning was performed of the abdomen, with image documentation. COMPARISONS: None. FINDINGS: Liver: Cirrhosis. No solid mass. Gallbladder: Absent. Biliary ducts: Intrahepatic bile ducts are non-dilated. Extrahepatic bile duct caliber measures 6 m m. Normal is 6-7 mm or less in diameter, or 10 mm or less post-cholecystectomy. Pancreas: Visualized portions of the pancreas are sonographically normal. Right kidney: Small, with normal echogenicity. Right kidney measures 8 cm long. No hydronephrosis or nephrolithiasis. No solid masses. No complex renal cystic lesions which require follow-up. Aorta: Visualized aorta is normal in caliber at less than 3 cm. IVC: Intrahepatic inferior vena cava is patent. Miscellaneous: No free abdominal fluid. IMPRESSION: Cirrhosis without solid mass. Small right kidney. Reviewed by: Rohan Skaggs on 01/06/2023 10:15 AM PDT Approved by: Rohan Skaggs on 01/06/2023 10:15 AM PDT Station ID: [id number]
[2023-01-06 11:29] LABS: ALBUMIN 3.7 g/dL (3.2-5.5); BILIRUBIN,DIRECT 0.1 mg/dL (0.1-0.5); BILIRUBIN,TOTAL 0.7 mg/dL (0.2-1.0); CALCIUM 9.1 mg/dL (8.5-10.3); CREATININE 0.5 mg/dL (0.4-1.0); POTASSIUM 3.3 mmol/L (3.5-5.0); TOTAL PROTEIN 7.5 g/dL (6.7-8.2)
== END 2023-01-06 09:03 | disposition home or self-care (01) ==
LOC: DI 09:02
PROVIDERS: ATTEND Internal Medicine Gastroenterology
DX: K70.30 Alcoholic cirrhosis of liver without ascites (principal)
CPT/HCPCS: 36415; 80048; 80076; 82105; 85025; 85610

== ENCOUNTER 2023-01-30 21:39 | Outpatient (CLI) | payer MEDICARE | END 2023-01-30 21:40 | disposition critical access hospital (66) | LOC: EMS 21:39 | DX: R50.9 Fever, unspecified (principal); R51.9 Headache, unspecified; R09.89 Other specified symptoms and signs involving the circulatory and respiratory systems | CPT/HCPCS: A0425; A0429 ==

== ENCOUNTER 2023-01-30 21:57 | Inpatient (IN) | payer MEDICARE ==
[2023-01-30] MEDS ORDERED: ACETAMINOPHEN 325 MG TABLET PO STA (22:26)
[2023-01-30] MEDS ORDERED: SODIUM CHLORIDE 0.9% 2,000 ML IV STA (22:41)
[2023-01-30] MEDS ORDERED: SODIUM CHLORIDE 0.9% 1,500 ML IV STA (22:42)
[2023-01-30] MEDS ORDERED: cefTRIAXone 1 GM in SODIUM CHLORIDE 0.9% MINIBAG 100 ML IV STA (22:42)
[2023-01-30] MEDS ORDERED: AZITHROMYCIN INJ 500 MG in SODIUM CHLORIDE 0.9% 250 ML IV STA (22:42)
--- NOTE | 2023-01-30 22:45 | ED Physician Documentation ---
PD HPI DYSPNEA - Stated complaint Stated Complaint: FEVER,HEADACHE - Chief complaint Chief Complaint: Resp - History obtained from History obtained from: Patient, Family (significant other) - Additional information Additional information: 67yF With past medical history of diabetes, hypothyroidism, presents with fever for the past 3 days with body aches, productive cough, sore throat and shortness of breath today. Tmax 103.5. EMS reports on scene patient had room air saturation of 84%. This improved to 91% on 6 L of oxygen. patient denies hemoptysis, leg swelling. 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 : Nocturia, Frequency HEENT: Chronic vision loss, Chronic sinusitis, Chronic hearing loss Psych: Depression, Anxiety, Panic attacks Musculoskeletal: Osteoarthritis, Fibromyalgia, Osteoporosis, Chronic back pain, Other Derm: None - Past Surgical History Past Surgical History: Yes General: Cholecystectomy, Other 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, Knee replacement /WORLDWIDE CHIEF CREATIVE OFFICER: 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 HEENT: Other - Present Medications Home Medications: Ambulatory Orders Medication Instructions Recorded Confirmed Calcium Carbonate/Vitamin D3 2 tab PO DAILY 08/18/15 03/28/19 [Calcium 600Mg-D3 400 Unit Sfgl] Levothyroxine [Synthroid] 100 mcg PO QDAC 08/18/15 03/28/19 nadoloL [Corgard] 20 mg PO BID 08/18/15 03/28/19 Furosemide 20 mg PO DAILY 01/19/18 02/10/19 Spironolactone 50 mg PO DAILY 01/19/18 03/28/19 glipiZIDE [Glipizide] 5 mg PO 0730 09/15/18 02/10/19 Lactobacillus Rhamnosus GG 1 cap PO BID 02/10/19 03/28/19 [Culturelle] Tizanidine HCl 2 mg PO TID PRN 03/28/19 03/28/19 Amitriptyline HCl 100 mg PO QPM 09/04/19 09/04/19 Bacitracin Zinc Oint 1 applic TOP BID #1 tube 02/06/20 Oxycodone HCl [Roxicodone] 0 mg PO PRN 02/06/20 oxyCODONE ER [OxyCONTIN] 0 mg BID 02/06/20 02/06/20 - Allergies Allergies/Adverse Reactions: Allergies Allergy/AdvReac Type Severity Reaction Status Date / Time metformin Allergy Severe "HORRIFIC" Verified 01/30/23 22:10 duloxetine Allergy Hives Verified 01/30/23 22:10 hydromorphone [From Dilaudid] Allergy Rash Verified 01/30/23 22:10 - Social History Does the pt smoke?: No Smoking Status: Never smoker Does the pt drink ETOH?: No Does the pt have substance abuse?: No - Immunizations Immunizations are current?: Yes - POLST Patient has POLST: No POLST Status: Full Code PD ED PE NORMAL - Vitals Vital signs reviewed: Yes - General General: Alert and oriented X 3, No acute distress, Other (elderly appearing) - HEENT HEENT: Atraumatic, PERRL, EOMI, Moist mucous membranes, Pharynx benign - Neck Neck: Supple, no meningeal sign - Cardiac Cardiac: Other (tachycardic rate, regular rhythm) - Respiratory Respiratory: Other (BL rales, decreased breath sounds R midlung field) - Abdomen Abdomen: Non tender, Non distended - Derm Derm: Normal color, Warm and dry Results - Vitals Vitals: Vital Signs - 24 hr 01/30/23 01/30/23 01/30/23 22:03 22:51 23:09 Temperature 37.9 C Heart Rate 90 85 Respiratory 20 15 14 Rate Blood Pressure 123/73 125/86 H O2 Saturation 91 L 87 L 90 L 01/30/23 23:19 Temperature Heart Rate Respiratory 12 Rate Blood Pressure O2 Saturation 94 Oxygen O2 Source [With Activity] Room air O2 Source [Without Activity] Room air O2 Source Oxymask Oxygen Flow Rate 15 - EKG (time done) 2316 EKG releavant findings:: EKG personally interpreted by author of this note. Relevant findings are: Rate: Rate (enter#) (78) Rhythm: NSR Intervals: Normal MI, Other (long qt/qtc 462/527) QRS: Normal Ischemia: Normal ST segments - Labs Labs: Laboratory Tests 01/30/23 01/30/23 01/30/23 22:18 22:52 22:52 WBC 21.7 H RBC 4.30 Hgb 14.6 Hct 42.0 MCV 97.7 MCH 34.0 H MCHC 34.8 RDW 12.8 Plt Count 155 MPV 9.6 VBG pH VBG pCO2 VBG pO2 VBG HCO3 VBG Total CO2 VBG O2 Saturation VBG Base Excess Sodium 136 Potassium 3.0 L Chloride 100 L Carbon Dioxide 27 Anion Gap 9.0 BUN 22 H Creatinine 0.7 Estimated GFR (MDRD) 83 L Glucose 162 H Lactic Acid Calcium 9.5 Total Bilirubin 1.4 H AST 26 ALT 17 Alkaline Phosphatase 62 Total Protein 7.4 Albumin 3.2 Globulin 4.2 Albumin/Globulin Ratio 0.8 L Nasal Adenovirus (PCR) NOT DETECTED Nasal B. parapertussis DNA (PCR) NOT DETECTED Nasal Coronavir 229E PCR NOT DETECTED Nasal Coronavir HKU1 PCR NOT DETECTED Nasal Coronavir NL63 PCR NOT DETECTED Nasal Coronavir OC43 PCR NOT DETECTED Nasal Enterovir/Rhinovir PCR NOT DETECTED Nasal Influenza B PCR NOT DETECTED Nasal Influenza A PCR NOT DETECTED Nasal Parainfluen 1 PCR NOT DETECTED Nasal Parainfluen 2 PCR NOT DETECTED Nasal Parainfluen 3 PCR NOT DETECTED Nasal Parainfluen 4 PCR NOT DETECTED Nasal RSV (PCR) NOT DETECTED Nasal B.pertussis DNA PCR NOT DETECTED Nasal C.pneumoniae (PCR) NOT DETECTED Heriberto Human Metapneumo PCR NOT DETECTED Nasal M.pneumoniae (PCR) NOT DETECTED Nasal SARS-CoV-2 (PCR) NOT DETECTED 01/30/23 01/30/23 22:52 22:52 WBC RBC Hgb Hct MCV MCH MCHC RDW Plt Count MPV VBG pH 7.464 H VBG pCO2 38.7 L VBG pO2 65.0 H VBG HCO3 27.2 VBG Total CO2 28.3 VBG O2 Saturation 93.2 H VBG Base Excess 3.3 H Sodium Potassium Chloride Carbon Dioxide Anion Gap BUN Creatinine Estimated GFR (MDRD) Glucose Lactic Acid 1.2 Calcium Total Bilirubin AST ALT Alkaline Phosphatase Total Protein Albumin Globulin Albumin/Globulin Ratio Nasal Adenovirus (PCR) Nasal B. parapertussis DNA (PCR) Nasal Coronavir 229E PCR Nasal Coronavir HKU1 PCR Nasal Coronavir NL63 PCR Nasal Coronavir OC43 PCR Nasal Enterovir/Rhinovir PCR Nasal Influenza B PCR Nasal Influenza A PCR Nasal Parainfluen 1 PCR Nasal Parainfluen 2 PCR Nasal Parainfluen 3 PCR Nasal Parainfluen 4 PCR Nasal RSV (PCR) Nasal B.pertussis DNA PCR Nasal C.pneumoniae (PCR) Heriberto Human Metapneumo PCR Nasal M.pneumoniae (PCR) Nasal SARS-CoV-2 (PCR) PD Medical Decision Making - ED course ED course: 67yF p/w soa And hypoxia with oxygen saturation between 89 and 93 on 6 L of oxygen by nasal cannula. She is found to have R sided pneumonia on cxr by my interpretation and that of outside radiologist. Full Septic work-up initiated including CBC, abdominal panel, lactic acid, venous blood gas, Respiratory viral panel, blood cultures, EKG, 30 cc/kg bolus of IV fluids. Rocephin and azithromycin administered IV to empirically treat pneumonia. Patient with leukocytosis WBC 20 on labwork. Plan [facility] Departure - Departure Clinical Impression: Pneumonia, Hypoxia, Sepsis, Leukocytosis
[2023-01-30 22:59] LABS: EOSINOPHILS % (AUTO) 0.1 %; HGB - HEMOGLOBIN 14.6 g/dL (12.0-16.0); LYMPHOCYTES % (AUTO) 4.6 %; MEAN CORPUSCULAR HGB CONC 34.8 g/dL (32.0-36.0); MEAN CORPUSCULAR VOLUME 97.7 fL (81.0-99.0); MEAN PLATELET VOLUME 9.6 fL (7.9-10.8); MONOCYTES % (AUTO) 4.5 %; NEUTROPHILS % (AUTO) 89.9 %; PLT - PLATELET COUNT 155 10^3/uL (130-450); RED CELL DISTRIBUTION WIDTH 12.8 % (12.0-15.0); WHITE BLOOD COUNT 21.7 x10^3/uL (4.8-10.8)
[2023-01-30 23:01] LABS: ABNORMAL LYMPHS % (MANUAL) 0 %; VBG PCO2 38.7 mmHg (41-51); VBG PH 7.464 (7.31-7.41)
[2023-01-30 23:03] LABS: VBG BASE EXCESS 3.3 mmol/L (-2 - +2); VBG HCO3 27.2 mmol/L (23-28); VBG TOTAL CO2 28.3 mmol/L (24-29)
[2023-01-30 23:04] LABS: VBG OXYGEN SATURATION 93.2 % (60-80)
[2023-01-30] MEDS ORDERED: cefTRIAXone 1 GM VIAL ONE (23:15)
[2023-01-30 23:19] LABS: ALBUMIN 3.2 g/dL (3.2-5.5); ALBUMIN/GLOBULIN RATIO 0.8 (1.0-2.2); BILIRUBIN,TOTAL 1.4 mg/dL (0.2-1.0); CALCIUM 9.5 mg/dL (8.5-10.3); CREATININE 0.7 mg/dL (0.4-1.0); TOTAL PROTEIN 7.4 g/dL (6.7-8.2)
[2023-01-30 23:21] LABS: B. PARAPERTUSSIS- RESP PCR PAN NOT DETECTED; B. PERTUSSIS- RESP PCR PANEL NOT DETECTED; C. PNEUMONIAE- RESP PCR PANEL NOT DETECTED; CORONAVIRUS 229E-RESP PCR NOT DETECTED; CORONAVIRUS HKU1-RESP PCR NOT DETECTED; CORONAVIRUS NL63-RESP PCR NOT DETECTED; CORONAVIRUS OC43-RESP PCR NOT DETECTED; HUMAN METAPNEUMOVIRUS NOT DETECTED; INFLUENZA A- RESP PCR PANEL NOT DETECTED; INFLUENZA B - RESP PCR PANEL NOT DETECTED; M. PNEUMONIAE- RESP PCR PANEL NOT DETECTED; PARAINFLUENZA VIRUS 1 NOT DETECTED; PARAINFLUENZA VIRUS 2 NOT DETECTED; PARAINFLUENZA VIRUS 3 NOT DETECTED; PARAINFLUENZA VIRUS 4 NOT DETECTED; RHINOVIRUS/ENTEROVIRUS NOT DETECTED; RSV- RESP PCR PANEL NOT DETECTED; SARS-CoV-2 -RESP PCR PANEL NOT DETECTED
--- NOTE | 2023-01-30 23:22 | XRAY Report ---
PROCEDURE: Chest 1 View X-Ray INDICATIONS: Sepsis TECHNIQUE: One view of the chest was acquired. COMPARISON: None. FINDINGS: Surgical changes and devices: None. Lungs and pleura: There are confluent right infrahilar opacities. No pleural effusions or pneumothor ax. Mediastinum: Mediastinal contours appear normal. Heart size is normal. Bones and chest wall: No suspicious bony lesions. Overlying soft tissues appear unremarkable. IMPRESSION: 1. Confluent right infrahilar opacities likely represent consolidation and pneumonia given clinical h istory. However, an underlying mass cannot be excluded. Recommend short-term follow-up to demonstrate resolution. Reviewed by: Sebastian Smith MD on 01/30/2023 11:21 PM PDT Approved by: Sebastian Smith MD on 01/30/2023 11:21 PM PDT Station ID: [id number]
[2023-01-30] MEDS ORDERED: POTASSIUM CHLOR 10 MEQ/100 ML 10 MEQ/100 ML BAG IV STA (23:24)
[2023-01-30] MEDS ORDERED: POTASSIUM CHLORIDE 20 MEQ/15 ML UDC PO STA (23:24)
[2023-01-30 23:25] LABS: BAND NEUTROPHILS % (MANUAL) 9 %; LYMPHOCYTES # (MANUAL) 0.4 10^3/uL (1.5-3.5); LYMPHOCYTES % (MANUAL) 2 %; MONOCYTES # (MANUAL) 0.9 10^3/uL (0.0-1.0); NEUTROPHILS # (MANUAL) 20.4 10^3/uL (1.5-6.6)
[2023-01-30 23:26] LABS: DIFFERENTIAL COMMENT MANUAL DIFFERENTIAL; PLATELET ESTIMATE, MANUAL NORMAL (130-450,000) (NORMAL); PLATELET MORPHOLOGY NORMAL APPEARANCE (NORMAL); RBC MORPHOLOGY (MULTIPLE) NORMAL APPEARANCE (NORMAL); WBC MORPHOLOGY (MULTIPLE) NORMAL APPEARANCE (NORMAL)
--- NOTE | 2023-01-30 23:35 | HISTORY & PHYSICAL EXAMINATION ---
Chief Complaint - Chief Complaint Chief Complaint: Shortness of breath History of Present Illness - Admitted From Admitted From:: ER - History Obtained From Records Reviewed: Yes History obtained from: Patient, chart, staff Exam Limitations: H&P was conducted via video remotely, using Access Cart. - History of Present Illness HPI Comment/Other: Patient is in [place]. Physician is in [place]. 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 67 yo F with h/o HTN, DM type 2, Hypothyroidism, GERD, ETOH Cirrhosis, Fibromyalgia, chronic pain, LBP presented to the ER with c/o 3-4 day h/o URI symptoms and 1 day h/o shortness of breath with Hypoxia. Pt began to have symptoms 3-4 days ago of sore throat, headache, myalgias. She then began to have chest congestion, cough with clear sputum, F/C with Tm 103.5F. Today, she began to have shortness of breath. Her checked her SpO2 and it was in the 80s, so he called EMS. Pt has no known sick contacts; is not sick. No hemoptysis, leg swelling. No CP. No N/V/abdo pain/urinary symptoms. Pt is an ex- smoker; she quit 50 years ago. She quit drinking ETOH 10 years ago. She denies active symptoms from her cirrhosis. When EMS arrived, SpO2 84% on RA, 91% on 6L NC. In the ER, SpO2 91% 6L NC O2, WBC 21.7, K 3.0, Glc 162 CXR: R Infrahilar opacity, most likely pneumonia, but mass possible Pt was given IVF, Rocephin/Azithro in the ER. 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 : reports: Nocturia, Frequency HEENT: reports: Chronic vision loss, Chronic sinusitis, Chronic hearing loss Psych: reports: Depression, Anxiety, Panic attacks Musculoskeletal: reports: Osteoarthritis, Fibromyalgia, Osteoporosis, Chronic back pain, Other Derm: reports: None MRSA Hx?: Yes - Past Surgical History General: reports: Cholecystectomy, Other Ortho: reports: Hip replacement, Knee replacement /GRAVEL HAULER: reports: 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 HEENT: reports: Other - Family & Social History Family History: Mother: , Father: , Brother: Alive and Well Family History Comment/Other: Dad of a massive heart attack at the age of 49. Mom at age 84 with hypertension, fibromyalgia, and an abdominal cancer. She was also a breast cancer survivor. 2 brothers are alive and healthy with no major medical illnesses. 3 children are also all healthy. Social History Notes: She is for 14 years and she met her partner, Oumar, 12 years ago. She has 3 children.She never smoked. She did have a history of alcohol abuse in the past. She does not use cannabis. 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 She cannot stand for very long or walk for very long can do some vacuuming, light dish washing etc. 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 She has a lot of employees to do the brunt of the work. She was born and raised in [place]. She came to [facility] about 20 years ago to be close to her mom, and both of her brothers who are all living [place] the [place]. Both brothers own car dealerships. One brother owns the [employer] dealership and the other brother owns the [employer] dealership. She has a history of tobacco abuse from age [age], admits to alcoholism, and denies illicit drug use. She wishes to be a FULL code. - Substance History Use: Uses substance without health or social issues: NONE - POLST Patient has POLST: No POLST Status: Full Code Meds/Allgy - Home Medications Home Medications: Ambulatory Orders Medication Instructions Recorded Confirmed Calcium Carbonate/Vitamin D3 2 tab PO DAILY 08/18/15 03/28/19 [Calcium 600Mg-D3 400 Unit Sfgl] Levothyroxine [Synthroid] 100 mcg PO QDAC 08/18/15 03/28/19 nadoloL [Corgard] 20 mg PO BID 08/18/15 03/28/19 Furosemide 20 mg PO DAILY 01/19/18 02/10/19 Spironolactone 50 mg PO DAILY 01/19/18 03/28/19 glipiZIDE [Glipizide] 5 mg PO 0730 09/15/18 02/10/19 Lactobacillus Rhamnosus GG 1 cap PO BID 02/10/19 03/28/19 [Culturelle] Tizanidine HCl 2 mg PO TID PRN 03/28/19 03/28/19 Amitriptyline HCl 100 mg PO QPM 09/04/19 09/04/19 Bacitracin Zinc Oint 1 applic TOP BID #1 tube 02/06/20 Oxycodone HCl [Roxicodone] 0 mg PO PRN 02/06/20 oxyCODONE ER [OxyCONTIN] 0 mg BID 02/06/20 02/06/20 - Allergies Allergies/Adverse Reactions: Allergies Allergy/AdvReac Type Severity Reaction Status Date / Time metformin Allergy Severe "HORRIFIC" Verified 01/30/23 22:10 duloxetine Allergy Hives Verified 01/30/23 22:10 hydromorphone [From Dilaudid] Allergy Rash Verified 01/30/23 22:10 Review of Systems - All Other Systems All Other Systems: reports: Reviewed and negative Exam - Vital Signs Reviewed Vital Signs: Yes Vital Signs: Vital Signs x48h Temp Pulse Resp BP Pulse Ox 01/30/23 23:19 12 94 01/30/23 23:09 14 90 L 01/30/23 22:51 85 15 125/86 H 87 L 01/30/23 22:03 37.9 C 90 20 123/73 91 L - Physical Exam General Appearance: positive: No acute distress, Alert Eyes Bilateral: positive: EOMI, No scleral icterus ENT: positive: Dry mucous membranes Respiratory: positive: Other (Access cart stethoscope not working; per ER Provider: B/L rales, decreased breath sounds R midlung) Cardiovascular: positive: Other (Access cart stethoscope not working; per ER Provider: RR, Tachycardia, no murmurs) Abdomen: positive: Other (per ER Provider: non-distended, NT, Soft) Extremities: positive: Nml appearance Neurologic/Psychiatric: positive: Oriented x3, CN's nml (2-12) Conclusion/Plan - Problem List (1) Pneumonia Conclusion/Plan: Pneumonia Shortness of breath Fever Hypoxia Leukocytosis -When EMS arrived, SpO2 84% on RA, 91% on 6L NC. -In the ER, SpO2 91% 6L NC O2, WBC 21.7 -CXR: R Infrahilar opacity, most likely pneumonia, but mass possible -Pt was given IVF, Rocephin/Azithro in the ER. -admit to MedSurg -continue IVF, Rocephin/Azithro -continue O2 support Abnormal CXR -CXR: R Infrahilar opacity, most likely pneumonia, but mass possible -Repeat CXR once symptoms improved Hypokalemia -K 3.0 -pt was given KCl 40 mEq PO and 10 meq IV in the ER. -supplement; monitor HTN -continue home medications: Graham DM type 2 -Glc 162 -accuchecks, SS Insulin, Hypoglycemic protocol -hold home PO medications: Glipizide -check Hgba1c Hypothyroidism -continue home medications: Levothyroxine ETOH Cirrhosis, She quit drinking ETOH 10 years ago. She denies active symptoms from her cirrh osis. -continue home medications: Corgard -hold home medications: Lasix, Spironolactone, as pt appears dry Fibromyalgia Chronic pain LBP -continue home medications: Tizanidine -hold home medications: Oxycodone long-acting d/t active infection/risk for hypotension -Oxycodone short-acting PRN ordered VTE Prophylaxis: Lovenox Code Status: D/W pt; she is Full Code ~Adina De Leon MD Hospitalist - Lab Results Fish Bones: 01/30/23 22:52 01/30/23 22:52
[2023-01-30] MEDS ORDERED: ONDANSETRON 4 MG/2 ML VIAL IVP PRN (23:56)
[2023-01-30] MEDS ORDERED: SODIUM CHLORIDE FLUSH 0.9% 10 ML SYRINGE IVP PRN (23:56)
[2023-01-31] MEDS: tiZANidine 4 MG TABLET PO PRN ×2 (01:27→22:07)
[2023-01-31] MEDS: LACTATED RINGERS 1,000 ML IV SCH ×2 (01:27→21:07)
[2023-01-31] MEDS: SODIUM CHLORIDE FLUSH 0.9% 10 ML SYRINGE IVP SCH ×3 (01:51→16:44)
[2023-01-31 02:03] LABS: CLARITY,URINE CLEAR (CLEAR); GLUCOSE, URINE (UA) NEGATIVE (NEGATIVE); KETONES,URINE (UA) 15 mg/dL (NEGATIVE); LEUKOCYTE ESTERASE, URINE MODERATE (NEGATIVE); NITRITE,URINE NEGATIVE (NEGATIVE); OCCULT BLOOD,URINE SMALL (NEGATIVE); PH,URINE 5.5 PH (5.0-7.5); PROTEIN,URINE 30 mg/dL (NEGATIVE); UROBILINOGEN,URINE 1 (NORMAL) E.U./dL (NORMAL)
[2023-01-31 02:10] LABS: BACTERIA,URINE Few /HPF (None Seen); BILIRUBIN,URINE NEGATIVE (NEGATIVE); ICTOTEST,URINE NEGATIVE; RBC,URINE 0-5 /HPF (0-5); SQUAMOUS EPITHELIAL CELL,UR FEW Squamous (<= Few)
[2023-01-31 02:11] LABS: EPITHELIAL CELLS,UR FEW Renal Tubular /HPF (<= Few)
[2023-01-31 05:58] LABS: BASOPHILS % (AUTO) 0.1 %; EOSINOPHILS % (AUTO) 0.2 %; HCT - HEMATOCRIT 36.3 % (37.0-47.0); HGB - HEMOGLOBIN 12.2 g/dL (12.0-16.0); LYMPHOCYTES % (AUTO) 6.1 %; MEAN CORPUSCULAR HEMOGLOBIN 33.5 pg (27.0-31.0); MEAN CORPUSCULAR HGB CONC 33.6 g/dL (32.0-36.0); MEAN CORPUSCULAR VOLUME 99.7 fL (81.0-99.0); MEAN PLATELET VOLUME 10.2 fL (7.9-10.8); MONOCYTES % (AUTO) 5.1 %; NEUTROPHILS % (AUTO) 87.9 %; PLT - PLATELET COUNT 132 10^3/uL (130-450); RED BLOOD COUNT 3.64 10^6/uL (4.20-5.40); RED CELL DISTRIBUTION WIDTH 12.9 % (12.0-15.0); WHITE BLOOD COUNT 18.3 x10^3/uL (4.8-10.8)
[2023-01-31 06:03] LABS: ABNORMAL LYMPHS % (MANUAL) 0 %
[2023-01-31 06:11] LABS: ALBUMIN 2.4 g/dL (3.2-5.5); ALBUMIN/GLOBULIN RATIO 0.7 (1.0-2.2); BILIRUBIN,TOTAL 1.1 mg/dL (0.2-1.0); CALCIUM 8.2 mg/dL (8.5-10.3); CREATININE 0.6 mg/dL (0.4-1.0); POTASSIUM 3.9 mmol/L (3.5-5.0)
[2023-01-31 06:17] LABS: BAND NEUTROPHILS % (MANUAL) 9 %; LYMPHOCYTES # (MANUAL) 0.7 10^3/uL (1.5-3.5); LYMPHOCYTES % (MANUAL) 4 %; METAMYELOCYTES % (MANUAL) 1 %; MONOCYTES # (MANUAL) 1.3 10^3/uL (0.0-1.0); NEUTROPHILS # (MANUAL) 16.1 10^3/uL (1.5-6.6)
[2023-01-31 06:18] LABS: DIFFERENTIAL COMMENT MANUAL DIFFERENTIAL; PLATELET ESTIMATE, MANUAL NORMAL (130-450,000) (NORMAL); PLATELET MORPHOLOGY NORMAL APPEARANCE (NORMAL); RBC MORPHOLOGY (MULTIPLE) NORMAL APPEARANCE (NORMAL); WBC MORPHOLOGY (MULTIPLE) NORMAL APPEARANCE (NORMAL)
[2023-01-31] MEDS: LEVOTHYROXINE 100 MCG TABLET PO SCH (07:09)
[2023-01-31] MEDS ORDERED: cefTRIAXone 2 GM in SODIUM CHLORIDE 0.9% MINIBAG 100 ML IV SCH (09:00)
[2023-01-31] MEDS: INSULIN LISPRO 300 UNIT/3 ML PEN SUBQ SCH ×4 (09:08→21:52)
[2023-01-31] MEDS: LACTOBACILLUS RHAMNOSUS GG CAPSULE PO SCH ×2 (09:31→20:09)
[2023-01-31] MEDS: ENOXAPARIN 40 MG/0.4 ML SYRINGE SUBQ SCH (09:31)
[2023-01-31] MEDS: AZITHROMYCIN INJ 500 MG in SODIUM CHLORIDE 0.9% 250 ML IV SCH (09:31)
[2023-01-31] MEDS: nadoloL 20 MG TABLET PO SCH ×2 (09:31→20:09)
[2023-01-31] MEDS: cefTRIAXone 2 GM in SODIUM CHLORIDE 0.9% MINIBAG 100 ML IV SCH (11:43)
--- NOTE | 2023-01-31 16:12 | PHARMACY PROGRESS NOTE ---
- Best Possible Medication History Admit Date and Time: 01/30/23 0112 Processed by: Pharmacy Medication History completed: Yes Patient Interview: Completed Secondary Source(s): Pharmacy records, Insurance records As the person ultimately responsible for medication therapy, providers are able to order a medication from an existing home medication list in [facility] via the "Reconcile Routine" prior to Confirmation of that medication by security support analyst. Such practice is discouraged except when the physician, in their clinical judgment, deems that a medical need exists for a medication without regard to previous use.
[2023-01-31] MEDS: ACETAMINOPHEN 325 MG TABLET PO PRN ×2 (16:44→20:55)
[2023-01-31] MEDS ORDERED: AMITRIPTYLINE 25 MG TABLET PO SCH (21:00)
[2023-02-01] MEDS: SODIUM CHLORIDE FLUSH 0.9% 10 ML SYRINGE IVP SCH ×3 (04:42→16:14)
[2023-02-01 05:43] LABS: BASOPHILS % (AUTO) 0.1 %; EOSINOPHILS % (AUTO) 0.1 %; HCT - HEMATOCRIT 40.4 % (37.0-47.0); HGB - HEMOGLOBIN 13.9 g/dL (12.0-16.0); LYMPHOCYTES % (AUTO) 8.1 %; MEAN CORPUSCULAR HGB CONC 34.4 g/dL (32.0-36.0); MEAN CORPUSCULAR VOLUME 98.8 fL (81.0-99.0); MEAN PLATELET VOLUME 10.2 fL (7.9-10.8); MONOCYTES % (AUTO) 5.1 %; PLT - PLATELET COUNT 141 10^3/uL (130-450); RED BLOOD COUNT 4.09 10^6/uL (4.20-5.40); RED CELL DISTRIBUTION WIDTH 13.2 % (12.0-15.0); WHITE BLOOD COUNT 15.9 x10^3/uL (4.8-10.8)
[2023-02-01 05:47] LABS: ABNORMAL LYMPHS % (MANUAL) 0 %
[2023-02-01 06:09] LABS: BAND NEUTROPHILS % (MANUAL) 6 %; DIFFERENTIAL COMMENT MANUAL DIFFERENTIAL; LYMPHOCYTES # (MANUAL) 1.1 10^3/uL (1.5-3.5); LYMPHOCYTES % (MANUAL) 7 %; METAMYELOCYTES % (MANUAL) 1 %; MONOCYTES # (MANUAL) 0.3 10^3/uL (0.0-1.0); MYELOCYTES % (MANUAL) 1 %; NEUTROPHILS # (MANUAL) 14.2 10^3/uL (1.5-6.6); PLATELET ESTIMATE, MANUAL NORMAL (130-450,000) (NORMAL); PLATELET MORPHOLOGY NORMAL APPEARANCE (NORMAL); RBC MORPHOLOGY (MULTIPLE) NORMAL APPEARANCE (NORMAL); WBC MORPHOLOGY (MULTIPLE) NORMAL APPEARANCE (NORMAL)
[2023-02-01] MEDS: LEVOTHYROXINE 100 MCG TABLET PO SCH (06:23)
[2023-02-01] MEDS ORDERED: SODIUM CHLORIDE 0.9% 500 ML IV ONE (07:48)
[2023-02-01] MEDS: BUPRENORPHINE/NALOXONE 8-2 MG TAB SL SCH ×3 (08:25→21:19)
[2023-02-01] MEDS: oxyCODONE 5 MG TABLET PO PRN (08:25)
[2023-02-01] MEDS: LACTOBACILLUS RHAMNOSUS GG CAPSULE PO SCH ×2 (08:25→21:18)
[2023-02-01] MEDS: nadoloL 20 MG TABLET PO SCH ×2 (08:26→21:19)
[2023-02-01] MEDS: ENOXAPARIN 40 MG/0.4 ML SYRINGE SUBQ SCH (08:26)
[2023-02-01] MEDS: AZITHROMYCIN INJ 500 MG in SODIUM CHLORIDE 0.9% 250 ML IV SCH (08:26)
[2023-02-01] MEDS: PANTOPRAZOLE 40 MG TABLET PO SCH (08:45)
[2023-02-01] MEDS: INSULIN LISPRO 300 UNIT/3 ML PEN SUBQ SCH ×4 (08:46→21:18)
[2023-02-01] MEDS: cefTRIAXone 2 GM in SODIUM CHLORIDE 0.9% MINIBAG 100 ML IV SCH (09:20)
[2023-02-01 11:42] LABS: ESTIMATED AVERAGE GLUCOSE 140 mg/dL (70-100); HEMOGLOBIN A1c% 6.5 % (4.27-6.07)
[2023-02-01] MEDS: ACETAMINOPHEN 325 MG TABLET PO PRN (12:17)
[2023-02-01] MEDS: tiZANidine 4 MG TABLET PO PRN ×2 (12:17→21:29)
--- NOTE | 2023-02-01 15:00 | PROVIDER PROGRESS NOTE ---
Assessment/Plan - Problem List (1) CAP (community acquired pneumonia) Assessment/Plan: She presented with Shortness of breath, Fever, Hypoxia and Leukocytosis. When EMS arrived, SpO2 84% on RA, 91% on 6L NC. In the ER, SpO2 91% 6L NC O2, WBC 21.7 Her CXR showed a R Infrahilar opacity, most likely pneumonia, but mass possible Pt was given IVF, Rocephin/Azithro in the ER. Plan: Continue IVF and will give a 500 cc bolus because of low urine output. Cont Rocephin/Azithro Continue O2 support with tartget saturation >92% (2)Abnormal CXR CXR: R Infrahilar opacity, most likely pneumonia, but lung mass possible Plan: Will repeat her CXR once symptoms improved (3) Diarrhea Today the patient reported several liquidy diarrhea BMs. She told me today she has had C. difficile 9 times in her life Plan: We will check her stool for C. difficile. If negative for C. difficile, will give Imodium as needed We will assure she is on probiotics too (4) Hypokalemia K was 3. Probably from being on Lasix. Pt was given KCl 40 mEq PO and 10 meq IV in the ER. Plan: Will supplement when needed; monitor BMP daily (5)HTN Plan: continue home medications: Graham and eventually will resume Spirinolactone and possibly her Lasix (6)DM type 2 Glc 162 and A1c came back at 6.5, inidicating good control. Plan: Her we have her getting accuchecks, SS Insulin, Hypoglycemic protocol Hold home PO medications: Glipizide (7) Hypothyroidism Plan: She has been continued on her home medications: Levothyroxine We will check a TSH to assure she is getting proper dose (8) Fibromyalgia This gives her Chronic pain, especially LBP Plan: Now that her medication list has been reconciled I will reorder her narcotic as well as her Suboxone and other meds for chronic pain (9) Hx of alcoholic Cirrhosis She quit drinking ETOH 10 years ago. She denies active symptoms from her cirrhosis. Plan: Continue home medications: Corgard Cont to hold home medications for 1 more day: Lasix, Spironolactone, since pt appeared dry at admission - Current Meds Current Meds: Current Medications Generic Name Dose Route Start Last Admin Trade Name Freq PRN Reason Stop Dose Admin Acetaminophen 650 mg 01/30/23 23:56 02/01/23 12:17 Acetaminophen 325 Mg Tablet PO 650 mg Q4HR PRN Administration Pain 1 to 4, or Fever Buprenorphine HCl 0.5 tab 02/01/23 07:45 02/01/23 14:01 Buprenorphine/Naloxone 8-2 Mg Tab SL 0.5 tab TID STEFFI Administration Enoxaparin Sodium 40 mg 01/31/23 09:00 02/01/23 08:26 Enoxaparin 40 Mg/0.4 Ml Syringe SUBQ 40 mg DAILY STEFFI Administration Lactated Ringer's 1,000 mls @ 50 mls/hr 01/30/23 23:45 01/31/23 21:07 Lr IV 50 mls/hr .Q20H STEFFI Administration Ceftriaxone Sodium 2 gm/ 100 mls @ 200 mls/hr 01/31/23 10:00 02/01/23 10:34 Sodium Chloride IV 02/04/23 09:29 Infused DAILY STEFFI Infusion Insulin Human Lispro 0 unit 01/31/23 08:00 02/01/23 11:51 Insulin Lispro 300 Unit/3 Ml Pen SUBQ Not Given 0800,1200,1600,2100 [facility] Protocol Lactobacillus Rhamnosus 1 cap 01/31/23 09:00 02/01/23 08:25 Lactobacillus Rhamnosus Gg Capsule PO 1 cap BID STEFFI Administration Nadolol 20 mg 01/31/23 09:00 02/01/23 08:26 Nadolol 20 Mg Tablet PO 20 mg BID STEFFI Administration Oxycodone HCl 10 mg 02/01/23 07:39 02/01/23 08:25 Oxycodone 5 Mg Tablet PO 10 mg TID PRN Administration PAIN 5-7 Pantoprazole Sodium 40 mg 02/01/23 07:40 02/01/23 08:45 Pantoprazole 40 Mg Tablet PO 40 mg QDAC STEFFI Administration Sodium Chloride 10 ml 01/31/23 01:00 02/01/23 08:28 Sodium Chloride Flush 0.9% 10 Ml Syringe IVP 10 ml 0100,0900,1700 STEFFI Administration Tizanidine HCl 2 mg 01/31/23 00:05 02/01/23 12:17 Tizanidine 4 Mg Tablet PO 2 mg TID PRN Administration PAIN - Lab Result Fish Bone Diagrams: 02/01/23 05:19 06/12/23 05:09 - Additional Planning My Orders: My Active Orders 02/01/23 07:39 oxyCODONE [Roxicodone] 10 mg PO TID PRN 02/01/23 07:40 Pantoprazole [Protonix] 40 mg PO QDAC 02/01/23 07:45 Buprenorphine HCl/Naloxone HCl [Suboxone 8-2 mg Tab] 0.5 tab SL TID 02/01/23 14:30 C DIFF PCR Stat 02/01/23 21:00 Gabapentin [Neurontin] 600 mg PO QPM 02/02/23 07:00 Levothyroxine [Synthroid] 112 mcg PO QDAC Subjective - Subjective Patient Reports: Resting Comfortably (Wearing O2 nasal cannula. Feels overall weak.) Objective Vital Signs: Vital Signs - 24 hr 01/31/23 01/31/23 01/31/23 16:00 20:07 22:00 Temperature 39.0 C H 38.6 C H Heart Rate [ 83 99 Brachial] Respiratory 20 20 Rate Blood Pressure 140/73 H 139/85 H [Right Brachial artery] O2 Saturation 94 92 If not protocol 6 6 1 : Oxygen Flow, liters/minute 02/01/23 02/01/23 02/01/23 00:39 07:35 07:40 Temperature 36.2 C L Heart Rate [ 66 Brachial] Respiratory 16 Rate Blood Pressure 108/72 [Right Brachial artery] O2 Saturation 94 If not protocol 6 6 6 : Oxygen Flow, liters/minute 02/01/23 07:48 Temperature 36.7 C Heart Rate [ 74 Brachial] Respiratory 18 Rate Blood Pressure 121/83 H [Right Brachial artery] O2 Saturation 94 If not protocol 6 : Oxygen Flow, liters/minute Oxygen O2 Source [With Activity] Room air O2 Source [Without Activity] Room air O2 Source Nasal cannula Oxygen Flow Rate 15 I&O (Last 24 Hrs): Intake and Output Totals x24h 01/30/23 01/31/23 02/01/23 23:59 23:59 23:59 Intake Total 100 3588.333 850 Output Total 800 200 Balance 100 2788.333 650 General: Alert, Oriented x3 HEENT: Mucous membr. moist/pink, Other (Edentulous. Wearing O2 via nasal cannula.) Neck: Supple Neuro: Alert, Non Focal Cardiovascular: No murmurs Respiratory: Other (Diffusely diminished breath sounds, no wheezing or rales anteriorly) Abdomen: Normal bowel sounds, Soft, No tenderness Extremities: No clubbing, No edema, No tenderness/swelling - Results Results: Laboratory Results WBC 15.9 x10^3/uL (4.8-10.8) H 02/01/23 05:19 RBC 4.09 10^6/uL (4.20-5.40) L 02/01/23 05:19 Hgb 13.9 g/dL (12.0-16.0) 02/01/23 05:19 Hct 40.4 % (37.0-47.0) 02/01/23 05:19 MCV 98.8 fL (81.0-99.0) 02/01/23 05:19 MCH 34.0 pg (27.0-31.0) H 02/01/23 05:19 MCHC 34.4 g/dL (32.0-36.0) 02/01/23 05:19 RDW 13.2 % (12.0-15.0) 02/01/23 05:19 Plt Count 141 10^3/uL (130-450) 02/01/23 05:19 MPV 10.2 fL (7.9-10.8) 02/01/23 05:19 Neut # (Auto) Not Reportable 02/01/23 05:19 Lymph # (Auto) Not Reportable 02/01/23 05:19 [place] # (Auto) Not Reportable 02/01/23 05:19 Eos # (Auto) Not Reportable 02/01/23 05:19 Baso # (Auto) Not Reportable 02/01/23 05:19 Absolute Nucleated RBC Not Reportable 02/01/23 05:19 Total Counted 100 02/01/23 05:19 Band Neuts % (Manual) 6 % (0-10) 02/01/23 05:19 Abnorm Lymph % (Manual) 0 % 02/01/23 05:19 Metamyelocytes % 1 % (-0) H 02/01/23 05:19 Myelocytes % 1 % (-0) H 02/01/23 05:19 Nucleated RBC % Not Reportable 02/01/23 05:19 Neutrophils # (Manual) 14.2 10^3/uL (1.5-6.6) H 02/01/23 05:19 Lymphocytes # (Manual) 1.1 10^3/uL (1.5-3.5) L 02/01/23 05:19 Monocytes # (Manual) 0.3 10^3/uL (0.0-1.0) 02/01/23 05:19 Eosinophils # (Manual) 0.0 10^3/uL (0-0.7) 02/01/23 05:19 Basophils # (Manual) 0.0 10^3/uL (0-0.1) 02/01/23 05:19 Differential Comment MANUAL DIFFERENTIAL 02/01/23 05:19 WBC Morphology NORMAL APPEARANCE (NORMAL) 02/01/23 05:19 Platelet Estimate NORMAL (130-450,000) (NORMAL) 02/01/23 05:19 Platelet Morphology NORMAL APPEARANCE (NORMAL) 02/01/23 05:19 RBC Morph Micro Appear NORMAL APPEARANCE (NORMAL) 02/01/23 05:19 VBG pH 7.464 (7.31-7.41) H 01/30/23 22:52 VBG pCO2 38.7 mmHg (41-51) L 01/30/23 22:52 VBG pO2 65.0 mmHg (25-47) H 01/30/23 22:52 VBG HCO3 27.2 mmol/L (23-28) 01/30/23 22:52 VBG Total CO2 28.3 mmol/L (24-29) 01/30/23 22:52 VBG O2 Saturation 93.2 % (60-80) H 01/30/23 22:52 VBG Base Excess 3.3 mmol/L (-2 - +2) H 01/30/23 22:52 Sodium 136 mmol/L (135-145) 01/31/23 05:09 Potassium 3.9 mmol/L (3.5-5.0) 01/31/23 05:09 Chloride 107 mmol/L (101-111) 01/31/23 05:09 Carbon Dioxide 24 mmol/L (21-32) 01/31/23 05:09 Anion Gap 5.0 (6-13) L 01/31/23 05:09 BUN 17 mg/dL (6-20) 01/31/23 05:09 Creatinine 0.6 mg/dL (0.4-1.0) 01/31/23 05:09 Estimated GFR (MDRD) 100 (>89) 01/31/23 05:09 Glucose 147 mg/dL (70-100) H 01/31/23 05:09 POC Whole Bld Glucose 142 mg/dL (70 - 100) H 02/01/23 11:02 Estimat Average Glucose 140 mg/dL (70-100) H 02/01/23 05:19 Hemoglobin A1c % 6.5 % (4.27-6.07) H 02/01/23 05:19 Lactic Acid 1.2 mmol/L (0.5-2.2) 01/30/23 22:52 Calcium 8.2 mg/dL (8.5-10.3) L 01/31/23 05:09 Magnesium 1.7 mg/dL (1.7-2.8) 01/30/23 22:52 Total Bilirubin 1.1 mg/dL (0.2-1.0) H 01/31/23 05:09 AST 25 IU/L (10-42) 01/31/23 05:09 ALT 15 IU/L (10-60) 01/31/23 05:09 Alkaline Phosphatase 47 IU/L (42-121) 01/31/23 05:09 Total Protein 6.0 g/dL (6.7-8.2) L 01/31/23 05:09 Albumin 2.4 g/dL (3.2-5.5) L 01/31/23 05:09 Globulin 3.6 g/dL (2.1-4.2) 01/31/23 05:09 Albumin/Globulin Ratio 0.7 (1.0-2.2) L 01/31/23 05:09 Urine Color YELLOW 01/31/23 01:52 Urine Clarity CLEAR (CLEAR) 01/31/23 01:52 Urine pH 5.5 PH (5.0-7.5) 01/31/23 01:52 Ur Specific [place] 1.020 (1.002-1.030) 01/31/23 01:52 Urine Protein 30 mg/dL (NEGATIVE) H 01/31/23 01:52 Urine Glucose (UA) NEGATIVE mg/dL (NEGATIVE) 01/31/23 01:52 Urine Ketones 15 mg/dL (NEGATIVE) H 01/31/23 01:52 Urine Occult Blood SMALL (NEGATIVE) H 01/31/23 01:52 Urine Nitrite NEGATIVE (NEGATIVE) 01/31/23 01:52 Urine Bilirubin NEGATIVE (NEGATIVE) 01/31/23 01:52 Urine Urobilinogen 1 (NORMAL) E.U./dL (NORMAL) 01/31/23 01:52 Ur Leukocyte Esterase MODERATE (NEGATIVE) H 01/31/23 01:52 Urine RBC 0-5 /HPF (0-5) 01/31/23 01:52 Urine WBC 11-25 /HPF (0-5) H 01/31/23 01:52 Ur Epithelial Cells FEW Renal Tubular /HPF (<= Few) 01/31/23 01:52 Ur Squamous Epith Cells FEW Squamous (<= Few) 01/31/23 01:52 Urine Bacteria Few /HPF (None Seen) 01/31/23 01:52 Urine Culture Comments INDICATED 01/31/23 01:52 Nasal Adenovirus (PCR) NOT DETECTED 01/30/23 22:18 Nasal B. parapertussis DNA (PCR) NOT DETECTED 01/30/23 22:18 Nasal Coronavir 229E PCR NOT DETECTED 01/30/23 22:18 Nasal Coronavir HKU1 PCR NOT DETECTED 01/30/23 22:18 Nasal Coronavir NL63 PCR NOT DETECTED 01/30/23 22:18 Nasal Coronavir OC43 PCR NOT DETECTED 01/30/23 22:18 Nasal Enterovir/Rhinovir PCR NOT DETECTED 01/30/23 22:18 Nasal Influenza B PCR NOT DETECTED 01/30/23 22:18 Nasal Influenza A PCR NOT DETECTED 01/30/23 22:18 Nasal Parainfluen 1 PCR NOT DETECTED 01/30/23 22:18 Nasal Parainfluen 2 PCR NOT DETECTED 01/30/23 22:18 Nasal Parainfluen 3 PCR NOT DETECTED 01/30/23 22:18 Nasal Parainfluen 4 PCR NOT DETECTED 01/30/23 22:18 Nasal RSV (PCR) NOT DETECTED 01/30/23 22:18 Nasal B.pertussis DNA PCR NOT DETECTED 01/30/23 22:18 Nasal C.pneumoniae (PCR) NOT DETECTED 01/30/23 22:18 [place] Human Metapneumo PCR NOT DETECTED 01/30/23 22:18 Nasal M.pneumoniae (PCR) NOT DETECTED 01/30/23 22:18 Nasal SARS-CoV-2 (PCR) NOT DETECTED 01/30/23 22:18 - Procedures Procedures: Procedures EXCISION OF FEMORAL NERVE, OPEN APPROACH (09/04/15)
[2023-02-01] MEDS: LACTATED RINGERS 1,000 ML IV SCH (16:13)
[2023-02-01] MEDS: GABAPENTIN 300 MG CAPSULE PO SCH (21:18)
[2023-02-01] MEDS: traZODone 50 MG TABLET PO SCH (21:20)
[2023-02-02] MEDS: SODIUM CHLORIDE FLUSH 0.9% 10 ML SYRINGE IVP SCH ×3 (01:21→16:03)
[2023-02-02 05:36] LABS: BASOPHILS % (AUTO) 0.6 %; EOSINOPHILS % (AUTO) 0.6 %; HCT - HEMATOCRIT 34.4 % (37.0-47.0); HGB - HEMOGLOBIN 11.9 g/dL (12.0-16.0); LYMPHOCYTES # (AUTO) 1.1 10^3/uL (1.5-3.5); LYMPHOCYTES % (AUTO) 15.7 %; MEAN CORPUSCULAR HEMOGLOBIN 34.2 pg (27.0-31.0); MEAN CORPUSCULAR HGB CONC 34.6 g/dL (32.0-36.0); MEAN CORPUSCULAR VOLUME 98.9 fL (81.0-99.0); MEAN PLATELET VOLUME 9.7 fL (7.9-10.8); MONOCYTES # (AUTO) 0.7 10^3/uL (0.0-1.0); MONOCYTES % (AUTO) 10.4 %; NEUTROPHILS % (AUTO) 71.4 %; NRBC ABSOLUTE COUNT (AUTO) 0.02 x10^3/uL; NUCLEATED RED BLOOD CELLS AUTO 0.3 /100WBC; PLT - PLATELET COUNT 122 10^3/uL (130-450); RED BLOOD COUNT 3.48 10^6/uL (4.20-5.40); RED CELL DISTRIBUTION WIDTH 13.4 % (12.0-15.0); WHITE BLOOD COUNT 6.9 x10^3/uL (4.8-10.8)
[2023-02-02 05:49] LABS: CALCIUM 8.3 mg/dL (8.5-10.3); CREATININE 0.4 mg/dL (0.4-1.0); POTASSIUM 2.7 mmol/L (3.5-5.0)
[2023-02-02] MEDS: LEVOTHYROXINE 112 MCG TABLET PO SCH (06:11)
[2023-02-02] MEDS: PANTOPRAZOLE 40 MG TABLET PO SCH (06:12)
[2023-02-02] MEDS: BUPRENORPHINE/NALOXONE 8-2 MG TAB SL SCH ×3 (06:12→21:55)
[2023-02-02] MEDS: ENOXAPARIN 40 MG/0.4 ML SYRINGE SUBQ SCH (08:09)
[2023-02-02] MEDS: cefTRIAXone 2 GM in SODIUM CHLORIDE 0.9% MINIBAG 100 ML IV SCH (08:09)
[2023-02-02] MEDS: MULTIVITAMIN W/MINERALS TABLET PO SCH (08:10)
[2023-02-02] MEDS: INSULIN LISPRO 300 UNIT/3 ML PEN SUBQ SCH ×4 (08:10→20:45)
[2023-02-02] MEDS: nadoloL 20 MG TABLET PO SCH ×2 (08:10→20:43)
[2023-02-02] MEDS: LACTOBACILLUS RHAMNOSUS GG CAPSULE PO SCH ×2 (08:10→20:43)
[2023-02-02] MEDS ORDERED: POTASSIUM BICARB 25 MEQ TABLET PO ONE (09:15)
[2023-02-02] MEDS: POTASSIUM CHLOR 10 MEQ/100 ML 10 MEQ/100 ML BAG IV SCH ×4 (10:18→13:19)
[2023-02-02] MEDS: tiZANidine 4 MG TABLET PO PRN ×2 (10:27→17:05)
[2023-02-02] MEDS: oxyCODONE 5 MG TABLET PO PRN ×2 (10:28→16:03)
[2023-02-02] MEDS: LOPERAMIDE 2 MG CAPSULE PO PRN ×2 (13:17→16:08)
[2023-02-02] MEDS: LACTATED RINGERS 1,000 ML IV SCH (14:18)
--- NOTE | 2023-02-02 15:20 | PROVIDER PROGRESS NOTE ---
Assessment/Plan - Problem List (1) CAP (community acquired pneumonia) Assessment/Plan: She presented with Shortness of breath, Fever, Hypoxia and Leukocytosis. When EMS arrived, SpO2 84% on RA, 91% on 6L NC. In the ER, SpO2 91% 6L [place] O2, WBC 21.7. Since being started on antibiotics her white blood count is improved to 18 then 15 and today WBC is 6.9 (all labs were reviewed. Her CXR showed a R Infrahilar opacity, most likely pneumonia, but mass possible Pt was given IVF, Rocephin/Azithro in the ER. Today her RN was able to titrate down the O2 to room air at rest Plan: Continue IVF and will start to decrease iv rate Cont Rocephin/Azithro Continue O2 support if needed with target saturation >92% (2)Abnormal CXR CXR: R Infrahilar opacity, most likely pneumonia, but lung mass possible Plan: Will repeat her CXR once pneumonia has improved (3) Diarrhea Yesterday the patient reported several liquidy diarrhea BMs. She told me today she has had C. difficile 9 times in her life. Test for C. difficile now came back negative Plan: Will give Imodium as needed Cont on probiotics too (4) Hypokalemia K was 3 at admission. Probably from being on Lasix. Pt was given KCl 40 mEq PO and 10 meq IV in the ER. All labs were reviewed. Today her K is two-point Plan: Will supplement with iv [place] and po KCl effervescent Monitor BMP daily (5)HTN Plan: continue home medications: Corgard now and eventually will resume Spirinolactone and possibly her Lasix (6) DM type 2 Glc 162 and A1c came back at 6.5, indicating good control. Plan: Her we have her getting accuchecks, SS Insulin, Hypoglycemic protocol Hold home PO medications: Glipizide (7) Hypothyroidism Plan: She has been continued on her home medications: Levothyroxine We will check a TSH to assure she is getting proper dose (8) Fibromyalgia This gives her Chronic pain, especially LBP Plan: Now that her medication list has been reconciled I reordered her narcotic as well as her Suboxone and other meds for chronic pain, and Trazadone for sleep. (9) Hx of alcoholic Cirrhosis She quit drinking ETOH 10 years ago. She denies active symptoms from her cirrhosis. Plan: Continue home medications: Graham Cont to hold home medications for 1 more day: Lasix, Spironolactone, since pt appeared dry at admission - Current Meds Current Meds: Current Medications Generic Name Dose Route Start Last Admin Trade Name Freq PRN Reason Stop Dose Admin Acetaminophen 650 mg 01/30/23 23:56 02/01/23 12:17 Acetaminophen 325 Mg Tablet PO 650 mg Q4HR PRN Administration Pain 1 to 4, or Fever Buprenorphine HCl 0.5 tab 02/01/23 07:45 02/02/23 13:16 Buprenorphine/Naloxone 8-2 Mg Tab SL 0.5 tab TID STEFFI Administration Enoxaparin Sodium 40 mg 01/31/23 09:00 02/02/23 08:09 Enoxaparin 40 Mg/0.4 Ml Syringe SUBQ 40 mg DAILY STEFFI Administration Gabapentin 600 mg 02/01/23 21:00 02/01/23 21:18 Gabapentin 300 Mg Capsule PO 600 mg QPM STEFFI Administration Lactated Ringer's 1,000 mls @ 50 mls/hr 01/30/23 23:45 02/02/23 14:18 Lr IV 50 mls/hr .Q20H STEFFI Administration Ceftriaxone Sodium 2 gm/ 100 mls @ 200 mls/hr 01/31/23 10:00 02/02/23 09:24 Sodium Chloride IV 02/04/23 09:29 Infused DAILY STEFFI Infusion Insulin Human Lispro 0 unit 01/31/23 08:00 02/02/23 12:18 Insulin Lispro 300 Unit/3 Ml Pen SUBQ Not Given 0800,1200,1600,2100 STEFFI Protocol Lactobacillus Rhamnosus 1 cap 01/31/23 09:00 02/02/23 08:10 Lactobacillus Rhamnosus Gg Capsule PO 1 cap BID STEFFI Administration Levothyroxine Sodium 112 mcg 02/02/23 07:00 02/02/23 06:11 Levothyroxine 112 Mcg Tablet PO 112 mcg QDAC STEFFI Administration Loperamide HCl 2 mg 02/01/23 17:28 02/02/23 13:17 Loperamide 2 Mg Capsule PO 2 mg QID PRN Administration Diarrhea Multivitamins/Minerals 1 tab 02/02/23 08:00 02/02/23 08:10 Multivitamin W/Minerals Tablet PO 1 tab DAILYWM STEFFI Administration Nadolol 20 mg 01/31/23 09:00 02/02/23 08:10 Nadolol 20 Mg Tablet PO 20 mg BID STEFFI Administration Oxycodone HCl 10 mg 02/01/23 07:39 02/02/23 10:28 Oxycodone 5 Mg Tablet PO 10 mg TID PRN Administration PAIN 5-7 Pantoprazole Sodium 40 mg 02/01/23 07:40 02/02/23 06:12 Pantoprazole 40 Mg Tablet PO 40 mg QDAC STEFFI Administration Sodium Chloride 10 ml 01/31/23 01:00 02/02/23 08:10 Sodium Chloride Flush 0.9% 10 Ml Syringe IVP Not Given 0100,0900,1700 STEFFI Tizanidine HCl 2 mg 01/31/23 00:05 02/02/23 10:27 Tizanidine 4 Mg Tablet PO 2 mg TID PRN Administration PAIN Trazodone HCl 200 mg 02/01/23 21:00 02/01/23 21:20 Trazodone 50 Mg Tablet PO 200 mg QPM STEFFI Administration - Lab Result Fish Bone Diagrams: 02/02/23 05:24 02/02/23 05:24 - Additional Planning My Orders: My Active Orders 02/01/23 Dinner Carb-controlled Diet [DIET] 02/01/23 17:28 Loperamide [Imodium] 2 mg PO QID PRN 02/01/23 21:00 Gabapentin [Neurontin] 600 mg PO QPM traZODone [Desyrel] 200 mg PO QPM 02/02/23 Evaluate and Treat PT [PT] Routine 02/02/23 07:00 Levothyroxine [Synthroid] 112 mcg PO QDAC 02/02/23 08:00 Multivitamin W/Minerals [Theragran M] 1 tab PO DAILYWM Subjective - Subjective Patient Reports: Dizzines (Feels weak and dizzy when she stands up. Less cough and less shortness of breath.) Objective Vital Signs: Vital Signs - 24 hr 02/01/23 02/01/23 02/02/23 16:12 19:45 01:27 Temperature 36.5 C 36.2 C L Heart Rate [ 63 66 Brachial] Heart Rate [ Sitting] Heart Rate [ Supine] Respiratory 18 20 Rate Blood Pressure 98/63 132/76 H [Right Brachial artery] Blood Pressure [Sitting] Blood Pressure [Supine] O2 Saturation 95 96 If not protocol 4 4 4 : Oxygen Flow, liters/minute 02/02/23 02/02/23 02/02/23 07:30 07:45 11:35 Temperature 37.3 C Heart Rate [ 70 Brachial] Heart Rate [ 72 Sitting] Heart Rate [ 66 Supine] Respiratory 16 Rate Blood Pressure 139/81 H [Right Brachial artery] Blood Pressure 147/77 H [Sitting] Blood Pressure 139/77 H [Supine] O2 Saturation 94 If not protocol 3 4 : Oxygen Flow, liters/minute Oxygen O2 Source [With Activity] Room air O2 Source [Without Activity] Room air O2 Source Nasal cannula Oxygen Flow Rate 15 I&O (Last 24 Hrs): Intake and Output Totals x24h 01/31/23 02/01/23 02/02/23 23:59 23:59 23:59 Intake Total 3588.333 2675 1750 Output Total 800 375 550 Balance 2788.333 2300 1200 General: Alert, No acute distress, Other (Thin) HEENT: Mucous membr. moist/pink Neck: Supple, No JVD Neuro: Alert, Non Focal Cardiovascular: Regular rate, No murmurs Respiratory: No respiratory distress, Other (Poor air movement in lung lung [place] but no wheezes or rales.) Abdomen: Normal bowel sounds, Soft, No tenderness Extremities: No clubbing, No edema, No tenderness/swelling - Results Results: Laboratory Results WBC 6.9 x10^3/uL (4.8-10.8) 02/02/23 05:24 RBC 3.48 10^6/uL (4.20-5.40) L 02/02/23 05:24 Hgb 11.9 g/dL (12.0-16.0) L 02/02/23 05:24 Hct 34.4 % (37.0-47.0) L 02/02/23 05:24 MCV 98.9 fL (81.0-99.0) 02/02/23 05:24 MCH 34.2 pg (27.0-31.0) H 02/02/23 05:24 MCHC 34.6 g/dL (32.0-36.0) 02/02/23 05:24 RDW 13.4 % (12.0-15.0) 02/02/23 05:24 Plt Count 122 10^3/uL (130-450) L 02/02/23 05:24 MPV 9.7 fL (7.9-10.8) 02/02/23 05:24 Neut # (Auto) 5.0 10^3/uL (1.5-6.6) 02/02/23 05:24 Lymph # (Auto) 1.1 10^3/uL (1.5-3.5) L 02/02/23 05:24 [place] # (Auto) 0.7 10^3/uL (0.0-1.0) 02/02/23 05:24 Eos # (Auto) 0.0 10^3/uL (0.0-0.7) 02/02/23 05:24 Baso # (Auto) 0.0 10^3/uL (0.0-0.1) 02/02/23 05:24 Absolute Nucleated RBC 0.02 x10^3/uL 02/02/23 05:24 Total Counted 100 02/01/23 05:19 Band Neuts % (Manual) 6 % (0-10) 02/01/23 05:19 Abnorm Lymph % (Manual) 0 % 02/01/23 05:19 Metamyelocytes % 1 % (-0) H 02/01/23 05:19 Myelocytes % 1 % (-0) H 02/01/23 05:19 Nucleated RBC % 0.3 /100WBC 02/02/23 05:24 Neutrophils # (Manual) 14.2 10^3/uL (1.5-6.6) H 02/01/23 05:19 Lymphocytes # (Manual) 1.1 10^3/uL (1.5-3.5) L 02/01/23 05:19 Monocytes # (Manual) 0.3 10^3/uL (0.0-1.0) 02/01/23 05:19 Eosinophils # (Manual) 0.0 10^3/uL (0-0.7) 02/01/23 05:19 Basophils # (Manual) 0.0 10^3/uL (0-0.1) 02/01/23 05:19 Differential Comment MANUAL DIFFERENTIAL 02/01/23 05:19 WBC Morphology NORMAL APPEARANCE (NORMAL) 02/01/23 05:19 Platelet Estimate NORMAL (130-450,000) (NORMAL) 02/01/23 05:19 Platelet Morphology NORMAL APPEARANCE (NORMAL) 02/01/23 05:19 RBC Morph Micro Appear NORMAL APPEARANCE (NORMAL) 02/01/23 05:19 VBG pH 7.464 (7.31-7.41) H 01/30/23 22:52 VBG pCO2 38.7 mmHg (41-51) L 01/30/23 22:52 VBG pO2 65.0 mmHg (25-47) H 01/30/23 22:52 VBG HCO3 27.2 mmol/L (23-28) 01/30/23 22:52 VBG Total CO2 28.3 mmol/L (24-29) 01/30/23 22:52 VBG O2 Saturation 93.2 % (60-80) H 01/30/23 22:52 VBG Base Excess 3.3 mmol/L (-2 - +2) H 01/30/23 22:52 Sodium 140 mmol/L (135-145) 02/02/23 05:24 Potassium 2.7 mmol/L (3.5-5.0) L 02/02/23 05:24 Chloride 107 mmol/L (101-111) 02/02/23 05:24 Carbon Dioxide 29 mmol/L (21-32) 02/02/23 05:24 Anion Gap 4.0 (6-13) L 02/02/23 05:24 BUN 5 mg/dL (6-20) L 02/02/23 05:24 Creatinine 0.4 mg/dL (0.4-1.0) 02/02/23 05:24 Estimated GFR (MDRD) 159 (>89) 02/02/23 05:24 Glucose 103 mg/dL (70-100) H 02/02/23 05:24 POC Whole Bld Glucose 119 mg/dL (70 - 100) H 02/02/23 11:08 Estimat Average Glucose 140 mg/dL (70-100) H 02/01/23 05:19 Hemoglobin A1c % 6.5 % (4.27-6.07) H 02/01/23 05:19 Lactic Acid 1.2 mmol/L (0.5-2.2) 01/30/23 22:52 Calcium 8.3 mg/dL (8.5-10.3) L 02/02/23 05:24 Magnesium 1.7 mg/dL (1.7-2.8) 01/30/23 22:52 Total Bilirubin 1.1 mg/dL (0.2-1.0) H 01/31/23 05:09 AST 25 IU/L (10-42) 01/31/23 05:09 ALT 15 IU/L (10-60) 01/31/23 05:09 Alkaline Phosphatase 47 IU/L (42-121) 01/31/23 05:09 Total Protein 6.0 g/dL (6.7-8.2) L 01/31/23 05:09 Albumin 2.4 g/dL (3.2-5.5) L 01/31/23 05:09 Globulin 3.6 g/dL (2.1-4.2) 01/31/23 05:09 Albumin/Globulin Ratio 0.7 (1.0-2.2) L 01/31/23 05:09 Urine Color YELLOW 01/31/23 01:52 Urine Clarity CLEAR (CLEAR) 01/31/23 01:52 Urine pH 5.5 PH (5.0-7.5) 01/31/23 01:52 Ur Specific [place] 1.020 (1.002-1.030) 01/31/23 01:52 Urine Protein 30 mg/dL (NEGATIVE) H 01/31/23 01:52 Urine Glucose (UA) NEGATIVE mg/dL (NEGATIVE) 01/31/23 01:52 Urine Ketones 15 mg/dL (NEGATIVE) H 01/31/23 01:52 Urine Occult Blood SMALL (NEGATIVE) H 01/31/23 01:52 Urine Nitrite NEGATIVE (NEGATIVE) 01/31/23 01:52 Urine Bilirubin NEGATIVE (NEGATIVE) 01/31/23 01:52 Urine Urobilinogen 1 (NORMAL) E.U./dL (NORMAL) 01/31/23 01:52 Ur Leukocyte Esterase MODERATE (NEGATIVE) H 01/31/23 01:52 Urine RBC 0-5 /HPF (0-5) 01/31/23 01:52 Urine WBC 11-25 /HPF (0-5) H 01/31/23 01:52 Ur Epithelial Cells FEW Renal Tubular /HPF (<= Few) 01/31/23 01:52 Ur Squamous Epith Cells FEW Squamous (<= Few) 01/31/23 01:52 Urine Bacteria Few /HPF (None Seen) 01/31/23 01:52 Urine Culture Comments INDICATED 01/31/23 01:52 Nasal Adenovirus (PCR) NOT DETECTED 01/30/23 22:18 Nasal B. parapertussis DNA (PCR) NOT DETECTED 01/30/23 22:18 Nasal Coronavir 229E PCR NOT DETECTED 01/30/23 22:18 Nasal Coronavir HKU1 PCR NOT DETECTED 01/30/23 22:18 Nasal Coronavir NL63 PCR NOT DETECTED 01/30/23 22:18 Nasal Coronavir OC43 PCR NOT DETECTED 01/30/23 22:18 Nasal Enterovir/Rhinovir PCR NOT DETECTED 01/30/23 22:18 Nasal Influenza B PCR NOT DETECTED 01/30/23 22:18 Nasal Influenza A PCR NOT DETECTED 01/30/23 22:18 Nasal Parainfluen 1 PCR NOT DETECTED 01/30/23 22:18 Nasal Parainfluen 2 PCR NOT DETECTED 01/30/23 22:18 Nasal Parainfluen 3 PCR NOT DETECTED 01/30/23 22:18 Nasal Parainfluen 4 PCR NOT DETECTED 01/30/23 22:18 Nasal RSV (PCR) NOT DETECTED 01/30/23 22:18 Nasal B.pertussis DNA PCR NOT DETECTED 01/30/23 22:18 Nasal C.pneumoniae (PCR) NOT DETECTED 01/30/23 22:18 Heriberto Human Metapneumo PCR NOT DETECTED 01/30/23 22:18 Nasal M.pneumoniae (PCR) NOT DETECTED 01/30/23 22:18 Nasal SARS-CoV-2 (PCR) NOT DETECTED 01/30/23 22:18 Stl C. diff Tox B Gene NEGATIVE (NEGATIVE) 02/01/23 14:30 - Procedures Procedures: Procedures EXCISION OF FEMORAL NERVE, OPEN APPROACH (09/04/15)
[2023-02-02] MEDS: LORazepam 2 MG/ML VIAL IVP PRN (19:22)
[2023-02-02] MEDS: GABAPENTIN 300 MG CAPSULE PO SCH (20:43)
[2023-02-02] MEDS: traZODone 50 MG TABLET PO SCH (20:43)
[2023-02-03] MEDS: SODIUM CHLORIDE FLUSH 0.9% 10 ML SYRINGE IVP SCH ×4 (00:46→20:31)
[2023-02-03] MEDS: oxyCODONE 5 MG TABLET PO PRN ×2 (04:25→13:55)
[2023-02-03] MEDS: LORazepam 2 MG/ML VIAL IVP PRN ×2 (04:31→17:51)
[2023-02-03] MEDS: BUPRENORPHINE/NALOXONE 8-2 MG TAB SL SCH ×3 (05:00→21:59)
[2023-02-03] MEDS: LEVOTHYROXINE 112 MCG TABLET PO SCH (06:10)
[2023-02-03] MEDS: PANTOPRAZOLE 40 MG TABLET PO SCH (06:10)
[2023-02-03 06:29] LABS: BASOPHILS % (AUTO) 0.6 %; EOSINOPHILS # (AUTO) 0.1 10^3/uL (0.0-0.7); EOSINOPHILS % (AUTO) 1.3 %; HCT - HEMATOCRIT 34.2 % (37.0-47.0); HGB - HEMOGLOBIN 11.9 g/dL (12.0-16.0); LYMPHOCYTES # (AUTO) 1.2 10^3/uL (1.5-3.5); LYMPHOCYTES % (AUTO) 25.9 %; MEAN CORPUSCULAR HEMOGLOBIN 34.1 pg (27.0-31.0); MEAN CORPUSCULAR HGB CONC 34.8 g/dL (32.0-36.0); MONOCYTES # (AUTO) 0.6 10^3/uL (0.0-1.0); MONOCYTES % (AUTO) 13.5 %; NEUTROPHILS # (AUTO) 2.6 10^3/uL (1.5-6.6); NEUTROPHILS % (AUTO) 55.7 %; PLT - PLATELET COUNT 126 10^3/uL (130-450); RED BLOOD COUNT 3.49 10^6/uL (4.20-5.40); RED CELL DISTRIBUTION WIDTH 13.2 % (12.0-15.0); WHITE BLOOD COUNT 4.7 x10^3/uL (4.8-10.8)
[2023-02-03 06:41] LABS: BUN - BLOOD UREA NITROGEN < 5 mg/dL (6-20); CARBON DIOXIDE - CO2 30 mmol/L (21-32); CHLORIDE 101 mmol/L (101-111); CREATININE 0.3 mg/dL (0.4-1.0); GFR - MDRD 222 (>89); GLUCOSE 88 mg/dL (70-100); POTASSIUM 2.8 mmol/L (3.5-5.0); SODIUM 138 mmol/L (135-145)
[2023-02-03] MEDS: ENOXAPARIN 40 MG/0.4 ML SYRINGE SUBQ SCH (09:17)
[2023-02-03] MEDS: MULTIVITAMIN W/MINERALS TABLET PO SCH (09:17)
[2023-02-03] MEDS: nadoloL 20 MG TABLET PO SCH ×2 (09:17→20:23)
[2023-02-03] MEDS: cefTRIAXone 2 GM in SODIUM CHLORIDE 0.9% MINIBAG 100 ML IV SCH (09:18)
[2023-02-03] MEDS: LACTOBACILLUS RHAMNOSUS GG CAPSULE PO SCH ×2 (09:18→20:26)
[2023-02-03] MEDS: INSULIN LISPRO 300 UNIT/3 ML PEN SUBQ SCH ×4 (09:20→20:22)
[2023-02-03] MEDS: POTASSIUM CHLORIDE 20 MEQ TABLET PO SCH (10:38)
[2023-02-03] MEDS: ONDANSETRON ODT 4 MG TABLET TL PRN (10:55)
[2023-02-03] MEDS: tiZANidine 4 MG TABLET PO PRN (10:55)
[2023-02-03] MEDS: POTASSIUM CHLOR 10 MEQ/100 ML 10 MEQ/100 ML BAG IV SCH ×4 (10:57→14:18)
[2023-02-03] MEDS: LACTATED RINGERS 1,000 ML IV SCH (11:04)
--- NOTE | 2023-02-03 11:41 | PROVIDER PROGRESS NOTE ---
Assessment/Plan - Problem List (1) CAP (community acquired pneumonia) Assessment/Plan: She presented with shortness of breath, Fever, Hypoxia and Leukocytosis. When EMS arrived, SpO2 84% on RA, 91% on 6L NC. In the ER, SpO2 91% 6L NC O2, WBC 21.7. Since being started on antibiotics her white blood count has improved to normal (all labs were reviewed). Her CXR showed a R Infrahilar opacity, most likely pneumonia, but mass possible Pt was given IVF, Rocephin/Azithro in the ER. He O2 needs are fluctuating, down to room air at rest, then got anxious with "air hunger" and has needed O2 up to 3L/min Plan: Continue to decrease iv rate and stop later today Cont Rocephin/Azithro Continue O2 support if needed with target saturation >92%. She needs supplemental O2 with activity. She is now working with PT and OT. Since she has a hydromorphone allergy, morphine cannot be used for air hunger, I ordered her to get Ativan as needed (2)Abnormal CXR CXR: R Infrahilar opacity, most likely pneumonia, but lung mass possible Plan: Will repeat her CXR once pneumonia has improved Will add IS and possibly Acapella device (3) Hypokalemia K was 3 at admission. Probably from being on Lasix. Pt was given K replacement All labs were reviewed. Plan: Will supplement with iv K Riders and po KCl effervescent Monitor BMP daily (4)HTN Plan: Continue home medications: Graham now and eventually will resume Spirinolactone and possibly her Lasix (5) DM type 2 Glc 162 and A1c came back at 6.5, indicating good control. Plan: We have her getting accuchecks, SS Insulin, Hypoglycemic protocol and Diabetic diet Hold home PO medications: Glipizide (6) Hypothyroidism TSH came back in good range, so she is getting proper dose Plan: She has been continued on her home medications: Levothyroxine (7) Fibromyalgia This gives her Chronic pain, especially LBP Plan: I reordered her narcotic as well as her Suboxone and other meds for chronic pain, and Trazadone for sleep. (8) Hx of alcoholic Cirrhosis She quit drinking ETOH 10 years ago. She denies active symptoms from her cirrhosis. Plan: Continue home medications: Graham Cont to hold home medications for 1 more day: Lasix, Spironolactone, since pt appeared dry at admission. Will stop fluids after today (9) Diarrhea Improving On 02/01 the patient reported several liquidy diarrhea BMs. She told me today she has had C. difficile 9 times in her life. Test for C. difficile now came back negative Plan: Will give Imodium as needed Cont on probiotics also - Current Meds Current Meds: Current Medications Generic Name Dose Route Start Last Admin Trade Name Freq PRN Reason Stop Dose Admin Acetaminophen 650 mg 01/30/23 23:56 02/01/23 12:17 Acetaminophen 325 Mg Tablet PO 650 mg Q4HR PRN Administration Pain 1 to 4, or Fever Buprenorphine HCl 0.5 tab 02/01/23 07:45 02/03/23 05:00 Buprenorphine/Naloxone 8-2 Mg Tab SL 0.5 tab TID STEFFI Administration Enoxaparin Sodium 40 mg 01/31/23 09:00 02/03/23 09:17 Enoxaparin 40 Mg/0.4 Ml Syringe SUBQ 40 mg DAILY STEFFI Administration Gabapentin 600 mg 02/01/23 21:00 02/02/23 20:43 Gabapentin 300 Mg Capsule PO 600 mg QPM STEFFI Administration Lactated Ringer's 1,000 mls @ 50 mls/hr 01/30/23 23:45 02/03/23 11:04 Lr IV 50 mls/hr .Q20H STEFFI Administration Ceftriaxone Sodium 2 gm/ 100 mls @ 200 mls/hr 01/31/23 10:00 02/03/23 10:40 Sodium Chloride IV 02/04/23 09:29 Infused DAILY STEFFI Infusion Potassium Chloride 10 meq in 100 mls @ 100 mls/hr 02/03/23 08:00 02/03/23 10:57 Potassium Chloride IV 02/03/23 11:59 100 mls/hr Q1H STEFFI Administration Insulin Human Lispro 0 unit 01/31/23 08:00 02/03/23 09:20 Insulin Lispro 300 Unit/3 Ml Pen SUBQ Not Given 0800,1200,1600,2100 STEFFI Protocol Lactobacillus Rhamnosus 1 cap 01/31/23 09:00 02/03/23 09:18 Lactobacillus Rhamnosus Gg Capsule PO 1 cap BID STEFFI Administration Levothyroxine Sodium 112 mcg 02/02/23 07:00 02/03/23 06:10 Levothyroxine 112 Mcg Tablet PO 112 mcg QDAC STEFFI Administration Loperamide HCl 2 mg 02/01/23 17:28 02/02/23 16:08 Loperamide 2 Mg Capsule PO 2 mg QID PRN Administration Diarrhea Lorazepam 0.5 mg 02/02/23 18:54 02/03/23 04:31 Lorazepam 2 Mg/Ml Vial IVP 0.5 mg Q6H PRN Administration Anxiety Multivitamins/Minerals 1 tab 02/02/23 08:00 02/03/23 09:17 Multivitamin W/Minerals Tablet PO 1 tab DAILYWM STEFFI Administration Nadolol 20 mg 01/31/23 09:00 02/03/23 09:17 Nadolol 20 Mg Tablet PO 20 mg BID STEFFI Administration Ondansetron HCl 4 mg 01/30/23 23:56 02/03/23 10:55 Ondansetron Odt 4 Mg Tablet TL 4 mg Q6HR PRN Administration Nausea / Vomiting Oxycodone HCl 10 mg 02/01/23 07:39 02/03/23 04:25 Oxycodone 5 Mg Tablet PO 10 mg TID PRN Administration PAIN 5-7 Pantoprazole Sodium 40 mg 02/01/23 07:40 02/03/23 06:10 Pantoprazole 40 Mg Tablet PO 40 mg QDAC STEFFI Administration Potassium Chloride 20 meq 02/03/23 08:00 02/03/23 10:38 Potassium Chloride 20 Meq Tablet PO 20 meq DAILYWM STEFFI Administration Sodium Chloride 10 ml 01/31/23 01:00 02/03/23 09:21 Sodium Chloride Flush 0.9% 10 Ml Syringe IVP 10 ml 0100,0900,1700 STEFFI Administration Tizanidine HCl 2 mg 01/31/23 00:05 02/03/23 10:55 Tizanidine 4 Mg Tablet PO 2 mg TID PRN Administration PAIN Trazodone HCl 200 mg 02/01/23 21:00 02/02/23 20:43 Trazodone 50 Mg Tablet PO 200 mg QPM STEFFI Administration - Lab Result Fish Bone Diagrams: 02/03/23 05:22 02/03/23 05:22 - Additional Planning My Orders: My Active Orders 02/02/23 18:54 LORazepam INJ [Ativan Inj (Vial)] 0.5 mg IVP Q6H PRN 02/03/23 Evaluate and Treat OT [OT] Routine 02/03/23 08:00 Potassium Chlor 10 Meq/100 ml [Potassium Chloride] 10 meq in 100 ml IV Q1H Potassium Chloride [K-Dur] 20 meq PO DAILYWM 02/03/23 10:37 Orthostatic [Vital Signs - Orthostatic] [RC] QSHIFT 02/03/23 16:00 POTASSIUM [CHEM] Timed Subjective - Subjective Patient Reports: Feeling Better (Less dizzy when upright, compared to yesterday), Shortness of Breath (with activity and still needing suppl O2) Objective Vital Signs: Vital Signs - 24 hr 02/02/23 02/02/23 02/02/23 15:32 17:36 19:20 Temperature 37.0 C Heart Rate [ 65 61 Brachial] Respiratory 18 Rate Blood Pressure 150/85 H 120/78 [Right Brachial artery] O2 Saturation 92 93 91 L If not protocol 3 4 : Oxygen Flow, liters/minute 02/02/23 02/03/23 23:15 07:35 Temperature 36.6 C 36.9 C Heart Rate [ 68 68 Brachial] Respiratory 16 16 Rate Blood Pressure 134/69 H 142/86 H [Right Brachial artery] O2 Saturation 92 94 If not protocol 3 3 : Oxygen Flow, liters/minute Oxygen O2 Source [With Activity] Room air O2 Source [Without Activity] Room air O2 Source Nasal cannula Oxygen Flow Rate 15 I&O (Last 24 Hrs): Intake and Output Totals x24h 02/01/23 02/02/23 02/03/23 23:59 23:59 23:59 Intake Total 2675 2050 1350 Output Total 375 1200 250 Balance 2300 850 1100 General: Alert, Oriented x3, Other (Lethargic) HEENT: Mucous membr. moist/pink, Other (Poor dentition. Wearing O2 via n.c.) Neck: Supple Neuro: Alert, Non Focal, Other (Lethargic) Cardiovascular: Regular rate, No murmurs Respiratory: No respiratory distress Abdomen: Soft Extremities: No clubbing, No edema - Results Results: Laboratory Results WBC 4.7 x10^3/uL (4.8-10.8) L 02/03/23 05:22 RBC 3.49 10^6/uL (4.20-5.40) L 02/03/23 05:22 Hgb 11.9 g/dL (12.0-16.0) L 02/03/23 05:22 Hct 34.2 % (37.0-47.0) L 02/03/23 05:22 MCV 98.0 fL (81.0-99.0) 02/03/23 05:22 MCH 34.1 pg (27.0-31.0) H 02/03/23 05:22 MCHC 34.8 g/dL (32.0-36.0) 02/03/23 05:22 RDW 13.2 % (12.0-15.0) 02/03/23 05:22 Plt Count 126 10^3/uL (130-450) L 02/03/23 05:22 MPV 10.0 fL (7.9-10.8) 02/03/23 05:22 Neut # (Auto) 2.6 10^3/uL (1.5-6.6) 02/03/23 05:22 Lymph # (Auto) 1.2 10^3/uL (1.5-3.5) L 02/03/23 05:22 [place] # (Auto) 0.6 10^3/uL (0.0-1.0) 02/03/23 05:22 Eos # (Auto) 0.1 10^3/uL (0.0-0.7) 02/03/23 05:22 Baso # (Auto) 0.0 10^3/uL (0.0-0.1) 02/03/23 05:22 Absolute Nucleated RBC 0.00 x10^3/uL 02/03/23 05:22 Total Counted 100 02/01/23 05:19 Band Neuts % (Manual) 6 % (0-10) 02/01/23 05:19 Abnorm Lymph % (Manual) 0 % 02/01/23 05:19 Metamyelocytes % 1 % (-0) H 02/01/23 05:19 Myelocytes % 1 % (-0) H 02/01/23 05:19 Nucleated RBC % 0.0 /100WBC 02/03/23 05:22 Neutrophils # (Manual) 14.2 10^3/uL (1.5-6.6) H 02/01/23 05:19 Lymphocytes # (Manual) 1.1 10^3/uL (1.5-3.5) L 02/01/23 05:19 Monocytes # (Manual) 0.3 10^3/uL (0.0-1.0) 02/01/23 05:19 Eosinophils # (Manual) 0.0 10^3/uL (0-0.7) 02/01/23 05:19 Basophils # (Manual) 0.0 10^3/uL (0-0.1) 02/01/23 05:19 Differential Comment MANUAL DIFFERENTIAL 02/01/23 05:19 WBC Morphology NORMAL APPEARANCE (NORMAL) 02/01/23 05:19 Platelet Estimate NORMAL (130-450,000) (NORMAL) 02/01/23 05:19 Platelet Morphology NORMAL APPEARANCE (NORMAL) 02/01/23 05:19 RBC Morph Micro Appear NORMAL APPEARANCE (NORMAL) 02/01/23 05:19 VBG pH 7.464 (7.31-7.41) H 01/30/23 22:52 VBG pCO2 38.7 mmHg (41-51) L 01/30/23 22:52 VBG pO2 65.0 mmHg (25-47) H 01/30/23 22:52 VBG HCO3 27.2 mmol/L (23-28) 01/30/23 22:52 VBG Total CO2 28.3 mmol/L (24-29) 01/30/23 22:52 VBG O2 Saturation 93.2 % (60-80) H 01/30/23 22:52 VBG Base Excess 3.3 mmol/L (-2 - +2) H 01/30/23 22:52 Sodium 138 mmol/L (135-145) 02/03/23 05:22 Potassium 2.8 mmol/L (3.5-5.0) L 02/03/23 05:22 Chloride 101 mmol/L (101-111) 02/03/23 05:22 Carbon Dioxide 30 mmol/L (21-32) 02/03/23 05:22 Anion Gap 7.0 (6-13) 02/03/23 05:22 BUN < 5 mg/dL (6-20) L 02/03/23 05:22 Creatinine 0.3 mg/dL (0.4-1.0) L 02/03/23 05:22 Estimated GFR (MDRD) 222 (>89) 02/03/23 05:22 Glucose 88 mg/dL (70-100) 02/03/23 05:22 POC Whole Bld Glucose 212 mg/dL (70 - 100) H 02/03/23 11:07 Estimat Average Glucose 140 mg/dL (70-100) H 02/01/23 05:19 Hemoglobin A1c % 6.5 % (4.27-6.07) H 02/01/23 05:19 Lactic Acid 1.2 mmol/L (0.5-2.2) 01/30/23 22:52 Calcium 8.0 mg/dL (8.5-10.3) L 02/03/23 05:22 Magnesium 1.7 mg/dL (1.7-2.8) 01/30/23 22:52 Total Bilirubin 1.1 mg/dL (0.2-1.0) H 01/31/23 05:09 AST 25 IU/L (10-42) 01/31/23 05:09 ALT 15 IU/L (10-60) 01/31/23 05:09 Alkaline Phosphatase 47 IU/L (42-121) 01/31/23 05:09 Total Protein 6.0 g/dL (6.7-8.2) L 01/31/23 05:09 Albumin 2.4 g/dL (3.2-5.5) L 01/31/23 05:09 Globulin 3.6 g/dL (2.1-4.2) 01/31/23 05:09 Albumin/Globulin Ratio 0.7 (1.0-2.2) L 01/31/23 05:09 TSH 4.93 uIU/mL (0.34-5.60) 02/03/23 05:22 Urine Color YELLOW 01/31/23 01:52 Urine Clarity CLEAR (CLEAR) 01/31/23 01:52 Urine pH 5.5 PH (5.0-7.5) 01/31/23 01:52 Ur Specific [place] 1.020 (1.002-1.030) 01/31/23 01:52 Urine Protein 30 mg/dL (NEGATIVE) H 01/31/23 01:52 Urine Glucose (UA) NEGATIVE mg/dL (NEGATIVE) 01/31/23 01:52 Urine Ketones 15 mg/dL (NEGATIVE) H 01/31/23 01:52 Urine Occult Blood SMALL (NEGATIVE) H 01/31/23 01:52 Urine Nitrite NEGATIVE (NEGATIVE) 01/31/23 01:52 Urine Bilirubin NEGATIVE (NEGATIVE) 01/31/23 01:52 Urine Urobilinogen 1 (NORMAL) E.U./dL (NORMAL) 01/31/23 01:52 Ur Leukocyte Esterase MODERATE (NEGATIVE) H 01/31/23 01:52 Urine RBC 0-5 /HPF (0-5) 01/31/23 01:52 Urine WBC 11-25 /HPF (0-5) H 01/31/23 01:52 Ur Epithelial Cells FEW Renal Tubular /HPF (<= Few) 01/31/23 01:52 Ur Squamous Epith Cells FEW Squamous (<= Few) 01/31/23 01:52 Urine Bacteria Few /HPF (None Seen) 01/31/23 01:52 Urine Culture Comments INDICATED 01/31/23 01:52 Nasal Adenovirus (PCR) NOT DETECTED 01/30/23 22:18 Nasal B. parapertussis DNA (PCR) NOT DETECTED 01/30/23 22:18 Nasal Coronavir 229E PCR NOT DETECTED 01/30/23 22:18 Nasal Coronavir HKU1 PCR NOT DETECTED 01/30/23 22:18 Nasal Coronavir NL63 PCR NOT DETECTED 01/30/23 22:18 Nasal Coronavir OC43 PCR NOT DETECTED 01/30/23 22:18 Nasal Enterovir/Rhinovir PCR NOT DETECTED 01/30/23 22:18 Nasal Influenza B PCR NOT DETECTED 01/30/23 22:18 Nasal Influenza A PCR NOT DETECTED 01/30/23 22:18 Nasal Parainfluen 1 PCR NOT DETECTED 01/30/23 22:18 Nasal Parainfluen 2 PCR NOT DETECTED 01/30/23 22:18 Nasal Parainfluen 3 PCR NOT DETECTED 01/30/23 22:18 Nasal Parainfluen 4 PCR NOT DETECTED 01/30/23 22:18 Nasal RSV (PCR) NOT DETECTED 01/30/23 22:18 Nasal B.pertussis DNA PCR NOT DETECTED 01/30/23 22:18 Nasal C.pneumoniae (PCR) NOT DETECTED 01/30/23 22:18 [place] Human Metapneumo PCR NOT DETECTED 01/30/23 22:18 Nasal M.pneumoniae (PCR) NOT DETECTED 01/30/23 22:18 Nasal SARS-CoV-2 (PCR) NOT DETECTED 01/30/23 22:18 Stl C. diff Tox B Gene NEGATIVE (NEGATIVE) 02/01/23 14:30 - Procedures Procedures: Procedures EXCISION OF FEMORAL NERVE, OPEN APPROACH (09/04/15)
[2023-02-03] MEDS: GABAPENTIN 300 MG CAPSULE PO SCH (20:22)
[2023-02-03] MEDS: traZODone 50 MG TABLET PO SCH (20:22)
[2023-02-03] MEDS: tiZANidine 4 MG TABLET PO SCH (20:26)
[2023-02-04 06:20] LABS: BUN - BLOOD UREA NITROGEN < 5 mg/dL (6-20); CARBON DIOXIDE - CO2 33 mmol/L (21-32); CHLORIDE 100 mmol/L (101-111); CREATININE 0.4 mg/dL (0.4-1.0); GFR - MDRD 159 (>89); GLUCOSE 122 mg/dL (70-100); POTASSIUM 3.2 mmol/L (3.5-5.0); SODIUM 138 mmol/L (135-145)
[2023-02-04] MEDS: LEVOTHYROXINE 112 MCG TABLET PO SCH (06:55)
[2023-02-04] MEDS: PANTOPRAZOLE 40 MG TABLET PO SCH (06:56)
[2023-02-04] MEDS: BUPRENORPHINE/NALOXONE 8-2 MG TAB SL SCH ×3 (07:36→21:05)
[2023-02-04] MEDS: POTASSIUM CHLORIDE 20 MEQ TABLET PO SCH (08:27)
[2023-02-04] MEDS: LACTOBACILLUS RHAMNOSUS GG CAPSULE PO SCH ×2 (08:27→21:05)
[2023-02-04] MEDS: ENOXAPARIN 40 MG/0.4 ML SYRINGE SUBQ SCH (08:27)
[2023-02-04] MEDS: MULTIVITAMIN W/MINERALS TABLET PO SCH (08:27)
[2023-02-04] MEDS: tiZANidine 4 MG TABLET PO SCH ×2 (08:28→21:04)
[2023-02-04] MEDS: nadoloL 20 MG TABLET PO SCH ×2 (08:29→21:04)
[2023-02-04] MEDS: cefTRIAXone 2 GM in SODIUM CHLORIDE 0.9% MINIBAG 100 ML IV SCH (08:29)
--- NOTE | 2023-02-04 09:08 | XRAY Report ---
PROCEDURE: Chest 1 View X-Ray INDICATIONS: Hypoxia, F/U mass and pneumonia TECHNIQUE: One view of the chest was acquired. COMPARISON: None. FINDINGS: Surgical changes and devices: None. Lungs and pleura: Stable right perihilar consolidation. The airspace opacities in the right suprahil ar region and left lower lung zone. Mediastinum: Mediastinal contours appear normal. Heart size is normal. Bones and chest wall: No suspicious bony lesions. Overlying soft tissues appear unremarkable. IMPRESSION: Stable right perihilar consolidation. However, there are Airspace opacities in the right suprahilar region and left lower lung zone, concerning for progressiv e pneumonia. Again, the right perihilar consolidation needs to be followed at least one month following antibiotic therapy to ensure resolution, as underlying malignancy is not entirely excluded. Reviewed by: Rohan Skaggs on 02/04/2023 9:06 AM PDT Approved by: Rohan Skaggs on 02/04/2023 9:06 AM PDT Station ID: [id number]
--- NOTE | 2023-02-04 09:12 | PROVIDER PROGRESS NOTE ---
Assessment/Plan - Problem List (1) Hypoxia Assessment/Plan: The patient has been hypoxic since admission, initially better with IV antibiotics but then she has had anxiety with air hunger here, and even needed treatment with Ativan. Morphine cannot be used because she has a hydromorphone allergy. A chest x-ray was repeated today and shows a persistent right-sided pneumonia (with a possible mass persisting), and new right upper lobe infiltrate and LLL infiltrate Plan: Continue to give supplemental O2. She needs supplemental O2 with activity. She is now working with PT and OT. Adjust antibx to treat the underlying pneumonia Since she has a hydromorphone allergy, morphine cannot be used for air hunger, I ordered her to get Ativan as needed (2) Pneumonia Assessment/Plan: She presented with shortness of breath, Fever, Hypoxia and Leukocytosis. When EMS arrived, SpO2 84% on RA. WBC 21.7 which has improved to normal (all labs were reviewed). Her CXR showed a R Infrahilar opacity, most likely pneumonia, but mass possible. Pt was given IVF, and has been on Rocephin/Azithro. A chest x-ray was repeated today and shows a persistent right-sided bernardo-hilar pneumonia (with a possible mass persisting), and new right ssupra-hilar infiltrate and a new LLL infiltrate Plan: I will stop IV ceftriaxone, she is finished Zithromax I will start IV vancomycin to cover MRSA and IV Zosyn to cover anaerobes Continue O2 support if needed with target saturation >92%. Continue IS and Mucinex I updated the at bedside today about her entire problem list and all plans (3) Abnormal CXR CXR: R Infrahilar opacity, most likely pneumonia, but lung mass possible A chest x-ray was repeated today and shows a persistent right-sided bernardo-hilar pneumonia (with a possible mass persisting). The recommendation is to follow this by imaging until pneumonia clears. Plan: Continue antibiotics, IS and Mucinex We will plan to do a chest CT in several days (4) Hypokalemia K was 3 at admission. Probably from being on Lasix. Pt has been given K replacement All labs were reviewed. Today her phosphorus was low Plan: Will supplement with iv K Phos and po KCl Monitor BMP daily (5) Weakness Patient has been excessively somnolent since being admitted. All her usual narcotics plus Suboxone, gabapentin, Desyrel doses have been resumed This afternoon she is orthostatic: Supine BP 128/83, HR 52. Sitting BP 126/72, HR 63. Standing BP 96/78, HR 70, and she complained of lightheadedness. Today I spoke to the at bedside and he gave me more details: About 1 week before this admission the patient became very fatigued, was sleeping 15 hours a day. I decreased the doses of her Desyrel at night by half, gabapentin dosing from 3 times daily to twice daily, Corgard to be put on hold if heart rate is under 60 or if systolic is under 100, decreased Trazadone and decreased the frequency of the prn Ativan Plan: If she continues to have orthostasis, I will resume IV fluids I will also check B12 level, folate level, free T4, and her vit D level (6) DM type 2 Glc 162 and A1c came back at 6.5, indicating good control. Plan: We have her getting accuchecks, SS Insulin, Hypoglycemic protocol and Diabetic diet Hold home PO medications: Glipizide (7) HTN She has been orthostatic intermittently here (vital signs reviewed) Plan: Continue home medications: Corgard at lower dose and eventually will resume Spirinolactone and her Lasix (8) Hypothyroidism TSH came back in good range Plan: Because of marked lethargy, I will check a free T4 She has been continued on her home medications: Levothyroxine (9) Fibromyalgia This gives her Chronic pain, especially LBP Plan: I reordered her narcotic as well as her Suboxone and other meds for chronic pain, and Trazadone for sleep. I decreased these doses yesterday because of excessive fatigue (10) Hx of alcoholic Cirrhosis She quit drinking ETOH 10 years ago. She denies active symptoms from her cirrhosis. Plan: Continue home medications: Corgard Cont to hold home medications for 1 more day: Lasix, Spironolactone, since pt appeared dry at admission. Will stop fluids after today (11) Diarrhea Improving On 02/01 the patient reported several liquidy diarrhea BMs. She told me today she has had C. difficile 9 times in her life. Test for C. difficile now came back negative Plan: Will give Imodium as needed Cont on probiotics also - Current Meds Current Meds: Current Medications Generic Name Dose Route Start Last Admin Trade Name Freq PRN Reason Stop Dose Admin Acetaminophen 650 mg 01/30/23 23:56 02/01/23 12:17 Acetaminophen 325 Mg Tablet PO 650 mg Q4HR PRN Administration Pain 1 to 4, or Fever Buprenorphine HCl 0.5 tab 02/01/23 07:45 02/04/23 07:36 Buprenorphine/Naloxone 8-2 Mg Tab SL 0.5 tab TID STEFFI Administration Enoxaparin Sodium 40 mg 01/31/23 09:00 02/04/23 08:27 Enoxaparin 40 Mg/0.4 Ml Syringe SUBQ 40 mg DAILY STEFFI Administration Gabapentin 300 mg 02/03/23 21:00 02/03/23 20:22 Gabapentin 300 Mg Capsule PO 300 mg QPM STEFFI Administration Ceftriaxone Sodium 2 gm/ 100 mls @ 200 mls/hr 01/31/23 10:00 02/04/23 08:29 Sodium Chloride IV 02/04/23 09:29 200 mls/hr DAILY STEFFI Administration Insulin Human Lispro 0 unit 01/31/23 08:00 02/03/23 20:22 Insulin Lispro 300 Unit/3 Ml Pen SUBQ 1 unit 0800,1200,1600,2100 STEFFI Administration Protocol Lactobacillus Rhamnosus 1 cap 01/31/23 09:00 02/04/23 08:27 Lactobacillus Rhamnosus Gg Capsule PO 1 cap BID STEFFI Administration Levothyroxine Sodium 112 mcg 02/02/23 07:00 02/04/23 06:55 Levothyroxine 112 Mcg Tablet PO 112 mcg QDAC STEFFI Administration Loperamide HCl 2 mg 02/01/23 17:28 02/02/23 16:08 Loperamide 2 Mg Capsule PO 2 mg QID PRN Administration Diarrhea Lorazepam 0.5 mg 02/03/23 11:45 02/03/23 17:51 Lorazepam 2 Mg/Ml Vial IVP 0.5 mg Q8H PRN Administration Anxiety Multivitamins/Minerals 1 tab 02/02/23 08:00 02/04/23 08:27 Multivitamin W/Minerals Tablet PO 1 tab DAILYWM STEFFI Administration Nadolol 20 mg 02/03/23 18:31 02/04/23 08:29 Nadolol 20 Mg Tablet PO 20 mg BID STEFFI Administration Ondansetron HCl 4 mg 01/30/23 23:56 02/03/23 10:55 Ondansetron Odt 4 Mg Tablet TL 4 mg Q6HR PRN Administration Nausea / Vomiting Oxycodone HCl 10 mg 02/01/23 07:39 02/03/23 13:55 Oxycodone 5 Mg Tablet PO 10 mg TID PRN Administration PAIN 5-7 Pantoprazole Sodium 40 mg 02/01/23 07:40 02/04/23 06:56 Pantoprazole 40 Mg Tablet PO 40 mg QDAC STEFFI Administration Potassium Chloride 20 meq 02/03/23 08:00 02/04/23 08:27 Potassium Chloride 20 Meq Tablet PO 20 meq DAILYWM STEFFI Administration Sodium Chloride 10 ml 01/31/23 01:00 02/03/23 20:31 Sodium Chloride Flush 0.9% 10 Ml Syringe IVP 10 ml 0100,0900,1700 STEFFI Administration Tizanidine HCl 2 mg 02/03/23 21:00 02/04/23 08:28 Tizanidine 4 Mg Tablet PO 2 mg BID STEFFI Administration Trazodone HCl 100 mg 02/03/23 21:00 02/03/23 20:22 Trazodone 50 Mg Tablet PO 100 mg QPM STEFFI Administration - Lab Result Fish Bone Diagrams: 02/03/23 05:22 02/04/23 04:53 - Diagnostic Imaging Results Diagnostic Imaging Results: Final report reviewed - Additional Planning My Orders: My Active Orders 02/03/23 10:37 Orthostatic [Vital Signs - Orthostatic] [RC] QSMAFT 02/03/23 11:45 LORazepam INJ [Ativan Inj (Vial)] 0.5 mg IVP Q8H PRN 02/03/23 18:31 nadoloL [Corgard] 20 mg PO BID 02/03/23 21:00 Gabapentin [Neurontin] 300 mg PO QPM tiZANidine [Zanaflex] 2 mg PO BID traZODone [Desyrel] 100 mg PO QPM 02/04/23 04:52 PHOSPHORUS [CHEM] Urgent 02/04/23 08:31 Miscellaenous Nursing Order [RC] QSHIFT 02/05/23 05:00 BMP - BASIC METABOLIC PANEL [CHEM] DAILYLAB CBC - COMP BLD CT W/AUTO DIFF [HEME] DAILYLAB Subjective - Subjective Patient Reports: Cough (non-productive w/ a weak cough), Fatigue (Feels "foggy" and is very sleepy) Objective Vital Signs: Vital Signs - 24 hr 02/03/23 02/03/23 02/03/23 10:26 16:00 16:22 Temperature 36.6 C Heart Rate [ 55 L Brachial] Heart Rate [ Monitoring electrodes] Heart Rate [ 79 Sitting] Heart Rate [ 73 Standing] Heart Rate [ 76 Supine] Respiratory 16 Rate Blood Pressure 126/80 [Right Brachial artery] Blood Pressure 152/87 H [Sitting] Blood Pressure 165/77 H [Standing] Blood Pressure 137/81 H [Supine] O2 Saturation 96 93 O2 Saturation [ 96 Sitting] O2 Saturation [ 93 Supine] If not protocol 3 2 : Oxygen Flow, liters/minute 02/03/23 02/03/23 02/04/23 20:33 20:35 00:06 Temperature 36.5 C 36.5 C Heart Rate [ 66 Brachial] Heart Rate [ 67 Monitoring electrodes] Heart Rate [ Sitting] Heart Rate [ Standing] Heart Rate [ Supine] Respiratory 12 16 Rate Blood Pressure 116/67 114/66 [Right Brachial artery] Blood Pressure [Sitting] Blood Pressure [Standing] Blood Pressure [Supine] O2 Saturation 93 94 O2 Saturation [ Sitting] O2 Saturation [ Supine] If not protocol 4 4 4 : Oxygen Flow, liters/minute 02/04/23 02/04/23 07:44 08:52 Temperature 36.7 C Heart Rate [ 61 Brachial] Heart Rate [ Monitoring electrodes] Heart Rate [ Sitting] Heart Rate [ Standing] Heart Rate [ Supine] Respiratory 16 Rate Blood Pressure 128/72 [Right Brachial artery] Blood Pressure [Sitting] Blood Pressure [Standing] Blood Pressure [Supine] O2 Saturation 96 91 L O2 Saturation [ Sitting] O2 Saturation [ Supine] If not protocol 4 1 : Oxygen Flow, liters/minute Oxygen O2 Source [With Activity] Room air O2 Source [Without Activity] Room air O2 Source Nasal cannula Oxygen Flow Rate 15 I&O (Last 24 Hrs): Intake and Output Totals x24h 02/02/23 02/03/23 02/04/23 23:59 23:59 23:59 Intake Total 20490 Output Total 1200 550 350 Balance 850 1920 -350 General: Alert, Oriented x3, Other (Appears tired) HEENT: Mucous membr. moist/pink, Other (Edentulous) Neck: Supple, No JVD Neuro: Alert, Non Focal, Other (Appears tired) Cardiovascular: No murmurs Respiratory: Rales (Right midlung field) Abdomen: Soft, No tenderness Extremities: No clubbing, No edema, No tenderness/swelling - Results Results: Laboratory Results WBC 4.7 x10^3/uL (4.8-10.8) L 02/03/23 05:22 RBC 3.49 10^6/uL (4.20-5.40) L 02/03/23 05:22 Hgb 11.9 g/dL (12.0-16.0) L 02/03/23 05:22 Hct 34.2 % (37.0-47.0) L 02/03/23 05:22 MCV 98.0 fL (81.0-99.0) 02/03/23 05:22 MCH 34.1 pg (27.0-31.0) H 02/03/23 05:22 MCHC 34.8 g/dL (32.0-36.0) 02/03/23 05:22 RDW 13.2 % (12.0-15.0) 02/03/23 05:22 Plt Count 126 10^3/uL (130-450) L 02/03/23 05:22 MPV 10.0 fL (7.9-10.8) 02/03/23 05:22 Neut # (Auto) 2.6 10^3/uL (1.5-6.6) 02/03/23 05:22 Lymph # (Auto) 1.2 10^3/uL (1.5-3.5) L 02/03/23 05:22 [place] # (Auto) 0.6 10^3/uL (0.0-1.0) 02/03/23 05:22 Eos # (Auto) 0.1 10^3/uL (0.0-0.7) 02/03/23 05:22 Baso # (Auto) 0.0 10^3/uL (0.0-0.1) 02/03/23 05:22 Absolute Nucleated RBC 0.00 x10^3/uL 02/03/23 05:22 Total Counted 100 02/01/23 05:19 Band Neuts % (Manual) 6 % (0-10) 02/01/23 05:19 Abnorm Lymph % (Manual) 0 % 02/01/23 05:19 Metamyelocytes % 1 % (-0) H 02/01/23 05:19 Myelocytes % 1 % (-0) H 02/01/23 05:19 Nucleated RBC % 0.0 /100WBC 02/03/23 05:22 Neutrophils # (Manual) 14.2 10^3/uL (1.5-6.6) H 02/01/23 05:19 Lymphocytes # (Manual) 1.1 10^3/uL (1.5-3.5) L 02/01/23 05:19 Monocytes # (Manual) 0.3 10^3/uL (0.0-1.0) 02/01/23 05:19 Eosinophils # (Manual) 0.0 10^3/uL (0-0.7) 02/01/23 05:19 Basophils # (Manual) 0.0 10^3/uL (0-0.1) 02/01/23 05:19 Differential Comment MANUAL DIFFERENTIAL 02/01/23 05:19 WBC Morphology NORMAL APPEARANCE (NORMAL) 02/01/23 05:19 Platelet Estimate NORMAL (130-450,000) (NORMAL) 02/01/23 05:19 Platelet Morphology NORMAL APPEARANCE (NORMAL) 02/01/23 05:19 RBC Morph Micro Appear NORMAL APPEARANCE (NORMAL) 02/01/23 05:19 VBG pH 7.464 (7.31-7.41) H 01/30/23 22:52 VBG pCO2 38.7 mmHg (41-51) L 01/30/23 22:52 VBG pO2 65.0 mmHg (25-47) H 01/30/23 22:52 VBG HCO3 27.2 mmol/L (23-28) 01/30/23 22:52 VBG Total CO2 28.3 mmol/L (24-29) 01/30/23 22:52 VBG O2 Saturation 93.2 % (60-80) H 01/30/23 22:52 VBG Base Excess 3.3 mmol/L (-2 - +2) H 01/30/23 22:52 Sodium 138 mmol/L (135-145) 02/04/23 04:53 Potassium 3.2 mmol/L (3.5-5.0) L 02/04/23 04:53 Chloride 100 mmol/L (101-111) L 02/04/23 04:53 Carbon Dioxide 33 mmol/L (21-32) H 02/04/23 04:53 Anion Gap 5.0 (6-13) L 02/04/23 04:53 BUN < 5 mg/dL (6-20) L 02/04/23 04:53 Creatinine 0.4 mg/dL (0.4-1.0) 02/04/23 04:53 Estimated GFR (MDRD) 159 (>89) 02/04/23 04:53 Glucose 122 mg/dL (70-100) H 02/04/23 04:53 POC Whole Bld Glucose 106 mg/dL (70 - 100) H 02/04/23 07:26 Estimat Average Glucose 140 mg/dL (70-100) H 02/01/23 05:19 Hemoglobin A1c % 6.5 % (4.27-6.07) H 02/01/23 05:19 Lactic Acid 1.2 mmol/L (0.5-2.2) 01/30/23 22:52 Calcium 8.0 mg/dL (8.5-10.3) L 02/04/23 04:53 Magnesium 1.7 mg/dL (1.7-2.8) 01/30/23 22:52 Total Bilirubin 1.1 mg/dL (0.2-1.0) H 01/31/23 05:09 AST 25 IU/L (10-42) 01/31/23 05:09 ALT 15 IU/L (10-60) 01/31/23 05:09 Alkaline Phosphatase 47 IU/L (42-121) 01/31/23 05:09 Total Protein 6.0 g/dL (6.7-8.2) L 01/31/23 05:09 Albumin 2.4 g/dL (3.2-5.5) L 01/31/23 05:09 Globulin 3.6 g/dL (2.1-4.2) 01/31/23 05:09 Albumin/Globulin Ratio 0.7 (1.0-2.2) L 01/31/23 05:09 TSH 4.93 uIU/mL (0.34-5.60) 02/03/23 05:22 Urine Color YELLOW 01/31/23 01:52 Urine Clarity CLEAR (CLEAR) 01/31/23 01:52 Urine pH 5.5 PH (5.0-7.5) 01/31/23 01:52 Ur Specific [place] 1.020 (1.002-1.030) 01/31/23 01:52 Urine Protein 30 mg/dL (NEGATIVE) H 01/31/23 01:52 Urine Glucose (UA) NEGATIVE mg/dL (NEGATIVE) 01/31/23 01:52 Urine Ketones 15 mg/dL (NEGATIVE) H 01/31/23 01:52 Urine Occult Blood SMALL (NEGATIVE) H 01/31/23 01:52 Urine Nitrite NEGATIVE (NEGATIVE) 01/31/23 01:52 Urine Bilirubin NEGATIVE (NEGATIVE) 01/31/23 01:52 Urine Urobilinogen 1 (NORMAL) E.U./dL (NORMAL) 01/31/23 01:52 Ur Leukocyte Esterase MODERATE (NEGATIVE) H 01/31/23 01:52 Urine RBC 0-5 /HPF (0-5) 01/31/23 01:52 Urine WBC 11-25 /HPF (0-5) H 01/31/23 01:52 Ur Epithelial Cells FEW Renal Tubular /HPF (<= Few) 01/31/23 01:52 Ur Squamous Epith Cells FEW Squamous (<= Few) 01/31/23 01:52 Urine Bacteria Few /HPF (None Seen) 01/31/23 01:52 Urine Culture Comments INDICATED 01/31/23 01:52 Nasal Adenovirus (PCR) NOT DETECTED 01/30/23 22:18 Nasal B. parapertussis DNA (PCR) NOT DETECTED 01/30/23 22:18 Nasal Coronavir 229E PCR NOT DETECTED 01/30/23 22:18 Nasal Coronavir HKU1 PCR NOT DETECTED 01/30/23 22:18 Nasal Coronavir NL63 PCR NOT DETECTED 01/30/23 22:18 Nasal Coronavir OC43 PCR NOT DETECTED 01/30/23 22:18 Nasal Enterovir/Rhinovir PCR NOT DETECTED 01/30/23 22:18 Nasal Influenza B PCR NOT DETECTED 01/30/23 22:18 Nasal Influenza A PCR NOT DETECTED 01/30/23 22:18 Nasal Parainfluen 1 PCR NOT DETECTED 01/30/23 22:18 Nasal Parainfluen 2 PCR NOT DETECTED 01/30/23 22:18 Nasal Parainfluen 3 PCR NOT DETECTED 01/30/23 22:18 Nasal Parainfluen 4 PCR NOT DETECTED 01/30/23 22:18 Nasal RSV (PCR) NOT DETECTED 01/30/23 22:18 Nasal B.pertussis DNA PCR NOT DETECTED 01/30/23 22:18 Nasal C.pneumoniae (PCR) NOT DETECTED 01/30/23 22:18 [place] Human Metapneumo PCR NOT DETECTED 01/30/23 22:18 Nasal M.pneumoniae (PCR) NOT DETECTED 01/30/23 22:18 Nasal SARS-CoV-2 (PCR) NOT DETECTED 01/30/23 22:18 Stl C. diff Tox B Gene NEGATIVE (NEGATIVE) 02/01/23 14:30 - Procedures Procedures: Procedures EXCISION OF FEMORAL NERVE, OPEN APPROACH (09/04/15)
[2023-02-04] MEDS ORDERED: POTASSIUM PHOSPHATE 21 MMOL in SODIUM CHLORIDE 0.9% 250 ML IV ONE (09:50)
[2023-02-04] MEDS ORDERED: PIPERACILLIN/TAZOBACTAM 3.375 GM in SODIUM CHLORIDE 0.9% MINIBAG 100 ML IV ONE (10:00)
[2023-02-04] MEDS: INSULIN LISPRO 300 UNIT/3 ML PEN SUBQ SCH ×4 (10:05→21:06)
[2023-02-04] MEDS: SODIUM CHLORIDE FLUSH 0.9% 10 ML SYRINGE IVP SCH ×3 (10:07→23:50)
[2023-02-04] MEDS ORDERED: VANCOMYCIN INJ 1.25 GM in SODIUM CHLORIDE 0.9% 250 ML IV ONE (11:00)
[2023-02-04] MEDS: guaiFENesin 600 MG TABLET PO SCH ×2 (11:56→21:05)
[2023-02-04] MEDS: PIPERACILLIN/TAZOBACTAM 3.375 GM in SODIUM CHLORIDE 0.9% MINIBAG 100 ML IV SCH ×2 (14:31→21:05)
[2023-02-04] MEDS: LORazepam 2 MG/ML VIAL IVP PRN (14:32)
[2023-02-04] MEDS: oxyCODONE 5 MG TABLET PO PRN ×2 (14:40→23:58)
[2023-02-04] MEDS: GABAPENTIN 300 MG CAPSULE PO SCH (21:04)
[2023-02-04] MEDS: traZODone 50 MG TABLET PO SCH (21:04)
[2023-02-05] MEDS: VANCOMYCIN INJ 750 MG in SODIUM CHLORIDE 0.9% 250 ML IV SCH ×2 (02:57→17:33)
[2023-02-05 04:56] LABS: BASOPHILS % (AUTO) 1.2 %; EOSINOPHILS % (AUTO) 2.3 %; HCT - HEMATOCRIT 35.4 % (37.0-47.0); HGB - HEMOGLOBIN 12.1 g/dL (12.0-16.0); LYMPHOCYTES % (AUTO) 26.5 %; MEAN CORPUSCULAR HGB CONC 34.2 g/dL (32.0-36.0); MEAN CORPUSCULAR VOLUME 99.4 fL (81.0-99.0); MEAN PLATELET VOLUME 9.5 fL (7.9-10.8); MONOCYTES % (AUTO) 7.7 %; NEUTROPHILS % (AUTO) 56.9 %; PLT - PLATELET COUNT 168 10^3/uL (130-450); RED BLOOD COUNT 3.56 10^6/uL (4.20-5.40); RED CELL DISTRIBUTION WIDTH 12.9 % (12.0-15.0); WHITE BLOOD COUNT 4.8 x10^3/uL (4.8-10.8)
[2023-02-05 05:05] LABS: ABNORMAL LYMPHS % (MANUAL) 0 %
[2023-02-05 05:30] LABS: FREE T4 (FREE THYROXINE) 1.03 ng/dL (0.58-1.64)
[2023-02-05] MEDS: PIPERACILLIN/TAZOBACTAM 3.375 GM in SODIUM CHLORIDE 0.9% MINIBAG 100 ML IV SCH ×3 (05:36→20:44)
[2023-02-05 05:37] LABS: BAND NEUTROPHILS % (MANUAL) 12 %; BASOPHILS % (MANUAL) 1 %; EOSINOPHILS # (MANUAL) 0.1 10^3/uL (0-0.7); LYMPHOCYTES # (MANUAL) 1.5 10^3/uL (1.5-3.5); LYMPHOCYTES % (MANUAL) 32 %; MONOCYTES # (MANUAL) 0.2 10^3/uL (0.0-1.0); NEUTROPHILS # (MANUAL) 2.8 10^3/uL (1.5-6.6)
[2023-02-05 05:38] LABS: DIFFERENTIAL COMMENT MANUAL DIFFERENTIAL; FOLATE 20.77 ng/mL (5.90 - >24.8); PLATELET ESTIMATE, MANUAL NORMAL (130-450,000) (NORMAL); RBC MORPHOLOGY (MULTIPLE) NORMAL APPEARANCE (NORMAL)
[2023-02-05] MEDS: LEVOTHYROXINE 112 MCG TABLET PO SCH (06:08)
[2023-02-05] MEDS: BUPRENORPHINE/NALOXONE 8-2 MG TAB SL SCH ×3 (06:08→21:29)
[2023-02-05] MEDS: PANTOPRAZOLE 40 MG TABLET PO SCH (06:08)
[2023-02-05 06:42] LABS: % IRON SATURATION 34 % (20-50); BUN - BLOOD UREA NITROGEN < 5 mg/dL (6-20); CALCIUM 8.2 mg/dL (8.5-10.3); CARBON DIOXIDE - CO2 32 mmol/L (21-32); CHLORIDE 101 mmol/L (101-111); CREATININE 0.5 mg/dL (0.4-1.0); GFR - MDRD 123 (>89); GLUCOSE 93 mg/dL (70-100); IRON 51 ug/dL (28-170); MAGNESIUM 1.5 mg/dL (1.7-2.8); PHOSPHORUS 5.2 mg/dL (2.5-4.6); POTASSIUM 3.4 mmol/L (3.5-5.0); SODIUM 141 mmol/L (135-145); TOTAL IRON BINDING CAPACITY 151 ug/dL (250-450); TRANSFERRIN 108 mg/dL (192-382)
--- NOTE | 2023-02-05 07:48 | PROVIDER PROGRESS NOTE ---
Assessment/Plan - Problem List (1) Hypoxia Assessment/Plan: The patient has been hypoxic since admission, initially better with IV antibiotics but then she had anxiety with air hunger here, and even needed t reatment with Ativan. Morphine cannot be used because she has a hydromorphone allergy. A chest x-ray was repeated 02/04 and showed a persistent right-sided pneumonia (with a possible mass persisting), and new right upper lobe infiltrate and LLL infiltrate Plan: Continue to give supplemental O2. She needs supplemental O2 with activity. She is now working with PT and OT. Cont the adjusted antibx to treat the underlying pneumonia Since she has a hydromorphone allergy, morphine cannot be used for air hunger, I ordered her to get Ativan as needed. I updated the at bedside today (2) Pneumonia Assessment/Plan: She presented with shortness of breath, Fever, Hypoxia and Leukocytosis. When EMS arrived, SpO2 84% on RA. WBC 21.7 which has improved to normal (all labs were reviewed). Her CXR showed a R Infrahilar opacity, most likely pneumonia, but mass possible. Pt was given IVF, and has been on Rocephin/Azithro. A chest x-ray was repeated today and shows a persistent right-sided bernardo-hilar pneumonia (with a possible mass persisting), and new right ssupra-hilar infiltrate and a new LLL infiltrate Plan: Cont new IV vancomycin to cover MRSA and IV Zosyn to cover anaerobes Continue O2 support if needed with target saturation >92%. Continue IS and Mucinex (3) Weakness About 1 week before this admission the patient became very fatigued, was sleeping 15 hours a day. Patient has been excessively somnolent since being admitted. All her usual narcotics plus Suboxone, gabapentin, Desyrel doses were initially resumed. I then decreased the doses of her Desyrel at night by half, gabapentin dosing from 3 times daily to twice daily, Corgard to be put on hold if heart rate is under 60 or if systolic is under 100, decreased Trazadone and decreased the frequency of the prn Ativan She is orthostatic (all VS were reviewed) overnight: Supine BP 129/72, HR 57. Sitting BP 110/74, HR 68. Standing BP 76/49, HR 75, and she complained of lightheadedness. To look for other causes of weakness and fatigue, I checked her B12 level, folate level, free T4, and Iron panel and they are all in adequate range. I ordered her vit D level checked, and that lab is a send-out, not resulted yet. Plan: I do not want to give her a bolus of IV fluids because the chest x-ray had cephalization of flow and she has a history of CHF Today I will further decrease her prn Ativan from every 8 hours to only daily prn, Corgard from 20 BID to 10 BID with the same holding parameters, Tizanidine from 2 mg BID to 1 mg BID, Desyrel scheduled for sleep to be decreased from 100 mg to 50 mg. She needs to continue working with PT and OT rehab for strengthening. I discussed this with her and she agrees. (4) Abnormal CXR CXR: R Infrahilar opacity, most likely pneumonia, but lung mass possible A chest x-ray was repeated 02/04 and shows a persistent right-sided bernardo-hilar pneumonia (with a possible mass persisting). The recommendation is to follow this by imaging until pneumonia clears. Plan: Continue antibiotics, IS and Mucinex I will plan to do a chest CT in several days, when her infiltrates improve on CXR. (5) Hypokalemia K was 3 at admission. Probably from being on Lasix and now I also think it is from poor appetite. Pt has been given K replacement All labs were reviewed. Today her K is 3.4 Plan: Cont the daily [facility] KCl Monitor BMP daily (6) DM type 2 Glc 162 and A1c came back at 6.5, indicating good control. Plan: We have her getting accuchecks, SS Insulin, Hypoglycemic protocol and Diabetic diet Hold home PO medications: Glipizide (7) HTN She has been orthostatic intermittently here (vital signs reviewed). I do not want to give her a bolus of IV fluids because the chest x-ray had cephalization of flow and curly B-lines and she has a history of CHF Plan: Continue home medications: Corgard but at lower dose and eventually will resume Spirinolactone and her Lasix (8) Hypothyroidism TSH and free T4came back in good range Plan: She has been continued on her home medications: Levothyroxine (9) Fibromyalgia This gives her Chronic pain, especially LBP Plan: I reordered her narcotic as well as her Suboxone and other meds for chronic pain, and Trazadone for sleep. I have decreased those doses on 02/03 and again today, because of excessive fatigue and somnolence (10) Hx of alcoholic Cirrhosis She quit drinking ETOH 10 years ago. She denies active symptoms from her c irrhosis. Plan: Continue home medications: Corgard at half the dose due to orthostasis and bradycardia in the 50's at rest Cont to hold home medications Lasix, Spironolactone, since pt is orthostatic (11) Diarrhea RESOLVED On 02/01 the patient reported several liquidy diarrhea BMs. She told me today she has had C. difficile 9 times in her life. Test for C. difficile this admission came back negative Plan: Cont Imodium prn. Cont on probiotics also - Current Meds Current Meds: Current Medications Generic Name Dose Route Start Last Admin Trade Name Freq PRN Reason Stop Dose Admin Acetaminophen 650 mg 01/30/23 23:56 02/01/23 12:17 Acetaminophen 325 Mg Tablet PO 650 mg Q4HR PRN Administration Pain 1 to 4, or Fever Buprenorphine HCl 0.5 tab 02/01/23 07:45 02/05/23 06:08 Buprenorphine/Naloxone 8-2 Mg Tab SL 0.5 tab TID STEFFI Administration Enoxaparin Sodium 40 mg 01/31/23 09:00 02/04/23 08:27 Enoxaparin 40 Mg/0.4 Ml Syringe SUBQ 40 mg DAILY STEFFI Administration Gabapentin 300 mg 02/03/23 21:00 02/04/23 21:04 Gabapentin 300 Mg Capsule PO 300 mg QPM STEFFI Administration Guaifenesin 600 mg 02/04/23 10:00 02/04/23 21:05 Guaifenesin 600 Mg Tablet PO 600 mg BID STEFFI Administration Piperacillin Sod/Tazobactam 100 mls @ 25 mls/hr 02/04/23 13:00 02/05/23 05:36 Sod 3.375 gm/ Sodium Chloride IV 25 mls/hr Q8H STEFFI Administration Vancomycin HCl 750 mg/ Sodium 250 mls @ 166.667 mls/hr 02/05/23 03:00 02/05/23 05:36 Chloride IV Infused Q12H STEFFI Infusion Insulin Human Lispro 0 unit 01/31/23 08:00 02/04/23 21:06 Insulin Lispro 300 Unit/3 Ml Pen SUBQ 2 unit 0800,1200,1600,2100 STEFFI Administration Protocol Lactobacillus Rhamnosus 1 cap 01/31/23 09:00 02/04/23 21:05 Lactobacillus Rhamnosus Gg Capsule PO 1 cap BID STEFFI Administration Levothyroxine Sodium 112 mcg 02/02/23 07:00 02/05/23 06:08 Levothyroxine 112 Mcg Tablet PO 112 mcg QDAC STEFFI Administration Loperamide HCl 2 mg 02/01/23 17:28 02/02/23 16:08 Loperamide 2 Mg Capsule PO 2 mg QID PRN Administration Diarrhea Multivitamins/Minerals 1 tab 02/02/23 08:00 02/04/23 08:27 Multivitamin W/Minerals Tablet PO 1 tab DAILYWM STEFFI Administration Ondansetron HCl 4 mg 01/30/23 23:56 02/03/23 10:55 Ondansetron Odt 4 Mg Tablet TL 4 mg Q6HR PRN Administration Nausea / Vomiting Pantoprazole Sodium 40 mg 02/01/23 07:40 02/05/23 06:08 Pantoprazole 40 Mg Tablet PO 40 mg QDAC STEFFI Administration Potassium Chloride 20 meq 02/03/23 08:00 02/04/23 08:27 Potassium Chloride 20 Meq Tablet PO 20 meq DAILYWM STEFFI Administration Sodium Chloride 10 ml 01/30/23 23:56 02/04/23 11:25 Sodium Chloride Flush 0.9% 10 Ml Syringe IVP 10 ml PRN PRN Administration NEEDED PER PROVIDER ORDERS Sodium Chloride 10 ml 01/31/23 01:00 02/04/23 23:50 Sodium Chloride Flush 0.9% 10 Ml Syringe IVP Not Given 0100,0900,1700 [facility] - Lab Result Fish Bone Diagrams: 02/05/23 04:37 02/05/23 04:37 - Additional Planning My Orders: My Active Orders 02/04/23 08:31 Miscellaenous Nursing Order [RC] QSHIFT 02/04/23 10:00 guaiFENesin [Mucinex] 600 mg PO BID 02/04/23 13:00 Piperacillin/Tazobactam [Zosyn] 3.375 gm Sodium Chloride 0.9% Minibag [Normal Saline 0.9% Minibag] 100 ml IV Q8H 02/05/23 03:00 Vancomycin Inj [Vancomycin Hcl] 750 mg Sodium Chloride 0.9% [Normal Saline 0.9%] 250 ml IV Q12H 02/05/23 04:37 VITAMIN D 25-HYDROXY [REFLAB] Routine 02/05/23 07:40 oxyCODONE [Roxicodone] 5 mg PO TID PRN 02/05/23 09:00 LORazepam INJ [Ativan Inj (Vial)] 0.5 mg IVP DAILY nadoloL [Corgard] 10 mg PO DAILY tiZANidine [Zanaflex] 1 mg PO BID 02/05/23 21:00 traZODone [Desyrel] 50 mg PO QPM 02/06/23 14:30 VANCOMYCIN TROUGH [CHEM] Timed Subjective - Subjective Patient Reports: Fatigue (She is still somnolent and overall weak. Her cough has decreased, she is not as short of breath with activity, but is still wearing O2 supplemental), Other (Describes feeling anxious with "butterflies in her stomach", despite appearing lethargic) Objective Vital Signs: Vital Signs - 24 hr 02/04/23 02/04/23 02/04/23 07:44 07:45 08:52 Temperature 36.7 C Heart Rate [ 61 Brachial] Respiratory 16 Rate Blood Pressure 128/72 [Right Brachial artery] O2 Saturation 96 91 L If not protocol 4 4 1 : Oxygen Flow, liters/minute 02/04/23 02/04/23 02/04/23 16:00 16:05 23:56 Temperature 36.6 C 36.5 C Heart Rate [ 59 L 57 L Brachial] Respiratory 16 16 Rate Blood Pressure 135/78 H 129/72 [Right Brachial artery] O2 Saturation 92 89 L If not protocol 1 1 1 : Oxygen Flow, liters/minute 02/04/23 02/05/23 23:58 07:05 Temperature Heart Rate [ Brachial] Respiratory Rate Blood Pressure [Right Brachial artery] O2 Saturation 91 L If not protocol 2 2 : Oxygen Flow, liters/minute Oxygen O2 Source [With Activity] Room air O2 Source [Without Activity] Room air O2 Source Nasal cannula Oxygen Flow Rate 15 I&O (Last 24 Hrs): Intake and Output Totals x24h 02/03/23 02/04/23 02/05/23 23:59 23:59 23:59 Intake Total 2470 2190.333 306.667 Output Total 550 1200 750 Balance 1920 990.333 -443.333 General: Alert, Oriented x3, Other (Appears tired, closes eyes and falls asleep while I am speaking to her .) HEENT: Mucous membr. moist/pink, Other (wearing O2 via n.c.) Neck: Supple Neuro: Alert, Non Focal Cardiovascular: No murmurs Respiratory: Rales (R mid lung field) Abdomen: Soft, No tenderness Extremities: No clubbing, No edema, No tenderness/swelling - Results Results: Laboratory Results WBC 4.8 x10^3/uL (4.8-10.8) 02/05/23 04:37 RBC 3.56 10^6/uL (4.20-5.40) L 02/05/23 04:37 Hgb 12.1 g/dL (12.0-16.0) 02/05/23 04:37 Hct 35.4 % (37.0-47.0) L 02/05/23 04:37 MCV 99.4 fL (81.0-99.0) H 02/05/23 04:37 MCH 34.0 pg (27.0-31.0) H 02/05/23 04:37 MCHC 34.2 g/dL (32.0-36.0) 02/05/23 04:37 RDW 12.9 % (12.0-15.0) 02/05/23 04:37 Plt Count 168 10^3/uL (130-450) 02/05/23 04:37 MPV 9.5 fL (7.9-10.8) 02/05/23 04:37 Neut # (Auto) Not Reportable 02/05/23 04:37 Lymph # (Auto) Not Reportable 02/05/23 04:37 Starr # (Auto) Not Reportable 02/05/23 04:37 Eos # (Auto) Not Reportable 02/05/23 04:37 Baso # (Auto) Not Reportable 02/05/23 04:37 Absolute Nucleated RBC Not Reportable 02/05/23 04:37 Total Counted 100 02/05/23 04:37 Band Neuts % (Manual) 12 % (0-10) H 02/05/23 04:37 Abnorm Lymph % (Manual) 0 % 02/05/23 04:37 Metamyelocytes % 1 % (-0) H 02/01/23 05:19 Myelocytes % 1 % (-0) H 02/01/23 05:19 Nucleated RBC % Not Reportable 02/05/23 04:37 Neutrophils # (Manual) 2.8 10^3/uL (1.5-6.6) 02/05/23 04:37 Lymphocytes # (Manual) 1.5 10^3/uL (1.5-3.5) 02/05/23 04:37 Monocytes # (Manual) 0.2 10^3/uL (0.0-1.0) 02/05/23 04:37 Eosinophils # (Manual) 0.1 10^3/uL (0-0.7) 02/05/23 04:37 Basophils # (Manual) 0.0 10^3/uL (0-0.1) 02/05/23 04:37 Differential Comment MANUAL DIFFERENTIAL 02/05/23 04:37 WBC Morphology NORMAL APPEARANCE (NORMAL) 02/01/23 05:19 Platelet Estimate NORMAL (130-450,000) (NORMAL) 02/05/23 04:37 Platelet Morphology NORMAL APPEARANCE (NORMAL) 02/01/23 05:19 RBC Morph Micro Appear NORMAL APPEARANCE (NORMAL) 02/05/23 04:37 VBG pH 7.464 (7.31-7.41) H 01/30/23 22:52 VBG pCO2 38.7 mmHg (41-51) L 01/30/23 22:52 VBG pO2 65.0 mmHg (25-47) H 01/30/23 22:52 VBG HCO3 27.2 mmol/L (23-28) 01/30/23 22:52 VBG Total CO2 28.3 mmol/L (24-29) 01/30/23 22:52 VBG O2 Saturation 93.2 % (60-80) H 01/30/23 22:52 VBG Base Excess 3.3 mmol/L (-2 - +2) H 01/30/23 22:52 Sodium 141 mmol/L (135-145) 02/05/23 04:37 Potassium 3.4 mmol/L (3.5-5.0) L 02/05/23 04:37 Chloride 101 mmol/L (101-111) 02/05/23 04:37 Carbon Dioxide 32 mmol/L (21-32) 02/05/23 04:37 Anion Gap 8.0 (6-13) 02/05/23 04:37 BUN < 5 mg/dL (6-20) L 02/05/23 04:37 Creatinine 0.5 mg/dL (0.4-1.0) 02/05/23 04:37 Estimated GFR (MDRD) 123 (>89) 02/05/23 04:37 Glucose 93 mg/dL (70-100) 02/05/23 04:37 POC Whole Bld Glucose 103 mg/dL (70 - 100) H 02/05/23 07:23 Estimat Average Glucose 140 mg/dL (70-100) H 02/01/23 05:19 Hemoglobin A1c % 6.5 % (4.27-6.07) H 02/01/23 05:19 Lactic Acid 1.2 mmol/L (0.5-2.2) 01/30/23 22:52 Calcium 8.2 mg/dL (8.5-10.3) L 02/05/23 04:37 Phosphorus 5.2 mg/dL (2.5-4.6) H 02/05/23 04:37 Magnesium 1.5 mg/dL (1.7-2.8) L 02/05/23 04:37 Iron 51 ug/dL (28-170) 02/05/23 04:37 TIBC 151 ug/dL (250-450) L 02/05/23 04:37 % Saturation 34 % (20-50) 02/05/23 04:37 Transferrin 108 mg/dL (192-382) L 02/05/23 04:37 Total Bilirubin 1.1 mg/dL (0.2-1.0) H 01/31/23 05:09 AST 25 IU/L (10-42) 01/31/23 05:09 ALT 15 IU/L (10-60) 01/31/23 05:09 Alkaline Phosphatase 47 IU/L (42-121) 01/31/23 05:09 Total Protein 6.0 g/dL (6.7-8.2) L 01/31/23 05:09 Albumin 2.4 g/dL (3.2-5.5) L 01/31/23 05:09 Globulin 3.6 g/dL (2.1-4.2) 01/31/23 05:09 Albumin/Globulin Ratio 0.7 (1.0-2.2) L 01/31/23 05:09 Vitamin B12 2456 pg/mL (180-914) H 02/05/23 04:37 Folate 20.77 ng/mL (5.90 - >24.8) 02/05/23 04:37 TSH 4.93 uIU/mL (0.34-5.60) 02/03/23 05:22 Free T4 1.03 ng/dL (0.58-1.64) 02/05/23 04:37 Urine Color YELLOW 01/31/23 01:52 Urine Clarity CLEAR (CLEAR) 01/31/23 01:52 Urine pH 5.5 PH (5.0-7.5) 01/31/23 01:52 Ur Specific [place] 1.020 (1.002-1.030) 01/31/23 01:52 Urine Protein 30 mg/dL (NEGATIVE) H 01/31/23 01:52 Urine Glucose (UA) NEGATIVE mg/dL (NEGATIVE) 01/31/23 01:52 Urine Ketones 15 mg/dL (NEGATIVE) H 01/31/23 01:52 Urine Occult Blood SMALL (NEGATIVE) H 01/31/23 01:52 Urine Nitrite NEGATIVE (NEGATIVE) 01/31/23 01:52 Urine Bilirubin NEGATIVE (NEGATIVE) 01/31/23 01:52 Urine Urobilinogen 1 (NORMAL) E.U./dL (NORMAL) 01/31/23 01:52 Ur Leukocyte Esterase MODERATE (NEGATIVE) H 01/31/23 01:52 Urine RBC 0-5 /HPF (0-5) 01/31/23 01:52 Urine WBC 11-25 /HPF (0-5) H 01/31/23 01:52 Ur Epithelial Cells FEW Renal Tubular /HPF (<= Few) 01/31/23 01:52 Ur Squamous Epith Cells FEW Squamous (<= Few) 01/31/23 01:52 Urine Bacteria Few /HPF (None Seen) 01/31/23 01:52 Urine Culture Comments INDICATED 01/31/23 01:52 Nasal Adenovirus (PCR) NOT DETECTED 01/30/23 22:18 Nasal B. parapertussis DNA (PCR) NOT DETECTED 01/30/23 22:18 Nasal Coronavir 229E PCR NOT DETECTED 01/30/23 22:18 Nasal Coronavir HKU1 PCR NOT DETECTED 01/30/23 22:18 Nasal Coronavir NL63 PCR NOT DETECTED 01/30/23 22:18 Nasal Coronavir OC43 PCR NOT DETECTED 01/30/23 22:18 Nasal Enterovir/Rhinovir PCR NOT DETECTED 01/30/23 22:18 Nasal Influenza B PCR NOT DETECTED 01/30/23 22:18 Nasal Influenza A PCR NOT DETECTED 01/30/23 22:18 Nasal Parainfluen 1 PCR NOT DETECTED 01/30/23 22:18 Nasal Parainfluen 2 PCR NOT DETECTED 01/30/23 22:18 Nasal Parainfluen 3 PCR NOT DETECTED 01/30/23 22:18 Nasal Parainfluen 4 PCR NOT DETECTED 01/30/23 22:18 Nasal RSV (PCR) NOT DETECTED 01/30/23 22:18 Nasal B.pertussis DNA PCR NOT DETECTED 01/30/23 22:18 Nasal C.pneumoniae (PCR) NOT DETECTED 01/30/23 22:18 Heriberto Human Metapneumo PCR NOT DETECTED 01/30/23 22:18 Nasal M.pneumoniae (PCR) NOT DETECTED 01/30/23 22:18 Nasal SARS-CoV-2 (PCR) NOT DETECTED 01/30/23 22:18 Stl C. diff Tox B Gene NEGATIVE (NEGATIVE) 02/01/23 14:30 - Procedures Procedures: Procedures EXCISION OF FEMORAL NERVE, OPEN APPROACH (09/04/15)
[2023-02-05] MEDS: LORazepam 2 MG/ML VIAL IVP SCH (08:37)
[2023-02-05] MEDS: MULTIVITAMIN W/MINERALS TABLET PO SCH (08:38)
[2023-02-05] MEDS: nadoloL 20 MG TABLET PO SCH (08:38)
[2023-02-05] MEDS: guaiFENesin 600 MG TABLET PO SCH ×2 (08:39→20:06)
[2023-02-05] MEDS: tiZANidine 4 MG TABLET PO SCH ×2 (08:39→20:07)
[2023-02-05] MEDS: POTASSIUM CHLORIDE 20 MEQ TABLET PO SCH (08:39)
[2023-02-05] MEDS: INSULIN LISPRO 300 UNIT/3 ML PEN SUBQ SCH ×4 (08:39→20:45)
[2023-02-05] MEDS: ENOXAPARIN 40 MG/0.4 ML SYRINGE SUBQ SCH (08:39)
[2023-02-05] MEDS: LACTOBACILLUS RHAMNOSUS GG CAPSULE PO SCH ×2 (08:39→20:06)
[2023-02-05] MEDS: SODIUM CHLORIDE FLUSH 0.9% 10 ML SYRINGE IVP SCH ×2 (08:45→15:54)
[2023-02-05] MEDS ORDERED: ZINC OXIDE 20% OINT 30 GM TUBE TOP PRN (13:25)
[2023-02-05] MEDS: oxyCODONE 5 MG TABLET PO PRN ×2 (13:37→18:47)
[2023-02-05] MEDS: traZODone 50 MG TABLET PO SCH (20:06)
[2023-02-05] MEDS: ONDANSETRON ODT 4 MG TABLET TL PRN (20:06)
[2023-02-05] MEDS: GABAPENTIN 300 MG CAPSULE PO SCH (20:06)
[2023-02-06] MEDS: SODIUM CHLORIDE FLUSH 0.9% 10 ML SYRINGE IVP SCH ×3 (01:12→16:48)
[2023-02-06] MEDS: VANCOMYCIN INJ 750 MG in SODIUM CHLORIDE 0.9% 250 ML IV SCH ×3 (02:49→17:34)
[2023-02-06] MEDS: PIPERACILLIN/TAZOBACTAM 3.375 GM in SODIUM CHLORIDE 0.9% MINIBAG 100 ML IV SCH ×3 (05:10→21:17)
[2023-02-06] MEDS: PANTOPRAZOLE 40 MG TABLET PO SCH (05:51)
[2023-02-06] MEDS: BUPRENORPHINE/NALOXONE 8-2 MG TAB SL SCH ×3 (05:51→21:18)
[2023-02-06] MEDS: oxyCODONE 5 MG TABLET PO PRN ×2 (05:51→13:28)
[2023-02-06] MEDS: LEVOTHYROXINE 112 MCG TABLET PO SCH (05:51)
[2023-02-06] MEDS: GABAPENTIN 300 MG CAPSULE PO SCH ×2 (09:22→21:16)
[2023-02-06] MEDS: guaiFENesin 600 MG TABLET PO SCH ×2 (09:23→21:16)
[2023-02-06] MEDS: POTASSIUM CHLORIDE 20 MEQ TABLET PO SCH (09:23)
[2023-02-06] MEDS: LACTOBACILLUS RHAMNOSUS GG CAPSULE PO SCH ×2 (09:23→21:16)
[2023-02-06] MEDS: MULTIVITAMIN W/MINERALS TABLET PO SCH (09:24)
[2023-02-06] MEDS: LORazepam 2 MG/ML VIAL IVP SCH ×2 (09:25→21:16)
[2023-02-06] MEDS: ENOXAPARIN 40 MG/0.4 ML SYRINGE SUBQ SCH (09:25)
[2023-02-06] MEDS: INSULIN LISPRO 300 UNIT/3 ML PEN SUBQ SCH ×4 (09:26→21:17)
[2023-02-06] MEDS: tiZANidine 4 MG TABLET PO SCH ×2 (09:27→21:19)
[2023-02-06] MEDS: LOPERAMIDE 2 MG CAPSULE PO PRN (09:31)
[2023-02-06] MEDS: nadoloL 20 MG TABLET PO SCH (10:02)
--- NOTE | 2023-02-06 13:10 | PROVIDER PROGRESS NOTE ---
Assessment/Plan - Problem List (1) Hypoxia Assessment/Plan: The patient has been hypoxic since admission, initially better with IV antibiotics but then she had anxiety with air hunger here, and even needed t reatment with Ativan. Morphine cannot be used because she has a hydromorphone allergy. A chest x-ray was repeated 02/04 and showed a persistent right-sided pneumonia (with a possible mass persisting), and new right upper lobe infiltrate and LLL infiltrate Today her suppl O2 is down from 2 L to 1L Plan: Continue to give supplemental O2. She needs supplemental O2 with activity. She is now working with PT and OT. Cont the adjusted antibx to treat the underlying pneumonia Since she has a hydromorphone allergy, morphine cannot be used for air hunger, I ordered her to get Ativan as needed. (2) Pneumonia Assessment/Plan: She presented with shortness of breath, Fever, Hypoxia and Leukocytosis. When EMS arrived, SpO2 84% on RA. WBC 21.7 which has improved to normal (all labs were reviewed). Her CXR showed a R Infrahilar opacity, most likely pneumonia, but mass possible. Pt was given IVF, and has been on Rocephin/Azithro. A chest x-ray was repeated 02/05 and showed a persistent right-sided bernardo-hilar pneumonia (with a possible mass persisting), and new right supra-hilar infiltrate and a new LLL infiltrate. Blood cx are all neg and she never gave a sputum sample to send for a culture Plan: Cont new IV vancomycin to cover MRSA and IV Zosyn to cover anaerobes Continue O2 support if needed with target saturation >92%. Try weaning down her O2. Today her suppl O2 is down from 2 L to 1L Continue IS and Mucinex (3) Weakness About 1 week before this admission the patient became very fatigued, was sleeping 15 hours a day. Patient has been excessively somnolent since being admitted. All her usual narcotics plus Suboxone, gabapentin, Desyrel doses were initially resumed. I then decreased the doses of her Desyrel at night by half, gabapentin dosing from 3 times daily to twice daily, Corgard to be put on hold if heart rate is under 60 or if systolic is under 100, decreased Trazadone and decreased the frequency of the prn Ativan She is orthostatic (all VS were reviewed) overnight: Supine BP 129/72, HR 57. Sitting BP 110/74, HR 68. Standing BP 76/49, HR 75, and she complained of lig htheadedness. To look for other causes of weakness and fatigue, I checked her B12 level, folate level, free T4, and Iron panel and they are all in adequate range. I ordered her vit D level checked, and that lab is a send-out, not resulted yet. Yesterday 02/05, I further decreased her prn Ativan from every 8 hours to only daily prn, Corgard from 20 BID to 10 BID with the same holding parameters, Tiz anidine from 2 mg BID to 1 mg BID, Desyrel scheduled for sleep decreased from 100 mg to 50 mg. Plan: Her orthosdtatic VS are slightky improved, after those med adjustments, and I do not want to give her a bolus of IV fluids because the chest x-ray had cephalization of flow and she has a history of CHF She needs to continue working with PT and OT rehab for strengthening. I discussed this with her and she agrees. She would like to go home and not a SNF, therefore will order home health PT OT and bath aide (4) Abnormal CXR CXR: R Infrahilar opacity, most likely pneumonia, but lung mass possible A chest x-ray was repeated 02/04 and shows a persistent right-sided bernardo-hilar pneumonia (with a possible mass persisting). The recommendation is to follow this by imaging until pneumonia clears. Plan: Continue antibiotics, IS and Mucinex I will plan to do a chest CT soon, when her infiltrates improve on CXR. (5) Hypokalemia K was 3 at admission. Probably from being on Lasix and now I also think it is from poor appetite. Pt has been given K replacement All labs were reviewed. On 02/05 her K was 3.4 Plan: Cont the daily [facility] KCl Monitor BMP intermittently. No BMP was done today (6) DM type 2 Glc 162 and A1c came back at 6.5, indicating good control. Plan: We have her getting accuchecks, SS Insulin, Hypoglycemic protocol and Diabetic diet Hold home PO medications: Glipizide (7) HTN She has been orthostatic intermittently here (vital signs reviewed). I do not want to give her a bolus of IV fluids because the chest x-ray had cephalization of flow and curly B-lines and she has a history of CHF Plan: Continue home medications: Corgard but at lower dose of 10 mg, not 20 mg, and possibly I will eventually resume Spirinolactone and her Lasix (8) Hypothyroidism TSH and free T4 came back in good range Plan: She has been continued on her home medications: Levothyroxine (9) Fibromyalgia This gives her Chronic pain, especially LBP. I reordered her narcotics as well as her Suboxone and other meds for chronic pain, and Trazadone for sleep. I have decreased those doses on 02/03 and again 02/05, because of excessive fatigue and somnolence (10) Hx of alcoholic Cirrhosis She quit drinking ETOH 10 years ago. She denies active symptoms from her cirrhosis. Plan: Continue home medications: Corgard at half the dose due to orthostasis and bradycardia in the 50's at rest Cont to hold home medications Lasix, Spironolactone, since pt is orthostatic (11) Diarrhea RESOLVED On 02/01 the patient reported several liquidy diarrhea BMs. She told me today she has had C. difficile 9 times in her life. Test for C. difficile this admission came back negative Plan: Cont Imodium prn. Cont on probiotics also - Current Meds Current Meds: Current Medications Generic Name Dose Route Start Last Admin Trade Name Freq PRN Reason Stop Dose Admin Acetaminophen 650 mg 01/30/23 23:56 02/01/23 12:17 Acetaminophen 325 Mg Tablet PO 650 mg Q4HR PRN Administration Pain 1 to 4, or Fever Buprenorphine HCl 0.5 tab 02/01/23 07:45 02/06/23 05:51 Buprenorphine/Naloxone 8-2 Mg Tab SL 0.5 tab TID STEFFI Administration Enoxaparin Sodium 40 mg 01/31/23 09:00 02/06/23 09:25 Enoxaparin 40 Mg/0.4 Ml Syringe SUBQ 40 mg DAILY STEFFI Administration Gabapentin 300 mg 02/05/23 21:00 02/06/23 09:22 Gabapentin 300 Mg Capsule PO 300 mg BID STEFFI Administration Guaifenesin 600 mg 02/04/23 10:00 02/06/23 09:23 Guaifenesin 600 Mg Tablet PO 600 mg BID STEFFI Administration Piperacillin Sod/Tazobactam 100 mls @ 25 mls/hr 02/04/23 13:00 02/06/23 09:29 Sod 3.375 gm/ Sodium Chloride IV Infused Q8H STEFFI Infusion Vancomycin HCl 750 mg/ Sodium 250 mls @ 166.667 mls/hr 02/05/23 03:00 02/06/23 04:20 Chloride IV Infused Q12H STEFFI Infusion Insulin Human Lispro 0 unit 01/31/23 08:00 02/06/23 09:26 Insulin Lispro 300 Unit/3 Ml Pen SUBQ Not Given 0800,1200,1600,2100 [facility] Protocol Lactobacillus Rhamnosus 1 cap 01/31/23 09:00 02/06/23 09:23 Lactobacillus Rhamnosus Gg Capsule PO 1 cap BID STEFFI Administration Levothyroxine Sodium 112 mcg 02/02/23 07:00 02/06/23 05:51 Levothyroxine 112 Mcg Tablet PO 112 mcg QDAC STEFFI Administration Loperamide HCl 2 mg 02/01/23 17:28 02/06/23 09:31 Loperamide 2 Mg Capsule PO 2 mg QID PRN Administration Diarrhea Lorazepam 0.5 mg 02/05/23 09:00 02/06/23 09:25 Lorazepam 2 Mg/Ml Vial IVP 0.5 mg DAILY STEFFI Administration Multi-Ingredient Ointment 1 applic 02/05/23 13:25 02/06/23 09:28 Zinc Oxide 20% Oint 30 Gm Tube TOP 1 applic PRN PRN Administration Skin Care Multivitamins/Minerals 1 tab 02/02/23 08:00 02/06/23 09:24 Multivitamin W/Minerals Tablet PO 1 tab DAILYWM STEFFI Administration Nadolol 10 mg 02/05/23 09:00 02/06/23 10:02 Nadolol 20 Mg Tablet PO 10 mg DAILY STEFFI Administration Ondansetron HCl 4 mg 01/30/23 23:56 02/05/23 20:06 Ondansetron Odt 4 Mg Tablet TL 4 mg Q6HR PRN Administration Nausea / Vomiting Oxycodone HCl 5 mg 02/05/23 07:40 02/06/23 05:51 Oxycodone 5 Mg Tablet PO 5 mg TID PRN Administration PAIN 5-7 Pantoprazole Sodium 40 mg 02/01/23 07:40 02/06/23 05:51 Pantoprazole 40 Mg Tablet PO 40 mg QDAC STEFFI Administration Potassium Chloride 20 meq 02/03/23 08:00 02/06/23 09:23 Potassium Chloride 20 Meq Tablet PO 20 meq DAILYWM STEFFI Administration Sodium Chloride 10 ml 01/30/23 23:56 02/04/23 11:25 Sodium Chloride Flush 0.9% 10 Ml Syringe IVP 10 ml PRN PRN Administration NEEDED PER PROVIDER ORDERS Sodium Chloride 10 ml 01/31/23 01:00 02/06/23 09:26 Sodium Chloride Flush 0.9% 10 Ml Syringe IVP 10 ml 0100,0900,1700 STEFFI Administration Tizanidine HCl 1 mg 02/05/23 09:00 02/06/23 09:27 Tizanidine 4 Mg Tablet PO 1 mg BID STFEFI Administration Trazodone HCl 50 mg 02/05/23 21:00 02/05/23 20:06 Trazodone 50 Mg Tablet PO 50 mg QPM STEFFI Administration - Lab Result Fish Bone Diagrams: 02/05/23 04:37 02/05/23 04:37 - Additional Planning My Orders: My Active Orders 02/05/23 13:25 Zinc Oxide 20% Oint [Zinc Oxide] 1 applic TOP PRN PRN 02/05/23 21:00 Gabapentin [Neurontin] 300 mg PO BID traZODone [Desyrel] 50 mg PO QPM 02/06/23 09:11 Orthostatic [Vital Signs - Orthostatic] [RC] QSHIFT 02/06/23 13:30 VANCOMYCIN TROUGH [CHEM] Timed Objective Vital Signs: Vital Signs - 24 hr 02/05/23 02/05/23 02/05/23 15:49 19:20 23:49 Temperature 36.6 C 36.8 C Heart Rate [ 56 L 59 L Brachial] Respiratory 14 16 Rate Blood Pressure 158/77 H 132/79 H [Right Brachial artery] O2 Saturation 93 92 If not protocol 1 1 1 : Oxygen Flow, liters/minute 02/06/23 08:00 Temperature 36.3 C L Heart Rate [ 65 Brachial] Respiratory 16 Rate Blood Pressure 124/74 [Right Brachial artery] O2 Saturation 91 L If not protocol 1 : Oxygen Flow, liters/minute Oxygen O2 Source [With Activity] Room air O2 Source [Without Activity] Room air O2 Source Nasal cannula Oxygen Flow Rate 15 I&O (Last 24 Hrs): Intake and Output Totals x24h 0602/05/23 02/06/23 23:59 23:59 23:59 Intake Total 2190.333 1446.667 500 Output Total 1200 1500 450 Balance 990.333 -53.333 50 General: Alert, Oriented x3, Other (Lethargic) HEENT: Mucous membr. moist/pink, Other (edentulous) Neck: Supple Neuro: Alert, Other (Lethargic) Cardiovascular: No murmurs Respiratory: No respiratory distress (on suppl O2 via n.c.) Abdomen: No tenderness Extremities: No clubbing, No edema, No tenderness/swelling - Results Results: Laboratory Results WBC 4.8 x10^3/uL (4.8-10.8) 02/05/23 04:37 RBC 3.56 10^6/uL (4.20-5.40) L 02/05/23 04:37 Hgb 12.1 g/dL (12.0-16.0) 02/05/23 04:37 Hct 35.4 % (37.0-47.0) L 02/05/23 04:37 MCV 99.4 fL (81.0-99.0) H 02/05/23 04:37 MCH 34.0 pg (27.0-31.0) H 02/05/23 04:37 MCHC 34.2 g/dL (32.0-36.0) 02/05/23 04:37 RDW 12.9 % (12.0-15.0) 02/05/23 04:37 Plt Count 168 10^3/uL (130-450) 02/05/23 04:37 MPV 9.5 fL (7.9-10.8) 02/05/23 04:37 Neut # (Auto) Not Reportable 02/05/23 04:37 Lymph # (Auto) Not Reportable 02/05/23 04:37 [place] # (Auto) Not Reportable 02/05/23 04:37 Eos # (Auto) Not Reportable 02/05/23 04:37 Baso # (Auto) Not Reportable 02/05/23 04:37 Absolute Nucleated RBC Not Reportable 02/05/23 04:37 Total Counted 100 02/05/23 04:37 Band Neuts % (Manual) 12 % (0-10) H 02/05/23 04:37 Abnorm Lymph % (Manual) 0 % 02/05/23 04:37 Metamyelocytes % 1 % (-0) H 02/01/23 05:19 Myelocytes % 1 % (-0) H 02/01/23 05:19 Nucleated RBC % Not Reportable 02/05/23 04:37 Neutrophils # (Manual) 2.8 10^3/uL (1.5-6.6) 02/05/23 04:37 Lymphocytes # (Manual) 1.5 10^3/uL (1.5-3.5) 02/05/23 04:37 Monocytes # (Manual) 0.2 10^3/uL (0.0-1.0) 02/05/23 04:37 Eosinophils # (Manual) 0.1 10^3/uL (0-0.7) 02/05/23 04:37 Basophils # (Manual) 0.0 10^3/uL (0-0.1) 02/05/23 04:37 Differential Comment MANUAL DIFFERENTIAL 02/05/23 04:37 WBC Morphology NORMAL APPEARANCE (NORMAL) 02/01/23 05:19 Platelet Estimate NORMAL (130-450,000) (NORMAL) 02/05/23 04:37 Platelet Morphology NORMAL APPEARANCE (NORMAL) 02/01/23 05:19 RBC Morph Micro Appear NORMAL APPEARANCE (NORMAL) 02/05/23 04:37 VBG pH 7.464 (7.31-7.41) H 01/30/23 22:52 VBG pCO2 38.7 mmHg (41-51) L 01/30/23 22:52 VBG pO2 65.0 mmHg (25-47) H 01/30/23 22:52 VBG HCO3 27.2 mmol/L (23-28) 01/30/23 22:52 VBG Total CO2 28.3 mmol/L (24-29) 01/30/23 22:52 VBG O2 Saturation 93.2 % (60-80) H 01/30/23 22:52 VBG Base Excess 3.3 mmol/L (-2 - +2) H 01/30/23 22:52 Sodium 141 mmol/L (135-145) 02/05/23 04:37 Potassium 3.4 mmol/L (3.5-5.0) L 02/05/23 04:37 Chloride 101 mmol/L (101-111) 02/05/23 04:37 Carbon Dioxide 32 mmol/L (21-32) 02/05/23 04:37 Anion Gap 8.0 (6-13) 02/05/23 04:37 BUN < 5 mg/dL (6-20) L 02/05/23 04:37 Creatinine 0.5 mg/dL (0.4-1.0) 02/05/23 04:37 Estimated GFR (MDRD) 123 (>89) 02/05/23 04:37 Glucose 93 mg/dL (70-100) 02/05/23 04:37 POC Whole Bld Glucose 133 mg/dL (70 - 100) H 02/06/23 07:29 Estimat Average Glucose 140 mg/dL (70-100) H 02/01/23 05:19 Hemoglobin A1c % 6.5 % (4.27-6.07) H 02/01/23 05:19 Lactic Acid 1.2 mmol/L (0.5-2.2) 01/30/23 22:52 Calcium 8.2 mg/dL (8.5-10.3) L 02/05/23 04:37 Phosphorus 5.2 mg/dL (2.5-4.6) H 02/05/23 04:37 Magnesium 1.5 mg/dL (1.7-2.8) L 02/05/23 04:37 Iron 51 ug/dL (28-170) 02/05/23 04:37 TIBC 151 ug/dL (250-450) L 02/05/23 04:37 % Saturation 34 % (20-50) 02/05/23 04:37 Transferrin 108 mg/dL (192-382) L 02/05/23 04:37 Total Bilirubin 1.1 mg/dL (0.2-1.0) H 01/31/23 05:09 AST 25 IU/L (10-42) 01/31/23 05:09 ALT 15 IU/L (10-60) 01/31/23 05:09 Alkaline Phosphatase 47 IU/L (42-121) 01/31/23 05:09 Total Protein 6.0 g/dL (6.7-8.2) L 01/31/23 05:09 Albumin 2.4 g/dL (3.2-5.5) L 01/31/23 05:09 Globulin 3.6 g/dL (2.1-4.2) 01/31/23 05:09 Albumin/Globulin Ratio 0.7 (1.0-2.2) L 01/31/23 05:09 Vitamin B12 2456 pg/mL (180-914) H 02/05/23 04:37 Vitamin D 25-Hydroxy 50.9 ng/mL (30.0-100.0) 02/05/23 04:37 Folate 20.77 ng/mL (5.90 - >24.8) 02/05/23 04:37 TSH 4.93 uIU/mL (0.34-5.60) 02/03/23 05:22 Free T4 1.03 ng/dL (0.58-1.64) 02/05/23 04:37 Urine Color YELLOW 01/31/23 01:52 Urine Clarity CLEAR (CLEAR) 01/31/23 01:52 Urine pH 5.5 PH (5.0-7.5) 01/31/23 01:52 Ur Specific [place] 1.020 (1.002-1.030) 01/31/23 01:52 Urine Protein 30 mg/dL (NEGATIVE) H 01/31/23 01:52 Urine Glucose (UA) NEGATIVE mg/dL (NEGATIVE) 01/31/23 01:52 Urine Ketones 15 mg/dL (NEGATIVE) H 01/31/23 01:52 Urine Occult Blood SMALL (NEGATIVE) H 01/31/23 01:52 Urine Nitrite NEGATIVE (NEGATIVE) 01/31/23 01:52 Urine Bilirubin NEGATIVE (NEGATIVE) 01/31/23 01:52 Urine Urobilinogen 1 (NORMAL) E.U./dL (NORMAL) 01/31/23 01:52 Ur Leukocyte Esterase MODERATE (NEGATIVE) H 01/31/23 01:52 Urine RBC 0-5 /HPF (0-5) 01/31/23 01:52 Urine WBC 11-25 /HPF (0-5) H 01/31/23 01:52 Ur Epithelial Cells FEW Renal Tubular /HPF (<= Few) 01/31/23 01:52 Ur Squamous Epith Cells FEW Squamous (<= Few) 01/31/23 01:52 Urine Bacteria Few /HPF (None Seen) 01/31/23 01:52 Urine Culture Comments INDICATED 01/31/23 01:52 Nasal Adenovirus (PCR) NOT DETECTED 01/30/23 22:18 Nasal B. parapertussis DNA (PCR) NOT DETECTED 01/30/23 22:18 Nasal Coronavir 229E PCR NOT DETECTED 01/30/23 22:18 Nasal Coronavir HKU1 PCR NOT DETECTED 01/30/23 22:18 Nasal Coronavir NL63 PCR NOT DETECTED 01/30/23 22:18 Nasal Coronavir OC43 PCR NOT DETECTED 01/30/23 22:18 Nasal Enterovir/Rhinovir PCR NOT DETECTED 01/30/23 22:18 Nasal Influenza B PCR NOT DETECTED 01/30/23 22:18 Nasal Influenza A PCR NOT DETECTED 01/30/23 22:18 Nasal Parainfluen 1 PCR NOT DETECTED 01/30/23 22:18 Nasal Parainfluen 2 PCR NOT DETECTED 01/30/23 22:18 Nasal Parainfluen 3 PCR NOT DETECTED 01/30/23 22:18 Nasal Parainfluen 4 PCR NOT DETECTED 01/30/23 22:18 Nasal RSV (PCR) NOT DETECTED 01/30/23 22:18 Nasal B.pertussis DNA PCR NOT DETECTED 01/30/23 22:18 Nasal C.pneumoniae (PCR) NOT DETECTED 01/30/23 22:18 [place] Human Metapneumo PCR NOT DETECTED 01/30/23 22:18 Nasal M.pneumoniae (PCR) NOT DETECTED 01/30/23 22:18 Nasal SARS-CoV-2 (PCR) NOT DETECTED 01/30/23 22:18 Stl C. diff Tox B Gene NEGATIVE (NEGATIVE) 02/01/23 14:30 - Procedures Procedures: Procedures EXCISION OF FEMORAL NERVE, OPEN APPROACH (09/04/15)
[2023-02-06 13:44] LABS: VANCOMYCIN,TROUGH 15.8 ug/mL (10.0-20.0)
[2023-02-06] MEDS: traZODone 50 MG TABLET PO SCH (21:15)
[2023-02-06] MEDS: oxyCODONE 5 MG TABLET PO SCH (21:16)
[2023-02-07] MEDS: SODIUM CHLORIDE FLUSH 0.9% 10 ML SYRINGE IVP SCH ×3 (02:00→18:35)
[2023-02-07] MEDS: PIPERACILLIN/TAZOBACTAM 3.375 GM in SODIUM CHLORIDE 0.9% MINIBAG 100 ML IV SCH ×3 (04:53→22:15)
[2023-02-07] MEDS: PANTOPRAZOLE 40 MG TABLET PO SCH (06:11)
[2023-02-07] MEDS: LEVOTHYROXINE 112 MCG TABLET PO SCH (06:11)
[2023-02-07] MEDS: BUPRENORPHINE/NALOXONE 8-2 MG TAB SL SCH ×3 (06:11→22:16)
[2023-02-07] MEDS: VANCOMYCIN INJ 750 MG in SODIUM CHLORIDE 0.9% 250 ML IV SCH ×2 (06:12→18:33)
[2023-02-07 08:32] LABS: BASOPHILS # (AUTO) 0.1 10^3/uL (0.0-0.1); BASOPHILS % (AUTO) 1.1 %; EOSINOPHILS # (AUTO) 0.2 10^3/uL (0.0-0.7); EOSINOPHILS % (AUTO) 2.1 %; HCT - HEMATOCRIT 37.6 % (37.0-47.0); HGB - HEMOGLOBIN 12.7 g/dL (12.0-16.0); LYMPHOCYTES # (AUTO) 1.5 10^3/uL (1.5-3.5); LYMPHOCYTES % (AUTO) 20.3 %; MEAN CORPUSCULAR HGB CONC 33.8 g/dL (32.0-36.0); MEAN CORPUSCULAR VOLUME 100.5 fL (81.0-99.0); MEAN PLATELET VOLUME 9.6 fL (7.9-10.8); MONOCYTES # (AUTO) 0.6 10^3/uL (0.0-1.0); MONOCYTES % (AUTO) 7.6 %; NEUTROPHILS # (AUTO) 4.9 10^3/uL (1.5-6.6); NEUTROPHILS % (AUTO) 67.3 %; PLT - PLATELET COUNT 283 10^3/uL (130-450); RED BLOOD COUNT 3.74 10^6/uL (4.20-5.40); RED CELL DISTRIBUTION WIDTH 12.8 % (12.0-15.0); WHITE BLOOD COUNT 7.3 x10^3/uL (4.8-10.8)
[2023-02-07 08:40] LABS: ALBUMIN 2.4 g/dL (3.2-5.5); ALBUMIN/GLOBULIN RATIO 0.5 (1.0-2.2); ALKALINE PHOSPHATASE 59 IU/L (42-121); ALT ALANINE AMINOTRANSFERASE 16 IU/L (10-60); AST ASPARTATE AMINOTRANSFERASE 23 IU/L (10-42); BILIRUBIN,TOTAL 0.9 mg/dL (0.2-1.0); BUN - BLOOD UREA NITROGEN < 5 mg/dL (6-20); CALCIUM 8.4 mg/dL (8.5-10.3); CARBON DIOXIDE - CO2 30 mmol/L (21-32); CHLORIDE 100 mmol/L (101-111); CREATININE 0.6 mg/dL (0.4-1.0); GFR - MDRD 100 (>89); GLUCOSE 124 mg/dL (70-100); POTASSIUM 3.5 mmol/L (3.5-5.0); SODIUM 138 mmol/L (135-145); TOTAL PROTEIN 7.2 g/dL (6.7-8.2)
[2023-02-07] MEDS ORDERED: LORazepam 2 MG/ML VIAL IVP SCH (09:00)
[2023-02-07] MEDS: INSULIN LISPRO 300 UNIT/3 ML PEN SUBQ SCH ×4 (09:07→22:19)
[2023-02-07] MEDS: LORazepam 2 MG/ML VIAL IVP SCH (09:24)
[2023-02-07] MEDS: LACTOBACILLUS RHAMNOSUS GG CAPSULE PO SCH ×2 (09:26→22:16)
[2023-02-07] MEDS: GABAPENTIN 300 MG CAPSULE PO SCH ×2 (09:26→22:16)
[2023-02-07] MEDS: POTASSIUM CHLORIDE 20 MEQ TABLET PO SCH (09:26)
[2023-02-07] MEDS: MULTIVITAMIN W/MINERALS TABLET PO SCH (09:27)
[2023-02-07] MEDS: tiZANidine 4 MG TABLET PO SCH ×2 (09:27→22:15)
[2023-02-07] MEDS: oxyCODONE 5 MG TABLET PO SCH ×2 (09:29→22:16)
[2023-02-07] MEDS: nadoloL 20 MG TABLET PO SCH (09:31)
[2023-02-07] MEDS: guaiFENesin 600 MG TABLET PO SCH ×2 (09:32→22:16)
[2023-02-07] MEDS: ENOXAPARIN 40 MG/0.4 ML SYRINGE SUBQ SCH (09:34)
--- NOTE | 2023-02-07 11:19 | PROVIDER PROGRESS NOTE ---
Assessment/Plan - Problem List (1) Hypoxia Assessment/Plan: The patient had been hypoxic since admission, even with IV antibiotics. For air hunger she needed treatment with Ativan, since Morphine cannot be used because she has a hydromorphone allergy. Adm CXR showed R-sided infiltrate. A chest x-ray was repeated 02/04 and showed a persistent right-sided pneumonia (with a possible mass persisting), and new right upper lobe infiltrate and new LLL infiltrate Her hypoxia started to improve after antibx were adjusted. Today 02/07 her suppl O2 is down from 1 L to Room air at rest Plan: Use supplemental O2 if needed to keep saturations greater than 92%, I suspect she might need this during activity with PT and OT Since she has a hydromorphone allergy, morphine cannot be used for air hunger, I ordered her to get Ativan as needed. I will change the order from IV Ativan prn to p.o. Ativan prn (2) Pneumonia Assessment/Plan: She presented with shortness of breath, Fever, Hypoxia and Leukocytosis. When E MS arrived, SpO2 84% on RA. WBC 21.7 which has improved to normal (all labs were reviewed). Her CXR showed a R Infrahilar opacity, most likely pneumonia, but mass possible. Pt was given IVF, and has been on Rocephin/Azithro. Adm CXR showed R-sided infiltrate. A chest x-ray was repeated 02/04 and showed a persistent right-sided bernardo-hilar pneumonia (with a possible mass persisting), and new right supra-hilar infiltrate and a new LLL infiltrate. She was put on new IV vancomycin to cover MRSA and IV Zosyn to cover anaerobes. Blood cx are all neg. She never gave a sputum sample to send for a culture Today her suppl O2 is down from 1 L to Room air at rest. Plan: Will transition to Augmentin starting tomorrow Continue O2 if needed with target saturation >92%. She may need suppl O2 with activity Continue IS and Mucinex (3) Weakness About 1 week before this admission the patient became very fatigued, was sleeping 15 hours a day, according to her . Patient was excessively somnolent since being admitted. All her usual narcotics plus Suboxone, gabapentin, Desyrel doses were initially resumed. I then decreased the doses of her Desyrel at night by half, gabapentin dosing from 3 times daily to twice daily, Corgard to be put on hold if heart rate is under 60 or if systolic is under 100, decreased Trazadone and decreased the frequency of the prn Ativan She was orthostatic (all VS were reviewed) with Supine BP 129/72, HR 57. Sitting BP 110/74, HR 68. Standing BP 76/49, HR 75, and she complained of lightheadedness. To look for other causes of weakness and hypersomnolence, I checked her B12 level, folate level, free T4, and Iron panel and they are all in adequate range. I ordered her vit D level checked, and that lab is a send-out, not resulted yet. On 02/05, I further decreased her prn Ativan from every 8 hours to only daily prn, Corgard from 20 BID to 10 BID with the same holding parameters, Tizanidine from 2 mg BID to 1 mg BID, Desyrel scheduled for sleep decreased from 100 mg to 50 mg. Her orthosdtatic VS and hypersomnolence have improved, after those med adjustments. Today 02/07 she asked why her doses of meds are different than at home. I explained to her and in room, that I have decreased her doses slowly, since they were causing over-sedation. She then commented that her "pain doctor was starting to also do that ever since the leg fracture operation 7 mos ago", but that Dr Rashid has kept refilling higher doses. I advised that she will be on these lower doses as she is discharged, since her pain and RLS sx are controlled. Plan: I will change the order from IV Ativan prn to p.o. Ativan prn and dose it in pm, since she wants meds to help her sleep, she said She needs to continue working with PT and OT rehab for strengthening. She would like to go home and not a SNF, therefore I will order home health PT OT and bath aide We will explicitly order the lower doses of Corgard, Deseryl, Gabapentin, Tizanidine, Trazadone, Oxycodone and Ativan, at discharge. Continue same Suboxone. (4) Abnormal CXR CXR: R Infrahilar opacity, most likely pneumonia, but lung mass possible A chest x-ray was repeated 02/04 and shows a persistent right-sided bernardo-hilar pneumonia (with a possible mass persisting). The recommendation is to follow this by imaging until pneumonia clears. Plan: Will transition her to po Augmentin starting tomorrow I will plan to do a chest CT tomorrow (5) DM type 2 Glc 162 and A1c came back at 6.5, indicating good control. Plan: We have her getting accuchecks, SS Insulin, Hypoglycemic protocol and Diabetic diet I will resume her Glipizide, to monitor where her glu levels are, in preparation for DCh and resuming Glipizide at home. (6) HTN She has been orthostatic intermittently here (vital signs reviewed). I do not want to give her a bolus of IV fluids because the chest x-ray had cephalization of flow and curly B-lines and she has a history of CHF Plan: Continue home medications: Corgard but at lower dose of 10 mg, not 20 mg, and possibly I will eventually resume Spirinolactone and her Lasix (7) Hypothyroidism TSH and free T4 came back in good range Plan: She has been continued on her home medications: Levothyroxine (8) Fibromyalgia This gives her Chronic pain. She also has RLS. I reordered her narcotics as well as her Suboxone and other meds for chronic pain, and Trazadone for sleep. I have decreased those doses on 02/03 and again 02/05 and 02/07, because of excessive fatigue and hypersomnolence and orthostasis. (9) Hx of alcoholic Cirrhosis She quit drinking ETOH 10 years ago. She denies active symptoms from her cirrhosis. She came in with no ascites. During this hospitalization she has been orthostatic even without being on Lasix or Spironolactone while here. Plan: I continued her home medication Corgard at half the dose due to orthostasis and bradycardia in the 50's at rest Remain off Lasix and Spironolactone and I plan that she will not be discharged on these, possibly just use prn for weight gain or if ascites recurs. (10) Diarrhea RESOLVED On 02/01 the patient reported several liquidy diarrhea BMs. She told me today she has had C. difficile 9 times in her life. Test for C. difficile this admission came back negative Plan: Cont Imodium prn. Cont on probiotics also (11) Hypokalemia RESOLVED K was 3 at admission. Probably from being on Lasix and now I also think it is fr om poor appetite. Pt has been given K replacement All labs were reviewed. On 02/05 her K was 3.4 Plan: Cont the daily [facility] KCl Monitor BMP intermittently. No BMP was done today - Current Meds Current Meds: Current Medications Generic Name Dose Route Start Last Admin Trade Name Freq PRN Reason Stop Dose Admin Acetaminophen 650 mg 01/30/23 23:56 02/01/23 12:17 Acetaminophen 325 Mg Tablet PO 650 mg Q4HR PRN Administration Pain 1 to 4, or Fever Buprenorphine HCl 0.5 tab 02/01/23 07:45 02/07/23 06:11 Buprenorphine/Naloxone 8-2 Mg Tab SL 0.5 tab TID STEFFI Administration Enoxaparin Sodium 40 mg 01/31/23 09:00 02/07/23 09:34 Enoxaparin 40 Mg/0.4 Ml Syringe SUBQ 40 mg DAILY STEFFI Administration Gabapentin 300 mg 02/05/23 21:00 02/07/23 09:26 Gabapentin 300 Mg Capsule PO 300 mg BID STEFFI Administration Guaifenesin 600 mg 02/04/23 10:00 02/07/23 09:32 Guaifenesin 600 Mg Tablet PO 600 mg BID STEFFI Administration Piperacillin Sod/Tazobactam 100 mls @ 25 mls/hr 02/04/23 13:00 02/07/23 08:55 Sod 3.375 gm/ Sodium Chloride IV Infused Q8H STEFFI Infusion Vancomycin HCl 750 mg/ Sodium 250 mls @ 166.667 mls/hr 02/05/23 03:00 3 07:45 Chloride IV Infused Q12H STEFFI Infusion Insulin Human Lispro 0 unit 01/31/23 08:00 02/07/23 09:07 Insulin Lispro 300 Unit/3 Ml Pen SUBQ Not Given 0800,1200,1600,2100 [facility] Protocol Lactobacillus Rhamnosus 1 cap 01/31/23 09:00 02/07/23 09:26 Lactobacillus Rhamnosus Gg Capsule PO 1 cap BID STEFFI Administration Levothyroxine Sodium 112 mcg 02/02/23 07:00 02/07/23 06:11 Levothyroxine 112 Mcg Tablet PO 112 mcg QDAC STEFFI Administration Loperamide HCl 2 mg 02/01/23 17:28 02/06/23 09:31 Loperamide 2 Mg Capsule PO 2 mg QID PRN Administration Diarrhea Multi-Ingredient Ointment 1 applic 02/05/23 13:25 02/06/23 09:28 Zinc Oxide 20% Oint 30 Gm Tube TOP 1 applic PRN PRN Administration Skin Care Multivitamins/Minerals 1 tab 02/02/23 08:00 02/07/23 09:27 Multivitamin W/Minerals Tablet PO 1 tab DAILYWM STEFFI Administration Nadolol 10 mg 02/05/23 09:00 02/07/23 09:31 Nadolol 20 Mg Tablet PO 10 mg DAILY STEFFI Administration Ondansetron HCl 4 mg 01/30/23 23:56 02/05/23 20:06 Ondansetron Odt 4 Mg Tablet TL 4 mg Q6HR PRN Administration Nausea / Vomiting Oxycodone HCl 5 mg 02/06/23 21:00 02/07/23 09:29 Oxycodone 5 Mg Tablet PO 5 mg BID STEFFI Administration Pantoprazole Sodium 40 mg 02/01/23 07:40 02/07/23 06:11 Pantoprazole 40 Mg Tablet PO 40 mg QDAC STEFFI Administration Potassium Chloride 20 meq 02/03/23 08:00 02/07/23 09:26 Potassium Chloride 20 Meq Tablet PO 20 meq DAILYWM STEFFI Administration Sodium Chloride 10 ml 01/30/23 23:56 02/04/23 11:25 Sodium Chloride Flush 0.9% 10 Ml Syringe IVP 10 ml PRN PRN Administration NEEDED PER PROVIDER ORDERS Sodium Chloride 10 ml 01/31/23 01:00 02/07/23 09:34 Sodium Chloride Flush 0.9% 10 Ml Syringe IVP 10 ml 0100,0900,1700 STEFFI Administration Tizanidine HCl 1 mg 02/05/23 09:00 02/07/23 09:27 Tizanidine 4 Mg Tablet PO 1 mg BID STEFFI Administration Trazodone HCl 50 mg 02/05/23 21:00 02/06/23 21:15 Trazodone 50 Mg Tablet PO 50 mg QPM STEFFI Administration - Lab Result Fish Bone Diagrams: 02/07/23 08:21 02/07/23 08:21 - Additional Planning My Orders: My Active Orders 02/06/23 21:00 oxyCODONE [Roxicodone] 5 mg PO BID 02/07/23 Home Health Referral [CONS] Routine 02/07/23 12:00 LORazepam [Ativan] 0.5 mg PO 1200 PRN 02/08/23 05:00 CBC - COMP BLD CT W/AUTO DIFF [HEME] DAILYLAB CMP [COMPREHENSIVE METABOLIC PANEL] [CHEM] DAILYLAB 02/09/23 14:30 VANCOMYCIN TROUGH [CHEM] Timed Subjective - Subjective Patient Reports: Feeling Better, Fatigue Nursing Reports: Other (Her eyes close while she is being spoken too, despite that she says she is "anxious" and that she has "pain all over".) Objective Vital Signs: Vital Signs - 24 hr 02/06/23 02/06/23 02/07/23 16:00 19:14 00:31 Temperature 36.3 C L 36.3 C L Heart Rate [ 57 L 50 L Brachial] Respiratory 16 16 Rate Blood Pressure 154/81 H 122/72 [Right Brachial artery] O2 Saturation 94 93 If not protocol 1 1 : Oxygen Flow, liters/minute 02/07/23 02/07/23 02:25 07:42 Temperature 36.4 C L Heart Rate [ 50 L Brachial] Respiratory 16 Rate Blood Pressure 146/76 H [Right Brachial artery] O2 Saturation 90 L 92 If not protocol 0.5 : Oxygen Flow, liters/minute Oxygen O2 Source [With Activity] Room air O2 Source [Without Activity] Room air O2 Source Room air Oxygen Flow Rate 15 I&O (Last 24 Hrs): Intake and Output Totals x24h 02/05/23 02/06/23 02/07/23 23:59 23:59 23:59 Intake Total 5795.636 2883 930 Output Total 1500 450 Balance -53.333 1153 930 General: Alert, Other (Appears fatigued) HEENT: Mucous membr. moist/pink, Other (edentulous.) Neck: Supple, No JVD Neuro: Alert, Non Focal Cardiovascular: Regular rate, No murmurs Respiratory: No respiratory distress, Breath sounds nml Abdomen: Soft, No tenderness Extremities: No clubbing, No edema, No tenderness/swelling - Results Results: Laboratory Results WBC 7.3 x10^3/uL (4.8-10.8) 02/07/23 08:21 RBC 3.74 10^6/uL (4.20-5.40) L 02/07/23 08:21 Hgb 12.7 g/dL (12.0-16.0) 02/07/23 08:21 Hct 37.6 % (37.0-47.0) 02/07/23 08:21 MCV 100.5 fL (81.0-99.0) H 02/07/23 08:21 MCH 34.0 pg (27.0-31.0) H 02/07/23 08:21 MCHC 33.8 g/dL (32.0-36.0) 02/07/23 08:21 RDW 12.8 % (12.0-15.0) 02/07/23 08:21 Plt Count 283 10^3/uL (130-450) 02/07/23 08:21 MPV 9.6 fL (7.9-10.8) 02/07/23 08:21 Neut # (Auto) 4.9 10^3/uL (1.5-6.6) 02/07/23 08:21 Lymph # (Auto) 1.5 10^3/uL (1.5-3.5) 02/07/23 08:21 Teller # (Auto) 0.6 10^3/uL (0.0-1.0) 02/07/23 08:21 Eos # (Auto) 0.2 10^3/uL (0.0-0.7) 02/07/23 08:21 Baso # (Auto) 0.1 10^3/uL (0.0-0.1) 02/07/23 08:21 Absolute Nucleated RBC 0.00 x10^3/uL 02/07/23 08:21 Total Counted 100 02/05/23 04:37 Band Neuts % (Manual) 12 % (0-10) H 02/05/23 04:37 Abnorm Lymph % (Manual) 0 % 02/05/23 04:37 Metamyelocytes % 1 % (-0) H 02/01/23 05:19 Myelocytes % 1 % (-0) H 02/01/23 05:19 Nucleated RBC % 0.0 /100WBC 02/07/23 08:21 Neutrophils # (Manual) 2.8 10^3/uL (1.5-6.6) 02/05/23 04:37 Lymphocytes # (Manual) 1.5 10^3/uL (1.5-3.5) 02/05/23 04:37 Monocytes # (Manual) 0.2 10^3/uL (0.0-1.0) 02/05/23 04:37 Eosinophils # (Manual) 0.1 10^3/uL (0-0.7) 02/05/23 04:37 Basophils # (Manual) 0.0 10^3/uL (0-0.1) 02/05/23 04:37 Differential Comment MANUAL DIFFERENTIAL 02/05/23 04:37 WBC Morphology NORMAL APPEARANCE (NORMAL) 02/01/23 05:19 Platelet Estimate NORMAL (130-450,000) (NORMAL) 02/05/23 04:37 Platelet Morphology NORMAL APPEARANCE (NORMAL) 02/01/23 05:19 RBC Morph Micro Appear NORMAL APPEARANCE (NORMAL) 02/05/23 04:37 VBG pH 7.464 (7.31-7.41) H 01/30/23 22:52 VBG pCO2 38.7 mmHg (41-51) L 01/30/23 22:52 VBG pO2 65.0 mmHg (25-47) H 01/30/23 22:52 VBG HCO3 27.2 mmol/L (23-28) 01/30/23 22:52 VBG Total CO2 28.3 mmol/L (24-29) 01/30/23 22:52 VBG O2 Saturation 93.2 % (60-80) H 01/30/23 22:52 VBG Base Excess 3.3 mmol/L (-2 - +2) H 01/30/23 22:52 Sodium 138 mmol/L (135-145) 02/07/23 08:21 Potassium 3.5 mmol/L (3.5-5.0) 02/07/23 08:21 Chloride 100 mmol/L (101-111) L 02/07/23 08:21 Carbon Dioxide 30 mmol/L (21-32) 02/07/23 08:21 Anion Gap 8.0 (6-13) 02/07/23 08:21 BUN < 5 mg/dL (6-20) L 02/07/23 08:21 Creatinine 0.6 mg/dL (0.4-1.0) 02/07/23 08:21 Estimated GFR (MDRD) 100 (>89) 02/07/23 08:21 Glucose 124 mg/dL (70-100) H 02/07/23 08:21 POC Whole Bld Glucose 91 mg/dL (70 - 100) 02/07/23 07:42 Estimat Average Glucose 140 mg/dL (70-100) H 02/01/23 05:19 Hemoglobin A1c % 6.5 % (4.27-6.07) H 02/01/23 05:19 Lactic Acid 1.2 mmol/L (0.5-2.2) 01/30/23 22:52 Calcium 8.4 mg/dL (8.5-10.3) L 02/07/23 08:21 Phosphorus 5.2 mg/dL (2.5-4.6) H 02/05/23 04:37 Magnesium 1.5 mg/dL (1.7-2.8) L 02/05/23 04:37 Iron 51 ug/dL (28-170) 02/05/23 04:37 TIBC 151 ug/dL (250-450) L 02/05/23 04:37 % Saturation 34 % (20-50) 02/05/23 04:37 Transferrin 108 mg/dL (192-382) L 02/05/23 04:37 Total Bilirubin 0.9 mg/dL (0.2-1.0) 02/07/23 08:21 AST 23 IU/L (10-42) 02/07/23 08:21 ALT 16 IU/L (10-60) 02/07/23 08:21 Alkaline Phosphatase 59 IU/L (42-121) 02/07/23 08:21 Total Protein 7.2 g/dL (6.7-8.2) 02/07/23 08:21 Albumin 2.4 g/dL (3.2-5.5) L 02/07/23 08:21 Globulin 4.8 g/dL (2.1-4.2) H 02/07/23 08:21 Albumin/Globulin Ratio 0.5 (1.0-2.2) L 02/07/23 08:21 Vitamin B12 2456 pg/mL (180-914) H 02/05/23 04:37 Vitamin D 25-Hydroxy 50.9 ng/mL (30.0-100.0) 02/05/23 04:37 Folate 20.77 ng/mL (5.90 - >24.8) 02/05/23 04:37 TSH 4.93 uIU/mL (0.34-5.60) 02/03/23 05:22 Free T4 1.03 ng/dL (0.58-1.64) 02/05/23 04:37 Urine Color YELLOW 01/31/23 01:52 Urine Clarity CLEAR (CLEAR) 01/31/23 01:52 Urine pH 5.5 PH (5.0-7.5) 01/31/23 01:52 Ur Specific [place] 1.020 (1.002-1.030) 01/31/23 01:52 Urine Protein 30 mg/dL (NEGATIVE) H 01/31/23 01:52 Urine Glucose (UA) NEGATIVE mg/dL (NEGATIVE) 01/31/23 01:52 Urine Ketones 15 mg/dL (NEGATIVE) H 01/31/23 01:52 Urine Occult Blood SMALL (NEGATIVE) H 01/31/23 01:52 Urine Nitrite NEGATIVE (NEGATIVE) 01/31/23 01:52 Urine Bilirubin NEGATIVE (NEGATIVE) 01/31/23 01:52 Urine Urobilinogen 1 (NORMAL) E.U./dL (NORMAL) 01/31/23 01:52 Ur Leukocyte Esterase MODERATE (NEGATIVE) H 01/31/23 01:52 Urine RBC 0-5 /HPF (0-5) 01/31/23 01:52 Urine WBC 11-25 /HPF (0-5) H 01/31/23 01:52 Ur Epithelial Cells FEW Renal Tubular /HPF (<= Few) 01/31/23 01:52 Ur Squamous Epith Cells FEW Squamous (<= Few) 01/31/23 01:52 Urine Bacteria Few /HPF (None Seen) 01/31/23 01:52 Urine Culture Comments INDICATED 01/31/23 01:52 Nasal Adenovirus (PCR) NOT DETECTED 01/30/23 22:18 Nasal B. parapertussis DNA (PCR) NOT DETECTED 01/30/23 22:18 Nasal Coronavir 229E PCR NOT DETECTED 01/30/23 22:18 Nasal Coronavir HKU1 PCR NOT DETECTED 01/30/23 22:18 Nasal Coronavir NL63 PCR NOT DETECTED 01/30/23 22:18 Nasal Coronavir OC43 PCR NOT DETECTED 01/30/23 22:18 Nasal Enterovir/Rhinovir PCR NOT DETECTED 01/30/23 22:18 Nasal Influenza B PCR NOT DETECTED 01/30/23 22:18 Nasal Influenza A PCR NOT DETECTED 01/30/23 22:18 Nasal Parainfluen 1 PCR NOT DETECTED 01/30/23 22:18 Nasal Parainfluen 2 PCR NOT DETECTED 01/30/23 22:18 Nasal Parainfluen 3 PCR NOT DETECTED 01/30/23 22:18 Nasal Parainfluen 4 PCR NOT DETECTED 01/30/23 22:18 Nasal RSV (PCR) NOT DETECTED 01/30/23 22:18 Nasal B.pertussis DNA PCR NOT DETECTED 01/30/23 22:18 Nasal C.pneumoniae (PCR) NOT DETECTED 01/30/23 22:18 Heriberto Human Metapneumo PCR NOT DETECTED 01/30/23 22:18 Nasal M.pneumoniae (PCR) NOT DETECTED 01/30/23 22:18 Nasal SARS-CoV-2 (PCR) NOT DETECTED 01/30/23 22:18 Stl C. diff Tox B Gene NEGATIVE (NEGATIVE) 02/01/23 14:30 Last Dose Date UNK 02/06/23 13:27 Last Dose Time UNK 02/06/23 13:27 Vancomycin Trough 15.8 ug/mL (10.0-20.0) 02/06/23 13:27 - Procedures Procedures: Procedures EXCISION OF FEMORAL NERVE, OPEN APPROACH (09/04/15)
[2023-02-07] MEDS ORDERED: LORazepam 0.5 MG TABLET PO PRN ×2 (12:00→18:04)
[2023-02-07] MEDS: traZODone 50 MG TABLET PO SCH (22:16)
[2023-02-08] MEDS: SODIUM CHLORIDE FLUSH 0.9% 10 ML SYRINGE IVP SCH ×2 (00:06→09:04)
[2023-02-08] MEDS: ACETAMINOPHEN 325 MG TABLET PO PRN (00:12)
[2023-02-08] MEDS: PIPERACILLIN/TAZOBACTAM 3.375 GM in SODIUM CHLORIDE 0.9% MINIBAG 100 ML IV SCH (04:21)
[2023-02-08 05:24] LABS: BASOPHILS # (AUTO) 0.1 10^3/uL (0.0-0.1); BASOPHILS % (AUTO) 1.2 %; EOSINOPHILS # (AUTO) 0.1 10^3/uL (0.0-0.7); EOSINOPHILS % (AUTO) 1.4 %; HCT - HEMATOCRIT 37.6 % (37.0-47.0); HGB - HEMOGLOBIN 12.6 g/dL (12.0-16.0); LYMPHOCYTES # (AUTO) 1.8 10^3/uL (1.5-3.5); LYMPHOCYTES % (AUTO) 21.6 %; MEAN CORPUSCULAR HEMOGLOBIN 33.4 pg (27.0-31.0); MEAN CORPUSCULAR HGB CONC 33.5 g/dL (32.0-36.0); MEAN CORPUSCULAR VOLUME 99.7 fL (81.0-99.0); MEAN PLATELET VOLUME 9.5 fL (7.9-10.8); MONOCYTES # (AUTO) 0.6 10^3/uL (0.0-1.0); MONOCYTES % (AUTO) 6.6 %; NEUTROPHILS # (AUTO) 5.8 10^3/uL (1.5-6.6); NEUTROPHILS % (AUTO) 68.5 %; PLT - PLATELET COUNT 327 10^3/uL (130-450); RED BLOOD COUNT 3.77 10^6/uL (4.20-5.40); RED CELL DISTRIBUTION WIDTH 12.8 % (12.0-15.0); WHITE BLOOD COUNT 8.5 x10^3/uL (4.8-10.8)
[2023-02-08 05:44] LABS: ALBUMIN 2.5 g/dL (3.2-5.5); ALBUMIN/GLOBULIN RATIO 0.5 (1.0-2.2); BILIRUBIN,TOTAL 0.8 mg/dL (0.2-1.0); CALCIUM 8.7 mg/dL (8.5-10.3); CREATININE 0.7 mg/dL (0.4-1.0); POTASSIUM 3.9 mmol/L (3.5-5.0); TOTAL PROTEIN 7.3 g/dL (6.7-8.2)
[2023-02-08] MEDS: LEVOTHYROXINE 112 MCG TABLET PO SCH (06:17)
[2023-02-08] MEDS: BUPRENORPHINE/NALOXONE 8-2 MG TAB SL SCH (06:17)
[2023-02-08] MEDS: PANTOPRAZOLE 40 MG TABLET PO SCH (06:17)
[2023-02-08] MEDS: INSULIN LISPRO 300 UNIT/3 ML PEN SUBQ SCH (07:34)
[2023-02-08 07:38] VITALS: BP 129/68
[2023-02-08] MEDS: ENOXAPARIN 40 MG/0.4 ML SYRINGE SUBQ SCH (09:01)
[2023-02-08] MEDS: nadoloL 20 MG TABLET PO SCH (09:02)
[2023-02-08] MEDS: GABAPENTIN 300 MG CAPSULE PO SCH (09:02)
[2023-02-08] MEDS: LACTOBACILLUS RHAMNOSUS GG CAPSULE PO SCH (09:02)
[2023-02-08] MEDS: MULTIVITAMIN W/MINERALS TABLET PO SCH (09:02)
[2023-02-08] MEDS: guaiFENesin 600 MG TABLET PO SCH (09:03)
[2023-02-08] MEDS: oxyCODONE 5 MG TABLET PO SCH (09:03)
[2023-02-08] MEDS: tiZANidine 4 MG TABLET PO SCH (09:04)
[2023-02-08] MEDS: POTASSIUM CHLORIDE 20 MEQ TABLET PO SCH (09:04)
--- NOTE | 2023-02-08 10:58 | DISCHARGE SUMMARY ---
Discharge Summary Admit Date: 01/31/23 Discharge Date: 02/08/23 Discharging Provider: Lorraine Longoria MD Primary Care Provider: Dawna Soto Code Status: Attempt Resuscitation Condition at Discharge: Stable Discharge Disposition: Home Health Service - DIAGNOSES Discharge Diagnoses with Status of Each Condition: 1. Community-acquired pneumonia 2. Hypoxia 3. Generalized weakness after illness 4. Abnormal chest x-ray with lung mass present 5. Hypokalemia 6. Type 2 diabetes mellitus, controlled, without complications, not on long- term insulin 7. Hypertension 8. Hypothyroidism 9. Fibromyalgia 10. Alcoholic cirrhosis 11. Diarrhea 12. Polypharmacy with probable sedation - HPI History of Present Illness: Patient is in [place]. Physician is in [place]. Pt's PARAPLANNER, Rd Sena, is at bedside. 67 yo F with h/o HTN, DM type 2, Hypothyroidism, GERD, ETOH Cirrhosis, Fibromyalgia, chronic pain, LBP presented to the ER with c/o 3-4 day h/o URI symptoms and 1 day h/o shortness of breath with Hypoxia. Pt began to have symptoms 3-4 days ago of sore throat, headache, myalgias. She then began to have chest congestion, cough with clear sputum, F/C with Tm 103.5F. Today, she began to have shortness of breath. Her checked her SpO2 and it was in the 80s, so he called EMS. Pt has no known sick contacts; is not sick. No hemoptysis, leg swelling. No CP. No N/V/abdo pain/urinary symptoms. Pt is an ex- smoker; she quit 50 years ago. She quit drinking ETOH 10 years ago. She denies active symptoms from her cirrhosis. When EMS arrived, SpO2 84% on RA, 91% on 6L NC. In the ER, SpO2 91% 6L NC O2, WBC 21.7, K 3.0, Glc 162 CXR: R Infrahilar opacity, most likely pneumonia, but mass possible Pt was given IVF, Rocephin/Azithro in the ER. - Past Medical History Cardiovascular: reports: Hypertension, High cholesterol, Coronary artery disease, Peripheral Vascular Disease, Other Respiratory: reports: COPD Neuro: reports: Dementia, Headaches, Peripheral neuropathy, Other Endocrine/Autoimmune: reports: Type 2 diabetes, HyPOthyroidism GI: reports: GERD, Esophageal varices, Ulcers, C.difficile, Chronic constipation, Cirrhosis ANIMATED CARTOONS PAINTER: reports: None : reports: Nocturia, Frequency HEENT: reports: Chronic vision loss, Chronic sinusitis, Chronic hearing loss Psych: reports: Depression, Anxiety, Panic attacks Musculoskeletal: reports: Osteoarthritis, Fibromyalgia, Osteoporosis, Chronic back pain, Other Derm: reports: None MRSA Hx?: Yes - Past Surgical History General: reports: Cholecystectomy, Other Ortho: reports: Hip replacement, Knee replacement /ANIMATED CARTOONS PAINTER: reports: 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 HEENT: reports: Other - CONSULTS | PROCEDURES Procedures: 2 chest x-rays were done. Stable right perihilar consolidation on the second chest x-ray. Airspace opacities in the right suprahilar region, left lower lung. It was felt that the right perihilar consolidation should be followed up with a chest x-ray 1 month from now. Complete antibiotic therapy for resolution. Blood cultures negative after 5 days. Urine culture with 10-50 polymicrobial colonies. - HOSPITAL COURSE Hospital Course: (1) Hypoxia Assessment/Plan: The patient had been hypoxic since admission, even with IV antibiotics. For air hunger she needed treatment with Ativan, since Morphine cannot be used because she has a hydromorphone allergy. Adm CXR showed R-sided infiltrate. A chest x-ray was repeated 02/04 and showed a persistent right-sided pneumonia (with a possible mass persisting), and new right upper lobe infiltrate and new LLL infiltrate Her hypoxia started to improve after antibx were adjusted. By February 07 her supplemental oxygen requirement came down to 1 L. And by the end of the day she was on room air. Since she had a hydromorphone allergy, morphine could not be used for air hunger and we used Ativan as needed. (2) Pneumonia Assessment/Plan: She presented with shortness of breath, Fever, Hypoxia and Leukocytosis. When EMS arrived, SpO2 84% on RA. WBC 21.7 which has improved to normal (all labs were reviewed). Her CXR showed a R Infrahilar opacity, most likely pneumonia, but mass possible. Pt was given IVF, and has been on Rocephin/Azithro. Adm CXR showed R-sided infiltrate. A chest x-ray was repeated 02/04 and showed a persistent right-sided bernardo-hilar pneumonia (with a possible mass persisting), and new right supra-hilar infiltrate and a new LLL infiltrate. She was put on new IV vancomycin to cover MRSA and IV Zosyn to cover anaerobes. Blood cultures were negative. By February 07 was on room air. Transition to Augmentin to complete her antibiotic therapy.She was also encouraged to use incentive spirometry and given Mucinex. (3) Weakness About 1 week before this admission the patient became very fatigued, was sleeping 15 hours a day, according to her . Patient was excessively somnolent since being admitted. All her usual narcotics plus Suboxone, gabapentin, Desyrel doses were initially resumed. I then decreased the doses of her Desyrel at night by half, gabapentin dosing from 3 t imes daily to twice daily, Corgard to be put on hold if heart rate is under 60 or if systolic is under 100, decreased Trazadone and decreased the frequency of the prn Ativan She was orthostatic (all VS were reviewed) with Supine BP 129/72, HR 57. Sitting BP 110/74, HR 68. Standing BP 76/49, HR 75, and she complained of lightheadedness. To look for other causes of weakness and hypersomnolence, I checked her B12 level, folate level, free T4, and Iron panel and they are all in adequate range. I ordered her vit D level checked, and that lab is a send-out, not resulted yet. On 02/05, I further decreased her prn Ativan from every 8 hours to only daily prn, Corgard from 20 BID to 10 BID with the same holding parameters, Tizanidine from 2 mg BID to 1 mg BID, Desyrel scheduled for sleep decreased from 100 mg to 50 mg. Her orthosdtatic VS and hypersomnolence have improved, after those med adjustm ents. Today 02/07 she asked why her doses of meds are different than at home. I explained to her and in room, that I have decreased her doses slowly, since they were causing over-sedation. She then commented that her "pain doctor was starting to also do that ever since the leg fracture operation 7 mos ago", but that Dr Rashid has kept refilling higher doses. I advised that she will be on these lower doses as she is discharged, since her pain and RLS sx are controlled. We explicitly ordered the lower doses of Corgard, Deseryl, Gabapentin, Tizanidine, Trazadone, Oxycodone and Ativan, at discharge. Continue same Suboxone.All of this was communicated in her discharge plan. And I asked discharge planning to make sure that the primary care provider received a fax of the discharge plan in summary. (4) Abnormal CXR CXR: R Infrahilar opacity, most likely pneumonia, but lung mass possible A chest x-ray was repeated 02/04 and shows a persistent right-sided bernardo-hilar pneumonia (with a possible mass persisting). The recommendation is to follow this by imaging until pneumonia clears. Specifically a chest x-ray. If chest x-ray still stays normal, she should have a CT of the chest. A CT was considered during her stay but not done. (5) DM type 2 Glc 162 and A1c came back at 6.5, indicating good control. She was treated with sliding scale insulin, glucometer checked before each meal. Her glipizide was resumed.Januvia was also resumed at discharge. (6) HTN She has been orthostatic intermittently here (vital signs reviewed). I do not want to give her a bolus of IV fluids because the chest x-ray had cephalization of flow and curly B-lines and she has a history of CHF. At discharge she was continued on her glipizide. Corgard was continued at a lower dose of 10 mg. She was also sent home on her potassium 20 mEq daily. I did not resume her Lasix and she should be evaluated with lung exam and BNP to make sure that should be resumed. (7) Hypothyroidism TSH and free T4 came back in good range And she was continued on her usual home meds. (8) Fibromyalgia This gives her Chronic pain. She also has RLS. I reordered her narcotics as well as her Suboxone and other meds for chronic pain, and Trazadone for sleep. I have decreased those doses on 02/03 and again 02/05 and 02/07, because of excessive fatigue and hypersomnolence and orthostasis. (9) Hx of alcoholic Cirrhosis She quit drinking ETOH 10 years ago. She denies active symptoms from her cirrhosis. She came in with no ascites. During this hospitalization she has been orthostatic even without being on Lasix or Spironolactone while here. Remain off Lasix and Spironolactone and I plan that she will not be discharged on these, possibly just use prn for weight gain or if ascites recurs. (10) Diarrhea RESOLVED On 02/01 the patient reported several liquidy diarrhea BMs. She told me today she has had C. difficile 9 times in her life. Test for C. difficile this admission came back negative. Those new doses were noted at discharge. By the time of discharge she was not having any diarrhea. (11) Hypokalemia RESOLVED K was 3 at admission. Probably from being on Lasix and now I also think it is from poor appetite. Pt has been given K replacement All labs were reviewed. On 02/05 her K was 3.4.On the day of discharge her potassium was 3.9. Discharge exam had a temperature of 36.3. Heart rate 71. Supine blood pressure 124/68, sitting blood pressure 136/81, standing blood pressure 124/76. Pulse respectively went to 63, then 71, then 83. She is a fatigued female, gets short of breath when you have her sit up and walk. But she is alert, oriented able to follow commands. 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 The lungs were clear. She did not have any rhonchi, crackles, wheezing. She had a regular rate and rhythm. Abdomen was soft, nontender. Skin had mild pinkness of the sacrum present on admission at discharge. But no skin breakdown. No edema. She was able to walk 100 feet without needing oxygen. She was complaining of weakness and as such I have ordered home health for PT and OT. She did ask for refill of her Miller at discharge and I declined. If she has been in the hospital, and regularly refilling her medications, she should not be out of Miller. As a word of caution, nursing did share with me that she has a so n that lives with her that has a history of substance abuse. - ALLERGIES Allergies/Adverse Reactions: Allergies Allergy/AdvReac Type Severity Reaction Status Date / Time metformin Allergy Severe "HORRIFIC" Verified 01/30/23 22:10 duloxetine Allergy Hives Verified 01/30/23 22:10 hydromorphone [From Dilaudid] Allergy Rash Verified 01/30/23 22:10 - MEDICATIONS Home Medications: Ambulatory Orders Medication Instructions Recorded Confirmed Calcium Carbonate/Vitamin D3 1 cap PO DAILY 08/18/15 01/31/23 [Calcium 600Mg-D3 400 Unit Sfgl] Lactobacillus Rhamnosus GG 1 cap PO BID 02/10/19 01/31/23 [Culturelle] Fluticasone Propion/Salmeterol 1 puffs INH BID 01/31/23 01/31/23 [Wixela 250-50 Inhub] Levothyroxine [Synthroid] 112 mcg PO QDAC 01/31/23 01/31/23 Pantoprazole Sodium 40 mg PO QDAC 01/31/23 01/31/23 SITagliptin [Januvia] 100 mg PO DAILY 01/31/23 01/31/23 Acetaminophen [Tylenol] 650 mg PO Q4HR PRN tab 02/08/23 Amox/Clav 875/125 [Augmentin 1 tablet PO Q12H 4 Days #8 tablet 02/08/23 875/125 Tab] Bacillus Coag/Hyperimmune Egg 1 each PO BID #14 cap 02/08/23 [Probiomax Ig 26 Df Capsule] Buprenorphine HCl/Naloxone HCl 0.5 tab SL TID tab 02/08/23 [Suboxone 8-2 mg Tab] Gabapentin [Neurontin] 300 mg PO BID cap 02/08/23 Multivitamin W/Minerals [Theragran 1 tab PO DAILYWM tab 02/08/23 M] Potassium Chloride [K-Dur] 20 meq PO DAILYWM #30 tab 02/08/23 Zinc Oxide 20% Oint [Zinc Oxide] 1 applic TOP PRN PRN #1 each 02/08/23 guaiFENesin [Mucinex] 600 mg PO BID #10 tab 02/08/23 nadoloL [Corgard] 20 mg PO DAILY #1 tablet 02/08/23 oxyCODONE [Roxicodone] 5 mg PO BID tab 02/08/23 tiZANidine [Zanaflex] 1 mg PO BID tab 02/08/23 traZODone [Desyrel] 50 mg PO QPM tab 02/08/23 - LABS Result Diagrams: 02/08/23 04:28 02/08/23 04:28
--- NOTE | 2023-02-08 11:03 | Discharge Plan ---
Discharge Plan Problem Reviewed?: Yes Disposition: Home Health Service Condition: Stable Prescriptions: Amox/Clav 875/125 [Augmentin 875/125 Tab] 1 tablet PO Q12H 4 Days #8 tablet nadoloL [Corgard] 20 mg PO DAILY #1 tablet Potassium Chloride [K-Dur] 20 meq PO DAILYWM #30 tab guaiFENesin [Mucinex] 600 mg PO BID #10 tab Bacillus Coag/Hyperimmune Egg [Probiomax Ig 26 Df Capsule] 1 each PO BID #14 cap Zinc Oxide 20% Oint [Zinc Oxide] 1 applic TOP PRN PRN #1 each PRN Reason: Skin Care Diet: Regular Activity Restrictions: Activity as Tolerated Shower Restrictions: No Driving Restrictions: No Health Concerns: You are a frail individual because of chronic medical illnesses of hypertension, diabetes, low thyroid, reflux disease, alcoholic liver disease, fibromyalgia, and chronic back pain. You presented to our emergency room with a 3 to 4-day history of cough, congestion, and shortness of breath for the previous day. You are getting very weak, tired and had a fever. Your checked her oxygen level and it was in the low 80s so he called an ambulance. In our emergency room we found her to have a right lung pneumonia. You were started on antibiotics. We measure oxygen levels, and white cell count to make sure that patients are getting better. Your oxygen level has gotten stable enough to the point that you can walk 100 feet without needing oxygen. Your white cell count was high at 15.9 on admission it is now normal at 8.5. Your last fever was on February 01. From a pneumonia standpoint, you are now stable enough to go home. You are very weak because of severe illness and we have ordered home health physical therapy and Occupational Therapy to help you and your at home. While you were here we noticed that you were very sleepy. We were worried because we thought this was a side effect of being so infected. But we started reducing some of your medication for pain and sleep. We specifically reduce t izanidine, Deseryl, Neurontin, and buprenorphine/naloxone. Your pain is controlled. You have adequate sleep. At as such we are decreasing doses. Plan of Treatment: Medications were changed during your stay. You are 5 foot tall, and about 113 pounds. Dosing medications for you, especially if they are sedative, should be on the low side of dosing measurements. During your stay, we found you blood pressure to be low, and you were very, very sleepy and sedated. This is when we gave you your usual medications. As such we changed your medication as follows: Corgard was changed to 20 mg a day to 10 mg a day while you were here but will go back to 20 mg a day at home. Trazodone was changed to 50 mg at night Neurontin was changed to 300 mg capsule twice a day Zanaflex was changed to 1 mg twice a day Your buprenorphine/naloxone was changed from 1 twice a day to half 3 times a day With these changes, you have been more awake, alert, eating better. And your pain and discomfort is controlled. So we think you should stay on these new doses. I will send a note to your primary care provider, Dr. Velásquez, for her to know about the new changes. You will complete antibiotics with Augmentin. 1 tablet twice a day. Finish the pills we gave you. We recommend that you take a probiotic twice a day for the next week to help your bowel bacteria balance to improve after all these antibiotics. After this severe illness, you have been very weak, deconditioned. Has spent a lot of time in bed. As such we think you could do with strengthening exercises and we have ordered home health physical therapy, Occupational Therapy. Please see your primary care provider in follow-up in the next 1 to 2 weeks. Care Goals: To get your strength back so that you are able to take care of yourself again without any need for help. Assessment: Patient is alert, oriented. Able to walk 100 feet and occasional stairs. Able to transfer out of bed. She states that she feels completely comfortable and safe going home and that her agrees. Additional Instructions or Follow Up instructions: After the patient was discharged, her called back to let us know that she was out of her Triv[place], and her gabapentin. He wanted to make sure she was supposed to be on nadolol 20 mg and I said yes. He also wanted a refill of potassium 20 mEq. This patient is on all of these medications at home. Is taking them as instructed prior to admit. Is picking them up as instructed. So he could not figure out why she had run out of medications even though she was in the hospital and getting our medications. As such, I have refilled her gabapentin at 300 mg twice daily, potassium 20 mEq daily, instructed him to take the nadolol 20 mg daily. And he will have to ask for oxycodone refills from the primary care provider. Follow-Up Care: Home Health - RN, Home Health - PT, Home Health - OT No Smoking: If you smoke, Please STOP! Call for help.
== END 2023-02-08 12:20 | disposition home health service (06) | DRG 871 ==
LOC: EDUNIT# → ED 21:57 → MS2 23:56
PROVIDERS: ADMIT Internal Medicine; ATTEND Specialist
DX: A41.9 Sepsis, unspecified organism (principal); J18.9 Pneumonia, unspecified organism; J44.0 Chronic obstructive pulmonary disease with (acute) lower respiratory infection; I10 Essential (primary) hypertension; E03.9 Hypothyroidism, unspecified; E11.42 Type 2 diabetes mellitus with diabetic polyneuropathy; E11.51 Type 2 diabetes mellitus with diabetic peripheral angiopathy without gangrene; E78.00 Pure hypercholesterolemia, unspecified; E87.6 Hypokalemia; I11.0 Hypertensive heart disease with heart failure; I50.9 Heart failure, unspecified; K21.9 Gastro-esophageal reflux disease without esophagitis; D72.829 Elevated white blood cell count, unspecified; K70.30 Alcoholic cirrhosis of liver without ascites; R51.9 Headache, unspecified; Z20.822 Contact with and (suspected) exposure to COVID-19; G89.29 Other chronic pain; M19.90 Unspecified osteoarthritis, unspecified site; M54.50 Low back pain, unspecified; M79.7 Fibromyalgia; M81.0 Age-related osteoporosis without current pathological fracture; F32.A Depression, unspecified; F41.9 Anxiety disorder, unspecified; T50.915A Adverse effect of multiple unspecified drugs, medicaments and biological substances, initial encounter; R09.02 Hypoxemia; R19.7 Diarrhea, unspecified; R40.0 Somnolence; R53.1 Weakness; R91.8 Other nonspecific abnormal finding of lung field; Z79.84 Long term (current) use of oral hypoglycemic drugs; Z79.890 Hormone replacement therapy; Z79.899 Other long term (current) drug therapy; Z82.49 Family history of ischemic heart disease and other diseases of the circulatory system; Z87.891 Personal history of nicotine dependence; Z88.5 Allergy status to narcotic agent; Z88.8 Allergy status to other drugs, medicaments and biological substances
CPT/HCPCS: 36415; 71045; 80048; 80053; 80202; 81001; 82306; 82607; 82746; 82803; 83036; 83540; 83605; 83735; 84100; 84132; 84439; 84443; 84466; 85025; 87040; 87086; 87493; 87633; 93005; 96365; 97116; 97162; 97166; 97530; 97535; 99284; 99285; A9270; J1650; J2060; J7120; Q0162

== ENCOUNTER 2023-10-28 08:54 | Outpatient (CLI) | payer MEDICARE ==
--- NOTE | 2023-10-28 12:02 | Ultrasound Report ---
PROCEDURE: Abdomen Limited INDICATIONS: CIRRHOSIS TECHNIQUE: Real-time focused scanning was performed of the abdomen, with image documentation. COMPARISONS: Abdominal ultrasound dated 01/06/2023. FINDINGS: Liver: The liver measures 16.2 cm in length and demonstrates a coarse echotexture and a nodular surf gerry consistent with cirrhotic transformation. Gallbladder: Surgically absent. Biliary ducts: Intrahepatic bile ducts are non-dilated. Extrahepatic bile duct caliber measures 8.3 mm. Normal is 6-7 mm or less in diameter, or 10 mm or less post-cholecystectomy. Pancreas: Visualized portions of the pancreas are sonographically normal. Right kidney: Normal in size and echotexture. Right kidney measures 8.3 cm long. No hydronephrosis o r nephrolithiasis. No solid masses. No complex renal cystic lesions which require follow-up. Aorta: Visualized aorta is normal in caliber at less than 3 cm. IVC: Intrahepatic inferior vena cava is patent. Miscellaneous: No free abdominal fluid. IMPRESSION: 1. Cirrhotic transformation of the liver. No suspicious hepatic lesions visualized by ultrasound. Reviewed by: Sulema Staples MD on 10/28/2023 12:00 PM PST Approved by: Sulema Staples MD on 10/28/2023 12:00 PM PST Station ID: [id number]
== END 2023-10-28 08:55 | disposition home or self-care (01) ==
LOC: DI 08:54
PROVIDERS: ATTEND Internal Medicine Gastroenterology
DX: K70.30 Alcoholic cirrhosis of liver without ascites (principal)

== ENCOUNTER 2023-11-17 23:58 | Outpatient (CLI) | payer MEDICARE | END 2023-11-17 23:59 | disposition EMS.NT | LOC: EMS 23:58 | DX: Z03.89 Encounter for observation for other suspected diseases and conditions ruled out (principal) ==

== ENCOUNTER 2023-11-18 20:16 | Outpatient (CLI) | payer MEDICARE | END 2023-11-18 23:59 | disposition critical access hospital (66) | LOC: EMS 20:16 | DX: R29.6 Repeated falls (principal); R45.89 Other symptoms and signs involving emotional state; Z63.6 Dependent relative needing care at home | CPT/HCPCS: A0425; A0429 ==

== ENCOUNTER 2023-11-18 20:43 | Emergency (ER) | payer MEDICARE ==
--- NOTE | 2023-11-18 21:26 | ED Physician Documentation ---
History of Present Illness - Stated complaint Stated Complaint: GLF, WEAKNESS - Chief complaint Chief Complaint: General - History obtained from History obtained from: Patient, EMS - Additonal information Additional information: 68yF with pmh alcoholic cirrhosis (sober >10 years), chronic back pain with polypharmacy (tizanidine, oxycodone, neurontin, trazodone among other meds) presents for medical evaluation tonight after slumping to the floor tonight. patient was serving dinner to her when, per his report, she just slid to the ground (see MDM for details). Patient denies HT, LOC, dizziness, or any complaints at present and states she spends all her time taking care of him. denies si/hi/avh and feels safe at home. patient is limited historian. PD PAST MEDICAL HISTORY - Past Medical History Cardiovascular: Hypertension, High cholesterol, Coronary artery disease, Peripheral Vascular Disease, Other Respiratory: COPD Neuro: Dementia, Headaches, Peripheral neuropathy, Other Endocrine/Autoimmune: Type 2 diabetes, HyPOthyroidism GI: GERD, Esophageal varices, Ulcers, C.difficile, Chronic constipation, Cirrhosis PRECIPITATION EQUIPMENT TENDER: None : Nocturia, Frequency HEENT: Chronic vision loss, Chronic sinusitis, Chronic hearing loss Psych: Depression, Anxiety, Panic attacks Musculoskeletal: Osteoarthritis, Fibromyalgia, Osteoporosis, Chronic back pain, Other Derm: None - Past Surgical History Past Surgical History: Yes General: Cholecystectomy, Other 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, Knee replacement /PRECIPITATION EQUIPMENT TENDER: 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 HEENT: Other - Present Medications Home Medications: Ambulatory Orders Medication Instructions Recorded Confirmed Calcium Carbonate/Vitamin D3 1 cap PO DAILY 08/18/15 01/31/23 [Calcium 600Mg-D3 400 Unit Sfgl] Lactobacillus Rhamnosus GG 1 cap PO BID 02/10/19 01/31/23 [Culturelle] Fluticasone Propion/Salmeterol 1 puffs INH BID 01/31/23 01/31/23 [Wixela 250-50 Inhub] Levothyroxine [Synthroid] 112 mcg PO QDAC 01/31/23 01/31/23 Pantoprazole Sodium 40 mg PO QDAC 01/31/23 01/31/23 SITagliptin [Januvia] 100 mg PO DAILY 01/31/23 01/31/23 Acetaminophen [Tylenol] 650 mg PO Q4HR PRN tab 02/08/23 Amox/Clav 875/125 [Augmentin 1 tablet PO Q12H 4 Days #8 tablet 02/08/23 875/125 Tab] Bacillus Coag/Hyperimmune Egg 1 each PO BID #14 cap 02/08/23 [Probiomax Ig 26 Df Capsule] Buprenorphine HCl/Naloxone HCl 0.5 tab SL TID tab 02/08/23 [Suboxone 8-2 mg Tab] Gabapentin [Neurontin] 300 mg PO BID cap 02/08/23 Multivitamin W/Minerals [Theragran 1 tab PO DAILYWM tab 02/08/23 M] Potassium Chloride [K-Dur] 20 meq PO DAILYWM #30 tab 02/08/23 Zinc Oxide 20% Oint [Zinc Oxide] 1 applic TOP PRN PRN #1 each 02/08/23 guaiFENesin [Mucinex] 600 mg PO BID #10 tab 02/08/23 nadoloL [Corgard] 20 mg PO DAILY #1 tablet 02/08/23 oxyCODONE [Roxicodone] 5 mg PO BID tab 02/08/23 tiZANidine [Zanaflex] 1 mg PO BID tab 02/08/23 traZODone [Desyrel] 50 mg PO QPM tab 02/08/23 Potassium Chloride [Micro-K] 10 meq PO QDAC #14 tab 11/18/23 - Allergies Allergies/Adverse Reactions: Allergies Allergy/AdvReac Type Severity Reaction Status Date / Time metformin Allergy Severe "HORRIFIC" Verified 01/30/23 22:10 duloxetine Allergy Hives Verified 01/30/23 22:10 hydromorphone [From Dilaudid] Allergy Rash Verified 01/30/23 22:10 - Social History Does the pt smoke?: No Smoking Status: Never smoker Does the pt drink ETOH?: No Does the pt have substance abuse?: No - Immunizations Immunizations are current?: Yes - POLST Patient has POLST: No POLST Status: Full Code PD ED PE NORMAL - Vitals Vital signs reviewed: Yes - General General: Alert and oriented X 3, No acute distress, Well developed/nourished, Other (mildly sedated appearing) - HEENT HEENT: Atraumatic, PERRL, EOMI, Moist mucous membranes, Pharynx benign - Neck Neck: Supple, no meningeal sign - Cardiac Cardiac: RRR - Respiratory Respiratory: No respiratory distress, Clear bilaterally - Abdomen Abdomen: Non tender, Non distended - Derm Derm: Normal color, Warm and dry - Neuro Neuro: Alert and oriented X 3, dye lab technician 2-12 intact, No motor deficit, No sensory deficit, Normal speech, Other (patient with subtle slurring of speech. appears mildly sedated) Eye Opening: Spontaneous Motor: Obeys Commands Verbal: Oriented GCS Score: 15 Results - Vitals Vitals: Vital Signs - 24 hr 11/18/23 20:58 Temperature 36.8 C Heart Rate 90 Respiratory 18 Rate Blood Pressure 126/84 H O2 Saturation 95 Oxygen O2 Source [With Activity] Room air O2 Source [Without Activity] Room air O2 Source Room air - EKG (time done) 2235 EKG releavant findings:: EKG personally interpreted by author of this note. Relevant findings are: Rate: Rate (enter#) (80) Rhythm: NSR [place]: Normal Intervals: Normal [place] QRS: Normal Ischemia: Normal ST segments - Labs Labs: Laboratory Tests 11/18/23 11/18/23 21:22 21:22 WBC 7.6 RBC 3.77 L Hgb 12.7 Hct 37.9 MCV 100.5 H MCH 33.7 H MCHC 33.5 RDW 14.5 Plt Count 234 MPV 10.0 Neut # (Auto) 5.3 Lymph # (Auto) 1.7 [place] # (Auto) 0.4 Eos # (Auto) 0.1 Baso # (Auto) 0.1 Absolute Nucleated RBC 0.00 Nucleated RBC % 0.0 Sodium 146 H Potassium 2.7 L Chloride 106 Carbon Dioxide 28 Anion Gap 12.0 BUN 7 Creatinine 0.5 L Estimated GFR (MDRD) 123 Glucose 160 H Calcium 9.0 Total Bilirubin 0.5 AST 25 ALT 21 Alkaline Phosphatase 107 Total Protein 6.5 Albumin 3.2 Globulin 3.3 Albumin/Globulin Ratio 1.0 Lipase 285 H PD Medical Decision Making - ED course ED course: d/w Oumar - he states she's been under a lot of stress for the past couple months and is scheduled for upcoming back surgery. Her states he also had surgery himself in October 31, which was stressful for her. When he came home he worried she hasn't been taking care of herself or eating/drinking enough. Oumar again had to go to the hospital yesterday which was another stressor. He states she has been "super, super super stressed out". 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 "I can tell she's been stressed out and needs to stay off her feet". He states she came to serve him dinner katerina and her legs crumpled and she slumped to the floor without hitting anything, stating "I'm weak. I'm done". She has chronic back pain and joint issues. She takes gabapentin, tizanidine, and possibly other sedating medications but Oumar states she doesn't take any oxycodone any more, though she is prescribed 5mg bid by pain clinic. Overall the reason for her ED visit katerina is concern about mental distress. Patient denies SI/HI/AVH and states she feels safe at home. cbc, abdominal panel uncovered some hypokalemia without acute ekg changes. potassium supplementation provided. also with lipase 285, but completely asymptomatic therefore she can have this rechecked with her pcp. labs otherwise unremarkable and her physical exam is benign. she denies pain anywhere or any injuries. Shree Espinoza (friend) can take her home. [phone]. Plan to dc home to f/u with pcp. return precautions given. Departure - Departure Clinical Impression: Weakness, Chronic back pain Condition: Stable Instructions: ED Back Care Tips Prescriptions: Potassium Chloride [Micro-K] 10 meq PO QDAC #14 tab Comments: You were seen in the emergency department for medical evaluation. You have low potassium and a prescription for potassium supplement was sent to [facility]. You should have this rechecked by your primary care provider in 1-2 weeks. Please follow-up with your primary care provider and return to the emergency department if you have any new or worsening symptoms or other concerns. Forms: PCP List
[2023-11-18 21:30] LABS: BASOPHILS # (AUTO) 0.1 10^3/uL (0.0-0.1); BASOPHILS % (AUTO) 1.2 %; EOSINOPHILS # (AUTO) 0.1 10^3/uL (0.0-0.7); EOSINOPHILS % (AUTO) 1.3 %; HCT - HEMATOCRIT 37.9 % (37.0-47.0); HGB - HEMOGLOBIN 12.7 g/dL (12.0-16.0); LYMPHOCYTES # (AUTO) 1.7 10^3/uL (1.5-3.5); LYMPHOCYTES % (AUTO) 22.3 %; MEAN CORPUSCULAR HEMOGLOBIN 33.7 pg (27.0-31.0); MEAN CORPUSCULAR HGB CONC 33.5 g/dL (32.0-36.0); MEAN CORPUSCULAR VOLUME 100.5 fL (81.0-99.0); MONOCYTES # (AUTO) 0.4 10^3/uL (0.0-1.0); MONOCYTES % (AUTO) 5.1 %; NEUTROPHILS # (AUTO) 5.3 10^3/uL (1.5-6.6); NEUTROPHILS % (AUTO) 69.8 %; PLT - PLATELET COUNT 234 10^3/uL (130-450); RED BLOOD COUNT 3.77 10^6/uL (4.20-5.40); RED CELL DISTRIBUTION WIDTH 14.5 % (12.0-15.0); WHITE BLOOD COUNT 7.6 x10^3/uL (4.8-10.8)
[2023-11-18 22:17] LABS: ALBUMIN 3.2 g/dL (3.2-5.5); BILIRUBIN,TOTAL 0.5 mg/dL (0.2-1.0); CREATININE 0.5 mg/dL (0.6-1.3); POTASSIUM 2.7 mmol/L (3.5-4.5); TOTAL PROTEIN 6.5 g/dL (6.4-8.9)
[2023-11-18] MEDS: POTASSIUM CHLOR 10 MEQ/100 ML 10 MEQ/100 ML BAG IV STA (22:45)
[2023-11-18] MEDS: POTASSIUM CHLORIDE 20 MEQ/15 ML UDC PO STA (22:45)
[2023-11-18] MEDS: SODIUM CHLORIDE 0.9% 500 ML IV STA (22:53)
[2023-11-18 23:36] VITALS: BP 103/73; O2SAT 100
[2023-11-19] MEDS: ONDANSETRON 4 MG/2 ML VIAL IVP STA
== END 2023-11-19 00:13 | disposition home or self-care (01) ==
LOC: EDUNIT# → ED 20:43
DX: R53.1 Weakness (principal); M54.9 Dorsalgia, unspecified; G89.29 Other chronic pain; I10 Essential (primary) hypertension; E11.42 Type 2 diabetes mellitus with diabetic polyneuropathy; Z79.4 Long term (current) use of insulin; Z63.79 Other stressful life events affecting family and household
CPT/HCPCS: 36415; 80053; 83690; 85025; 93005; 96365; 96375; 99284; A9270

== ENCOUNTER 2024-01-07 21:40 | Outpatient (CLI) | payer MEDICARE | END 2024-01-07 23:59 | disposition left against medical advice (07) | LOC: EMS 21:40 | DX: S49.92XA Unspecified injury of left shoulder and upper arm, initial encounter (principal); W01.0XXA Fall on same level from slipping, tripping and stumbling without subsequent striking against object, initial encounter; Y92.009 Unspecified place in unspecified non-institutional (private) residence as the place of occurrence of the external cause ==

== ENCOUNTER 2024-01-08 02:12 | Outpatient (CLI) | payer MEDICARE | END 2024-01-08 23:59 | disposition EMS.NT | LOC: EMS 02:12 | DX: M25.512 Pain in left shoulder (principal); W18.30XA Fall on same level, unspecified, initial encounter ==

== ENCOUNTER 2024-01-08 03:07 | Emergency (ER) | payer MEDICARE ==
--- NOTE | 2024-01-08 03:38 | ED Physician Documentation ---
PD HPI UPPER EXT INJURY - Stated complaint Stated Complaint: GLF/L SIDE ARM PX - Chief complaint Chief Complaint: Trauma Ext - History obtained from History obtained from: Patient, EMS - Additonal information Additional information: BIBA. HPI from patient. Patient presents with complaint of left shoulder pain. Patient is left-handed/[id number]. Patient tells me that she fell at approximately 6:30 PM last night at home due to loss of balance. She says that balance issues are not new for her. She denies LOC, headache, neck pain. She denies weakness, numbness. The left shoulder pain is worse with palpation, movement. Review of Systems Cardiac: reports: Reviewed and negative Respiratory: reports: Reviewed and negative GI: reports: Reviewed and negative Musculoskeletal: reports: Extremity pain, Joint pain. 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: None : Nocturia, Frequency HEENT: Chronic vision loss, Chronic sinusitis, Chronic hearing loss Psych: Depression, Anxiety, Panic attacks Musculoskeletal: Osteoarthritis, Fibromyalgia, Osteoporosis, Chronic back pain, Other Derm: None - Past Surgical History Past Surgical History: Yes General: Cholecystectomy, Other 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, Knee replacement /REMOTE SENSING SPECIALIST: 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 HEENT: Other - Present Medications Home Medications: Ambulatory Orders Medication Instructions Recorded Confirmed Calcium Carbonate/Vitamin D3 1 cap PO DAILY 08/18/15 01/08/24 [Calcium 600Mg-D3 400 Unit Sfgl] Lactobacillus Rhamnosus GG 1 cap PO BID 02/10/19 01/08/24 [Culturelle] Fluticasone Propion/Salmeterol 1 puffs INH BID 01/31/23 01/08/24 [Wixela 250-50 Inhub] Levothyroxine [Synthroid] 112 mcg PO QDAC 01/31/23 01/08/24 Pantoprazole Sodium 40 mg PO QDAC 01/31/23 01/08/24 SITagliptin [Januvia] 100 mg PO DAILY 01/31/23 01/08/24 Acetaminophen [Tylenol] 650 mg PO Q4HR PRN tab 02/08/23 01/08/24 Amox/Clav 875/125 [Augmentin 1 tablet PO Q12H 4 Days #8 tablet 02/08/23 01/08/24 875/125 Tab] Bacillus Coag/Hyperimmune Egg 1 each PO BID #14 cap 02/08/23 01/08/24 [Probiomax Ig 26 Df Capsule] Buprenorphine HCl/Naloxone HCl 0.5 tab SL TID tab 02/08/23 01/08/24 [Suboxone 8-2 mg Tab] Gabapentin [Neurontin] 300 mg PO BID cap 02/08/23 01/08/24 Multivitamin W/Minerals [Theragran 1 tab PO DAILYWM tab 02/08/23 01/08/24 M] Potassium Chloride [K-Dur] 20 meq PO DAILYWM #30 tab 02/08/23 01/08/24 Zinc Oxide 20% Oint [Zinc Oxide] 1 applic TOP PRN PRN #1 each 02/08/23 01/08/24 guaiFENesin [Mucinex] 600 mg PO BID #10 tab 02/08/23 01/08/24 nadoloL [Corgard] 20 mg PO DAILY #1 tablet 02/08/23 01/08/24 oxyCODONE [Roxicodone] 5 mg PO BID tab 02/08/23 01/08/24 tiZANidine [Zanaflex] 1 mg PO BID tab 02/08/23 01/08/24 traZODone [Desyrel] 50 mg PO QPM tab 02/08/23 01/08/24 Potassium Chloride [Micro-K] 10 meq PO QDAC #14 tab 11/18/23 01/08/24 oxyCODONE [Roxicodone] 5 - 10 mg PO Q6H PRN #14 tablet 01/08/24 - Allergies Allergies/Adverse Reactions: Allergies Allergy/AdvReac Type Severity Reaction Status Date / Time metformin Allergy Severe "HORRIFIC" Verified 01/08/24 03:22 duloxetine Allergy Hives Verified 01/08/24 03:22 hydromorphone [From Dilaudid] Allergy Rash Verified 01/08/24 03:22 - Social History Does the pt smoke?: No Smoking Status: Never smoker Does the pt drink ETOH?: No Does the pt have substance abuse?: No - Immunizations Immunizations are current?: Yes - POLST Patient has POLST: No POLST Status: Full Code PD ED PE NORMAL - Vitals Vital signs reviewed: Yes - General General: Alert and oriented X 3, Well developed/nourished, Other (appears uncomfortable/mild-moderate painful distress) - HEENT HEENT: PERRL, EOMI, Other (faint echymosis on chin without bony tenderness) - Neck Neck: Supple, no meningeal sign, No bony TTP - Cardiac Cardiac: RRR, No murmur - Respiratory Respiratory: No respiratory distress, Clear bilaterally - Abdomen Abdomen: Soft, Non tender, Non distended PD ED PE EXPANDED - Extremities Extremities: Tenderness, Limited ROM, Left shoulder, Other (LUE NVI (LTS intact distally with brisk capillary refill in fingertips, LTS intact over lateral aspect of deltoid)) Results - Vitals Vitals: Vital Signs - 24 hr 01/08/24 01/08/24 01/08/24 03:16 03:30 04:37 Temperature 36.3 C L Heart Rate 84 82 86 Respiratory 16 18 Rate Blood Pressure 152/97 H 149/91 H O2 Saturation 100 98 Oxygen O2 Source [] Room air O2 Source [] Room air O2 Source Room air - Rads (name of study) left shoulder xrays Relevant Findings:: Prelim report reviewed, EMP independent interpretation of test (three-part fracture with mild displacement of greater tuberosity, minimal displacement of transverse fracture of humeral neck ), See rad report PD Medical Decision Making - ED course Complexity details: reviewed results, re-evaluated patient, considered differential, d/w patient ED course: 3-part fracture of the left shoulder (proximal humerus) is noted, above. Displacement is minimal of the transverse fracture of the humeral neck, mildly greater tuberosity. She is neurovascularly intact on exam. The patient is on chronic pain medication (oxycodone); patient states she is currently out of the oxycodone. She says she is due for refill within the next few days. Per [facility] records, it appears her most recent refill was for oxycodone 5mg #60 (30 day supply) filled 12/11/23; she should have a few tablets of this left if this information is correct. However, given that she has an obvious and demonstrable painful injury, I am willing to prescribe her a short course of oxycodone until she can be seen in follow-up and hopefully enough until she obtains a refill of her chronic pain medication. She is given 10mg oxycodone in ED. I very specifically instructed her to not drink any alcohol while taking this medication and to avoid other sedating medications, as well. I am prescribing a short course of short-acting opioid pain medication for this patient. 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 Given the obvious, demonstrable painful injury, I am providing her with a short course of oxycodone. I have discussed that the opioids are for short term therapy only, and will not be refilled from the ED. Departure - Departure Disposition: 01 Home, Self Care Clinical Impression: Proximal humeral fracture Qualifiers: Encounter type: initial encounter Fracture type: closed Fracture morphology: unspecified fracture morphology Laterality: left Qualified Code(s): S42.202A - Unspecified fracture of upper end of left humerus, initial encounter for closed fracture Condition: Good Instructions: ED Fx Shoulder, ED Sling Follow-Up: Eloisa Rashid MD [Primary Care Provider] - Khadar Stanford MD [Provider Admit Priv/Credential] - Prescriptions: oxyCODONE [Roxicodone] 5 - 10 mg PO Q6H PRN #14 tablet PRN Reason: Moderate Pain (Level 4-6) Comments: The x-rays show that you have broken your left shoulder (humerus fracture). Follow-up with your primary care provider within the next week. I have electronically submitted a prescription for oxycodone (narcotic/opiate pain medication) to the [facility] pharmacy in [place]. I am prescribing a short course of narcotic pain medication for you. These are potentially dangerous and addictive medications that should be used carefully. These medications may constipate you. Take an dqhf-lso-tedkmgp stool softener (docusate) twice daily with plenty of water while taking these medications. If you go 24 hours without a bowel movement, take wans-[id number] miralax, per package instructions. Do not drink or drive while taking these medications. If you received narcotic or sedating medications while in the emergency department, do not drive for 24 hours. Store this medication in a safe, secure place and out of reach of children. It is a violation of federal law to give or sell this medication to another person or to use in a manner other than prescribed. The ED will not refill narcotic prescriptions, including prescriptions lost or stolen. To dispose of unwanted medications: 1. [facility] [address] in [place] has a medication drop box. They accept prescription medications (in pill form) Tuesday through Tuesday 9:00 a.m. to 5:00 p.m. 2. The [facility] [employer] accepts prescription medications (in pill form only) for disposal year round. Call for more information. 3. Contact the [facility] for the next [facility] sponsored prescription drug collection event. , [phone], or [phone]; Forms: PCP List Discharge Date/Time: 01/08/24 04:38
[2024-01-08] MEDS: oxyCODONE 5 MG TABLET PO STA (04:04)
[2024-01-08 04:41] VITALS: BP 149/91; O2SAT 98
--- NOTE | 2024-01-08 07:46 | XRAY Report ---
PROCEDURE: Shoulder 2+V LT INDICATIONS: GLF/deformity to L shouder; c/o pain TECHNIQUE: 3 views of the shoulder were acquired. COMPARISON: Shoulder radiograph dated 02/04/2023 and 01/30/2023. FINDINGS: Bones: Acute slightly comminuted and impacted fracture involving proximal lateral shaft/surgical nec k is seen with superior and anterior medial displacement of proximal humeral shaft in relation to hum eral head. There is likely involvement of greater and lesser tuberosities. No dislocation. Moderate a cromioclavicular joint and glenohumeral joint osteoarthritic changes are seen. No suspicious bony les ions. Visualized ribs appear intact. Soft tissues: No suspicious soft tissue calcifications. The visualized lungs are within normal limi ts. IMPRESSION: Acute slightly comminuted and impacted proximal left humeral fracture as above.. Reviewed by: Tony Moreno MD on 01/08/2024 7:44 AM PDT Approved by: Tony Moreno MD on 01/08/2024 7:44 AM PDT Station ID: [id number]
== END 2024-01-08 04:38 | disposition home or self-care (01) ==
LOC: ED 03:07
DX: S42.202A Unspecified fracture of upper end of left humerus, initial encounter for closed fracture (principal); W19.XXXA Unspecified fall, initial encounter; Y92.009 Unspecified place in unspecified non-institutional (private) residence as the place of occurrence of the external cause; I10 Essential (primary) hypertension; J44.9 Chronic obstructive pulmonary disease, unspecified; E11.42 Type 2 diabetes mellitus with diabetic polyneuropathy
CPT/HCPCS: 73030; 99283; 99284; A9270

== ENCOUNTER 2024-05-14 14:09 | Outpatient (CLI) | payer MEDICARE | END 2024-05-14 14:10 | disposition critical access hospital (66) | LOC: EMS 14:09 | DX: R41.82 Altered mental status, unspecified (principal); R03.0 Elevated blood-pressure reading, without diagnosis of hypertension; R06.82 Tachypnea, not elsewhere classified | CPT/HCPCS: A0425; A0429 ==

== ENCOUNTER 2024-05-14 14:28 | Emergency (ER) | payer MEDICARE ==
--- NOTE | 2024-05-14 14:44 | ED Physician Documentation ---
History of Present Illness - Stated complaint Stated Complaint: AMS/FALL ETOH - Chief complaint Chief Complaint: Neuro - Additonal information Additional information: 68-year-old female with complex past medical history including but not limited to opioid abuse, hypertension, hypercholesterolemia, peripheral vascular disease, coronary artery disease, COPD, dementia, type 2 diabetes, hypothyroidism, portal vein thrombosis presents emergency department for altered mental status. Patient's states that yesterday afternoon she went to [facility] and about 15 minutes after returning from [facility] she fell asleep on the couch and was not acting like herself. She was saying things that did not make any sense to the she kept repeating herself saying okay even though he was not in the room and he also found her to be incontinent on the couch which is unlike her baseline. When the told her that she was incontinent and tried to help her to get her to change the seemed to be unfazed. He said that he may be small some alcohol nerve but he said that there is been no change in her behavior mannerisms from yesterday to today so he does not know where she would have gotten the alcohol but this is something of concern of the . The patient appears to be altered she is alert and oriented to self and year but she is unable to answer who the president is, the month, or what kind of facility that we are currently on. PD PAST MEDICAL HISTORY - Past Medical History Past Medical History: Yes Cardiovascular: Hypertension, High cholesterol, Coronary artery disease, Peripheral Vascular Disease, Other Respiratory: COPD Neuro: Dementia, Headaches, Peripheral neuropathy, Other Endocrine/Autoimmune: Type 2 diabetes, HyPOthyroidism GI: GERD, Esophageal varices, Ulcers, C.difficile, Chronic constipation, Cirrhosis GUIDANCE CONSULTANT: None : Nocturia, Frequency HEENT: Chronic vision loss, Chronic sinusitis, Chronic hearing loss Psych: Depression, Anxiety, Panic attacks Musculoskeletal: Osteoarthritis, Fibromyalgia, Osteoporosis, Chronic back pain, Other Derm: None - Past Surgical History Past Surgical History: Yes General: Cholecystectomy, Other 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, Knee replacement /GUIDANCE CONSULTANT: 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 HEENT: Other - Present Medications Home Medications: Ambulatory Orders Medication Instructions Recorded Confirmed Calcium Carbonate/Vitamin D3 1 cap PO DAILY 08/18/15 01/08/24 [Calcium 600Mg-D3 400 Unit Sfgl] Lactobacillus Rhamnosus GG 1 cap PO BID 02/10/19 01/08/24 [Culturelle] Fluticasone Propion/Salmeterol 1 puffs INH BID 01/31/23 01/08/24 [Wixela 250-50 Inhub] Levothyroxine [Synthroid] 112 mcg PO QDAC 01/31/23 01/08/24 Pantoprazole Sodium 40 mg PO QDAC 01/31/23 01/08/24 SITagliptin [Januvia] 100 mg PO DAILY 01/31/23 01/08/24 Acetaminophen [Tylenol] 650 mg PO Q4HR PRN tab 02/08/23 01/08/24 Amox/Clav 875/125 [Augmentin 1 tablet PO Q12H 4 Days #8 tablet 02/08/23 01/08/24 875/125 Tab] Bacillus Coag/Hyperimmune Egg 1 each PO BID #14 cap 02/08/23 01/08/24 [Probiomax Ig 26 Df Capsule] Buprenorphine HCl/Naloxone HCl 0.5 tab SL TID tab 02/08/23 01/08/24 [Suboxone 8-2 mg Tab] Gabapentin [Neurontin] 300 mg PO BID cap 02/08/23 01/08/24 Multivitamin W/Minerals [Theragran 1 tab PO DAILYWM tab 02/08/23 01/08/24 M] Potassium Chloride [K-Dur] 20 meq PO DAILYWM #30 tab 02/08/23 01/08/24 Zinc Oxide 20% Oint [Zinc Oxide] 1 applic TOP PRN PRN #1 each 02/08/23 01/08/24 guaiFENesin [Mucinex] 600 mg PO BID #10 tab 02/08/23 01/08/24 nadoloL [Corgard] 20 mg PO DAILY #1 tablet 02/08/23 01/08/24 oxyCODONE [Roxicodone] 5 mg PO BID tab 02/08/23 01/08/24 tiZANidine [Zanaflex] 1 mg PO BID tab 02/08/23 01/08/24 traZODone [Desyrel] 50 mg PO QPM tab 02/08/23 01/08/24 Potassium Chloride [Micro-K] 10 meq PO QDAC #14 tab 11/18/23 01/08/24 oxyCODONE [Roxicodone] 5 - 10 mg PO Q6H PRN #14 tablet 01/08/24 - Allergies Allergies/Adverse Reactions: Allergies Allergy/AdvReac Type Severity Reaction Status Date / Time metformin Allergy Severe "HORRIFIC" Verified 05/14/24 14:35 duloxetine Allergy Hives Verified 05/14/24 14:35 hydromorphone [From Dilaudid] Allergy Rash Verified 05/14/24 14:35 - Social History Does the pt smoke?: No Smoking Status: Never smoker Does the pt drink ETOH?: No Does the pt have substance abuse?: No - Immunizations Immunizations are current?: Yes - POLST Patient has POLST: No POLST Status: Full Code PD ED PE NORMAL - Vitals Vital signs reviewed: Yes - General General: Other (Cachectic, Alert and oriented x 1) - HEENT HEENT: Atraumatic, PERRL. No: Moist mucous membranes - Neck Neck: No bony TTP, C-Spine cleared by NEXUS criteria - Cardiac Cardiac: RRR, Other (tachy) - Respiratory Respiratory: No respiratory distress, Clear bilaterally - Abdomen Abdomen: Normal bowel sounds, Soft, Non tender, Non distended, No organomegaly - Back Back: No CVA TTP - Derm Derm: Normal color, Warm and dry, No rash - Extremities Extremities: Other (generalized weakness) PD ED PE EXPANDED - Neuro Neuro: Confused, Disoriented, Weakness, PERRL, Dysarthria. No: Normal Speech, Normal gait, Normal finger nose, Normal speech Results - Vitals Vitals: Vital Signs - 24 hr 05/14/24 05/14/24 05/14/24 14:35 16:33 18:00 Temperature 36.5 C Heart Rate 99 92 96 Respiratory 18 18 Rate Blood Pressure 157/100 H 159/115 H 160/106 H O2 Saturation 99 93 92 If not protocol 6 : Oxygen Flow, liters/minute 05/14/24 05/14/24 18:30 19:32 Temperature Heart Rate 92 94 Respiratory 18 Rate Blood Pressure 158/113 H 177/152 H O2 Saturation 94 98 If not protocol : Oxygen Flow, liters/minute Oxygen O2 Source [With Activity] Room air O2 Source [Without Activity] Room air O2 Source Room air - Labs Labs: Laboratory Tests 05/14/24 05/14/24 05/14/24 14:59 14:59 17:25 WBC 12.5 H RBC 4.65 Hgb 15.4 Hct 45.2 MCV 97.2 MCH 33.1 H MCHC 34.1 RDW 15.9 H Plt Count 243 MPV 9.1 Neut # (Auto) 8.5 H Lymph # (Auto) 2.9 [place] # (Auto) 0.7 Eos # (Auto) 0.1 Baso # (Auto) 0.2 H Absolute Nucleated RBC 0.00 Nucleated RBC % 0.0 Sodium 144 Potassium 3.5 Chloride 106 Carbon Dioxide 21 Anion Gap 17.0 H BUN 7 Creatinine 0.5 L Estimated GFR (MDRD) 123 Glucose 124 H Calcium 8.9 Magnesium 1.3 L Total Bilirubin 0.7 AST 74 H ALT 58 Alkaline Phosphatase 132 H Total Protein 7.3 Albumin 3.8 Globulin 3.5 Albumin/Globulin Ratio 1.1 Lipase 14 Urine Color YELLOW Urine Clarity CLEAR Urine pH 6.0 Ur Specific [place] 1.015 Urine Protein NEGATIVE Urine Glucose (UA) NEGATIVE Urine Ketones 15 H Urine Occult Blood TRACE-INTA Urine Nitrite NEGATIVE Urine Bilirubin NEGATIVE Urine Urobilinogen 0.2 (NORMAL) Ur Leukocyte Esterase NEGATIVE Ur Microscopic Review NOT INDICATED Urine Culture Comments NOT INDICATED Ethyl Alcohol 309.3 - Rads (name of study) Angio head neck CT Relevant Findings:: Final report received, EMP independent interpretation of test, Other (No significant intracranial arterial abnormality seen.No neck arterial abnormalities visualized.) Cervical spine without Relevant Findings:: Final report received, EMP independent interpretation of test, Other (No acute cervical bony abnormalities or subluxations.) Head CT without Relevant Findings:: Final report received, EMP independent interpretation of test, Other (No acute intracranial pathology.) PD Medical Decision Making - ED course ED course: 68-year-old female presents emergency department for altered mental status. says that last night he originally smelled some alcohol on her but he is confused because she still is altered because he has not been seeing her drinking. Labs came back for further evaluation she does have mild leukocytosis 12.5 no anemia mild hypomagnesemia 1.3 replaced with 400 mg magnesium oxide. Slightly elevated alk phos at 132. Urinalysis is unremarkable no leukocytes or nitrates. Alcohol level was drawn and was found to be a 309.3. When I asked the patient how much she has had to drink today she continues to deny any alcohol intake. Patient's is at bedside and says that he has not been seeing her drink patient denies any urinalysis given her alcohol. Head CT was complete for further evaluation no acute intracranial abnormalities or findings. CT angio head and neck was also complete no arterial head or neck abnormalities and CT cervical spine was also complete no subluxation no bony abnormalities. Patient was monitored for several hours she was given a liter of IV fluids and eventually sobered up to the point where she is able to get herself out of bed and get herself dressed and was asking to discharge home. She does not want any resources does not want to go to rehab and does not want to withdraw from alcohol. She said that she has no history of alcohol withdrawal seizures I informed the that she needs to be very careful if he is going to withhold alcohol from the patient as she can go into withdrawal seizures or even and he is aware to limit her alcohol intake as she withdrawals if this is something she does choose to do. She has an appointment at 940 in the morning with her primary care provider for Will tomorrow morning where they would like to discuss ongoing withdrawal symptoms. Patient is safe for discharge at this time she is stable on her feet and able to ambulate without any assistance. Return precautions given. Departure - Departure Disposition: 01 Home, Self Care Clinical Impression: EtOH dependence, Elevated ETOH level Instructions: ED Overdose Alcohol, ED Withdrawal Alcohol, ED Alcohol Intoxication Comments: Thank you for trusting us with your care. We have completed labs, head CT, cervical CT, CT angio head and neck and all findings have been found to be within normal limits. You had a very high alcohol level of 309.3 it is very important that you cut back on taking alcohol you should not cut off taking alcohol cold turkey as this can cause alcohol withdrawal seizures or . Please remind her to help you with slowly working on weaning off of alcohol and it is very very important that you follow-up with your primary care provider to your appointment tomorrow first thing in the morning. Forms: PCP List Discharge Date/Time: 05/14/24 19:38
[2024-05-14] MEDS: SODIUM CHLORIDE 0.9% 1,000 ML IV ONE (14:45)
[2024-05-14 15:05] LABS: BASOPHILS # (AUTO) 0.2 10^3/uL (0.0-0.1); BASOPHILS % (AUTO) 1.5 %; EOSINOPHILS # (AUTO) 0.1 10^3/uL (0.0-0.7); EOSINOPHILS % (AUTO) 0.9 %; HCT - HEMATOCRIT 45.2 % (37.0-47.0); HGB - HEMOGLOBIN 15.4 g/dL (12.0-16.0); LYMPHOCYTES # (AUTO) 2.9 10^3/uL (1.5-3.5); LYMPHOCYTES % (AUTO) 23.4 %; MEAN CORPUSCULAR HEMOGLOBIN 33.1 pg (27.0-31.0); MEAN CORPUSCULAR HGB CONC 34.1 g/dL (32.0-36.0); MEAN CORPUSCULAR VOLUME 97.2 fL (81.0-99.0); MEAN PLATELET VOLUME 9.1 fL (7.9-10.8); MONOCYTES # (AUTO) 0.7 10^3/uL (0.0-1.0); MONOCYTES % (AUTO) 5.5 %; NEUTROPHILS # (AUTO) 8.5 10^3/uL (1.5-6.6); PLT - PLATELET COUNT 243 10^3/uL (130-450); RED BLOOD COUNT 4.65 10^6/uL (4.20-5.40); RED CELL DISTRIBUTION WIDTH 15.9 % (12.0-15.0); WHITE BLOOD COUNT 12.5 x10^3/uL (4.8-10.8)
[2024-05-14] MEDS ORDERED: iohexoL-300 100 ML VIAL ONE (15:15)
[2024-05-14 15:21] LABS: ETOH - ETHANOL 309.3 mg/dL; MAGNESIUM 1.3 mg/dL (1.7-2.3)
[2024-05-14 15:25] LABS: ALBUMIN 3.8 g/dL (3.2-5.5); ALBUMIN/GLOBULIN RATIO 1.1 (1.0-2.2); BILIRUBIN,TOTAL 0.7 mg/dL (0.2-1.0); CALCIUM 8.9 mg/dL (8.5-10.3); CREATININE 0.5 mg/dL (0.6-1.3); POTASSIUM 3.5 mmol/L (3.5-4.5); TOTAL PROTEIN 7.3 g/dL (6.4-8.9)
[2024-05-14] MEDS: iohexoL-300 100 ML VIAL IVP ONE (16:36)
[2024-05-14] MEDS: MAGNESIUM OXIDE 400 MG TABLET PO STA ×2 (16:45→16:47)
--- NOTE | 2024-05-14 16:50 | CT Report ---
PROCEDURE: Head WO INDICATIONS: AMS, GLF, ETOH TECHNIQUE: Noncontrast 4.5 mm thick angled axial sections acquired from the foramen magnum to the vertex. For r adiation dose reduction, the following was used: automated exposure control, adjustment of mA and/or kV according to patient size. COMPARISON: 04/29/2020. FINDINGS: Image quality: Excellent. CSF spaces: Basal cisterns are patent. No extra-axial fluid collections. Ventricles are normal in size and shape. Brain: No midline shift. No intracranial masses or hemorrhage. [place]-white matter interface is norm al. Intracranial carotid calcifications. Age-related volume loss and small vessel ischemic change. Skull and face: Calvarium and visualized facial bones are intact, without suspicious lesions. Sinuses: Visualized sinuses and mastoids are clear. IMPRESSION: No acute intracranial pathology. Reviewed by: Toro Linder MD on 05/14/2024 4:49 PM PDT Approved by: Toro Linder MD on 05/14/2024 4:49 PM PDT Station ID: [id number]
--- NOTE | 2024-05-14 16:53 | CT Report ---
PROCEDURE: Cervical Spine WO INDICATIONS: ETOH, GLF TECHNIQUE: Noncontrast 3 mm thick sections acquired from the skull base to the T4 level. Sagittal and coronal r eformats were then constructed. For radiation dose reduction, the following was used: automated exp osure control, adjustment of mA and/or kV according to patient size. COMPARISON: None. FINDINGS: Image quality: Excellent. Bones: No fractures or dislocations. Visualized superior ribs are intact. Cervical spondylitic juan jose nge. Soft tissues: Prevertebral soft tissues are normal in thickness. No paravertebral hematomas. No ap ical pneumothoraces. IMPRESSION: No acute, displaced fracture or traumatic subluxation. Cervical spondylosis Reviewed by: Toro Linder MD on 05/14/2024 4:51 PM PDT Approved by: Toro Linder MD on 05/14/2024 4:51 PM PDT Station ID: [id number]
--- NOTE | 2024-05-14 16:57 | CT Report ---
PROCEDURE: Angio Head/Neck INDICATIONS: AMS r/o stroke TECHNIQUE: After the administration of intravenous contrast, 1 mm thick sections acquired from the aortic arch t hrough the [place]. 3-dimensional yuqkwqg-cgnmulcyg-iycikfdehn (MIP) and/or volume renderin g reformats were acquired of the central intracranial vasculature and neck separately. For radiation dose reduction, the following was used: automated exposure control, adjustment of mA and/or kV acco rding to patient size. CONTRAST: 80ml [id number] COMPARISON: Head CT without contrast from the same date. FINDINGS: Image quality: Diagnostic. HEAD CT: CSF Spaces: Basal cisterns are patent. No extra-axial fluid collections. Ventricles are normal in size and shape. Brain: No significant abnormality is seen for scanning technique. Skull and face: Calvarium and visualized facial bones appear intact, without suspicious lesions. Sinuses: Visualized sinuses and mastoids are clear. HEAD CT ANGIOGRAPHY: Anterior circulation: Intracranial internal carotid arteries are normal in size and flow. Normal jose iant atresia of the A1 segment of the left anterior cerebral artery with a patent anterior communicat ing artery giving rise to the left A2 segment anterior cerebral artery. The flow within the paired an terior cerebral arteries is normal and symmetric. The flow within the middle cerebral arteries is no rmal and symmetric. The anterior communicating artery is seen. No aneurysms are seen. Posterior circulation: There is normal variant diminutive V4 segment of the left vertebral artery. Th e right vertebral artery is dominant and patent. They give rise to a normal caliber basilar artery. F low within the posterior cerebral arteries is normal and symmetric. There is normal variant aida gin of the right posterior cerebral artery off the anterior circulation. No aneurysms are seen. NECK CT ANGIOGRAPHY: Carotid system: The great vessels demonstrate a conventional anatomy as they arise from the aortic a rch. The origins of the common carotid arteries appear patent. The common carotid arteries demonstr ate normal caliber and courses. The bifurcation regions are both widely patent. The internal caroti d arteries demonstrate normal calibers and courses. Posterior circulation: The origins of the vertebral arteries both appear widely patent. The more james perior extracranial portions of both vertebral arteries also demonstrate normal courses and calibers. There is normal variant diminutive V4 segment of the left vertebral artery. They join to form a norm al appearing basilar artery. Soft tissues: Visualized neck soft tissues demonstrate no suspicious abnormalities. Bones: No suspicious bony lesions. Visualized cervical spine appears normally aligned. IMPRESSION: No significant intracranial arterial abnormality is seen. 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 The estimate of stenosis included in the report of the imaging study was calculated using the NASCET method Reviewed by: Toro Linder MD on 05/14/2024 4:56 PM PDT Approved by: Toro Linder MD on 05/14/2024 4:56 PM PDT Station ID: [id number]
[2024-05-14 17:35] LABS: BILIRUBIN,URINE NEGATIVE (NEGATIVE); GLUCOSE, URINE (UA) NEGATIVE (NEGATIVE); KETONES,URINE (UA) 15 mg/dL (NEGATIVE); LEUKOCYTE ESTERASE, URINE NEGATIVE (NEGATIVE); NITRITE,URINE NEGATIVE (NEGATIVE); OCCULT BLOOD,URINE TRACE-INTA (NEGATIVE); PROTEIN,URINE NEGATIVE (NEGATIVE); UROBILINOGEN,URINE 0.2 (NORMAL) E.U./dL (NORMAL)
[2024-05-14 17:37] LABS: CLARITY,URINE CLEAR (CLEAR)
[2024-05-14 19:37] VITALS: BP 177/152; O2SAT 98
== END 2024-05-14 19:38 | disposition home or self-care (01) ==
LOC: EDUNIT# → ED 14:28
DX: F10.20 Alcohol dependence, uncomplicated (principal); M47.812 Spondylosis without myelopathy or radiculopathy, cervical region; I10 Essential (primary) hypertension; E78.00 Pure hypercholesterolemia, unspecified; I25.10 Atherosclerotic heart disease of native coronary artery without angina pectoris; J44.9 Chronic obstructive pulmonary disease, unspecified; I73.9 Peripheral vascular disease, unspecified; F03.90 Unspecified dementia, unspecified severity, without behavioral disturbance, psychotic disturbance, mood disturbance, and anxiety; E11.42 Type 2 diabetes mellitus with diabetic polyneuropathy; M79.7 Fibromyalgia; E03.9 Hypothyroidism, unspecified; K74.60 Unspecified cirrhosis of liver; Z79.899 Other long term (current) drug therapy
CPT/HCPCS: 36415; 70450; 70496; 70498; 72125; 80053; 81003; 83690; 83735; 85025; 96360; 96361; 99284; A9270; G0480; Q9967; 81001; 82077; 87086